=== PATIENT | female | born 1965 | race Caucasian/White ===

== ENCOUNTER → 2020-10-03 13:49 | Outpatient (BNVA) | payer OTHER, SELFPAY | PROVIDERS: PCP Internal Medicine; Visit Provider Nurse Practitioner | DX: Z76.89 Persons encountering health services in other specified circumstances (principal) ==

== ENCOUNTER → 2020-10-19 08:41 | Outpatient (BNVA) | payer OTHER, SELFPAY | PROVIDERS: PCP Internal Medicine; Visit Provider Nurse Practitioner | DX: Z76.89 Persons encountering health services in other specified circumstances (principal) ==

== ENCOUNTER → 2020-11-14 13:11 | Outpatient (BNVA) | payer OTHER, SELFPAY | PROVIDERS: PCP Internal Medicine; Visit Provider Nurse Practitioner ==

== ENCOUNTER 2020-11-16 07:49 | Day surgery (SDC) | payer OTHER, SELFPAY ==
--- NOTE | 2020-11-15 10:10 | P.CONAN_ITS ---
Documented by User: Jeanne Galicia 11/15/20 10:14 HPI - Anesthesia Eval Consult details Narrative: 55yo F for Upper Endoscopy PMFSH Past Medical History Medical History Anxiety and depression COPD (chronic obstructive pulmonary disease) Gout Hypertriglyceridemia Hypothyroid Medullary thyroid carcinoma Multiple endocrine neoplasia type 2A (MEN2A) Pheochromocytoma of left adrenal gland Pulmonary nodule Tobacco abuse Family History Family History Father Heart attack Mother Brain cancer Lung cancer Family/Other Diabetes Surgical History Surgical History H/O total adrenalectomy History of fusion of lumbar spine History of parathyroidectomy History of thyroidectomy History of tonsillectomy Hx of bilateral breast reduction surgery Hx of colonoscopy Status post RAMIREZ-BSO Social History Social History Household Members: Spouse and Children Alcohol intake: current Alcohol intake frequency: does not drink Smoking Status: Current every day smoker Tobacco Type: Cigarette Packs Per Day: 0.5 Cigarettes Per Day: 6 Substance Use Type: Marijuana Substance Use Frequency: Monthly Advance Directives: No Advance Directives Information Provided: Yes Current occupational status: disabled Meds Allergies Allergy/AdvReac Type Severity Reaction Status Date / Time codeine [Codeine] Allergy Mild N/V, Verified 11/14/20 11:44 HEADACHE, vomiting morphine [MORPHINE] Allergy Unknown VOMITING, Verified 11/14/20 11:44 HEADACHE, migraine, vomiting ethyl chloride Allergy Unknown Unknown Uncoded 11/14/20 11:44 lidocaine Allergy Unknown blood Uncoded 11/14/20 11:44 pressure drops Home Medications Medication Instructions Recorded Confirmed Type omeprazole 20 mg capsule,delayed 20 mg PO DAILY 09/04/20 11/14/20 History release albuterol sulfate 90 mcg/actuation 1 inh INHALATION QID 11/07/20 11/14/20 History aerosol inhaler amitriptyline 25 mg tablet 25 mg PO DAILY 11/07/20 11/14/20 History levothyroxine 125 mcg tablet 125 mcg PO DAILY 11/07/20 11/14/20 History bisacodyl 5 mg tablet,delayed 10 mg PO BEDTIME 11/14/20 11/14/20 History release Exam Exam Date and Time: November 15, 2020 1011 Pertinent Lab Results Pertinent Lab Results: Laboratory Tests 07/24/20 07/24/20 13:45 13:45 WBC 8.6 Hgb 14.9 Hct 47.0 Plt Count 284 Sodium 138 Potassium 4.7 Chloride 102 BUN 8 L Creatinine 0.79 Calcium 9.3 Narrative Narrative: ECHO 2019: Trivial pericard effusion, otherwise normal study Assessment and Plan Assessment Anesthesia Assessment: Chart Reviewed Documented by User: Ashish Mart 11/16/20 08:32 [facility] Past Medical History Medical History Anxiety and depression COPD (chronic obstructive pulmonary disease) Gout Hypertriglyceridemia Hypothyroid Medullary thyroid carcinoma Multiple endocrine neoplasia type 2A (MEN2A) Pheochromocytoma of left adrenal gland Pulmonary nodule Tobacco abuse Family History Family History Father Heart attack Mother Brain cancer Lung cancer Family/Other Diabetes Surgical History Surgical History H/O total adrenalectomy History of fusion of lumbar spine History of parathyroidectomy History of thyroidectomy History of tonsillectomy Hx of bilateral breast reduction surgery Hx of colonoscopy Status post RAMIREZ-BSO Social History Social History Household Members: Spouse and Children Alcohol intake: current Alcohol intake frequency: does not drink Smoking Status: Current every day smoker Tobacco Type: Cigarette Packs Per Day: 0.5 Cigarettes Per Day: 6 Substance Use Type: Marijuana Substance Use Frequency: Monthly Advance Directives: No Advance Directives Information Provided: Yes Current occupational status: disabled Meds Allergies Allergy/AdvReac Type Severity Reaction Status Date / Time codeine [Codeine] Allergy Mild N/V, Verified 11/14/20 11:44 HEADACHE, vomiting morphine [MORPHINE] Allergy Unknown VOMITING, Verified 11/14/20 11:44 HEADACHE, migraine, vomiting ethyl chloride Allergy Unknown Unknown Uncoded 11/14/20 11:44 lidocaine Allergy Unknown blood Uncoded 11/14/20 11:44 pressure drops Home Medications Medication Instructions Recorded Confirmed Type omeprazole 20 mg capsule,delayed 20 mg PO DAILY 09/04/20 11/14/20 History release albuterol sulfate 90 mcg/actuation 1 inh INHALATION QID 11/07/20 11/14/20 History aerosol inhaler amitriptyline 25 mg tablet 25 mg PO DAILY 11/07/20 11/14/20 History levothyroxine 125 mcg tablet 125 mcg PO DAILY 11/07/20 11/14/20 History bisacodyl 5 mg tablet,delayed 10 mg PO BEDTIME 11/14/20 11/14/20 History release Exam Airway Mallampati Class: II TM Dist: >3cm Neck ROM: Full Denture: Upper and Lower Loose/Missing/Broken Teeth: No Heart: [id number] Lungs: cta b/l Assessment and Plan Assessment Anesthesia Assessment: Anesthesia Plan Discussed, PAT Visit and Chart Reviewed Final Anesthetic Review NPO: Yes ASA Class: III Final Preanesthetic Review: No Changes in Pt Med Stat, Meds/Allgs Chart Reviewed, Consent Obtained/Reviewed and Anes Risks/Benef Reviewed Patient Risk: Low Procedure Risk: Low Assessment/Block/Sedation in SS: Assess/Block/Sedation-SS Anesthetic Plan Anesthetic Plan: MAC: and Agree w/ Assess. and Plan Disposition: Standard PACU
[2020-11-16 07:58] VITALS: BMI 27.4
[2020-11-16 08:02] VITALS: BP 138/75; PULSE 78; RESP 16; TEMP 36.2; O2SAT 97
[2020-11-16] MEDS: Lactated Ringers 1,000 ML 50 ML IVCONT (08:15)
--- NOTE | 2020-11-16 08:21 | MHC.SHP ---
Pre-Procedural Eval Section B Chief Complaint: reflux disease Allergies: Allergies Allergy/AdvReac Type Severity Reaction Status Date / Time codeine [Codeine] Allergy Mild N/V, Verified 11/14/20 11:44 HEADACHE, vomiting morphine [MORPHINE] Allergy Unknown VOMITING, Verified 11/14/20 11:44 HEADACHE, migraine, vomiting ethyl chloride Allergy Unknown Unknown Uncoded 11/14/20 11:44 lidocaine Allergy Unknown blood Uncoded 11/14/20 11:44 pressure drops Plan Diagnosis/Plan: Unchanged I have reviewed the history and physical and performed a pertinent physical examination on my patient. No changes have occurred unless specified.yes Patient also has a hx of Metastatic medullary thyroid cancer. Surgery right side of neck about 1 year ago. Episodic trouble swallowing points to area posterior pharynx--Cricopharyngeal area.
[2020-11-16 08:51] VITALS: BP 170/86; PULSE 77; RESP 16; TEMP 36.5; O2SAT 100
[2020-11-16 09:06] VITALS: BP 125/72; PULSE 77; RESP 17; TEMP 36.5; O2SAT 96
--- NOTE | 2020-11-16 09:06 | PM.PROC ---
Brief Operative Note Date of procedure: 11/16/20 Pre-op diagnosis: Odynophagia, GERD Post-op diagnosis: other (Hiatal hernia, soft changes ? GERD) Procedure: EGD with bx Anesthesia: MAC (Tam Saab CRNA) Surgeon: Stephanie Masterson Estimated blood loss (mL): 5 Pathology: other (random gastric, esophageal) Condition: stable Disposition: PACU
--- NOTE | 2020-11-16 09:24 | HO.POSTANES ---
Post Anesthesia Evaluation Post Anesthesia Evaluation Vital Signs: Vital Signs Temp Pulse Resp BP Pulse Ox 11/16/20 09:06 97.7 F 77 17 125/72 96 11/16/20 08:51 97.7 F 77 16 170/86 H 100 11/16/20 08:02 97.1 F 78 16 138/75 97 Anesthesia: Monitored Mental Status: Awake Pain Control: Satisfactory Nausea/Vomiting: None Hydration: Adequate Anesthesia-Related Issues: No Anes. Related Issues
--- NOTE | 2020-11-16 09:39 | OP_ITS ---
SURGEON: Stephanie Masterson MD PREOPERATIVE DIAGNOSIS: History of medullary thyroid cancer recurrent metastatic, odynophagia, history of gastroesophageal reflux disease, trouble swallowing. POSTOPERATIVE DIAGNOSIS: Hiatal hernia, history of gastroesophageal reflux disease, question of esophagitis. PROCEDURE PERFORMED: EGD with biopsy. ESTIMATED BLOOD LOSS: Less than 5 mL. COMPLICATIONS: No complications. ANESTHESIA: Type of anesthesia, monitored. ANESTHESIOLOGIST: Tam Saab CRNA ASSISTANTS: No bindery library technical assistant. SPECIMENS: Specimens removed; random gastric distal esophageal. APPLICATION SUPPORT INTERN: Dr. Masterson. CONDITION: Stable. FINDINGS: Video endoscope was introduced without difficulty. It was navigated into the posterior pharynx. There was moderate amount of soft tissue present. The arytenoid cartilage view showed mucosa to be puffy. There was loss of sharpness of the cartilages with edema of the surrounding mucosa and mild erythema. No yeast plaquing was noted. Vocal cords appeared clear. On entering into the esophagus, there was mild hyperemia in the distal region immediately distal to that there was 1 to 2 cm hiatal hernia. On entering the stomach, there appeared to be normal gastric mucosa. Duodenal bulb had slight edema and friability. Normal villi in the second duodenum. PLAN: This patient could have just a combination of esophageal spasm associated with undertreated GERD. There is a possibility always of the eosinophilic esophagitis in some of these patients. She denies any use of steroid inhalers at this point. She does have the underlying history of chronic medullary thyroid cancer which could carry with it a degree of immunosuppression. The patient will be re-seen in our office in an appropriate interval. GRAFT OR IMPLANTS: No grafts or implants. Stephanie Masterson MD MEN/MODL / [id number]
== END 2020-11-16 09:22 | disposition home or self-care (01) ==
PROVIDERS: PCP Internal Medicine; Visit Provider Internal Medicine Gastroenterology
PROC: 0DJ08ZZ Inspection of Upper Intestinal Tract, Via Natural or Artificial Opening Endoscopic (ICD-10-PCS; CPT 43235; principal; 2020-11-16 08:30)
DX: K21.9 Gastro-esophageal reflux disease without esophagitis (principal); R13.10 Dysphagia, unspecified; K44.9 Diaphragmatic hernia without obstruction or gangrene; J44.9 Chronic obstructive pulmonary disease, unspecified; F17.210 Nicotine dependence, cigarettes, uncomplicated; Z85.850 Personal history of malignant neoplasm of thyroid; Z79.899 Other long term (current) drug therapy; Z88.8 Allergy status to other drugs, medicaments and biological substances
CPT/HCPCS: 43239; 88305; 88342

== ENCOUNTER 2020-11-20 16:10 | Outpatient (REF) | payer OTHER, SELFPAY ==
--- NOTE | 2020-11-20 16:14 | US_ITS ---
EXAMINATION: US EXTREMITY NON-VASCULAR CLINICAL INFORMATION: Mass left upper limb. COMPARISON: Ultrasound left axilla 09/08/2017. TECHNIQUE: Limited imaging of left axilla is performed. FINDINGS: There is a hypoechoic focal area in the left axilla measuring 0.7 x 0.6 x 0.6 cm, avascular, most likely a small lipoma. Previously it measured 0.7 x 0.6 x 0.5 cm. US/US extremity nonvascular IMPRESSION: Hyperechoic lesion left axilla measuring 7 mm. It is unchanged compared to previous study 09/09/2017.
== END 2020-11-20 16:11 | disposition home or self-care (01) ==
LOC: HO.US 16:10
PROVIDERS: PCP Internal Medicine; Visit Provider Internal Medicine
DX: R22.32 Localized swelling, mass and lump, left upper limb (principal)
CPT/HCPCS: 76882

== ENCOUNTER → 2020-11-30 08:39 | Outpatient (BNVA) | payer OTHER, SELFPAY | PROVIDERS: PCP Internal Medicine; Visit Provider Nurse Practitioner ==

== ENCOUNTER → 2021-01-11 08:59 | Outpatient (BNVA) | payer OTHER, SELFPAY | PROVIDERS: PCP Internal Medicine; Visit Provider Nurse Practitioner | DX: R13.10 Dysphagia, unspecified (principal); R14.0 Abdominal distension (gaseous); B37.81 Candidal esophagitis; B37.0 Candidal stomatitis; K58.1 Irritable bowel syndrome with constipation; K21.9 Gastro-esophageal reflux disease without esophagitis; K59.04 Chronic idiopathic constipation; Z79.899 Other long term (current) drug therapy | CPT/HCPCS: 99212 ==

== ENCOUNTER → 2021-02-08 08:48 | Outpatient (BNVA) | payer OTHER, SELFPAY | PROVIDERS: PCP Internal Medicine; Visit Provider Nurse Practitioner ==

== ENCOUNTER → 2021-02-20 14:03 | Outpatient (BNVA) | payer OTHER, SELFPAY | PROVIDERS: PCP Internal Medicine; Visit Provider Orthopaedic Surgery | DX: M79.89 Other specified soft tissue disorders (principal) | CPT/HCPCS: 99202 ==

== ENCOUNTER 2021-03-08 13:42 | Day surgery (SDC) | payer OTHER, SELFPAY ==
--- NOTE | 2021-03-08 14:54 | MHC.SHP ---
Pre-Procedural Eval Section B Chief Complaint: soft tissue disorder Allergies: Allergies Allergy/AdvReac Type Severity Reaction Status Date / Time codeine [Codeine] Allergy Mild N/V, Verified 02/20/21 14:13 HEADACHE, vomiting morphine [MORPHINE] Allergy Unknown VOMITING, Verified 02/20/21 14:13 HEADACHE, migraine, vomiting ethyl chloride Allergy Unknown Unknown Uncoded 11/14/20 11:44 lidocaine Allergy Unknown blood Uncoded 11/14/20 11:44 pressure drops Plan I have reviewed the history and physical and performed a pertinent physical examination on my patient. No changes have occurred unless specified.
--- NOTE | 2021-03-08 14:54 | W.PM.OPN ---
Operative Note Operative Note Date of Service: 03/08/21 Narrative: Preop diagnosis: 1. Left palmar hand mass Postop diagnosis: same Procedure: 1. Left palmar hand mass excisional biopsy Surgeon: Zoila Hernandez MD Anesthesia: local block using 1% lidocaine with epinephrine Findings: There was an approximately 1 cm diameter meyers and spherical mass attached to the A1 dontae area of the left middle finger flexor tendon sheath. No evidence of similar material within the tendon sheath. The flexor tendons appear to be in good condition. EBL: Less than 5 mL Specimens: Left palmar hand mass for histopathology Complications: None Disposition: Brought to recovery room in stable condition Plan: Follow-up for 7-10 days for wound check and suture removal, check pathology Indications: The patient is 55 years old, with a left palmar hand mass. The risks and benefits of operative treatment including but not limited to risk of damage to blood vessels, nerves, tendons, infection, persistent pain, persistent symptoms, or possible need for additional surgery were discussed with the patient and the patient wishes to proceed with surgery. Procedure: Once consent was obtained a local block was performed using a combination of 1% lidocaine with epinephrine. The patient was then brought back to the operating suite and placed on the operative table in supine position. A tourniquet was applied to the proximal aspect of the left upper extremity and the limb was prepped and draped in a standard surgical fashion. Once assured that we had a good block, a 1.5 cm longitudinal incision was made centered over the left palmar hand mass. The incision was made through the skin to the subcutaneous tissues using a #15 blade. Dissection was made down to the level of the mass using tenotomy scissors with care being taken to protect the surrounding neurovascular structures. There was an approximately 1 cm diameter solid hand soft tissue mass attached to the A1 dontae aspect of the left middle finger flexor tendon sheath. The mass was dissected free from the flexor tendon sheath and the surrounding subcutaneous fat and was removed and placed on the back table to be sent for histopathology. It had the appearance of a possible giant cell tumor. The A1 dontae was also released by making a longitudinal incision in the A1 dontae to further evaluate the flexor tendons. None of this meyers material was found within the flexor tendon sheath. The flexor tendons themselves appeared to be in good condition. Once satisfied with our hand mass excisional biopsy the wound was copiously irrigated with normal saline and hemostasis was obtained with a brief period of local pressure. The skin edges were reapproximated with some 5.0 nylon suture material and a sterile dressing was applied. The patient appears to have tolerated the procedure well and with no complications. All digits were well vascularized at the conclusion of the case.
[2021-03-08 15:05] VITALS: BP 121/74; PULSE 79; RESP 16; TEMP 36.3; O2SAT 96
[2021-03-08 15:06] VITALS: BMI 28.2
[2021-03-08 17:08] VITALS: BP 115/66; PULSE 67; RESP 16; TEMP 36.3; O2SAT 96
== END 2021-03-08 17:25 | disposition home or self-care (01) ==
PROVIDERS: PCP Internal Medicine; Visit Provider Orthopaedic Surgery
PROC: (CPT 26115; principal; 2021-03-08 14:40)
DX: M79.89 Other specified soft tissue disorders (principal); J44.9 Chronic obstructive pulmonary disease, unspecified; Z79.899 Other long term (current) drug therapy; Z85.850 Personal history of malignant neoplasm of thyroid; F17.210 Nicotine dependence, cigarettes, uncomplicated; F12.90 Cannabis use, unspecified, uncomplicated; Z88.8 Allergy status to other drugs, medicaments and biological substances
CPT/HCPCS: 26115; 88307

== ENCOUNTER → 2021-03-20 12:39 | Outpatient (BNVA) | payer OTHER, SELFPAY | PROVIDERS: PCP Internal Medicine; Visit Provider Orthopaedic Surgery | DX: D48.1 Neoplasm of uncertain behavior of connective and other soft tissue (principal); M79.89 Other specified soft tissue disorders | CPT/HCPCS: 99212 ==

== ENCOUNTER → 2021-05-30 11:25 | Outpatient (BNVA) | payer OTHER, SELFPAY | PROVIDERS: PCP Internal Medicine; Visit Provider Orthopaedic Surgery ==

== ENCOUNTER → 2021-06-11 08:48 | Outpatient (BNVA) | payer OTHER, SELFPAY | PROVIDERS: PCP Internal Medicine; Visit Provider Nurse Practitioner ==

== ENCOUNTER 2021-10-05 13:53 | Outpatient (REF) | payer OTHER, SELFPAY ==
--- NOTE | ~2021-10-05 | MM_ITS ---
EXAMINATION: BONE DENSITOMETRY CLINICAL INDICATION: Multiple endocrine neoplasia. COMPARISON: This is the patient's baseline examination. TECHNIQUE: Using a [employer] DXA System (software version: 13.1) manufactured by [employer], dual-energy x-ray absorptiometry was performed of the left hip and left forearm radius 33%. The images are of good technical quality. Summary results are attached. FINDINGS: LEFT FEMUR, NECK: BMD 0.816 g/cm2, Z-score -0.8, T-score -1.6, osteopenia. LEFT FEMUR, TOTAL: BMD 0.784 g/cm2, Z-score -1.4, T-score -1.8, osteopenia. LEFT FOREARM RADIUS 33%: BMD 0.762 g/cm2, Z-score -0.8, T-score -1.3, osteopenia. IDENTIFIED RISK FACTORS: Hyperparathyroidism, tobacco use (current smoker), menopause, hysterectomy, bilateral oophorectomy. HISTORY OF FRACTURE: None listed. MEDICATIONS: None listed. MM/XR DEXA axial skeleton IMPRESSION: 1. DIAGNOSIS: Osteopenia based on the lowest T-score value of -1.8 in the total femur applying World Health Organization criteria. 2. 10-YEAR FRACTURE RISK PREDICTION, FRAX: Major osteoporotic fracture (clinical spine, forearm, hip or shoulder) 7.0%. Hip fracture 1.0%. 3. Treatment Recommendations: NOF guidelines recommend consideration for treatment in postmenopausal women and men age 50 and older presenting with the following: -A hip or vertebral (clinical or morphometric) fracture. -T-score less than or equal to -2.5 at the femoral neck or spine after appropriate evaluation to exclude secondary causes. -Low bone mass at the hip or spine and a 10-year fracture probability by FRAX of greater than or equal to 3% for hip fracture or greater than or equal to 20% for major osteoporotic fracture based on the [place] adapted WHO algorithm. 4. Other Recommendations: All treatment decisions require clinical judgment and consideration of individual patient factors, including patient preferences, comorbidities, previous drug use, risk factors not captured in the FRAX model (e.g. frailty, falls, vitamin D deficiency, increased bone turnover, interval significant decline in bone density) and possible under or overestimation of fracture risk by FRAX. Additional medical evaluation for secondary cause of low bone mineral density may be appropriate. FUTURE SCAN RECOMMENDATION: People with diagnosed cases of osteoporosis or at high risk for fracture should have regular bone mineral density tests. For patients eligible for Medicare, routine testing is allowed once every 2 years. The testing frequency can be increased to one year for patients who have rapidly progressing disease, those who are receiving or discontinuing medical therapy to restore bone mass, or have additional risk factors.
== END 2021-10-05 13:54 | disposition home or self-care (01) ==
LOC: HO.MAMMO 13:53
PROVIDERS: PCP Internal Medicine; Visit Provider Internal Medicine
DX: Z13.820 Encounter for screening for osteoporosis (principal); E31.22 Multiple endocrine neoplasia [MEN] type IIA; F17.200 Nicotine dependence, unspecified, uncomplicated; Z78.0 Asymptomatic menopausal state; Z90.710 Acquired absence of both cervix and uterus; Z90.722 Acquired absence of ovaries, bilateral
CPT/HCPCS: 77080

== ENCOUNTER 2021-12-03 13:16 | Outpatient (REF) | payer OTHER, SELFPAY ==
[2021-12-03 16:23] LABS: MANUAL DIFF FLAG NO
[2021-12-03 16:36] LABS: Basophils Percent Auto 0.6 % (0-2); Eosinophils Absolute Auto 0.1 X10*3/uL (0.0-0.4); Hematocrit 42.1 % (37.0-47.0); Hemoglobin 13.5 g/dl (12.0-16.0); Imm Gran Abs Auto 0.03 X10*3/uL (0.00-0.03); Imm Gran Pct Auto 0.5 % (0.0-0.4); Lymphocytes Percent Auto 31.6 % (20-40); Mean Corpuscular HGB Conc 32.1 g/dl (31.0-35.0); Mean Corpuscular Hemoglobin 28.1 pg (27.0-33.0); Mean Corpuscular Volume 87.5 fL (80.0-98.0); Mean Platelet Volume 12.3 fL (9.4-12.3); Monocytes Absolute Auto 0.6 X10*3/uL (0.1-1.2); Monocytes Percent Auto 8.8 % (2-11); Neutrophils Absolute Auto 3.6 x10*3/uL (2.0-8.3); Neutrophils Percent Auto 57.5 % (45-73); Platelet Count 240 X10*3/uL (160-400); Red Blood Count 4.81 X10*6/uL (4.20-5.50); Red Cell Distribution Width 14.6 % (11.0-16.0); White Blood Count 6.2 X10*3/uL (4.8-10.8)
[2021-12-03 17:08] LABS: Free T4 (Free Thyroxine) 1.14 ng/dL (0.71-1.85); Thyroid Stimulating Hormone 0.07 uIU/mL (0.32-4.0); Vitamin D 25-OH Total 20.9 ng/mL (>30)
[2021-12-03 18:51] LABS: Alanine Aminotransferase 10 U/L (0-31); Albumin Level 4.1 g/dL (3.5-5.0); Alkaline Phosphatase 93 U/L (39-117); Anion Gap 11 (12-20); Aspartate Amino Transferase 14 U/L (5-31); Bilirubin Total 0.4 mg/dL (0.0-1.0); Blood Urea Nitrogen 7 mg/dL (9-16); Calcium 9.2 mg/dL (8.4-10.2); Carbon Dioxide 28 mmol/L (22-29); Chloride 106 mmol/L (96-108); Cholesterol 180 mg/dL; Estimated Glomerular Filt Rate > 60; Glucose Random 59 mg/dL (60-115); HDL Cholesterol 35 mg/dL; LDL Cholesterol Calculated 113 mg/dl; Potassium 4.2 mmol/L (3.3-5.1); Sodium 141 mmol/L (135-145); Total Protein 6.8 g/dL (6.5-8.0); Triglycerides 161 mg/dL
[2021-12-05 19:41] LABS: Folate 6.8 ng/mL (> or = 4.0); Vitamin B12 463 pg/mL (200-900)
== END 2021-12-03 13:17 | disposition home or self-care (01) ==
LOC: HO.HMGCLDS 13:16
PROVIDERS: Visit Provider Internal Medicine
DX: K21.9 Gastro-esophageal reflux disease without esophagitis (principal); E89.0 Postprocedural hypothyroidism; E78.00 Pure hypercholesterolemia, unspecified
CPT/HCPCS: 36415; 80053; 80061; 82306; 82607; 82746; 84439; 84443; 85025

== ENCOUNTER → 2021-12-10 14:27 | Outpatient (BNVA) | payer OTHER, SELFPAY | PROVIDERS: PCP Internal Medicine; Referring Provider Internal Medicine; Visit Provider Nurse Practitioner | DX: K58.1 Irritable bowel syndrome with constipation (principal); K59.04 Chronic idiopathic constipation; K21.9 Gastro-esophageal reflux disease without esophagitis | CPT/HCPCS: 99212 ==

== ENCOUNTER 2021-12-26 08:54 | Outpatient (REF) | payer OTHER, SELFPAY ==
--- NOTE | ~2021-12-26 | US_ITS ---
EXAMINATION: ULTRASOUND EXTREMITY NONVASCULAR CLINICAL INFORMATION: Mass left axilla. History of thyroid cancer. COMPARISON: Ultrasound soft tissue 11/20/2020 TECHNIQUE: Limited imaging to the left axilla was performed. FINDINGS: There is a hyperechoic area seen in the left axilla measuring 0.71 x 0.45 x 0.57 cm and central vascularity most likely small lipoma, less likely lymph node. Previously it measured 0.70 x 0.60 x 0.60 cm. US/US extremity nonvascular IMPRESSION: Hyperechoic lesion corresponds to the left axillary lump felt by the patient. The ultrasound findings are lipoma or a small lymph node. It is unchanged. Recommend long-term follow-up or fine needle biopsy if pt is in pain. .
--- NOTE | ~2021-12-26 | XR_ITS ---
EXAMINATION: XR CERVICAL SPINE CLINICAL INFORMATION: M65.30 - Trigger finger, unspecified finger COMPARISON: None TECHNIQUE: 3 views of the cervical spine were obtained. FINDINGS: There is straightening cervical lordosis with borderline levocurvature mid to lower cervical spine. The vertebral bodies are normal in height. There is no vertebral compression, spondylolisthesis, destructive process, or prevertebral soft tissue swelling. The odontoid appears intact. There is borderline disc narrowing C3-C4 and C6-C7. Mild anterior vertebral spurring is present at several levels. No cervical rib. XR/XR cervical spine 2V IMPRESSION: Borderline disc narrowing C3 and C4 and C6-C7.
--- NOTE | ~2021-12-26 | XR_ITS ---
EXAMINATION: XR THORACIC SPINE XR LUMBAR SPINE CLINICAL INFORMATION: L81.4 - Other melanin hyperpigmentation COMPARISON: Cervical radiographs 12/26/2021, CT chest 11/08/2016, CT abdomen 03/04/2016, radiographs lumbar spine 05/06/2016. TECHNIQUE: Thoracic spine is imaged in 3 views. Lumbar spine is imaged in 3 views. There are total of 6 views. FINDINGS: There are postsurgical changes with bilateral pedicle screws and rodding from T12 through S1 and laminectomy L5. The right emeli is fractured just above the right L3 screw, similar to prior radiographs 2016. Hardware is unchanged from prior studies. Thoracic spine shows normal kyphosis. There is no thoracic vertebral compression, destructive process, or spondylolisthesis. There are mild multilevel degenerative changes disc. No erosive change. No paraspinal soft tissue swelling. Lumbar spine shows no interval vertebral compression, destructive process, or osteolysis. Again, there are degenerative changes involving the L1-L2 disc with disc narrowing and mild vertebral spurring. Mild degenerative disc changes also at lumbosacral junction. The SI joints and visualized sacrum are unremarkable. XR/XR lumbar spine 2-3V IMPRESSION: 1. Postsurgical changes with bilateral pedicle screws and rodding T12-S1 and laminectomy L5. Old fracture right lumbar emeli just superior to right L3 screw similar to radiographs 2016. 2. Mild multilevel degenerative disc changes thoracic spine. Degenerative disc changes L1-L2 and L5-S1. 3. No vertebral compression, spondylolisthesis, or destructive process.
--- NOTE | ~2021-12-26 | XR_ITS ---
EXAMINATION: XR THORACIC SPINE XR LUMBAR SPINE CLINICAL INFORMATION: L81.4 - Other melanin hyperpigmentation COMPARISON: Cervical radiographs 12/26/2021, CT chest 11/08/2016, CT abdomen 03/04/2016, radiographs lumbar spine 05/06/2016. TECHNIQUE: Thoracic spine is imaged in 3 views. Lumbar spine is imaged in 3 views. There are total of 6 views. FINDINGS: There are postsurgical changes with bilateral pedicle screws and rodding from T12 through S1 and laminectomy L5. The right emeli is fractured just above the right L3 screw, similar to prior radiographs 2016. Hardware is unchanged from prior studies. Thoracic spine shows normal kyphosis. There is no thoracic vertebral compression, destructive process, or spondylolisthesis. There are mild multilevel degenerative changes disc. No erosive change. No paraspinal soft tissue swelling. Lumbar spine shows no interval vertebral compression, destructive process, or osteolysis. Again, there are degenerative changes involving the L1-L2 disc with disc narrowing and mild vertebral spurring. Mild degenerative disc changes also at lumbosacral junction. The SI joints and visualized sacrum are unremarkable. XR/XR thoracic spine 2V IMPRESSION: 1. Postsurgical changes with bilateral pedicle screws and rodding T12-S1 and laminectomy L5. Old fracture right lumbar emeli just superior to right L3 screw similar to radiographs 2016. 2. Mild multilevel degenerative disc changes thoracic spine. Degenerative disc changes L1-L2 and L5-S1. 3. No vertebral compression, spondylolisthesis, or destructive process.
== END 2021-12-26 08:55 | disposition home or self-care (01) ==
LOC: HO.HMGCX 08:54
PROVIDERS: PCP Internal Medicine; Visit Provider Internal Medicine
DX: M65.30 Trigger finger, unspecified finger (principal); L81.4 Other melanin hyperpigmentation; R22.32 Localized swelling, mass and lump, left upper limb; Z85.850 Personal history of malignant neoplasm of thyroid
CPT/HCPCS: 72040; 72070; 72100; 76882

== ENCOUNTER → 2022-01-14 13:14 | Outpatient (BNVA) | payer OTHER, SELFPAY | PROVIDERS: PCP Internal Medicine; Referring Provider Internal Medicine; Visit Provider Nurse Practitioner | DX: K21.9 Gastro-esophageal reflux disease without esophagitis (principal); K59.04 Chronic idiopathic constipation; K58.1 Irritable bowel syndrome with constipation; R11.0 Nausea; Z72.0 Tobacco use; Z88.6 Allergy status to analgesic agent; Z88.4 Allergy status to anesthetic agent; Z88.8 Allergy status to other drugs, medicaments and biological substances | CPT/HCPCS: 99212 ==

== ENCOUNTER 2022-02-04 13:01 | Outpatient (REF) | payer OTHER, SELFPAY | END 2022-02-04 13:02 | disposition home or self-care (01) | LOC: HO.LAB 13:01 | PROVIDERS: PCP Internal Medicine; Referring Provider Internal Medicine; Visit Provider Surgery | DX: R22.32 Localized swelling, mass and lump, left upper limb (principal); F17.210 Nicotine dependence, cigarettes, uncomplicated; Z79.899 Other long term (current) drug therapy | CPT/HCPCS: 10021; 88173; 99212 ==

== ENCOUNTER → 2022-02-05 15:39 | Outpatient (BNVA) | payer OTHER, SELFPAY | PROVIDERS: PCP Internal Medicine; Referring Provider Internal Medicine; Visit Provider Nurse Practitioner | DX: K59.04 Chronic idiopathic constipation (principal); K21.9 Gastro-esophageal reflux disease without esophagitis | CPT/HCPCS: 99212 ==

== ENCOUNTER 2022-02-26 13:08 | Outpatient (REF) | payer OTHER, SELFPAY ==
--- NOTE | ~2022-02-26 | MM_ITS ---
EXAMINATION: MM SCREENING DIGITAL BREAST TOMOSYNTHESIS, BILATERAL CLINICAL INFORMATION: Screening. Asymptomatic. Status post reduction mammoplasty in September,. The lifetime risk of breast cancer based on the Tyrer-Cuzick Model is 11%. COMPARISON: Mammography: 11/11/2018, 03/14/2017, 02/21/2016 TECHNIQUE: Digital breast tomosynthesis is performed in both the craniocaudal and mediolateral oblique views along with computer-aided detection (CAD). Synthesized 2D images are generated from the tomosynthesis. Additional right MLO view is provided. FINDINGS: There are scattered areas of fibroglandular density (ACR BI-RADS breast composition Category b). The breasts are symmetrically decreased and there is minor scarring consistent with the reduction mammoplasty when compared with prior exam 2019. There is no significant mass or architectural abnormality or abnormal calcifications. Benign grouped oil cyst are present anterior 1:00 left breast. There are some scattered benign coarse calcifications. There are grouped calcifications peripherally arranged around a small oval oil cyst anterior 7:00 left breast. There are chronic coarse calcifications right axillary node similar to prior exams dating back to 2016 consistent with old granulomatous changes. The skin contours are smooth. MM/MM tomosynthesis screening BI IMPRESSION: -No mammographic evidence of malignancy. -Postsurgical changes consistent with the history reduction mammoplasty since prior imaging 2018. ASSESSMENT: BI-RADS 2: Benign RECOMMENDATION: Routine annual mammography screening. This patient's information was entered into a reminder system with a target due date for their next mammogram.
== END 2022-02-26 13:09 | disposition home or self-care (01) ==
LOC: HO.MAMMO 13:08
PROVIDERS: PCP Internal Medicine; Visit Provider Internal Medicine
DX: Z12.31 Encounter for screening mammogram for malignant neoplasm of breast (principal)
CPT/HCPCS: 77063; 77067

== ENCOUNTER → 2022-02-28 14:46 | Outpatient (BNVA) | payer OTHER, SELFPAY | PROVIDERS: PCP Internal Medicine; Referring Provider Internal Medicine; Visit Provider Surgery | DX: R22.32 Localized swelling, mass and lump, left upper limb (principal) | CPT/HCPCS: 99212 ==

== ENCOUNTER → 2022-03-19 12:46 | Outpatient (BNVA) | payer OTHER, SELFPAY | PROVIDERS: PCP Internal Medicine; Referring Provider Internal Medicine; Visit Provider Nurse Practitioner | DX: K58.1 Irritable bowel syndrome with constipation (principal); K21.9 Gastro-esophageal reflux disease without esophagitis; R14.0 Abdominal distension (gaseous); Z79.899 Other long term (current) drug therapy | CPT/HCPCS: 99212 ==

== ENCOUNTER 2022-04-18 12:36 | Outpatient (REF) | payer OTHER, SELFPAY ==
--- NOTE | ~2022-04-18 | XR_ITS ---
EXAMINATION: XR BILATERAL HAND CLINICAL INFORMATION: Pain. COMPARISON: None TECHNIQUE: 3 views each hand. FINDINGS: RIGHT HAND: There is loss of PIP and DIP joint space. The MCP joint space is maintained normal. No visible acute fracture, dislocation or lytic process seen. There is no bony erosive changes. The soft tissues are normal. LEFT HAND: There is mild bony erosive changes DIP joint 3rd digit. Mild periapical spurring PIP joint 2nd digit. Mild soft tissue swelling PIP joints 2nd through 4th digits are noted. Mild loss of PIP and DIP joint spaces all digits. The MCP joint space intercarpal and radioulnar carpal joint spaces are maintained normal. No visible acute fracture, dislocation or subluxation seen. XR/XR hand LT min 3V IMPRESSION: 1. Mild degenerative changes seen throughout the PIP and DIP joints both hands with mild erosive changes DIP joint 3rd digit left hand and periapical spurring PIP joint 2nd digit. 2. No acute fracture or dislocation seen. There is mild soft tissue swelling PIP joint 2nd through 4th digits.
--- NOTE | ~2022-04-18 | XR_ITS ---
EXAMINATION: XR BILATERAL HAND CLINICAL INFORMATION: Pain. COMPARISON: None TECHNIQUE: 3 views each hand. FINDINGS: RIGHT HAND: There is loss of PIP and DIP joint space. The MCP joint space is maintained normal. No visible acute fracture, dislocation or lytic process seen. There is no bony erosive changes. The soft tissues are normal. LEFT HAND: There is mild bony erosive changes DIP joint 3rd digit. Mild periapical spurring PIP joint 2nd digit. Mild soft tissue swelling PIP joints 2nd through 4th digits are noted. Mild loss of PIP and DIP joint spaces all digits. The MCP joint space intercarpal and radioulnar carpal joint spaces are maintained normal. No visible acute fracture, dislocation or subluxation seen. XR/XR hand RT min 3V IMPRESSION: 1. Mild degenerative changes seen throughout the PIP and DIP joints both hands with mild erosive changes DIP joint 3rd digit left hand and periapical spurring PIP joint 2nd digit. 2. No acute fracture or dislocation seen. There is mild soft tissue swelling PIP joint 2nd through 4th digits.
== END 2022-04-18 12:37 | disposition home or self-care (01) ==
LOC: HO.HMGCX 12:36
PROVIDERS: PCP Internal Medicine; Visit Provider Internal Medicine
DX: M79.642 Pain in left hand (principal); M79.641 Pain in right hand
CPT/HCPCS: 73130

== ENCOUNTER 2022-05-11 09:37 | Outpatient (REF) | payer OTHER, SELFPAY ==
--- NOTE | ~2022-05-11 | XR_ITS ---
EXAMINATION: XR FOOT, BILATERAL CLINICAL INFORMATION: Rash COMPARISON: Left foot 08/10/2019 TECHNIQUE: 3 views of each foot FINDINGS: Left foot: Moderate osteoarthritis of the 1st MTP joint with dorsal osteophyte, similar to previous. There is a prominent heel spur. No acute fracture. No periarticular osteopenia or erosions. Right foot: Moderate osteoarthritis of the 1st MTP joint with dorsal osteophyte. Small heel spur. No fracture. No periarticular osteopenia or erosions. XR/XR foot RT 2V IMPRESSION: Moderate bilateral 1st MTP joint osteoarthritis with hallux rigidus. Left greater than right heel spurs.
--- NOTE | ~2022-05-11 | XR_ITS ---
EXAMINATION: XR FOOT, BILATERAL CLINICAL INFORMATION: Rash COMPARISON: Left foot 08/10/2019 TECHNIQUE: 3 views of each foot FINDINGS: Left foot: Moderate osteoarthritis of the 1st MTP joint with dorsal osteophyte, similar to previous. There is a prominent heel spur. No acute fracture. No periarticular osteopenia or erosions. Right foot: Moderate osteoarthritis of the 1st MTP joint with dorsal osteophyte. Small heel spur. No fracture. No periarticular osteopenia or erosions. XR/XR foot LT 2V IMPRESSION: Moderate bilateral 1st MTP joint osteoarthritis with hallux rigidus. Left greater than right heel spurs.
== END 2022-05-11 09:38 | disposition home or self-care (01) ==
LOC: HO.HMGCX 09:37
PROVIDERS: Visit Provider Internal Medicine
DX: R21 Rash and other nonspecific skin eruption (principal)
CPT/HCPCS: 73620

== ENCOUNTER → 2022-06-05 08:41 | Outpatient (BNVA) | payer OTHER, SELFPAY | PROVIDERS: PCP Internal Medicine; Visit Provider Nurse Practitioner | DX: K30 Functional dyspepsia (principal); K59.04 Chronic idiopathic constipation; K21.9 Gastro-esophageal reflux disease without esophagitis | CPT/HCPCS: 99212 ==

== ENCOUNTER → 2022-06-28 09:42 | Outpatient (BNVA) | payer OTHER, SELFPAY | PROVIDERS: PCP Internal Medicine; Visit Provider Nurse Practitioner | DX: K30 Functional dyspepsia (principal); K59.04 Chronic idiopathic constipation; K21.9 Gastro-esophageal reflux disease without esophagitis; R14.0 Abdominal distension (gaseous); R68.81 Early satiety | CPT/HCPCS: 99212 ==

== ENCOUNTER 2022-07-08 14:23 | Outpatient (REF) | payer OTHER, SELFPAY ==
--- NOTE | ~2022-07-08 | XR_ITS ---
EXAMINATION: XR abdomen min 2V CLINICAL INDICATION: Reason for Exam K30 - Functional dyspepsia COMPARISON: KUB 06/15/2019 TECHNIQUE: AP view of the abdomen. XR/XR abdomen min 2V FINDINGS/IMPRESSION: * Nonobstructive bowel gas pattern, with moderate stool burden in the right hemicolon. * No abnormal calcifications. * Moderate degenerative changes of the right greater than left sacroiliac joints with loss of joint space. * Thoracolumbar and lumbosacral spinal fusion hardware extending from T12 through S1, which could be better characterized with lumbar spine radiographs if warranted.
== END 2022-07-08 14:24 | disposition home or self-care (01) ==
LOC: HO.HMGCX 14:23
PROVIDERS: PCP Internal Medicine; Visit Provider Nurse Practitioner
DX: K30 Functional dyspepsia (principal)
CPT/HCPCS: 74019

== ENCOUNTER → 2022-07-23 08:45 | Outpatient (BNVA) | payer OTHER, SELFPAY | PROVIDERS: PCP Internal Medicine; Referring Provider Internal Medicine; Visit Provider Nurse Practitioner | DX: K59.04 Chronic idiopathic constipation (principal); K30 Functional dyspepsia; K21.9 Gastro-esophageal reflux disease without esophagitis; R14.0 Abdominal distension (gaseous); Z79.899 Other long term (current) drug therapy | CPT/HCPCS: 99212 ==

== ENCOUNTER 2022-08-21 16:10 | Outpatient (REF) | payer OTHER, SELFPAY ==
--- NOTE | ~2022-08-21 | MR_ITS ---
EXAMINATION: MR CERVICAL SPINE WITHOUT CONTRAST CLINICAL INFORMATION: Neck pain. COMPARISON: X-ray dated 12/26/2021. TECHNIQUE: Multiplanar, multisequential imaging of the cervical spine was performed without contrast. FINDINGS: VERTEBRAL BODIES AND PARASPINAL SOFT TISSUES: There is a mild rightward curvature of the cervical spine. Probable intraosseous hemangioma with T1/T2 hyperintensity noted in the T2 vertebral body. There are very mild edematous endplate changes posteriorly at multiple levels with [id number] disc space narrowing and reduced intradiscal signal from degeneration. No compression fractures or subluxations are seen. The paraspinal soft tissues appear normal. The vertebral artery flow-voids are maintained. The imaged lung apices are grossly clear. CERVICOMEDULLARY JUNCTION AND VISUALIZED POSTERIOR FOSSA: The craniovertebral junction and imaged portions of the brain parenchyma appear normal. No cord signal abnormality or syrinx is seen. SPINAL LEVELS: C2-C3: Very small central disc protrusion. No central canal stenosis or foraminal narrowing. C3-C4: Mild loss of disc height and shallow central disc protrusion superimposed upon a disc-osteophyte complex. Mild central canal stenosis and moderate left foraminal narrowing. Milder right foraminal encroachment. C4-C5: Mild endplate spurring and minimal disc bulge with mild central canal stenosis and moderate left foraminal narrowing. C5-C6: Shallow central disc protrusion distorts the ventral cord without central canal stenosis. Very mild left foraminal narrowing. C6-C7: Right paracentral disc protrusion distorts the ventral cord with mild central canal stenosis. Shallow underlying disc-osteophyte complex with mild left foraminal narrowing. C7-T1: Small central disc protrusion. No central canal stenosis or foraminal narrowing. MR/MR cervical spine wo con IMPRESSION: [id number] multilevel cervical spondylosis with mild central canal stenosis at the C3-C4, C4-C5, and C6-C7 levels. Moderate left foraminal narrowing at the C3-C4 and C4-C5 levels. Small disc protrusions at the C2-C3, C5-C6, C6-C7, and C7-T1 levels.
== END 2022-08-21 16:11 | disposition home or self-care (01) ==
LOC: HO.MRI 16:10
PROVIDERS: Visit Provider Internal Medicine
DX: M54.2 Cervicalgia (principal)
CPT/HCPCS: 72141

== ENCOUNTER → 2022-09-24 10:52 | Outpatient (BNVA) | payer OTHER, SELFPAY | PROVIDERS: PCP Internal Medicine; Visit Provider Nurse Practitioner | DX: K59.04 Chronic idiopathic constipation (principal); K30 Functional dyspepsia; K21.9 Gastro-esophageal reflux disease without esophagitis | CPT/HCPCS: 99212 ==

== ENCOUNTER → 2022-10-09 14:32 | Outpatient (BNVA) | payer OTHER, SELFPAY | PROVIDERS: PCP Internal Medicine; Visit Provider Internal Medicine Endocrinology, Diabetes & Metabolism | DX: E31.22 Multiple endocrine neoplasia [MEN] type IIA (principal) | CPT/HCPCS: 99212 ==

== ENCOUNTER 2022-11-11 06:49 | Emergency (ER) | payer OTHER, SELFPAY ==
--- NOTE | ~2022-11-11 | US_ITS ---
EXAMINATION: US ABDOMEN LIMITED CLINICAL INFORMATION: Right upper quadrant pain. COMPARISON: CT scan abdomen pelvis earlier today TECHNIQUE: Real-time imaging of the gallbladder. FINDINGS: Gallstones are present the largest measuring 7 mm at the neck of the gallbladder. This stone did not move in the decubitus position. No pericholecystic fluid is seen but Chahal's sign is mildly positive. The gallbladder wall is not significantly thickened. The common bile duct measures 0.3 cm. US/US abdomen limited IMPRESSION: Cholelithiasis with mild positive Chahal's sign. The stone at the gallbladder neck does not move with decubitus positioning. Correlate with clinical evidence of cholelithiasis and possible HIDA scan
--- NOTE | ~2022-11-11 | CT_ITS ---
EXAMINATION: CT ABDOMEN AND PELVIS WITH CONTRAST CLINICAL INFORMATION: Right-sided abdominal pain COMPARISON: None TECHNIQUE: Multidetector volumetric images were obtained from the superior aspect of the liver through the pubic symphysis following administration 85 mL of Omnipaque 350 intravenous contrast. Sagittal and coronal reformatted images were obtained on the technologist's workstation. Oral contrast: No This CT examination was performed using dose optimization techniques as appropriate, variously including the following: *Automated exposure control *Adjustment of mA and/or kV according to patient size (this includes techniques or standardized protocols for targeted exams where dose is matched to indication/reason for exam; i.e. extremities or head) *Use of iterative reconstruction technique DLP: 579 mGy-cm FINDINGS: LUNG BASES: Bibasilar atelectasis. No pneumothorax. No pleural effusion. LIVER, GALLBLADDER, AND BILIARY TREE: The liver is normal in size, shape, and attenuation. No focal hepatic lesion or biliary ductal dilatation is present. The gallbladder is unremarkable with no evidence of radiopaque gallstones, gallbladder wall thickening, or obvious pericholecystic inflammatory changes. PANCREAS: Unremarkable. SPLEEN: Unremarkable. ADRENAL GLANDS: Unremarkable. KIDNEYS AND URETERS: Subcentimeter hypodense focus in the right renal lower pole too small to characterize though statistically representing a cyst. Subcentimeter cystic focus in the medial aspect of the left renal interpolar region. The kidneys are normal in size, shape, and attenuation. No hydronephrosis, hydroureter, or calculi seen. No perinephric stranding. BLADDER: Unremarkable. GASTROINTESTINAL TRACT: The small and large bowel are unremarkable. The appendix is unremarkable. ABDOMINAL WALL: No significant hernia is appreciated. LYMPH NODES: No enlarged lymph nodes per size criteria. VASCULAR: Unremarkable aorta is nonaneurysmal. Circumaortic left renal vein. PELVIC VISCERA: Uterus is atrophy versus surgically absent. OSSEOUS STRUCTURES: Status post posterior spinal fusion of T12-S1. Disconnect of the right pedicle spinal emeli at the level of L2-3. Stable. No large lytic or blastic lesions are noted. CT/CT abdomen pelvis w IV con IMPRESSION: 1. No acute process of the abdomen or pelvis identified. 2. Subcentimeter hypodense focus in the right renal lower pole too small to characterize though statistically representing a cyst. Subcentimeter cystic focus in the medial aspect of the left renal interpolar region. 3. Status post posterior spinal fusion of T12-S1.
[2022-11-11 07:31] VITALS: BP 123/68; PULSE 75; RESP 18; TEMP 36.6; O2SAT 96; BMI 19.6
[2022-11-11 08:04] LABS: MANUAL DIFF FLAG NO
[2022-11-11 08:06] LABS: Basophils Percent Auto 0.4 % (0-2); Eosinophils Absolute Auto 0.1 X10*3/uL (0.0-0.4); Eosinophils Percent Auto 1.1 % (0-4); Hematocrit 39.6 % (37.0-47.0); Hemoglobin 12.8 g/dl (12.0-16.0); Imm Gran Abs Auto 0.03 X10*3/uL (0.00-0.03); Imm Gran Pct Auto 0.3 % (0.0-0.4); Lymphocytes Absolute Auto 1.8 X10*3/uL (1.2-4.9); Lymphocytes Percent Auto 19.6 % (20-40); Mean Corpuscular HGB Conc 32.3 g/dl (31.0-35.0); Mean Corpuscular Hemoglobin 27.8 pg (27.0-33.0); Mean Corpuscular Volume 86.1 fL (80.0-98.0); Mean Platelet Volume 11.5 fL (9.4-12.3); Monocytes Absolute Auto 0.5 X10*3/uL (0.1-1.2); Monocytes Percent Auto 4.9 % (2-11); Neutrophils Absolute Auto 6.7 x10*3/uL (2.0-8.3); Neutrophils Percent Auto 73.7 % (45-73); Platelet Count 254 X10*3/uL (160-400); Red Cell Distribution Width 14.9 % (11.0-16.0); White Blood Count 9.1 X10*3/uL (4.8-10.8)
[2022-11-11 08:24] LABS: Alanine Aminotransferase 7 U/L (0-31); Albumin Level 4.1 g/dL (3.5-5.0); Alkaline Phosphatase 98 U/L (39-117); Anion Gap 14 (12-20); Aspartate Amino Transferase 13 U/L (5-31); Bilirubin Total 0.2 mg/dL (0.0-1.0); Blood Urea Nitrogen 10 mg/dL (9-16); Calcium 9.3 mg/dL (8.4-10.2); Carbon Dioxide 24 mmol/L (22-29); Chloride 105 mmol/L (96-108); Creatinine Clr Calc Pharmacy 95.5; Estimated Glomerular Filt Rate > 60; Glucose Random 105 mg/dL (60-115); Potassium 4.4 mmol/L (3.3-5.1); Sodium 139 mmol/L (135-145); Total Protein 6.9 g/dL (6.5-8.0)
--- NOTE | 2022-11-11 09:04 | ED_ITS ---
HPI - Abdominal Pain General Chief Complaint: Abdominal Pain Stated Complaint: abd pain Time Seen by Provider: 11/11/22 08:36 Source: patient Mode of arrival: ambulatory Limitations: no limitations History of Present Illness HPI narrative: 57-year-old female with history of COPD, GERD, medullary thyroid carcinoma, IBS- C here with complaints of abdominal pain since 22:00 after eating a golumpkis. Patient reports nausea but no vomiting. No diarrhea, constipation, urinary symptoms, fevers, chills. Last BM was yesterday and normal. Related Data Home Medications Medication Instructions Recorded Confirmed cholecalciferol (vitamin D3) 50 50 mcg PO DAILY 03/19/22 08/09/22 mcg (2,000 unit) tablet levothyroxine 112 mcg tablet 112 mcg PO DAILY 03/19/22 08/09/22 (Synthroid) Previous Rx's Medication Instructions Recorded bisacodyl 5 mg tablet,delayed 10 mg PO BEDTIME 30 days #60 tabs 12/10/21 release (Dulcolax (bisacodyl)) amitriptyline 75 mg tablet 75 mg PO BEDTIME 90 days #90 tabs 02/26/22 omeprazole 20 mg capsule,delayed 20 mg PO DAILY 90 days #90 caps 02/26/22 release sennosides 8.6 mg capsule (senna) 17.2 mg PO BEDTIME constipation 30 03/19/22 days #60 caps triamcinolone acetonide 0.5 % 1 appl topical BID #45 grams 05/10/22 topical cream metoclopramide HCl 10 mg tablet 10 mg PO .tidachs #90 tabs 06/28/22 (Reglan) prucalopride 2 mg tablet 2 mg PO DAILY #30 tabs 07/23/22 (Motegrity) levalbuterol tartrate 45 2 puff inhalation Q4-6H PRN 08/18/22 mcg/actuation aerosol inhaler shortness of breath 90 days #15 (Xopenex HFA) grams sertraline 100 mg tablet 100 mg PO DAILY 90 days #90 tabs 08/19/22 famotidine 40 mg tablet 40 mg PO BEDTIME #90 tabs 08/23/22 lubiprostone 8 mcg capsule 16 mcg PO BID #60 caps 09/24/22 (Amitiza) lidocaine 5 % topical patch 1 patch topical DAILY #1 box 09/27/22 Allergies Allergy/AdvReac Type Severity Reaction Status Date / Time codeine [Codeine] Allergy Mild N/V, Verified 10/09/22 14:42 HEADACHE, vomiting morphine [MORPHINE] Allergy Unknown VOMITING, Verified 10/09/22 14:42 HEADACHE, migraine, vomiting ethyl chloride Allergy Unknown Unknown Uncoded 10/09/22 14:42 lidocaine Allergy Unknown blood Uncoded 10/09/22 14:42 pressure drops Review of Systems Review of Systems Yes all other systems are reviewed and are negative Constitutional: Reports no additional constitutional complaints, Denies body ache(s), Denies chills, Denies fever(s), Denies headache(s) and Denies weakness Eyes: Reports no additional eye complaints and Denies change in vision Reports system reviewed and no additional complaints, except as documented, Denies dizziness, Denies headache(s), Denies nasal congestion, Denies nasal discharge and Denies neck pain Cardiovascular: Reports no additional cardiovascular complaints, Denies chest pain, Denies leg edema and Denies dyspnea Respiratory: Reports no additional respiratory complaints, Denies cough and Denies dyspnea Gastrointestinal: Reports no additional gastrointestinal complaints, Reports abdominal pain, Denies diarrhea, Reports nausea and Denies vomiting Genitourinary: Reports no additional female genitourinary complaints and Denies urinary incontinence Musculoskeletal: Reports no additional musculoskeletal complaints, Denies back pain, Denies arthralgias, Denies joint swelling, Denies neck pain, Denies numbness and Denies tingling Skin/Breast: Reports system reviewed and no additional complaints, except as docu and Denies rash Reports system reviewed and no additional complaints, except as documented, Denies dizziness, Denies headache(s), Denies numbness, Denies tingling and Denies weakness [facility] Past Medical History Attestation statement: The following information was validated with the patient. Source: old records reviewed and nursing notes reviewed Medical History Breast cancer screening by mammogram Candidiasis of mouth and esophagus COPD (chronic obstructive pulmonary disease) Gout Hypertriglyceridemia Hypothyroid Irritable bowel syndrome with constipation Medullary thyroid carcinoma Multiple endocrine neoplasia type 2A (MEN2A) Pheochromocytoma of left adrenal gland Pulmonary nodule Tobacco abuse Surgical History H/O total adrenalectomy History of esophagogastroduodenoscopy (EGD) History of fusion of lumbar spine History of parathyroidectomy History of thyroidectomy History of tonsillectomy Hx of bilateral breast reduction surgery Hx of colonoscopy Status post RAMIREZ-BSO Family History Family History Father Heart attack Mother Brain cancer Lung cancer Cervical cancer Family/Other Diabetes Sister Cervical cancer Social History Social History Household Members: Spouse and Children Housing: Other Housing Other:: Trailer Alcohol intake: never Patient Tobacco Use Status: Current everyday Tobacco user Tobacco use type: Cigarette Cigarette Packs Per Day: 0.5 Cigarettes Per Day: 15 Smoked in Last 30 Days: No e-Cigarette/Vaping Use: Never Used Second Hand Smoke Exposure: Yes Use of substances other than those prescribed or required for medical reasons: No Substance Use Type: Marijuana Advance Directives: No Advance Directives Information Provided: Yes service: No Current occupational status: disabled Current occupation: left handed Cognitive needs: No Hearing needs: No Vision needs: Yes Physical Exam ED Vital Signs: Vital Signs - 24 hr 11/11/22 07:31 11/11/22 10:26 Temperature 97.9 F 98.1 F Pulse Rate 75 68 Respiratory Rate 18 Blood Pressure 123/68 121/65 Pulse Oximetry 96 93 Oxygen Delivery Method Room Air Room Air BMI result Body Mass Index 19.6 Const General: cooperative, healthy appearing and comfortable Orientation/consciousness: patient oriented x3 Limitations: no limitations HENMT Head: Yes normal to inspection Ears: hearing grossly normal bilaterally Eyes General: appearance normal, both eyes and all related structures Neck Neck: Yes normal visual inspection Chest Chest palpation & inspection: normal inspection of the chest Resp Effort & Inspection: normal respiratory effort Auscultation: clear to auscultation bilaterally Cardio Rate: regular rate Rhythm: regular rhythm Peripheral pulses: Peripheral pulses 2+ throughout GI Inspection: Yes normal to inspection Palpation (GI): Soft to palpation and Tenderness to palpation present (GI) (RUQ/epigastric TTP) Auscultation: normal bowel sounds General: Yes no CVA tenderness Back/Spine/Pelvis Back: no CVA tenderness Thoracic/Lumbar Spine: thoracic and lumbar spine normal to inspection Skin General skin exam: no rashes or lesions noted Neuro General: patient oriented x3 and moves all extremities Cognition (Neuro): normal cognition Gait exam (Neuro): Normal gait present Extrem General: Yes normal to inspection, Yes no pedal edema and Yes no calf tenderness Course Course Course Narrative: Labs unremarkable. UA negative. CT shows no acute finding. I re-examined the patient. She is still quite tender in the right upper quadrant epigastric with guarding. Will obtain ultrasound of the gallbladder to eval further. Patient given GI cocktail. Did offer narcotics to the patient but she does not want any narcotic pain medication. She did already receive Toradol IV. Reevaluation(s) Reevaluation #1: 1300-Abdominal US shows multiple gallstones with no thickening or pericholecystic fluid. Pain well controlled. Patient not vomiting. Labs normal. She will go home and follow-up with surgery outpatient. We reviewed diet. Reviewed worrisome signs/symptoms with patient and when to seek additional care. Comfortable with plan for discharge home. Medical Decision Making Medical Decision Making [facility] Narrative: 57-year-old female here with right-sided upper abdominal pain since last night after eating golumpkis with nausea. Tenderness in the right upper quadrant epigastric palpation on exam. Will obtain labs, UA, CT, provide analgesia Differential Diagnosis Differential Diagnoses: The differential diagnosis associated with the presentation includes Cholecystitis, cholelithiasis, GERD Lab Data [facility] Lab Attestation statement: I reviewed the patient's lab results. 11/11/22 07:53 11/11/22 07:53 Labs: Lab Results 11/11/22 11/11/22 11/11/22 Range/Units 07:53 07:53 10:26 WBC 9.1 (4.8-10.8) X10*3/uL RBC 4.60 (4.20-5.50) X10*6/uL Hgb 12.8 (12.0-16.0) g/dl Hct 39.6 (37.0-47.0) % MCV 86.1 (80.0-98.0) fL MCH 27.8 (27.0-33.0) pg MCHC 32.3 (31.0-35.0) g/dl RDW 14.9 (11.0-16.0) % Plt Count 254 (160-400) X10*3/uL MPV 11.5 (9.4-12.3) fL Immature Gran % (Auto) 0.3 (0.0-0.4) % Neut % (Auto) 73.7 H (45-73) % Lymph % (Auto) 19.6 L (20-40) % [place] % (Auto) 4.9 (2-11) % Eos % (Auto) 1.1 (0-4) % Baso % (Auto) 0.4 (0-2) % Lymph # (Auto) 1.8 (1.2-4.9) X10*3/uL [place] # (Auto) 0.5 (0.1-1.2) X10*3/uL Eos # (Auto) 0.1 (0.0-0.4) X10*3/uL Baso # (Auto) 0.0 (0.0-0.2) X10*3/uL Abs Immat Gran (auto) 0.03 (0.00-0.03) X10*3/uL Absolute Neuts (auto) 6.7 (2.0-8.3) x10*3/uL Absolute Nucleated RBC 0.000 (0.0-0.012) X10*3/uL Nucleated RBC % (auto) 0.0 (0.0-0.2) /100WBC Sodium 139 (135-145) mmol/L Potassium 4.4 (3.3-5.1) mmol/L Chloride 105 (96-108) mmol/L Carbon Dioxide 24 (22-29) mmol/L Anion Gap 14 (12-20) BUN 10 (9-16) mg/dL Creatinine 0.80 (0.5-1.4) mg/dL Estim Creat Clear Calc 95.5 Estimated GFR > 60 Random Glucose 105 (60-115) mg/dL Calcium 9.3 (8.4-10.2) mg/dL Total Bilirubin 0.2 (0.0-1.0) mg/dL AST 13 (5-31) U/L ALT 7 (0-31) U/L Alkaline Phosphatase 98 (39-117) U/L Total Protein 6.9 (6.5-8.0) g/dL Albumin 4.1 (3.5-5.0) g/dL Lipase 22 (8-78) U/L Urine Color Yellow Urine Appearance Turbid Urine pH 8.5 (5.0-9.0) Ur Specific [place] >= 1.030 H (1.005-1.025) Urine Protein Negative (Neg-Trace) mg/dL Urine Glucose (UA) Negative (Negative) mg/dL Urine Ketones Negative (Negative) mg/dL Urine Blood Negative (Negative) Urine Nitrite Negative (Negative) Ur Leukocyte Esterase Negative (Negative) Independent Interpretation I performed an independent interpretation of an: Ultrasound (I indepdentely reviewed US which shows multiple gallstones) and CT Scan (Independently reviewed the CT scan which shows no acute finding) Radiology Impression Discussion of test interpretation with radiology: I have reviewed the radiologist's reading. Radiologist Impression: FINDINGS: LUNG BASES: Bibasilar atelectasis. No pneumothorax. No pleural effusion.? LIVER, GALLBLADDER, AND BILIARY TREE: The liver is normal in size, shape, and attenuation. No focal hepatic lesion or biliary ductal dilatation is present. The gallbladder is unremarkable with no evidence of radiopaque gallstones, gallbladder wall thickening, or obvious pericholecystic inflammatory changes.? PANCREAS: Unremarkable.? SPLEEN: Unremarkable.? ADRENAL GLANDS: Unremarkable.? KIDNEYS AND URETERS: Subcentimeter hypodense focus in the right renal lower pole too small to characterize though statistically representing a cyst. Subcentimeter cystic focus in the medial aspect of the left renal interpolar region. The kidneys are normal in size, shape, and attenuation. No hydronephrosis, hydroureter, or calculi seen. No perinephric stranding. ? BLADDER: Unremarkable.? GASTROINTESTINAL TRACT: The small and large bowel are unremarkable. The appendix is unremarkable.? ABDOMINAL WALL: No significant hernia is appreciated.? LYMPH NODES: No enlarged lymph nodes per size criteria. VASCULAR: Unremarkable aorta is nonaneurysmal. Circumaortic left renal vein. PELVIC VISCERA: Uterus is atrophy versus surgically absent.? OSSEOUS STRUCTURES: Status post posterior spinal fusion of T12-S1. Disconnect of the right pedicle spinal emeli at the level of L2-3. Stable. No large lytic or blastic lesions are noted. CT/CT abdomen pelvis w IV con IMPRESSION: 1.? No acute process of the abdomen or pelvis identified. 2.? Subcentimeter hypodense focus in the right renal lower pole too small to characterize though statistically representing a cyst. Subcentimeter cystic focus in the medial aspect of the left renal interpolar region. 3.? Status post posterior spinal fusion of T12-S1. [address] [address] Ultrasound Report Signed Patient: Stephanie Rapp MR#: [id number] : 1965 Acct:[id number] Age/Sex: 57 / F ADM Date: 11/11/22 Loc: HO.ED Attending Dr: Ordering Physician: Maribeth Ho NP Date of Service: 11/11/22 Procedure(s): US abdomen limited Accession Number(s): [id number] cc: Maribeth Ho NP~ EXAMINATION: US ABDOMEN LIMITED CLINICAL INFORMATION: Right upper quadrant pain. COMPARISON: CT scan abdomen pelvis earlier today TECHNIQUE: Real-time imaging of the gallbladder. FINDINGS: Gallstones are present the largest measuring 7 mm at the neck of the gallbladder. This stone did not move in the decubitus position. No pericholecystic fluid is seen but Chahal's sign is mildly positive. The gallbladder wall is not significantly thickened. The common bile duct measures 0.3 cm. US/US abdomen limited IMPRESSION: Cholelithiasis with mild positive Chahal's sign. The stone at the gallbladder neck does not move with decubitus positioning. Correlate with clinical evidence of cholelithiasis and possible HIDA scan Medications Administered Discontinued Medications Generic Name Dose Route Start Last Admin Trade Name Freq PRN Reason Stop Dose Admin Al Hydroxide/Mg Hydroxide 30 ml 11/11/22 11:03 11/11/22 11:16 Magnesium Hydrox/Alum Hydrox 30 Ml Oral.Susp PO 11/11/22 11:04 30 ml ONCE ONE Administration Iohexol 85 ml 11/11/22 09:29 11/11/22 09:30 Iohexol 350 Mg/Ml 100 Ml Infus..Btl IV 11/11/22 09:30 85 ml ONCE ONE Administration Ketorolac Tromethamine 30 mg 11/11/22 09:02 11/11/22 09:18 Ketorolac Tromethamine 30 Mg/Ml Vial IVPUSH 11/11/22 09:03 30 mg ONCE ONE Administration Lidocaine HCl 15 ml 11/11/22 11:05 11/11/22 11:16 Lidocaine Hcl Viscous 2 % 15 Ml Solution MUCOUS MEM 11/11/22 11:06 15 ml ONCE ONE Administration Ondansetron HCl 4 mg 11/11/22 09:02 11/11/22 09:18 Ondansetron Hcl 4 Mg/2 Ml Vial IVPUSH 11/11/22 09:03 4 mg ONCE ONE Administration Discharge Plan Discharge Clinical Impression: Multiple gallstones Patient Disposition: Home, Self-Care Instructions: Gallstones (ED) Additional Instructions: Follow a very low fat/NO grease diet Return for worsening pain, vomiting, fever, yellow skin Prescriptions: No Action omeprazole 20 mg capsule,delayed release(DR/EC) 20 mg PO DAILY 90 Days Qty: 90 2RF amitriptyline 75 mg tablet 75 mg PO BEDTIME 90 Days Qty: 90 3RF levalbuterol tartrate [Xopenex HFA] 45 mcg/actuation HFA aerosol inhaler 2 puff inhalation Q4-6H PRN (Reason: shortness of breath) 90 Days Qty: 15 0RF sertraline 100 mg tablet 100 mg PO DAILY 90 Days Qty: 90 1RF famotidine 40 mg tablet 40 mg PO BEDTIME Qty: 90 2RF lidocaine 5 % adhesive patch,medicated 1 patch topical DAILY Qty: 1 0RF Rx Instructions: leave on most painful area for up to 12 hrs triamcinolone acetonide 0.5 % cream 1 appl topical BID Qty: 45 0RF bisacodyl [Dulcolax (bisacodyl)] 5 mg tablet,delayed release (DR/EC) 10 mg PO BEDTIME 30 Days Qty: 60 6RF Hold Instructions: Doctor's Order lubiprostone [Amitiza] 8 mcg capsule 16 mcg PO BID Qty: 60 6RF cholecalciferol (vitamin D3) 50 mcg (2,000 unit) tablet 50 mcg PO DAILY levothyroxine [Synthroid] 112 mcg tablet 112 mcg PO DAILY senna 8.6 mg capsule 17.2 mg PO BEDTIME 30 Days Qty: 60 6RF metoclopramide HCl [Reglan] 10 mg tablet 10 mg PO .tidachs Qty: 90 3RF Motegrity 2 mg tablet 2 mg PO DAILY Qty: 30 3RF Referrals: Damon Burton MD [Physician] - 1 week
[2022-11-11] MEDS: ondansetron HCL 4 MG/2 ML VIAL IVPUSH (09:18)
[2022-11-11] MEDS: Ketorolac Tromethamine 30 MG/ML VIAL IVPUSH (09:18)
[2022-11-11 09:20] LABS: Lipase 22 U/L (8-78)
[2022-11-11] MEDS: iohexoL 350 MG/ML 100 ML INFUS..BTL 85 ML IV (09:30)
[2022-11-11 10:26] VITALS: BP 121/65; PULSE 68; TEMP 36.7; O2SAT 93
[2022-11-11 10:39] LABS: Appearance Urine Turbid; Color Urine Yellow; Glucose Urine UA Negative (Negative); Leukocyte Esterase Urine Negative (Negative); Nitrite Urine Negative (Negative); PH 8.5 (5.0-9.0); Specific Gravity - Urine >= 1.030 (1.005-1.025); Urine Blood Negative (Negative); Urine Ketones Negative (Negative); Urine Protein Negative (Neg-Trace)
[2022-11-11] MEDS: Magnesium Hydrox/Alum Hydrox 30 ML ORAL.SUSP PO (11:16)
[2022-11-11] MEDS: Lidocaine HCl Viscous 2 % 15 ML SOLUTION MUCOUS MEM (11:16)
[2022-11-11 13:09] VITALS: BP 120/67; PULSE 66; TEMP 36.7; O2SAT 99
== END 2022-11-11 13:16 | disposition home or self-care (01) ==
PROVIDERS: Nurse Practitioner Family; Emergency Provider Emergency Medicine; PCP Internal Medicine
DX: K80.20 Calculus of gallbladder without cholecystitis without obstruction (principal); R10.11 Right upper quadrant pain; F17.210 Nicotine dependence, cigarettes, uncomplicated
CPT/HCPCS: 36415; 74177; 76705; 80053; 81003; 83690; 85025; 96374; 96375; 99284; J1885; J2405; Q9967

== ENCOUNTER → 2022-11-18 13:13 | Outpatient (BNVA) | payer OTHER, SELFPAY | PROVIDERS: PCP Internal Medicine; Visit Provider Surgery | DX: K80.50 Calculus of bile duct without cholangitis or cholecystitis without obstruction (principal); K59.04 Chronic idiopathic constipation; K21.9 Gastro-esophageal reflux disease without esophagitis; M54.2 Cervicalgia; J43.9 Emphysema, unspecified; E89.0 Postprocedural hypothyroidism; E31.22 Multiple endocrine neoplasia [MEN] type IIA; F17.210 Nicotine dependence, cigarettes, uncomplicated | CPT/HCPCS: 99202 ==

== ENCOUNTER → 2022-11-19 13:29 | Outpatient (BNVA) | payer OTHER, SELFPAY | PROVIDERS: PCP Internal Medicine; Referring Provider Internal Medicine; Visit Provider Nurse Practitioner | DX: K80.20 Calculus of gallbladder without cholecystitis without obstruction (principal); K80.50 Calculus of bile duct without cholangitis or cholecystitis without obstruction; K59.04 Chronic idiopathic constipation; K21.9 Gastro-esophageal reflux disease without esophagitis; R14.0 Abdominal distension (gaseous) | CPT/HCPCS: 99212 ==

== ENCOUNTER 2022-11-26 12:21 | Outpatient (REF) | payer OTHER, SELFPAY ==
[2022-11-26 13:56] LABS: MANUAL DIFF FLAG NO
[2022-11-26 14:06] LABS: Basophils Absolute Auto 0.1 X10*3/uL (0.0-0.2); Basophils Percent Auto 0.8 % (0-2); Eosinophils Absolute Auto 0.1 X10*3/uL (0.0-0.4); Eosinophils Percent Auto 1.3 % (0-4); Hematocrit 40.5 % (37.0-47.0); Hemoglobin 13.1 g/dl (12.0-16.0); Imm Gran Abs Auto 0.03 X10*3/uL (0.00-0.03); Imm Gran Pct Auto 0.4 % (0.0-0.4); Lymphocytes Absolute Auto 2.2 X10*3/uL (1.2-4.9); Lymphocytes Percent Auto 31.2 % (20-40); Mean Corpuscular HGB Conc 32.3 g/dl (31.0-35.0); Mean Corpuscular Hemoglobin 27.8 pg (27.0-33.0); Mean Platelet Volume 12.1 fL (9.4-12.3); Monocytes Absolute Auto 0.5 X10*3/uL (0.1-1.2); Monocytes Percent Auto 6.5 % (2-11); Neutrophils Absolute Auto 4.3 x10*3/uL (2.0-8.3); Neutrophils Percent Auto 59.8 % (45-73); Platelet Count 264 X10*3/uL (160-400); Red Blood Count 4.71 X10*6/uL (4.20-5.50); White Blood Count 7.2 X10*3/uL (4.8-10.8)
[2022-11-26 14:46] LABS: Thyroid Stimulating Hormone 1.04 uIU/mL (0.32-4.0)
[2022-11-26 16:20] LABS: Alanine Aminotransferase 10 U/L (0-31); Albumin Level 4.1 g/dL (3.5-5.0); Alkaline Phosphatase 96 U/L (39-117); Anion Gap 11 (12-20); Aspartate Amino Transferase 12 U/L (5-31); Bilirubin Total 0.4 mg/dL (0.0-1.0); Blood Urea Nitrogen 7 mg/dL (9-16); Calcium 9.2 mg/dL (8.4-10.2); Carbon Dioxide 27 mmol/L (22-29); Chloride 106 mmol/L (96-108); Cholesterol 228 mg/dL; Estimated Glomerular Filt Rate > 60; Glucose Random 82 mg/dL (60-115); HDL Cholesterol 36 mg/dL; LDL Cholesterol Calculated 150 mg/dl; Magnesium 2.2 mg/dL (1.6-2.6); Potassium 4.2 mmol/L (3.3-5.1); Sodium 140 mmol/L (135-145); Total Protein 6.7 g/dL (6.5-8.0); Triglycerides 210 mg/dL
[2022-11-26 16:50] LABS: Folate 4.9 ng/mL (> or = 4.0); Free T4 (Free Thyroxine) 1.01 ng/dL (0.71-1.85); Thyroid Stimulating Hormone 1.06 uIU/mL (0.32-4.0); Vitamin B12 516 pg/mL (200-900)
[2022-11-27 17:44] LABS: Calcium (PTHI) 9.2 mg/dL (8.6-10.4); PTHI 28 pg/mL (16-77)
== END 2022-11-26 12:22 | disposition home or self-care (01) ==
LOC: HO.HMGCLDS 12:21
PROVIDERS: Internal Medicine Endocrinology, Diabetes & Metabolism; PCP Internal Medicine; Visit Provider Internal Medicine
DX: E31.22 Multiple endocrine neoplasia [MEN] type IIA (principal); E78.00 Pure hypercholesterolemia, unspecified
CPT/HCPCS: 36415; 80053; 80061; 82306; 82378; 82607; 82746; 83735; 83970; 84439; 84443; 85025

== ENCOUNTER 2022-11-28 10:34 | Day surgery (SDC) | payer OTHER, SELFPAY ==
[2022-11-28] VITALS (12 sets, daily range): BP systolic 114–140; BP diastolic 40–72; PULSE 64–86; RESP 16–21; TEMP 36.1–36.6; O2SAT 92–97; BMI 27.7
[2022-11-28] MEDS: Lactated Ringers 1,000 ML 50 ML IVCONT (10:53)
--- NOTE | 2022-11-28 11:34 | HO.ANESPROP2 ---
HPI - Anesthesia Eval Consult details Narrative: For lap. 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) Mass of soft tissue of left upper extremity (Acute) Puncture wound (Acute) Cellulitis (Acute) Neck pain (Acute) Trigger finger (Acute) Odynophagia (Acute) Mass of left axilla (Acute) COPD (chronic obstructive pulmonary disease) (Acute) Abdominal bloating (Acute) GERD (gastroesophageal reflux disease) (Acute) Chronic idiopathic constipation (Acute) Hypothyroid (Acute) Multiple endocrine neoplasia type 2A (MEN2A) (Acute) Past Medical History Medical History Breast cancer screening by mammogram Candidiasis of mouth and esophagus COPD (chronic obstructive pulmonary disease) Gout Hypertriglyceridemia Hypothyroid Irritable bowel syndrome with constipation Medullary thyroid carcinoma Multiple endocrine neoplasia type 2A (MEN2A) Pheochromocytoma of left adrenal gland Pulmonary nodule Tobacco abuse Narrative: NOTE: The patient tells me that she is NOT allergic to lidocaine. She doesn't know how that got into her chart. She got local anesth for a minor procedure and had a vaso vagal response, from which she came right back. I d/w her that I would use IV lidoc and would let her know if any problems. She agreed. Family History Family History Father Heart attack Mother Brain cancer Lung cancer Cervical cancer Family/Other Diabetes Sister Cervical cancer Family history of problems with anesthesia: No Surgical History Surgical History H/O total adrenalectomy History of esophagogastroduodenoscopy (EGD) History of fusion of lumbar spine History of parathyroidectomy History of thyroidectomy History of tonsillectomy Hx of bilateral breast reduction surgery Hx of colonoscopy Status post [id number]-BSO History of Problems with Anesthesia: No Social History Social History Household Members: Spouse and Children Housing: Other Housing Other:: Trailer Alcohol intake: never Patient Tobacco Use Status: Current everyday Tobacco user Tobacco use type: Cigarette Cigarette Packs Per Day: 0.5 Cigarettes Per Day: 15 e-Cigarette/Vaping Use: Never Used Second Hand Smoke Exposure: Yes Substance Use Type: Marijuana Substance Use Frequency: Occasionally Are you DNR?: No Advance Directives: No Advance Directives Information Provided: Yes Nutrition Risks: No Nutritional Risk service: No Current occupational status: disabled Current occupation: left handed Cognitive needs: No Hearing needs: No Vision needs: Yes Meds Allergies Allergy/AdvReac Type Severity Reaction Status Date / Time codeine [Codeine] Allergy Mild N/V, Verified 11/19/22 14:01 HEADACHE, vomiting morphine [MORPHINE] Allergy Unknown VOMITING, Verified 11/19/22 14:01 HEADACHE, migraine, vomiting ethyl chloride Allergy Unknown Unknown Uncoded 11/18/22 13:45 lidocaine AdvReac Unknown blood Uncoded 11/28/22 13:32 pressure drops Active Medications: Current Medications Lactated Ringer's (Lr) 1,000 mls @ 50 mls/hr IVCONT .Q20H [facility] Last Admin: 11/28/22 10:53 Dose: 50 mls/hr Lactated Ringer's (Lr) 1,000 mls @ 100 mls/hr IVCONT .Q10H [facility] Home Medications Medication Instructions Recorded Confirmed Last Taken Type cholecalciferol (vitamin D3) 50 50 mcg PO DAILY 03/19/22 11/28/22 Unknown History mcg (2,000 unit) tablet levothyroxine 112 mcg tablet 112 mcg PO DAILY 03/19/22 11/28/22 Unknown History (Synthroid) Exam Exam Date and Time: November 28, 2022 1134 Height,Weight and Vital Signs: Height 5 ft 6 in Weight 78.018 kg Last Vital Signs Temp 97.9 F 11/28/22 11:14 Pulse 77 11/28/22 11:14 Resp 18 11/28/22 11:14 BP 140/64 H 11/28/22 11:14 Pulse Ox 96 11/28/22 11:14 O2 Del Method 11/28/22 11:14 Airway Mallampati Class: I TM Dist: >3cm Neck ROM: Full Denture: Upper and Lower Heart: ok Lungs: ok Assessment and Plan Final Anesthetic Review Family History of Problems with Anesthesia: No History of Problems with Anesthesia: No ASA Class: III Final Preanesthetic Review: No Changes in Pt Med Stat, Meds/Allgs Chart Reviewed, Consent Obtained/Reviewed and Anes Risks/Benef Reviewed Patient Risk: Intermediate Procedure Risk: Intermediate Anesthetic Plan Anesthetic Plan: GA and Agree w/ Assess. and Plan Disposition: Standard PACU
--- NOTE | 2022-11-28 13:14 | MHC.SHP ---
Pre-Procedural Eval Section A Date of Service: 11/28/22 The patient is an INPATIENT: No The History & Physical has been completed within 30 days and I have reviewed it.: Yes Section B Chief Complaint: Calculus of bile duct without cholangitis or diamond Allergies: Allergies Allergy/AdvReac Type Severity Reaction Status Date / Time codeine [Codeine] Allergy Mild N/V, Verified 11/19/22 14:01 HEADACHE, vomiting morphine [MORPHINE] Allergy Unknown VOMITING, Verified 11/19/22 14:01 HEADACHE, migraine, vomiting ethyl chloride Allergy Unknown Unknown Uncoded 11/18/22 13:45 lidocaine Allergy Unknown blood Uncoded 11/18/22 13:45 pressure drops Plan I have reviewed the history and physical and performed a pertinent physical examination on my patient. No changes have occurred unless specified. Time Spent With Patient Time: Total time managing care of this patient today ____ minutes.
--- NOTE | 2022-11-28 13:15 | P.OP_ITS ---
Operative Note Operative Note Date of Service: 11/28/22 Narrative: Preop diagnosis: [Biliary colic] Postop diagnosis: [Same] Procedure: [Laparoscopic cholecystectomy] Surgeon: Moi Steward MD Assist: [] Anesthesia: [GET, local: Marcaine, 0.5% with epi] Estimated blood loss: [3cc] Specimen: [Gallbladder with content] Intraoperative findings: [Critical view of safety demonstrated: 4-5 mm cystic duct and 2 separate 2 mm cystic artery were noted. All structures were double clipped proximally, once distally before sharply dividing] Indications: [The patient is a 57-year-old woman who presented with biliary colic. Her past surgical history includes laparoscopic left adrenalectomy. I explained the symptoms of biliary colic and recommended laparoscopic cholecystectomy. I reviewed the option of continued observation and 2nd opinion which was declined. I also reviewed the inherent risks to surgery which include, but are not limited to: Bleeding that could require another operation or blood transfusion, the need for open surgery, the unlikely but possible issue of bile leak that could require an ERCP, the risk of retained common duct stones that could require an ERCP, the risk of common bile duct injury which would require transfer to a larger institution for another operation. Patient seemed to understand her options, declined a medical translator or 2nd opinion and wants to proceed.] Procedure: [The patient was identified by myself in preoperative holding and aga in an operating room 3. The patient was identified in preoperative holding and again in the operating room and placed supine on the table. The patient voided bladder patient relations specialist, sequential compression stockings were in place, subcu heparin had been administered and antibiotics per protocol were given. The patient was induced in general endotracheal anesthesia administered with excellent effect. An appropriate time-out was performed. A footboard was utilized. The patient's abdomen was widely prepped and draped in the usual manner for surgery using chlorhexidine. Preemptive local was used at all trocar insertion sites. Again at the supraumbilical location and after infiltrating local, made a stab incision and placed a Veress needle without difficulty. An appropriate drop test was perfo rmed and a pneumoperitoneum of 15 mmHg was obtained using carbon dioxide. opening pressure was 5 mmHg. Next, the needle was withdrawn and a 5 mm/0 degree laparoscoped over Optiview trocar was used to access the abdomen without incident. Upon examining the abdomen, there was no evidence of injury from the Veress needle or trocar. Next, 5 mm trocars were placed in the epigastric, subcostal and right anterior axillary line just above the line of the umbilicus. Under direct laparoscopic vision, the 5 mm umbilical port was upsized to a 12 mm. The patient was then positioned in reverse Trendelenburg position and banked left. The operation was then completed with a 10mm 30 degree laparoscoped. The gallbladder was clearly identified and grasped by its fundus. Adhesions from the omentum and duodenum were present and carefully taken down using sparing electrocautery and blunt dissection. The duodenum was carefully preserved and not injured in the dissection. Next, the gallbladder was retracted cranially and anteriorly and dissection began in the cystic triangle. The cystic duct was identified at its junction on the gallbladder and dissection began laterally, then circumferentially dissected using the [place] dissector and hook. The cystic artery was then carefully identified and circumferentially dissected. Once dissection of both structures was complete and the critical view of safety demonstrated, the duct and artery were double clipped proximally and once distally and sharply divided. Electrocautery was used to remove the gallbladder from its fossa on the liver. Liver bed was inspected for hemostasis and the clips were noted to be on the respective structures. The gallbladder was placed in an Endo-Catch bag and delivered through the umbilicus under direct laparoscopic vision. The abdomen was again inspected with the laparoscoped and a abdomen deflated to assess for hemostasis. The patient was returned to neutral position, the abdomen deflated and the fascia of the supraumbilical incision closed with interrupted Vicryl sutures. Skin was closed with 4-0 Monocryl subcuticular sutures. Mastisol and Steri-Strips were applied followed by Band-Aids. The patient tolerated the procedure well and was extubated recovered in stable condition. All sponge instrument counts were correct. At the patient's request I called her Shiv at [phone] and apprised him of the operation and post-op plan & restrictions. His questions seemed to be satisfactorily answered.]
--- NOTE | 2022-11-28 17:17 | P.PNGS_ITS ---
Subjective Subjective Date of Service: 11/28/22 Patient reports: feels better Interval history: Patient is seen in PACU after nurse contacted me concerned about possible hematemesis. The patient has been seen by anesthesia and evaluated. There is some dark sputum that had some blood tinging but this is resolved. Patient's vitals and oxygen saturations have been stable Physical Exam Vital Signs: Vital Signs: Last Vital Signs Temp 97 F 11/28/22 15:01 Pulse 65 11/28/22 16:31 Resp 18 11/28/22 16:31 BP 133/69 11/28/22 16:31 Pulse Ox 95 11/28/22 16:31 O2 Del Method 11/28/22 16:31 O2 Flow Rate 2 11/28/22 16:31 BMI result Body Mass Index 27.7 The patient appears comfortable She is in no respiratory distress Oropharynx is pink and clear with no evidence of active blood Objective Data Active Medications Acetaminophen (Acetaminophen 325 Mg Tablet) 650 mg PO ONCE PRN PRN Reason: Pain, Mild (Pain Scale 1-3) Fentanyl (Fentanyl Citrate/Pf 100 Mcg/2 Ml Vial) 50 mcg IVPUSH Q5M PRN; Protocol PRN Reason: Pain, Severe (Pain Scale 7-10) Lactated Ringer's (Lr) 1,000 mls @ 50 mls/hr IVCONT .Q20H [facility] Last Admin: 11/28/22 10:53 Dose: 50 mls/hr Documented By: URI Lactated Ringer's (Lr) 1,000 mls @ 100 mls/hr IVCONT .Q10H [facility] Oxycodone HCl (Oxycodone Hcl Immed Release 5 Mg Tablet) 5 mg PO ONCE PRN PRN Reason: Pain, Severe (Pain Scale 7-10) Procedures Date of Service Date of Service: 11/28/22 Progress Note: A&P Assessment and plan (1) Cigarette smoker: Status: Acute (2) COPD (chronic obstructive pulmonary disease): Status: Acute (3) Multiple endocrine neoplasia type 2A (MEN2A): Status: Acute (4) Biliary colic: Status: Acute Plan Status post lap choly There does not appear to be any active hematemesis, respiratory distress or abnormal vital signs. Anesthesia has cleared the patient for discharge and I co ncur. Time Spent With Patient Time: Total time managing care of this patient today ____ minutes. Quality Stroke Does the patient have a stroke diagnosis?: No VTE Prior VTE?: No VTE Risk Level:: Surgical - moderate VTE Device Contraindication: N/A - Device Ordered VTE Drug Contraindication: Treatment Not Indicated
== END 2022-11-28 17:41 | disposition home or self-care (01) ==
LOC: HO.SSS 10:35
PROVIDERS: PCP Internal Medicine; Visit Provider Surgery
PROC: 0FT44ZZ Resection of Gallbladder, Percutaneous Endoscopic Approach (ICD-10-PCS; CPT 47562; principal; 2022-11-28 11:50)
DX: K80.50 Calculus of bile duct without cholangitis or cholecystitis without obstruction (principal)
CPT/HCPCS: 47562; 88304; J0690; J1885; J2250; J2405; J2550; J3010

== ENCOUNTER → 2022-12-06 11:23 | Outpatient (BNVA) | payer OTHER, SELFPAY | PROVIDERS: PCP Internal Medicine; Visit Provider Surgery | DX: Z13.89 Encounter for screening for other disorder (principal) ==

== ENCOUNTER 2023-02-26 14:00 | Outpatient (RCR) | payer OTHER, SELFPAY ==
--- NOTE | 2023-02-21 15:03 | MHC.PT.EP ---
[facility] [place] Office [place] Office [place] Office [address] Rickey Bernard [address] [phone] F: [phone] F: [phone] F: [phone] F: [phone] Physical Therapy Plan of Care Date of Evaluation: Date of Surgery: Diagnosis: pain in R shoulder Assessment: 57 y/o LHD female referred to PT with R shoulder pain. 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 Manual therapy to restore motion and function. Therapeutic exercise to improve strength and flexibility. Neuromuscular re-education for posture and balance. Therapeutic activities to return to functional activities of daily living. Electronically signed by: Lacy Cortez PT Please sign and return to therapist. Thank you for your referral.
--- NOTE | 2023-03-21 07:09 | MHC.PT.DC ---
[facility] [place] Office [place] Office [place] Office [address] Rickey Bernard [address] [phone] F: [phone] F: [phone] F: [phone] F: [phone] Physical Therapy Discharge Report Diagnosis: pain in R shoulder Date of Surgery: Date of Evaluation: 02/21/23 Date of Discharge: 03/21/23 Treatments to Date: 2 Cancellations to Date: 3 No Shows to Date: 2 Discharge Status: Visit Non-compliance Discharge Summary: D/c chart secondary to noncompliance with attendance policy. Electronically signed by: Lacy Cortez PT Please sign and return to therapist. Thank you for your referral.
== END 2023-03-21 07:09 | disposition home or self-care (01) ==
LOC: HO.PTCHIC 14:00
PROVIDERS: PCP Internal Medicine; Visit Provider Internal Medicine
DX: M25.511 Pain in right shoulder (principal)
CPT/HCPCS: 97110; 97140; 97162

== ENCOUNTER 2023-02-27 14:30 | Outpatient (REF) | payer OTHER, SELFPAY ==
--- NOTE | ~2023-02-27 | MM_ITS ---
EXAMINATION: MM SCREENING DIGITAL BREAST TOMOSYNTHESIS, BILATERAL CLINICAL INFORMATION: Screening. Asymptomatic. Prior reduction mammoplasty, September 2020. The lifetime risk of breast cancer based on the Tyrer-Cuzick Model is 14%. COMPARISON: Mammography: 02/26/2022, 11/11/2018, 03/14/2017, 02/21/2016 TECHNIQUE: Digital breast tomosynthesis is performed in both the craniocaudal and mediolateral oblique views along with computer-aided detection (CAD). Synthesized 2D images are generated from the tomosynthesis. FINDINGS: There are scattered areas of fibroglandular density (ACR BI-RADS breast composition Category b). There are minor post surgical changes similar to prior exam. Oil cyst again seen anterior 1:00 left breast with associated benign peripheral calcifications. There are other benign coarse calcifications in each breast and chronic granulomatous calcifications right axilla. There are no significant masses, abnormal calcifications, or other abnormalities. No significant changes. MM/MM tomosynthesis screening BI IMPRESSION: No mammographic evidence of malignancy. ASSESSMENT: BI-RADS 2: Benign RECOMMENDATION: Routine annual mammography screening. This patient's information was entered into a reminder system with a target due date for their next mammogram.
== END 2023-02-27 14:31 | disposition home or self-care (01) ==
LOC: HO.MAMMO 14:30
PROVIDERS: PCP Internal Medicine; Visit Provider Internal Medicine
DX: Z12.31 Encounter for screening mammogram for malignant neoplasm of breast (principal)
CPT/HCPCS: 77063; 77067

== ENCOUNTER 2023-04-09 10:30 | Outpatient (REF) | payer OTHER, SELFPAY ==
--- NOTE | ~2023-04-09 | XR_ITS ---
EXAMINATION: Bilateral shoulder x-ray CLINICAL INFORMATION: Pain COMPARISON: None. TECHNIQUE: 4 views of each shoulder FINDINGS: Left: Bone alignment is normal. No fracture or dislocation. Normal glenohumeral joint. Arthritis at the acromioclavicular joint. Normal soft tissues. Right: Bone alignment is normal. No fracture or dislocation. Normal glenohumeral joint. Arthritis at the acromioclavicular joint. Normal soft tissues. XR/XR shoulder RT min 2V IMPRESSION: Arthritis at the bilateral acromioclavicular joints.
--- NOTE | ~2023-04-09 | XR_ITS ---
EXAMINATION: Bilateral shoulder x-ray CLINICAL INFORMATION: Pain COMPARISON: None. TECHNIQUE: 4 views of each shoulder FINDINGS: Left: Bone alignment is normal. No fracture or dislocation. Normal glenohumeral joint. Arthritis at the acromioclavicular joint. Normal soft tissues. Right: Bone alignment is normal. No fracture or dislocation. Normal glenohumeral joint. Arthritis at the acromioclavicular joint. Normal soft tissues. XR/XR shoulder LT min 2V IMPRESSION: Arthritis at the bilateral acromioclavicular joints.
--- NOTE | ~2023-04-09 | XR_ITS ---
EXAMINATION: XR CHEST CLINICAL INFORMATION: Chest pain COMPARISON: Previous chest CT from 2017 and chest x-ray 2016 TECHNIQUE: 2 views of the chest were obtained. FINDINGS: The cardiac and mediastinal contours are stable. There is biapical pleural thickening. The lungs are otherwise clear. The lungs are well inflated. No pleural effusion or pneumothorax. Postsurgical changes to the thoracolumbar spine. XR/XR chest 2V IMPRESSION: Well-inflated lungs. No evidence for acute disease in the chest.
[2023-04-09 11:22] LABS: MANUAL DIFF FLAG NO
[2023-04-09 11:40] LABS: Basophils Percent Auto 0.5 % (0-2); Eosinophils Absolute Auto 0.1 X10*3/uL (0.0-0.4); Eosinophils Percent Auto 1.6 % (0-4); Hematocrit 40.7 % (37.0-47.0); Hemoglobin 12.7 g/dl (12.0-16.0); Imm Gran Abs Auto 0.03 X10*3/uL (0.00-0.03); Imm Gran Pct Auto 0.4 % (0.0-0.4); Lymphocytes Absolute Auto 2.3 X10*3/uL (1.2-4.9); Lymphocytes Percent Auto 31.2 % (20-40); Mean Corpuscular HGB Conc 31.2 g/dl (31.0-35.0); Mean Corpuscular Volume 86.6 fL (80.0-98.0); Mean Platelet Volume 12.7 fL (9.4-12.3); Monocytes Absolute Auto 0.4 X10*3/uL (0.1-1.2); Monocytes Percent Auto 5.7 % (2-11); Neutrophils Absolute Auto 4.4 x10*3/uL (2.0-8.3); Neutrophils Percent Auto 60.6 % (45-73); Platelet Count 257 X10*3/uL (160-400); Red Cell Distribution Width 15.8 % (11.0-16.0); White Blood Count 7.3 X10*3/uL (4.8-10.8)
[2023-04-09 12:18] LABS: Alanine Aminotransferase 12 U/L (0-31); Alkaline Phosphatase 89 U/L (39-117); Anion Gap 11 (12-20); Aspartate Amino Transferase 12 U/L (5-31); Bilirubin Total 0.2 mg/dL (0.0-1.0); Blood Urea Nitrogen 9 mg/dL (9-16); Calcium 9.2 mg/dL (8.4-10.2); Carbon Dioxide 26 mmol/L (22-29); Chloride 108 mmol/L (96-108); Cholesterol 171 mg/dL; Estimated Glomerular Filt Rate > 60; Glucose Random 95 mg/dL (60-115); HDL Cholesterol 43 mg/dL; LDL Cholesterol Calculated 103 mg/dl; Potassium 3.7 mmol/L (3.3-5.1); Sodium 141 mmol/L (135-145); Total Protein 7.1 g/dL (6.5-8.0); Triglycerides 125 mg/dL
[2023-04-09 12:29] LABS: Thyroid Stimulating Hormone 0.99 uIU/mL (0.32-4.0); Vitamin D 25-OH Total 52.6 ng/mL (>30)
[2023-04-09 12:39] LABS: Folate 5.9 ng/mL (> or = 4.0); Vitamin B12 484 pg/mL (200-900)
== END 2023-04-09 10:31 | disposition home or self-care (01) ==
LOC: HO.HMGCX 10:30
PROVIDERS: PCP Internal Medicine; Visit Provider Internal Medicine
DX: R07.9 Chest pain, unspecified (principal); E89.0 Postprocedural hypothyroidism; E78.00 Pure hypercholesterolemia, unspecified; M25.511 Pain in right shoulder; M25.512 Pain in left shoulder
CPT/HCPCS: 36415; 71046; 73030; 80053; 80061; 82306; 82607; 82746; 84439; 84443; 85025

== ENCOUNTER → 2023-04-25 09:51 | Outpatient (BNVA) | payer OTHER, SELFPAY | PROVIDERS: PCP Internal Medicine; Visit Provider Orthopaedic Surgery | DX: M75.51 Bursitis of right shoulder (principal) | CPT/HCPCS: 20610; J1100 ==

== ENCOUNTER 2023-06-05 09:34 | Outpatient (AMB) | payer OTHER, SELFPAY ==
[2023-06-05 09:54] VITALS: BP 130/80; PULSE 78; O2SAT 97; BMI 26.7
--- NOTE | 2023-06-05 09:54 | A.OFFPC_ITS ---
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: No Accompanied by: Self / Same As Patient Allergies codeine [Codeine] Allergy (Mild, Verified 06/05/23 09:54) N/V, HEADACHE, vomiting morphine [MORPHINE] Allergy (Unknown, Verified 06/05/23 09:54) VOMITING, HEADACHE, migraine, vomiting ethyl chloride Allergy (Unknown, Uncoded 04/25/23 10:14) Unknown Medication List - Last Reconciled 06/05/23 by Jayshree Daniel Po, amitriptyline 75 mg PO BEDTIME 90 days bisacodyl (Gentle Laxative (bisacodyl)) 10 mg (2 x 5 mg) PO BEDTIME 90 days cholecalciferol (vitamin D3) 50 mcg PO DAILY levalbuterol tartrate 45 mcg/actuation (Xopenex HFA) 2 puffs inhalation Q4-6H PRN 90 days levothyroxine (Synthroid) 112 mcg PO DAILY omeprazole 20 mg PO DAILY 90 days ondansetron HCl 4 mg PO Q8H PRN 5 days prucalopride (Motegrity) 2 mg PO DAILY ropinirole 0.25 mg PO BEDTIME sertraline 100 mg PO DAILY 90 days Tobacco use date assessed: 06/05/23 Dental Screening Dental Screen Date: 06/05/23 Did you have a dental visit in the last 12 months?: Yes Did you have a dental problem in the last 6 months where you did not have access to dental care?: No Was dental information given to patient?: Patient has dentist HPI Pain in legs HPI Details 57-year-old female smoker with multiple endocrine neoplasia COPD hypothyroid Claudia anxiety disorder GERD hypercholesterolemia last seen in March 2023 x-ray of the chest and shoulder requested and the Orthopedics referral done patient is here for follow-up. Seen orthopedics for the shoulder pain diagnosis of bursitis and had injection done. still smoking- 1/2 pack a day. still constipated- seeing GI- taking dulcolax . for the anxeity wants to hold referral- going to [place]. bedtime pain on the legs achy, . deny fall or trauma. [facility] Medical History Abdominal bloating Back pain Bilateral hand pain Biliary colic Breast cancer screening by mammogram Candidiasis of mouth and esophagus Cellulitis Cervicalgia Cholelithiasis Cigarette smoker COPD (chronic obstructive pulmonary disease) Elbow pain, right Erosive (osteo)arthritis Giant cell tumor of tendon sheath Gout Hypertriglyceridemia Hypothyroid Irritable bowel syndrome with constipation Mass of left axilla Mass of soft tissue of left upper extremity Medullary thyroid carcinoma Multiple endocrine neoplasia type 2A (MEN2A) Neck pain Neuritis of right ulnar nerve Nevoid hyperpigmentation Odynophagia Pain in both feet Pheochromocytoma of left adrenal gland PONV (postoperative nausea and vomiting) Pulmonary nodule Puncture wound Rash of neck Tobacco abuse Trigger finger Surgical History H/O total adrenalectomy History of esophagogastroduodenoscopy (EGD) History of fusion of lumbar spine History of parathyroidectomy History of thyroidectomy History of tonsillectomy Hx laparoscopic cholecystectomy Hx of bilateral breast reduction surgery Hx of colonoscopy Status post RAMIREZ-BSO Family History Father Heart attack Mother Brain cancer Lung cancer Cervical cancer Family/Other Diabetes Sister Cervical cancer Daughter Breast cancer Social History Household Members: Spouse and Children Housing: Other Housing Other:: Trailer Alcohol intake: never Patient Tobacco Use Status: Current everyday Tobacco user Tobacco use type: Cigarette Cigarette Packs Per Day: 0.5 Cigarettes Per Day: 15 Years Smoked: 1/2 pack a day Packs Per Year: 0 Packs per year/per ci.00 e-Cigarette/Vaping Use: Never Used Second Hand Smoke Exposure: Yes Substance Use Type: Marijuana service: No Current occupational status: disabled Current occupation: left handed Cognitive needs: No Hearing needs: No Vision needs: Yes Questionnaire PHQ-9 Over the last 2 weeks, how often have you been bothered by any of the following problems? 1. Little interest or pleasure in doing things: several days 2. Feeling down, depressed, or hopeless: several days 3. Trouble falling or staying asleep, or sleeping too much: several days 4. Feeling tired or having little energy: several days 5. Poor appetite or overeating: not at all 6. Feeling bad about yourself - or that you are a failure or have let yourself or your family down: not at all 7. Trouble concentrating on things, such as reading the newspaper or watching television: several days 8. Moving or speaking so slowly that other people could have noticed. Or the opposite - being so fidgety or restless that you have been moving around a lot more than usual: not at all 9. Thoughts that you would be better off or of hurting yourself in some way: not at all Total score: 5 Depression Screening Interpretation: Positive Source: Developed by Drs. Moose Wright, Ira Membreno, Davy Trevino and colleagues, with an educational cheryl from [employer] [place] - 2. Thrive Questionnaire Date Thrive assessed: 06/05/23 I am a: Patient What is your living situation today?: I have a steady place to live Within the past 12 months, did the food you bought not last and you didn't have the money to get more?: Never true Within the past 12 months, did you worry whether your food would run out before you got money to buy more?: Never true Do you have trouble paying for medicines?: No Do you have trouble getting transportation to medical appointments?: No Do you have trouble paying your heating and electricity bill?: No Do you have trouble taking care of your child, family member or friend?: No Do you have trouble with day-to-day activities such as bathing, preparing meals, shopping, managing finances, etc.?: No Are you currently unemployed and looking for a job?: No Are you interested in more education?: No Please select the resources that you would like help with: None Currently or been in a relationship where the following occur: no concerns reported AUDIT C Alcohol Use Questionnaire (AUDIT-C) 1. How often do you have a drink containing alcohol?: Never 2. How many drinks containing alcohol do you have on a typical day when you are drinking?: 1 or 2 3. How often do you have six or more drinks on one occasion?: Never Total Score: 0 JYOTHI-7 AMB Questionnaire JYOTHI-7 Date JYOTHI - 7 assessed: 06/05/23 Feeling nervous, anxious, or on edge: 1 = Several days Not being able to stop or control worryin = Several days Worrying too much about different things: 1 = Several days Trouble relaxin = Several days Being so restless that it is hard to sit still: 1 = Several days Becoming easily annoyed or irritable: 1 = Several days Feeling afraid as if something awful might happen: 1 = Several days Total JYOTHI-7 score (0-4 normal; 5-9 mild; 10-14 moderate; 15-21 severe): 7 Source: Developed by Drs. Moose Wright, Ira Membreno, Davy Trevino and colleagues, with an educational cheryl from [employer] [place] - 2. Physical exam (Primary Care) Vital Signs: Last Vital Signs Pulse 78 06/05/23 09:54 BP 130/80 06/05/23 09:54 Pulse Ox 97 06/05/23 09:54 Oxygen Delivery Method Room Air 06/05/23 09:54 BMI result Body Mass Index 26.7 Tobacco/Smoking Status: Tobacco use Status Tobacco use date assessed 06/05/23 06/05/23 09:58 Patient Tobacco Use Status Current everyday Tobacco 06/05/23 09:58 Tobacco use type Cigarette 06/05/23 09:58 e-Cigarette/Vaping Use Never Used 06/05/23 09:58 PHQ-9: PHQ-9 Score PHQ-9: Total score 5 06/05/23 09:58 Depression Screening Interpretation: Positive Thrive Assessment: Date of Thrive Assessment Date Thrive assessed 06/05/23 06/05/23 09:58 Currently or been in a relationship where the following occur: no concerns reported Const General: alert; No acute distress Eyes Conjunctivae: conjunctivae normal Resp Auscultation: clear to auscultation bilaterally Cardio Rate: regular rate Rhythm: regular rhythm GI Inspection: Yes normal to inspection Extrem General: Yes normal to inspection and No edema Assessment and Plan Assessment & Plan (1) Shoulder pain, bilateral: Code(s): M25.511 - Pain in right shoulder; M25.512 - Pain in left shoulder Plan: Patient has seen orthopedics and had injections bilaterally patient states still painful but discussed with the patient x-ray did show arthritis (2) Hypercholesterolemia: Code(s): E78.00 - Pure hypercholesterolemia, unspecified Plan: Avoid fried foods, chicken skin, eggs, butter margarine, pastries and meat. Be it pork or beef they have a lot of cholesterol LDL goal of less than 130 and triglyceride of less than 150. Repeat blood work is better (3) GERD (gastroesophageal reflux disease): Code(s): K21.9 - Gastro-esophageal reflux disease without esophagitis Qualifiers: Esophagitis presence: without esophagitis Qualified Code(s): K21.9 - Gastro-esophageal reflux disease without esophagitis Plan: Avoid the foods that causes that usually spicy foods, tomato products, juices, coffee, soda and foods that your sensitive to. After eating do not lie down, allow 3-4 hours before in lie down. And keep the head of bed above 30 degrees to avoid the acid from going up. (4) Generalized anxiety disorder: Comment: [facility] Q friday. lhas once a month prescriber Code(s): F41.1 - Generalized anxiety disorder Plan: Discussed with the patient on the need for follow-up therapy for her. Medication to continue (5) COPD (chronic obstructive pulmonary disease): Comment: Emphysema PFT January 2014, asthma Code(s): J44.9 - Chronic obstructive pulmonary disease, unspecified Qualifiers: COPD type: emphysema Emphysema type: unspecified Qualified Code(s): J43.9 - Emphysema, unspecified Plan: Continue with inhaler and stop smoking! (6) Multiple endocrine neoplasia type 2A (MEN2A): Comment: Metastatic medullary thyroid cancer Dr. Cook surgery Dr. THEE LORENZANA Geo 2010 are ET protocol oncology in 620 units in dex case that has post thyroidectomy with central and left lateral neck dissection LV invasion November 2018 lymph node positive Code(s): E31.22 - Multiple endocrine neoplasia [MEN] type IIA Plan: Continue follow-up with Endocrine (7) Tobacco abuse: Code(s): Z72.0 - Tobacco use Plan: Stop smoking! (8) Restless leg syndrome: Code(s): G25.81 - Restless legs syndrome Plan: Medication started. Discussed about hydration, electrolytes all within normal limits in March 2023 blood work Medications: New ropinirole administer 1-3 hours before bedtime 0.25 mg PO BEDTIME 30 tabs 0RF G25.81 - Restless legs syndrome Coding Level of Care Code Est Pt Level 4 (23423) Diagnoses Shoulder pain, bilateral M25.511; M25.512 Hypercholesterolemia E78.00 GERD (gastroesophageal reflux disease) K21.9 Esophagitis presence: without esophagitis Generalized anxiety disorder F41.1 COPD (chronic obstructive pulmonary disease) J43.9 COPD type: emphysema Emphysema type: unspecified Multiple endocrine neoplasia type 2A (MEN2A) E31.22 Tobacco abuse Z72.0 Restless leg syndrome G25.81
== END 2023-06-05 10:48 | disposition home or self-care (01) ==
PROVIDERS: PCP Internal Medicine; Visit Provider Internal Medicine
DX: K21.9 Gastro-esophageal reflux disease without esophagitis (principal); J43.9 Emphysema, unspecified; E31.22 Multiple endocrine neoplasia [MEN] type IIA; M25.511 Pain in right shoulder; M25.512 Pain in left shoulder; E78.00 Pure hypercholesterolemia, unspecified; F41.1 Generalized anxiety disorder; Z72.0 Tobacco use; G25.81 Restless legs syndrome
CPT/HCPCS: 99214

== ENCOUNTER 2023-06-19 11:22 | Outpatient (AMB) | payer OTHER, SELFPAY ==
[2023-06-19 11:31] VITALS: BP 120/73; PULSE 80; BMI 26.6
--- NOTE | 2023-06-19 11:31 | MHC.OFFVIS ---
Intake Vital Signs 06/19/23 11:31 Height 5 ft 6 in Weight 164 lb 14.492 oz BMI 26.6 BP 120/73 Blood Pressure Location Rt brachial Position Sitting Pulse 80 Intake Visit Reasons: 3 month fu Intake Note: Patient returns to in office 6 weeks follow up of CIC and GERD. CC: Patient reports she continues to have constipation, bloating, acid reflux, and feeling nauseous every time I eat per PT. Denies other GI symptoms. 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 Steward October 2022 ?Code(s): K80.20 - Calculus of gallbladder without cholecystitis without obstruction ?Plan: She will be having her GB out next , so her bowel needs may change. She is moving her bowels well, but is taking both motegrity and amitiza and has bisacodyl for back up. I instruct her that the insurance may not cover both, and we may need to rely on bisacodyl more....but then again the GB out may change this. She continues on the omeprazole with good control, has no needed famotidine so will stop. She is not taking the reglan at all. She continues on her fiber.? Return office visit in 3 months or longer if she needs to recover from her cholecystectomy.? (2) Biliary colic: ?Code(s): K80.50 - Calculus of bile duct without cholangitis or cholecystitis without obstruction (3) Abdominal bloating: ?Code(s): R14.0 - Abdominal distension (gaseous) (4) Chronic idiopathic constipation: ?Code(s): K59.04 - Chronic idiopathic constipation (5) GERD (gastroesophageal reflux disease): ?Code(s): K21.9 - Gastro-esophageal reflux disease without esophagitis ?Qualifiers: ?Esophagitis presence:?without esophagitis? Qualified Code(s):?K21.9 - Gastro-esophageal reflux disease without esophagitis ? ? ? Medications: Refilled prucalopride (Mote grity) 2 mg PO DAILY 30 t abs 6RF K59.04 - Chronic i diopathic constipa tion ? lubiprostone (Vinay harleen) 16 mcg (2 x 8 mcg) PO BID 60 caps 6R F K59.04 - Chronic i diopathic constipa tion ? omeprazole 20 mg PO DAILY 90 caps 2RF 90 days K21.9 - Gastro-eso phageal reflux dis ease without esoph agitis ? Discontinued metoclopramide HCl ?? Discontinued R ruth:? Doctor's O rder 10 mg? PO .tidachs 90 tabs 3RF K30 - Functional d yspepsia ? famotidine ?? Disc ontinued Reason:? Doctor's Order 40 mg? PO BEDTIME 90 tabs 2RF K21.9 - Gastro-eso phageal reflux dis ease without esoph agitis ? sennosides ?? Disc ontinued Reason:? Doctor's Order 17.2 mg (2 x 8.6 m g) PO BEDTIME 30 d ays 60 caps 6RF co nstipation ? ? Resumed bisacodyl (Dulcola x (bisacodyl)) 10 mg (2 x 5 mg) P O BEDTIME 30 days 60 tabs 6RF K59.04 - Chronic i diopathic constipa tion TODAY'S VISIT She had her GB out in Nov, but she is still suffering CIC it hasn't changed it at all! She still has severe CIC, not moving bowels for 4 days, taking motegrity and 1 bisacodyl...BUT if she takes 2 bisacodyl she will have watery diarrhea. She has early satiety and nausea with eating and upper abd bloating that is persistent despite how well she has moved her bowels or had diarrhea. (her insurance does not pay for Amitiza along with Motegrity) May be small bowel motility disorder, will re try reglan 5mg qidachs. She continues on omeprazole once a day with good control of her GERD. May consider small bowel follow through study. ROV 4 weeks. [facility] Medical History Abdominal bloating Back pain Bilateral hand pain Biliary colic Breast cancer screening by mammogram Candidiasis of mouth and esophagus Cellulitis Cervicalgia Cholelithiasis Cigarette smoker COPD (chronic obstructive pulmonary disease) Elbow pain, right Erosive (osteo)arthritis Giant cell tumor of tendon sheath Gout Hypertriglyceridemia Hypothyroid Irritable bowel syndrome with constipation Mass of left axilla Mass of soft tissue of left upper extremity Medullary thyroid carcinoma Multiple endocrine neoplasia type 2A (MEN2A) Neck pain Neuritis of right ulnar nerve Nevoid hyperpigmentation Odynophagia Pain in both feet Pheochromocytoma of left adrenal gland PONV (postoperative nausea and vomiting) Pulmonary nodule Puncture wound Rash of neck Tobacco abuse Trigger finger Surgical History H/O total adrenalectomy History of esophagogastroduodenoscopy (EGD) History of fusion of lumbar spine History of parathyroidectomy History of thyroidectomy History of tonsillectomy Hx laparoscopic cholecystectomy Hx of bilateral breast reduction surgery Hx of colonoscopy Status post RAMIREZ-BSO Family History Father Heart attack Mother Brain cancer Lung cancer Cervical cancer Family/Other Diabetes Sister Cervical cancer Daughter Breast cancer Social History Household Members: Spouse and Children Housing: Other Housing Other:: Trailer Alcohol intake: never Patient Tobacco Use Status: Current everyday Tobacco user Tobacco use type: Cigarette Cigarette Packs Per Day: 0.5 Cigarettes Per Day: 15 Years Smoked: 1/2 pack a day e-Cigarette/Vaping Use: Never Used Second Hand Smoke Exposure: Yes Substance Use Type: Marijuana service: No Current occupational status: disabled Current occupation: left handed Cognitive needs: No Hearing needs: No Vision needs: Yes Review of Systems Const Denies fatigue, Denies fever(s), Denies night sweats, Denies poor appetite and Denies weight loss Eyes Details: glasses Reports requires corrective lenses ENT Reports Normal hearing present, Denies dental pain, Denies dysphagia, Denies hearing loss, Denies mouth pain, Denies odynophagia, Denies throat swelling, Denies tongue swelling and Reports other (Dentition adequate) Card Reports no additional complaints Resp Reports no additional complaints GI Denies abdominal pain, Denies melena, Reports bloating, Denies hematochezia, Reports constipation, Denies GI cramping, Denies dysphagia, Denies excessive flatus, Reports early satiety, Reports heartburn, Denies diarrhea, Denies nausea, Denies odynophagia, Denies vomiting and Denies hematemesis Skin/Breast Denies pruritus, Denies lesions, Denies rash and Denies jaundice Neuro Reports Normal hearing present and Denies Abnormal speech present Endo Denies fatigue Aller/Immun Denies throat swelling and Denies tongue swelling Physical Exam Vital Signs: Last Vital Signs Pulse 80 06/19/23 11:31 BP 120/73 06/19/23 11:31 BMI result Body Mass Index 26.6 Const General: cooperative, no acute distress, well developed and well groomed Nutritional Appearance: well nourished Orientation/consciousness: oriented to person, oriented to place and oriented to time Limitations: No language barrier HEENT Head: Yes normocephalic and Yes atraumatic Eyes General: appearance normal, both eyes and all related structures Pupils: Equal, round and reactive pupils present Neck Neck: Yes normal visual inspection and Yes no lymphadenopathy Thyroid: Thyroid normal Resp Effort & Inspection: normal respiratory effort and able to speak in complete sentences Auscultation: clear to auscultation bilaterally Cardio Rate: regular rate Rhythm: regular rhythm Heart sounds: Normal, physiologic split S2 sound present Peripheral pulses: radial pulses present and posterior tibial pulses present GI Inspection: No distended and No Abdominal panniculus present Palpation (GI): Soft to palpation, nontender, no guarding, not rigid and No hepatosplenomegaly present Percussion: Yes normal to percussion Auscultation: normal bowel sounds Rectal Exam - Female: deferred Skin General skin exam: no rashes or lesions noted, turgor normal, skin not dry, no jaundice, No spider nevi and no striae Rashes: no rashes Nails: normal Neuro General: oriented to person, oriented to place and oriented to time Cranial nerves: Yes Equal, round and reactive pupils present and Yes Normal hearing present Speech: No Abnormal speech present Extrem General: Yes normal to inspection, No clubbing, No cyanosis and No edema Psych Appearance: grossly normal and well kempt Mental Status: mental status grossly normal Speech and movement: Normal speech and movement present Affect: normal affect Attitude: cooperative Thought process: Normal thought process present and not confabulating Thought content: Normal thought content present Insight: Fair insight present (Psych) Judgement: Fair judgement present (Psych) Assessment & Plan Assessment & Plan (1) Chronic idiopathic constipation: Code(s): K59.04 - Chronic idiopathic constipation Plan: She had her GB out in Nov, but she is still suffering CIC it hasn't changed it at all! She still has severe CIC, not moving bowels for 4 days, taking motegrity and 1 bisacodyl...BUT if she takes 2 bisacodyl she will have watery diarrhea. She has early satiety and nausea with eating and upper abd bloating that is persistent despite how well she has moved her bowels or had diarrhea. (her insurance does not pay for Amitiza along with Motegrity) May be small bowel motility disorder, will re try reglan 5mg qidachs. She continues on omeprazole once a day with good control of her GERD. May consider small bowel follow through study. ROV 4 weeks. (2) GERD (gastroesophageal reflux disease): Code(s): K21.9 - Gastro-esophageal reflux disease without esophagitis Qualifiers: Esophagitis presence: without esophagitis Qualified Code(s): K21.9 - Gastro-esophageal reflux disease without esophagitis Medications: New metoclopramide HCl (Reglan) provider is aware of potential interactions and is monitoring 5 mg PO QIDACHS 120 tabs 3RF K21.9 - Gastro-esophageal reflux disease without esophagitis, K59.04 - Chronic idiopathic constipation Refilled prucalopride (Motegrity) 2 mg PO DAILY 30 tabs 6RF K59.04 - Chronic idiopathic constipation omeprazole 20 mg PO DAILY 90 days 90 caps 2RF K21.9 - Gastro-esophageal reflux disease without esophagitis bisacodyl (Gentle Laxative (bisacodyl)) 10 mg (2 x 5 mg) PO BEDTIME 90 days 180 tabs 1RF K59.04 - Chronic idiopathic constipation Coding Level of Care Code Est Pt Level 3 (57325) Diagnoses Chronic idiopathic constipation K59.04 GERD (gastroesophageal reflux disease) K21.9 Esophagitis presence: without esophagitis
== END 2023-06-19 13:02 | disposition home or self-care (01) ==
PROVIDERS: PCP Internal Medicine; Visit Provider Nurse Practitioner
DX: K59.04 Chronic idiopathic constipation (principal); K21.9 Gastro-esophageal reflux disease without esophagitis
CPT/HCPCS: 99213

== ENCOUNTER → 2023-06-19 11:22 | Outpatient (BNVA) | payer OTHER, SELFPAY | PROVIDERS: PCP Internal Medicine; Visit Provider Nurse Practitioner | DX: K59.04 Chronic idiopathic constipation (principal); K21.9 Gastro-esophageal reflux disease without esophagitis | CPT/HCPCS: 99212 ==

== ENCOUNTER 2023-06-27 09:19 | Outpatient (AMB) | payer OTHER, SELFPAY ==
--- NOTE | 2023-06-27 09:24 | MHC.OFFVIS ---
Intake Vital Signs 06/27/23 09:25 Height 5 ft 6 in Weight 164 lb BMI 26.5 Intake Visit Reasons: ov- Bursitis of right shoulder Intake Note: Stephanie is a 57 year old left hand dominant female who presents today for a follow up of her right shoulder bursitis. Last Injection was donr 04/25/23 which was not helpful. Allergies codeine [Codeine] Allergy (Mild, Verified 06/19/23 11:35) N/V, HEADACHE, vomiting morphine [MORPHINE] Allergy (Unknown, Verified 06/19/23 11:35) VOMITING, HEADACHE, migraine, vomiting ethyl chloride Allergy (Unknown, Uncoded 04/25/23 10:14) Unknown HPI ov- Bursitis of right shoulder HPI Details Stephanie is a 57 year old woman returning to discuss her right shoulder bursitis. She was last seen, and injected, on 04/25/23, with only a day of relief. She continues to have pain in her shoulder with daily activity, worse with overhead activity and at night. She says reaching up to do her hair has become more painful and difficult. She has found no relief from PT, injections or home exercises. FORMERLY [facility] Medical History (Updated 07/01/23 @ 07:52 by Alber Epps MD) Abdominal bloating Back pain Bilateral hand pain Biliary colic Breast cancer screening by mammogram Candidiasis of mouth and esophagus Cellulitis Cervicalgia Cholelithiasis Cigarette smoker COPD (chronic obstructive pulmonary disease) Elbow pain, right Erosive (osteo)arthritis Giant cell tumor of tendon sheath Gout Hypertriglyceridemia Hypothyroid Internal derangement of right shoulder Irritable bowel syndrome with constipation Mass of left axilla Mass of soft tissue of left upper extremity Medullary thyroid carcinoma Multiple endocrine neoplasia type 2A (MEN2A) Neck pain Neuritis of right ulnar nerve Nevoid hyperpigmentation Odynophagia Pain in both feet Pheochromocytoma of left adrenal gland PONV (postoperative nausea and vomiting) Pulmonary nodule Puncture wound Rash of neck Tobacco abuse Trigger finger Surgical History H/O total adrenalectomy History of esophagogastroduodenoscopy (EGD) History of fusion of lumbar spine History of parathyroidectomy History of thyroidectomy History of tonsillectomy Hx laparoscopic cholecystectomy Hx of bilateral breast reduction surgery Hx of colonoscopy Status post RAMIREZ-BSO Family History Father Heart attack Mother Brain cancer Lung cancer Cervical cancer Family/Other Diabetes Sister Cervical cancer Daughter Breast cancer Social History Household Members: Spouse and Children Housing: Other Housing Other:: Trailer Alcohol intake: never Patient Tobacco Use Status: Current everyday Tobacco user Tobacco use type: Cigarette Cigarette Packs Per Day: 0.5 Cigarettes Per Day: 15 Years Smoked: 1/2 pack a day e-Cigarette/Vaping Use: Never Used Second Hand Smoke Exposure: Yes Substance Use Type: Marijuana service: No Current occupational status: disabled Current occupation: left handed Cognitive needs: No Hearing needs: No Vision needs: Yes Review of Systems Const All systems reviewed & are unremarkable except as noted in HPI and below Physical Exam Vital Signs: BMI result Body Mass Index 26.5 Const General: no acute distress, alert and awake Orientation/consciousness: patient oriented x3 HEENT Head: Yes normocephalic and Yes atraumatic Eyes EOM: EOMs intact bilaterally Resp Effort & Inspection: normal respiratory effort and able to speak in complete sentences Cardio Jugular venous distension: no JVD Skin General skin exam: turgor normal Rashes: no rashes Neuro General: patient oriented x3 Extrem Other: Right Shoulder: + H&N Painful empty can ER 45 degrees Psych Appearance: grossly normal Affect: normal affect Attitude: cooperative Results Reviewed Results Reviewed: I personally reviewed relevant radiographs. Arthritis at the bilateral acromioclavicular joints. Otherwise unremarkable radiographs Assessment & Plan Assessment & Plan (1) Bursitis of right shoulder: Code(s): M75.51 - Bursitis of right shoulder Plan: This is a 57 year old woman with right shoulder bursitis. She has pain with daily activity, worse with overhead activities. She found no relief from conservative treatment options, including a previous steroid injection on 04/25/23. I ordered an MRI of her right shoulder, and recommend NSAIDs. She will follow up when completed for review. Plan Scribed for Alber Epps MD by Richi Rider, medical massage therapist, on 06/27/23 at 9:35 AM, EST. Orders: Orders MR shoulder RT wo con Today M24.811 - Other specific joint derangements of right shoulder, not elsewhere classified Coding Level of Care Code Est Pt Level 4 (74920) Diagnoses Bursitis of right shoulder M75.51
[2023-06-27 09:25] VITALS: BMI 26.5
== END 2023-06-27 09:37 | disposition home or self-care (01) ==
PROVIDERS: PCP Internal Medicine; Visit Provider Orthopaedic Surgery
DX: M75.51 Bursitis of right shoulder (principal)
CPT/HCPCS: 99214

== ENCOUNTER → 2023-06-27 09:19 | Outpatient (BNVA) | payer OTHER, SELFPAY | PROVIDERS: PCP Internal Medicine; Visit Provider Orthopaedic Surgery | DX: M75.51 Bursitis of right shoulder (principal) | CPT/HCPCS: 99212 ==

== ENCOUNTER 2023-07-17 10:48 | Outpatient (AMB) | payer OTHER, SELFPAY ==
--- NOTE | 2023-07-17 10:54 | MHC.OFFVIS ---
Intake Vital Signs 07/17/23 11:09 Height 5 ft 6 in Weight 165 lb BMI 26.6 BP 135/75 Blood Pressure Location Lt brachial Position Sitting Pulse 71 Intake Visit Reasons: 4 week follow up Intake Note: Stephanie presents in the office as a 4 week follow up. CC: She states that she is not having any concerns at this time. Allergies codeine [Codeine] Allergy (Mild, Verified 08/11/23 15:09) N/V, HEADACHE, vomiting morphine [MORPHINE] Allergy (Unknown, Verified 08/11/23 15:09) VOMITING, HEADACHE, migraine, vomiting ethyl chloride Allergy (Unknown, Uncoded 08/11/23 15:09) Unknown HPI 4 week follow up HPI Details Assessment & Plan (1) Chronic idiopathic constipation: Code(s): K59.04 - Chronic idiopathic constipation Plan: She had her GB out in Nov, but she is still suffering CIC it hasn't changed it at all! She still has severe CIC, not moving bowels for 4 days, taking motegrity and 1 bisacodyl...BUT if she takes 2 bisacodyl she will have watery diarrhea. She has early satiety and nausea with eating and upper abd bloating that is persistent despite how well she has moved her bowels or had diarrhea. (her insurance does not pay for Amitiza along with Motegrity) May be small bowel motility disorder, will re try reglan 5mg qidachs. She continues on omeprazole once a day with good control of her GERD. May consider small bowel follow through study. ROV 4 weeks. (2) GERD (gastroesophageal reflux disease): Code(s): K21.9 - Gastro-esophageal reflux disease without esophagitis Qualifiers: Esophagitis presence: without esophagitis Qualified Code(s): K21.9 - Gastro-esophageal reflux disease without esophagitis Medications: New metoclopramide HCl (Reglan) provider is aware of potential interactions and is monitoring 5 mg PO QIDACHS 120 tabs 3RF K21.9 - Gastro-esophageal reflux disease without esophagitis, K59.04 - Chronic idiopathic constipation Refilled prucalopride (Motegrity) 2 mg PO DAILY 30 tabs 6RF K59.04 - Chronic idiopathic constipation omeprazole 20 mg PO DAILY 90 days 90 caps 2RF K21.9 - Gastro-esophageal reflux disease without esophagitis bisacodyl (Gentle Laxative (bisacodyl)) 10 mg (2 x 5 mg) PO BEDTIME 90 days 180 tabs 1RF K59.04 - Chronic idiopathic constipation TODAY'S VISIT She received the Reglan 5 mg but was not taking it 4 times a day because she thought she had to eat. I let her know that she does not she can take it 4 times scheduled this is only 1 we treat gastroparesis the eating is important. She can even taken on empty stomach. She continues on her Motegrity and she was so constipated she actually took 3 bisacodyl at once and although it caused her severe cramping she did move her bowels without having diarrhea. I am surprised that she did not have diarrhea and this makes me question whether not we should actually stop the bisacodyl. It may be that once we move the stool burden we can greatly decreased the dose. I am also uncertain how the Reglan plays into this. I consider going to [place] but at this point will keep the bisacodyl and increase the dose of the Reglan since she has had no adverse effects from it. I consider small-bowel study but I think I will hold off on that for now since we would have to stop these medicines to get the study and I am not sure it would prove anything if we can find something that actually works. We can always go back and reconsider this going forward. Return office visit in 3 weeks [facility] Medical History (Updated 08/11/23 @ 15:20 by Richi Rider) Internal derangement of right shoulder PONV (postoperative nausea and vomiting) Cigarette smoker Biliary colic Cholelithiasis Cervicalgia Pain in both feet Rash of neck Erosive (osteo)arthritis Bilateral hand pain Mass of left axilla Back pain Nevoid hyperpigmentation Neuritis of right ulnar nerve Elbow pain, right Breast cancer screening by mammogram Giant cell tumor of tendon sheath Mass of soft tissue of left upper extremity Puncture wound Cellulitis Neck pain Trigger finger Odynophagia Candidiasis of mouth and esophagus Hypertriglyceridemia Tobacco abuse Gout Pulmonary nodule COPD (chronic obstructive pulmonary disease) Abdominal bloating Irritable bowel syndrome with constipation Hypothyroid Pheochromocytoma of left adrenal gland Medullary thyroid carcinoma Multiple endocrine neoplasia type 2A (MEN2A) Surgical History Hx laparoscopic cholecystectomy History of esophagogastroduodenoscopy (EGD) History of tonsillectomy Hx of colonoscopy History of parathyroidectomy Hx of bilateral breast reduction surgery Status post RAMIREZ-BSO History of fusion of lumbar spine History of thyroidectomy H/O total adrenalectomy Family History Father Heart attack Mother Brain cancer Lung cancer Cervical cancer Family/Other Diabetes Sister Cervical cancer Daughter Breast cancer Social History Household Members: Spouse and Children Housing: Other Housing Other:: Trailer Alcohol intake: never Patient Tobacco Use Status: Current everyday Tobacco user Tobacco use type: Cigarette Cigarette Packs Per Day: 0.5 Cigarettes Per Day: 15 Years Smoked: 1/2 pack a day e-Cigarette/Vaping Use: Never Used Second Hand Smoke Exposure: Yes Substance Use Type: Marijuana service: No Current occupational status: disabled Current occupation: left handed Cognitive needs: No Hearing needs: No Vision needs: Yes Review of Systems Const Denies fatigue, Denies fever(s), Denies night sweats, Denies poor appetite and Denies weight loss Eyes Details: glasses Reports requires corrective lenses ENT Reports Normal hearing present, Denies dental pain, Denies dysphagia, Denies hearing loss, Denies mouth pain, Denies odynophagia, Denies throat swelling, Denies tongue swelling and Reports other (Dentition adequate) Card Reports no additional complaints Resp Reports no additional complaints GI Denies abdominal pain, Denies melena, Reports bloating, Denies hematochezia, Reports constipation, Reports GI cramping, Denies dysphagia, Denies excessive flatus, Denies early satiety, Denies heartburn, Denies diarrhea, Denies nausea, Denies odynophagia, Denies vomiting and Denies hematemesis Skin/Breast Denies pruritus, Denies lesions, Denies rash and Denies jaundice Neuro Reports Normal hearing present and Denies Abnormal speech present Endo Denies fatigue Aller/Immun Denies throat swelling and Denies tongue swelling Physical Exam Vital Signs: Last Vital Signs Pulse 71 07/17/23 11:09 BP 135/75 07/17/23 11:09 BMI result Body Mass Index 26.6 Const General: cooperative, no acute distress, well developed and well groomed Nutritional Appearance: average body habitus and well nourished Orientation/consciousness: oriented to person, oriented to place and oriented to time Limitations: No language barrier HEENT Head: Yes normocephalic and Yes atraumatic Eyes General: appearance normal, both eyes and all related structures Pupils: Equal, round and reactive pupils present Neck Neck: Yes normal visual inspection and Yes no lymphadenopathy Thyroid: Thyroid normal Resp Effort & Inspection: normal respiratory effort and able to speak in complete sentences Auscultation: clear to auscultation bilaterally Cardio Rate: regular rate Rhythm: regular rhythm Heart sounds: Normal, physiologic split S2 sound present Peripheral pulses: radial pulses present and posterior tibial pulses present GI Inspection: No distended and No Abdominal panniculus present Palpation (GI): Soft to palpation, nontender, no guarding, not rigid and No hepatosplenomegaly present Percussion: Yes normal to percussion Auscultation: normal bowel sounds Rectal Exam - Female: deferred Skin General skin exam: no rashes or lesions noted, turgor normal, skin not dry, no jaundice, No spider nevi and no striae Rashes: no rashes Nails: normal Neuro General: oriented to person, oriented to place and oriented to time Cranial nerves: Yes Equal, round and reactive pupils present and Yes Normal hearing present Speech: No Abnormal speech present Extrem General: Yes normal to inspection, No clubbing, No cyanosis and No edema Psych Appearance: grossly normal and well kempt Mental Status: mental status grossly normal Speech and movement: Normal speech and movement present Affect: normal affect Attitude: cooperative Thought process: Normal thought process present and not confabulating Thought content: Normal thought content present Insight: Fair insight present (Psych) Judgement: Fair judgement present (Psych) Assessment & Plan Assessment & Plan (1) Small bowel motility disorder: Code(s): K59.9 - Functional intestinal disorder, unspecified Plan: She received the Reglan 5 mg but was not taking it 4 times a day because she thought she had to eat. I let her know that she does not she can take it 4 times scheduled this is only 1 we treat gastroparesis the eating is important. She can even taken on empty stomach. She continues on her Motegrity and she was so constipated she actually took 3 bisacodyl at once and although it caused her severe cramping she did move her bowels without having diarrhea. I am surprised that she did not have diarrhea and this makes me question whether not we should actually stop the bisacodyl. It may be that once we move the stool burden we can greatly decreased the dose. I am also uncertain how the Reglan plays into this. I consider going to [place] but at this point will keep the bisacodyl and increase the dose of the Reglan since she has had no adverse effects from it. I consider small-bowel study but I think I will hold off on that for now since we would have to stop these medicines to get the study and I am not sure it would prove anything if we can find something that actually works. We can always go back and reconsider this going forward. Return office visit in 3 weeks (2) Chronic idiopathic constipation: Code(s): K59.04 - Chronic idiopathic constipation Medications: New metoclopramide HCl (Reglan) 10 mg PO QID 120 tabs 6RF K59.9 - Functional intestinal disorder, unspecified, K59.04 - Chronic idiopathic constipation Changed From bisacodyl 10 mg (2 x 5 mg) PO BEDTIME 90 days 180 tabs 1RF K59.04 - Chronic idiopathic constipation To bisacodyl (Gentle Laxative (bisacodyl)) 15 mg (3 x 5 mg) PO BEDTIME 270 tabs 1RF 90 days K59.04 - Chronic idiopathic constipation On Hold metoclopramide HCl (Reglan) Hold Comment: Doctor's Order 5 mg PO QIDACHS 120 tabs 3RF K21.9 - Gastro-esophageal reflux disease without esophagitis, K59.04 - Chronic idiopathic constipation Coding Level of Care Code Est Pt Level 3 (92988) Diagnoses Small bowel motility disorder K59.9 Chronic idiopathic constipation K59.04
[2023-07-17 11:09] VITALS: BP 135/75; PULSE 71; BMI 26.6
== END 2023-07-17 11:35 | disposition home or self-care (01) ==
PROVIDERS: PCP Internal Medicine; Visit Provider Nurse Practitioner
DX: K59.9 Functional intestinal disorder, unspecified (principal); K59.04 Chronic idiopathic constipation
CPT/HCPCS: 99213

== ENCOUNTER → 2023-07-17 10:48 | Outpatient (BNVA) | payer OTHER, SELFPAY | PROVIDERS: PCP Internal Medicine; Visit Provider Nurse Practitioner | DX: K59.04 Chronic idiopathic constipation (principal); K59.9 Functional intestinal disorder, unspecified | CPT/HCPCS: 99212 ==

== ENCOUNTER 2023-07-23 19:00 | Outpatient (REF) | payer OTHER, SELFPAY ==
--- NOTE | ~2023-07-23 | MR_ITS ---
EXAMINATION: MR SHOULDER WITHOUT CONTRAST, RIGHT CLINICAL INFORMATION: Joint derangement right shoulder. Patient reports pain. Patient reports no prior right shoulder surgery. COMPARISON: X-ray 04/09/2023. MRI 08/13/2011 TECHNIQUE: MRI of the shoulder without contrast was performed on a high-field scanner. FINDINGS: ROTATOR CUFF: Heterogeneous T2 signal in the supraspinatus and infraspinatus tendon suggesting mild tendinosis. No focal tear. Teres minor is intact. Mild-moderate subscapularis tendinosis, mild articular surface fraying. No muscle atrophy or fatty infiltration. BICEPS: Intact. Question mild tendinosis of the proximal intra-articular tendon. CORACOACROMIAL ARCH: The undersurface of the acromion is curved with no subacromial spur. Moderate acromioclavicular arthritis, with bony hypertrophy/spurring, marrow edema. Trace edema/ fluid in the subacromial subdeltoid space. LABRUM/CAPSULE: Superior labral degeneration with free edge fraying/tear. T2 signal in the anteroinferior labrum, suggesting degeneration. No displaced labral tear is otherwise seen. GLENOHUMERAL JOINT/MARROW: No fracture. No suspicious marrow signal changes. Small-moderate joint effusion. Scattered intermediate signal changes within the joint, could reflect synovitis or debris. MR/MR shoulder RT wo con IMPRESSION: 1. Mild supraspinatus and infraspinatus tendinosis. No focal tear. 2. Mild-moderate subscapularis tendinosis, mild articular surface fraying. 3. Question mild proximal biceps tendinosis. 4. Superior labral degeneration with free edge fraying/tear. 5. Moderate acromioclavicular arthritis. 6. Small glenohumeral joint effusion, with possible synovitis or debris.
== END 2023-07-23 19:01 | disposition home or self-care (01) ==
LOC: HO.MRI 19:00
PROVIDERS: PCP Internal Medicine; Visit Provider Orthopaedic Surgery
DX: M24.811 Other specific joint derangements of right shoulder, not elsewhere classified (principal)
CPT/HCPCS: 73221

== ENCOUNTER 2023-08-07 11:32 | Outpatient (AMB) | payer OTHER, SELFPAY ==
--- NOTE | 2023-08-07 11:35 | A.OFFVIS_ITS ---
Intake Vital Signs 08/07/23 11:36 Height 5 ft 6 in Weight 168 lb 6.931 oz BMI 27.2 BP 135/76 Blood Pressure Location Rt brachial Position Sitting Pulse 77 Intake Visit Reasons: 3 week follow up Intake Note: Stephanie presents in the office as a 3 week follow up of CIC. CC: She states she tried the metoclopramide but it did not help with symptoms. She continues to have abdominal pain and constipation. Denies other GI concerns today. Allergies codeine [Codeine] Allergy (Mild, Verified 08/07/23 11:38) N/V, HEADACHE, vomiting morphine [MORPHINE] Allergy (Unknown, Verified 08/07/23 11:38) VOMITING, HEADACHE, migraine, vomiting ethyl chloride Allergy (Unknown, Uncoded 07/17/23 11:09) Unknown Medication List - Last Reconciled 08/07/23 by JYOTI Grant amitriptyline 75 mg PO BEDTIME 90 days bisacodyl (Gentle Laxative (bisacodyl)) 15 mg (3 x 5 mg) PO BEDTIME 90 days cholecalciferol (vitamin D3) 50 mcg PO DAILY levalbuterol tartrate 45 mcg/actuation (Xopenex HFA) 2 puffs inhalation Q4-6H PRN 90 days levothyroxine (Synthroid) 112 mcg PO DAILY lubiprostone (Amitiza) 24 mcg PO BID metoclopramide HCl (Reglan) 5 mg PO QIDACHS metoclopramide HCl (Reglan) 10 mg PO QID omeprazole 20 mg PO DAILY 90 days ondansetron HCl 4 mg PO Q8H PRN 5 days prucalopride (Motegrity) 2 mg PO DAILY ropinirole 0.5 mg (2 x 0.25 mg) PO BEDTIME 30 days sertraline 100 mg PO DAILY 90 days HPI 3 week follow up HPI Details Assessment & Plan (1) Chronic idiopathic constipation: Code(s): K59.04 - Chronic idiopathic constipation Plan: She had her GB out in Nov, but she is still suffering CIC it hasn't changed it at all! She still has severe CIC, not moving bowels for 4 days, taking motegrit y and 1 bisacodyl...BUT if she takes 2 bisacodyl she will have watery diarrhea. She has early satiety and nausea with eating and upper abd bloating that is persistent despite how well she has moved her bowels or had diarrhea. (her insurance does not pay for Amitiza along with Motegrity) May be small bowel motility disorder, will re try reglan 5mg qidachs. She continues on omeprazole once a day with good control of her GERD. May consider small bowel follow through study. ROV 4 weeks. (2) GERD (gastroesophageal reflux diseas e): Code(s): K21.9 - Gastro-esophageal reflux disease without esophagitis Qualifiers: Esophagitis presence: without esophagitis Qualified Code(s): K21.9 - Gastro-esophageal reflux disease without esophagitis Medications: New metoclopramide HCl (Reglan) provider is aware of potential interactions and is monitoring 5 mg PO QIDACHS 120 tabs 3RF K21.9 - Gastro-esophageal reflux disease without esophagitis, K59.04 - Chronic idiopathic constipation Refilled prucalopride (Motegrity) 2 mg PO DAILY 30 tabs 6RF K59.04 - Chronic idiopathic constipation omeprazole 20 mg PO DAILY 90 days 90 caps 2RF K21.9 - Gastro-esophageal reflux disease without esophagitis bisacodyl (Gentle Laxative (bisacodyl)) 10 mg (2 x 5 mg) PO BEDTIME 90 days 180 tabs 1RF K59.04 - Chronic idiopathic constipation TODAY'S VISIT She did not tolerate the reglan when we increased the dose to 10mg she had joint aches and malaise that resolved with stopping. Also, it did not help the stooling. She is using motegrity, but it cost $202 at [employer]....she did not try GoodRx at [employer] [facility] [employer]..printed her savings and will try this. I gave her a written rx. Her constipation has been extremely difficult to control and it seems clear that she has both motility and osmotic problems contributing to this. This is why I believe she needs to different agents. Will have to try harder to control it from the colon and since she could not tolerate the Reglan. She continues on omeprazole once a day with good control of her GERD. I am sure this could be even better with better bowel motility. At this point I do not think this small bowel motility study will give us any new information and even if it did we would be able to act on it given her intolerance to the Reglan so we will skip this idea. ROV 4 weeks. [facility] Medical History (Updated 08/07/23 @ 16:26 by JYOTI Grant) Internal derangement of right shoulder PONV (postoperative nausea and vomiting) Cigarette smoker Biliary colic Cholelithiasis Cervicalgia Pain in both feet Rash of neck Erosive (osteo)arthritis Bilateral hand pain Mass of left axilla Back pain Nevoid hyperpigmentation Neuritis of right ulnar nerve Elbow pain, right Breast cancer screening by mammogram Giant cell tumor of tendon sheath Mass of soft tissue of left upper extremity Puncture wound Cellulitis Neck pain Trigger finger Odynophagia Candidiasis of mouth and esophagus Hypertriglyceridemia Tobacco abuse Gout Pulmonary nodule COPD (chronic obstructive pulmonary disease) Abdominal bloating Irritable bowel syndrome with constipation Hypothyroid Pheochromocytoma of left adrenal gland Medullary thyroid carcinoma Multiple endocrine neoplasia type 2A (MEN2A) Surgical History Hx laparoscopic cholecystectomy History of esophagogastroduodenoscopy (EGD) History of tonsillectomy Hx of colonoscopy History of parathyroidectomy Hx of bilateral breast reduction surgery Status post RAMIREZ-BSO History of fusion of lumbar spine History of thyroidectomy H/O total adrenalectomy Family History Father Heart attack Mother Brain cancer Lung cancer Cervical cancer Family/Other Diabetes Sister Cervical cancer Daughter Breast cancer Social History Household Members: Spouse and Children Housing: Other Housing Other:: Trailer Alcohol intake: never Patient Tobacco Use Status: Current everyday Tobacco user Tobacco use type: Cigarette Cigarette Packs Per Day: 0.5 Cigarettes Per Day: 15 Years Smoked: 1/2 pack a day e-Cigarette/Vaping Use: Never Used Second Hand Smoke Exposure: Yes Substance Use Type: Marijuana service: No Current occupational status: disabled Current occupation: left handed Cognitive needs: No Hearing needs: No Vision needs: Yes Review of Systems Const Denies fatigue, Denies fever(s), Denies night sweats, Denies poor appetite and Denies weight loss Eyes Details: glasses Reports requires corrective lenses ENT Reports Normal hearing present, Denies dental pain, Denies dysphagia, Denies hearing loss, Denies mouth pain, Denies odynophagia, Denies throat swelling, Denies tongue swelling and Reports other (Dentition adequate) Card Reports no additional complaints Resp Reports no additional complaints GI Denies abdominal pain, Denies melena, Reports bloating, Denies hematochezia, Reports constipation, Reports GI cramping, Denies dysphagia, Denies excessive flatus, Denies early satiety, Reports heartburn, Denies diarrhea, Reports nausea, Denies odynophagia, Denies vomiting and Denies hematemesis Skin/Breast Denies pruritus, Denies lesions, Denies rash and Denies jaundice Neuro Reports Normal hearing present and Denies Abnormal speech present Endo Denies fatigue Aller/Immun Denies throat swelling and Denies tongue swelling Physical Exam Vital Signs: Last Vital Signs Pulse 77 08/07/23 11:36 BP 135/76 08/07/23 11:36 BMI result Body Mass Index 27.2 Const General: cooperative, no acute distress, well developed and well groomed Nutritional Appearance: average body habitus and well nourished Orientation/consciousness: oriented to person, oriented to place and oriented to time Limitations: No language barrier HEENT Head: Yes normocephalic and Yes atraumatic Eyes General: appearance normal, both eyes and all related structures Pupils: Equal, round and reactive pupils present Neck Neck: Yes normal visual inspection and Yes no lymphadenopathy Thyroid: Thyroid normal Resp Effort & Inspection: normal respiratory effort and able to speak in complete sentences Auscultation: clear to auscultation bilaterally Cardio Rate: regular rate Rhythm: regular rhythm Heart sounds: Normal, physiologic split S2 sound present Peripheral pulses: radial pulses present and posterior tibial pulses present GI Inspection: No distended and No Abdominal panniculus present Palpation (GI): Soft to palpation, nontender, no guarding, not rigid and No hepatosplenomegaly present Percussion: Yes normal to percussion Auscultation: normal bowel sounds Rectal Exam - Female: deferred Skin General skin exam: no rashes or lesions noted, turgor normal, skin not dry, no jaundice, No spider nevi and no striae Rashes: no rashes Nails: normal Neuro General: oriented to person, oriented to place and oriented to time Cranial nerves: Yes Equal, round and reactive pupils present and Yes Normal hearing present Speech: No Abnormal speech present Extrem General: Yes normal to inspection, No clubbing, No cyanosis and No edema Psych Appearance: grossly normal and well kempt Mental Status: mental status grossly normal Speech and movement: Normal speech and movement present Affect: normal affect Attitude: cooperative Thought process: Normal thought process present and not confabulating Thought content: Normal thought content present Insight: Fair insight present (Psych) Judgement: Fair judgement present (Psych) Assessment & Plan Assessment & Plan (1) Chronic idiopathic constipation: Code(s): K59.04 - Chronic idiopathic constipation Plan: She did not tolerate the reglan when we increased the dose to 10mg she had joint aches and malaise that resolved with stopping. Also, it did not help the stooling. She is using motegrity, but it cost $202 at [employer]....she did not try GoodRx at [employer] [facility] [employer]..printed her savings and will try this. I gave her a written rx. Her constipation has been extremely difficult to control and it seems clear that she has both motility and osmotic problems contributing to this. This is why I believe she needs to different agents. Will have to try harder to control it from the colon and since she could not tolerate the Reglan. She continues on omeprazole once a day with good control of her GERD. I am sure this could be even better with better bowel motility. At this point I do not think this small bowel motility study will give us any new information and even if it did we would be able to act on it given her intolerance to the Reglan so we will skip this idea. ROV 4 weeks. (2) GERD (gastroesophageal reflux disease): Code(s): K21.9 - Gastro-esophageal reflux disease without esophagitis Qualifiers: Esophagitis presence: without esophagitis Qualified Code(s): K21.9 - Gastro-esophageal reflux disease without esophagitis Medications: Discontinued metoclopramide HCl (Reglan) provider is aware of potential interactions and is monitoring Discontinued Reason: Patient no longer taking 5 mg PO QIDACHS 120 tabs 3RF K21.9 - Gastro-esophageal reflux disease without esophagitis, K59.04 - Chronic idiopathic constipation metoclopramide HCl (Reglan) Discontinued Reason: Patient no longer taking 10 mg PO QID 120 tabs 6RF K59.04 - Chronic idiopathic constipation, K59.9 - Functional intestinal disorder, unspecified Coding Level of Care Code Est Pt Level 3 (14030) Diagnoses Chronic idiopathic constipation K59.04 Gastroesophageal reflux disease without esophagitis K21.9 Esophagitis presence: without esophagitis
[2023-08-07 11:36] VITALS: BP 135/76; PULSE 77; BMI 27.2
== END 2023-08-07 12:04 | disposition home or self-care (01) ==
PROVIDERS: PCP Internal Medicine; Visit Provider Nurse Practitioner
DX: K59.04 Chronic idiopathic constipation (principal); K21.9 Gastro-esophageal reflux disease without esophagitis
CPT/HCPCS: 99213

== ENCOUNTER → 2023-08-07 11:32 | Outpatient (BNVA) | payer OTHER, SELFPAY | PROVIDERS: PCP Internal Medicine; Visit Provider Nurse Practitioner | DX: K59.04 Chronic idiopathic constipation (principal); K21.9 Gastro-esophageal reflux disease without esophagitis; Z79.899 Other long term (current) drug therapy | CPT/HCPCS: 99212 ==

== ENCOUNTER 2023-08-11 15:04 | Outpatient (AMB) | payer OTHER, SELFPAY ==
--- NOTE | 2023-08-11 15:07 | MHC.OFFVIS ---
Intake Intake Visit Reasons: ov- MRI Shoulder RT Review Intake Note: This is a 58 year old female who presents for an MRI review of the right shoulder. Allergies codeine [Codeine] Allergy (Mild, Verified 08/11/23 15:09) N/V, HEADACHE, vomiting morphine [MORPHINE] Allergy (Unknown, Verified 08/11/23 15:09) VOMITING, HEADACHE, migraine, vomiting ethyl chloride Allergy (Unknown, Uncoded 08/11/23 15:09) Unknown Medication List - Last Reconciled 08/11/23 by Alia Villafana RN amitriptyline 75 mg PO BEDTIME 90 days bisacodyl (Gentle Laxative (bisacodyl)) 15 mg (3 x 5 mg) PO BEDTIME 90 days cholecalciferol (vitamin D3) 50 mcg PO DAILY levalbuterol tartrate 45 mcg/actuation (Xopenex HFA) 2 puffs inhalation Q4-6H PRN 90 days levothyroxine (Synthroid) 112 mcg PO DAILY lubiprostone (Amitiza) 24 mcg PO BID omeprazole 20 mg PO DAILY 90 days ondansetron HCl 4 mg PO Q8H PRN 5 days prucalopride (Motegrity) 2 mg PO DAILY ropinirole 0.5 mg (2 x 0.25 mg) PO BEDTIME 30 days sertraline 100 mg PO DAILY 90 days HPI ov- MRI Shoulder RT Review HPI Details Stephanie is a 58 year old woman returning for an MRI review of her right shoulder. She was last injected on 04/25/23, with only a day of relief, and has been taking NSAIDs. She is left hand dominant, but says she uses her right hand primarily throughout the day. She continues to have pain in her shoulder with daily activity, worse with overhead activity and at night. She says reaching up to do her hair has become more painful and difficult. She has found no relief from PT, injections or home exercises. She says PT made her pain worse and she stopped before fully completing her course. She is not working at this time. She has been seen by Pain Management for cervicalgia in the past, and has some pain that radiates into her shoulders from her neck. She denies any numbness or tingling. [facility] Medical History (Updated 08/11/23 @ 15:20 by Richi Rider) Internal derangement of right shoulder PONV (postoperative nausea and vomiting) Cigarette smoker Biliary colic Cholelithiasis Cervicalgia Pain in both feet Rash of neck Erosive (osteo)arthritis Bilateral hand pain Mass of left axilla Back pain Nevoid hyperpigmentation Neuritis of right ulnar nerve Elbow pain, right Breast cancer screening by mammogram Giant cell tumor of tendon sheath Mass of soft tissue of left upper extremity Puncture wound Cellulitis Neck pain Trigger finger Odynophagia Candidiasis of mouth and esophagus Hypertriglyceridemia Tobacco abuse Gout Pulmonary nodule COPD (chronic obstructive pulmonary disease) Abdominal bloating Irritable bowel syndrome with constipation Hypothyroid Pheochromocytoma of left adrenal gland Medullary thyroid carcinoma Multiple endocrine neoplasia type 2A (MEN2A) Surgical History Hx laparoscopic cholecystectomy History of esophagogastroduodenoscopy (EGD) History of tonsillectomy Hx of colonoscopy History of parathyroidectomy Hx of bilateral breast reduction surgery Status post RAMIREZ-BSO History of fusion of lumbar spine History of thyroidectomy H/O total adrenalectomy Family History Father Heart attack Mother Brain cancer Lung cancer Cervical cancer Family/Other Diabetes Sister Cervical cancer Daughter Breast cancer Social History Household Members: Spouse and Children Housing: Other Housing Other:: Trailer Alcohol intake: never Patient Tobacco Use Status: Current everyday Tobacco user Tobacco use type: Cigarette Cigarette Packs Per Day: 0.5 Cigarettes Per Day: 15 Years Smoked: 1/2 pack a day e-Cigarette/Vaping Use: Never Used Second Hand Smoke Exposure: Yes Substance Use Type: Marijuana service: No Current occupational status: disabled Current occupation: left handed Cognitive needs: No Hearing needs: No Vision needs: Yes Review of Systems Const All systems reviewed & are unremarkable except as noted in HPI and below Physical Exam Const General: no acute distress, alert and awake Orientation/consciousness: patient oriented x3 HEENT Head: Yes normocephalic and Yes atraumatic Eyes EOM: EOMs intact bilaterally Resp Effort & Inspection: normal respiratory effort and able to speak in complete sentences Cardio Jugular venous distension: no JVD Skin General skin exam: turgor normal Rashes: no rashes Neuro General: patient oriented x3 Extrem Other: Right Shoulder: + H&N Painful empty can ER 45 degrees Psych Appearance: grossly normal Affect: normal affect Attitude: cooperative Results Reviewed Results Reviewed: I personally reviewed relevant MR images 1. Mild supraspinatus and infraspinatus tendinosis. No focal tear. 2. Mild-moderate subscapularis tendinosis, mild articular surface fraying. 3. Question mild proximal biceps tendinosis. 4. Superior labral degeneration with free edge fraying/tear. 5. Moderate acromioclavicular arthritis. 6. Small glenohumeral joint effusion, with possible synovitis or debris. Assessment & Plan Assessment & Plan (1) Rotator cuff arthropathy of right shoulder: Code(s): M12.811 - Other specific arthropathies, not elsewhere classified, right shoulder Plan: This is a 58 year old woman with right shoulder degenerative tearing of the labrum and rtc, in a setting of AC joint OA. She has pain with daily activity, worse with overhead activities, and is limited in her ADLs. She found no relief from a prior steroid injection, PT, or NSAIDs. Her pain has been ongoing for greater than 6 months. I discussed her diagnosis and treatment options. I recommend a right shoulder with possible RTC repair & biceps tenotomy. I discussed the risks, benefits, and alternatives including, but not limited to, the risk of pain, infection, stiffness, need for further surgery as well as potential medical complications such as blood clots, pulmonary embolism and cardiac complications. I discussed the recovery timeline and process as well as the importance of PT. Stephanie is a good candidate for this surgery, and she wishes to proceed with this decision. She will speak with our SS to schedule this procedure. (2) Osteoarthritis of right shoulder: Code(s): M19.011 - Primary osteoarthritis, right shoulder Plan Scribed for Alber Epps MD by Richi Rider, medical assistant secretary, on 08/11/23 at 3:20 PM, EST. Coding Level of Care Code Est Pt Level 4 (87589) Diagnoses Rotator cuff arthropathy of right shoulder M12.811 Osteoarthritis of right shoulder M19.011
== END 2023-08-11 15:34 | disposition home or self-care (01) ==
PROVIDERS: PCP Internal Medicine; Visit Provider Orthopaedic Surgery
DX: M19.011 Primary osteoarthritis, right shoulder (principal)
CPT/HCPCS: 99214

== ENCOUNTER → 2023-08-11 15:04 | Outpatient (BNVA) | payer OTHER, SELFPAY | PROVIDERS: PCP Internal Medicine; Visit Provider Orthopaedic Surgery | DX: M12.811 Other specific arthropathies, not elsewhere classified, right shoulder (principal); M19.011 Primary osteoarthritis, right shoulder | CPT/HCPCS: 99212 ==

== ENCOUNTER 2024-04-02 10:37 | Outpatient (AMB) | payer OTHER, SELFPAY ==
--- NOTE | 2024-04-02 11:19 | A.OFFVIS_ITS ---
Intake Visit Reasons: OV-Right shoulder follow up discuss surgery Intake Note: Stephanie is a 58 year old female who presents today for her right shoulder to discuss possible surgery. right shoulder with possible RTC repair & biceps tenotomy. Allergies codeine [Codeine] Allergy (Mild, Verified 08/11/23 15:09) N/V, HEADACHE, vomiting morphine [MORPHINE] Allergy (Unknown, Verified 08/11/23 15:09) VOMITING, HEADACHE, migraine, vomiting ethyl chloride Allergy (Unknown, Uncoded 08/11/23 15:09) Unknown HPI HPI OV-Right shoulder follow up discuss surgery: Details: Stephanie is a 58 year old female who presents today for her right shoulder to discuss possible surgery. right shoulder with possible RTC repair & biceps tenotomy. She was scheduled for this surgery ~ 6 months ago but had to cancel due to a family emergency. She has, unfortunately, continued to have pain in her right shoulder. She describes an inability to engage in overhead activity and she has pain at night. [facility] Medical History (Updated 08/11/23 @ 15:20 by Richi Rider) Internal derangement of right shoulder PONV (postoperative nausea and vomiting) Cigarette smoker Biliary colic Cholelithiasis Cervicalgia Pain in both feet Rash of neck Erosive (osteo)arthritis Bilateral hand pain Mass of left axilla Back pain Nevoid hyperpigmentation Neuritis of right ulnar nerve Elbow pain, right Breast cancer screening by mammogram Giant cell tumor of tendon sheath Mass of soft tissue of left upper extremity Puncture wound Cellulitis Neck pain Trigger finger Odynophagia Candidiasis of mouth and esophagus Hypertriglyceridemia Tobacco abuse Gout Pulmonary nodule COPD (chronic obstructive pulmonary disease) Abdominal bloating Irritable bowel syndrome with constipation Hypothyroid Pheochromocytoma of left adrenal gland Medullary thyroid carcinoma Multiple endocrine neoplasia type 2A (MEN2A) Surgical History Hx laparoscopic cholecystectomy History of esophagogastroduodenoscopy (EGD) History of tonsillectomy Hx of colonoscopy History of parathyroidectomy Hx of bilateral breast reduction surgery Status post RAMIREZ-BSO History of fusion of lumbar spine History of thyroidectomy H/O total adrenalectomy Family History Father Heart attack Mother Brain cancer Lung cancer Cervical cancer Family/Other Diabetes Sister Cervical cancer Daughter Breast cancer Social History Household Members: Spouse and Children Housing: Other Housing Other:: Trailer Alcohol intake: never Patient Tobacco Use Status: Current everyday Tobacco user Tobacco use type: Cigarette Cigarette Packs Per Day: 0.5 Cigarettes Per Day: 15 Years Smoked: 1/2 pack a day e-Cigarette/Vaping Use: Never Used Second Hand Smoke Exposure: Yes Substance Use Type: Marijuana service: No Current occupational status: disabled Current occupation: left handed Cognitive needs: No Hearing needs: No Vision needs: Yes Physical Exam Const General: no acute distress, alert and awake Orientation/consciousness: patient oriented x3 HEENT Head: Yes normocephalic and Yes atraumatic Eyes EOM: EOMs intact bilaterally Resp Effort & Inspection: normal respiratory effort and able to speak in complete sentences Cardio Jugular venous distension: no JVD Skin General skin exam: turgor normal Rashes: no rashes Neuro General: patient oriented x3 Extrem Other: Right Shoulder: + H&N Painful empty can ER 45 degrees Psych Appearance: grossly normal Affect: normal affect Attitude: cooperative Results Reviewed Results Reviewed: I personally reviewed relevant MR images 1. Mild supraspinatus and infraspinatus tendinosis. No focal tear. 2. Mild-moderate subscapularis tendinosis, mild articular surface fraying. 3. Question mild proximal biceps tendinosis. 4. Superior labral degeneration with free edge fraying/tear. 5. Moderate acromioclavicular arthritis. 6. Small glenohumeral joint effusion, with possible synovitis or debris. Assessment & Plan Assessment & Plan (1) Rotator cuff arthropathy of right shoulder: Code(s): M12.811 - Other specific arthropathies, not elsewhere classified, right shoulder Category: Medical Plan: This is a 58 year old woman with right shoulder degenerative tearing of the labrum and rtc, in a setting of AC joint OA. She has pain with daily activity, worse with overhead activities, and is limited in her ADLs. She found no relief from a prior steroid injection, PT, or NSAIDs. Her pain has been ongoing for over one year. I discussed her diagnosis and treatment options. I recommend a right shoulder with possible RTC repair & biceps tenotomy. I discussed the risks, benefits, and alternatives including, but not limited to, the risk of pain, infection, stiffness, need for further surgery as well as potential medical complications such as blood clots, pulmonary embolism and cardiac compl ications. I discussed the recovery timeline and process as well as the importance of PT. Stephanie is a good candidate for this surgery, and she wishes to proceed with this decision. She will speak with our SS to schedule this procedure. (2) Osteoarthritis of right shoulder: Code(s): M19.011 - Primary osteoarthritis, right shoulder Category: Medical Plan Scribed for Alber Epps MD by Richi Rider, nuclear medicine medical director, on 08/11/23 at 3:20 PM, EST. Coding Level of Care Code Est Pt Level 4 (91804) Diagnoses Rotator cuff arthropathy of right shoulder M12.811 Osteoarthritis of right shoulder M19.011
== END 2024-04-02 11:49 | disposition home or self-care (01) ==
PROVIDERS: PCP Internal Medicine; Visit Provider Orthopaedic Surgery
DX: M19.011 Primary osteoarthritis, right shoulder (principal)
CPT/HCPCS: 99214

== ENCOUNTER → 2024-04-02 10:37 | Outpatient (BNVA) | payer OTHER, SELFPAY | PROVIDERS: PCP Internal Medicine; Visit Provider Orthopaedic Surgery | DX: M12.811 Other specific arthropathies, not elsewhere classified, right shoulder (principal); M19.011 Primary osteoarthritis, right shoulder | CPT/HCPCS: 99212 ==

== ENCOUNTER 2024-04-28 06:08 | Day surgery (SDC) | payer OTHER, SELFPAY ==
[2024-04-28] VITALS (11 sets, daily range): BP systolic 128–173; BP diastolic 39–90; PULSE 70–100; RESP 12–16; TEMP 36.1–36.8; O2SAT 93–97; BMI 25.5
[2024-04-28] MEDS: Lactated Ringers 1,000 ML 50 ML IVCONT (06:58)
--- NOTE | 2024-04-28 07:05 | P.CONAN_ITS ---
HPI - Anesthesia Eval Consult details Narrative: 58 yo F presenting for shoulder arthroscopy with RCR. Hx of PONV. PMFSH Active Problems Active Problems: All Active Problems Rotator cuff arthropathy of right shoulder (Acute) Osteoarthritis of right shoulder (Acute) Right rotator cuff tendinitis (Acute) Restless leg syndrome (Acute) Bursitis of right shoulder (Acute) Chest pain (Acute) Hypercholesterolemia (Acute) Shoulder pain, bilateral (Acute) COVID-19 virus infection (Acute) Annual physical exam (Acute) Osteopenia (Acute) Generalized anxiety disorder (Acute) Mass of left axilla (Acute) GERD (gastroesophageal reflux disease) (Acute) Chronic idiopathic constipation (Acute) Internal derangement of right shoulder (Acute) Tobacco abuse (Acute) COPD (chronic obstructive pulmonary disease) (Acute) Hypothyroid (Acute) Multiple endocrine neoplasia type 2A (MEN2A) (Acute) Past Medical History Medical History (Updated 04/28/24 @ 06:30 by Alia Caldwell, RN) Restless leg syndrome Anxiety Depression Internal derangement of right shoulder PONV (postoperative nausea and vomiting) Cigarette smoker Biliary colic Cholelithiasis Cervicalgia Pain in both feet Rash of neck Erosive (osteo)arthritis Bilateral hand pain Mass of left axilla Back pain Nevoid hyperpigmentation Neuritis of right ulnar nerve Elbow pain, right Breast cancer screening by mammogram Giant cell tumor of tendon sheath Mass of soft tissue of left upper extremity Puncture wound Cellulitis Neck pain Trigger finger Odynophagia Candidiasis of mouth and esophagus Hypertriglyceridemia Tobacco abuse Gout Pulmonary nodule COPD (chronic obstructive pulmonary disease) Abdominal bloating Irritable bowel syndrome with constipation Hypothyroid Pheochromocytoma of left adrenal gland Medullary thyroid carcinoma Multiple endocrine neoplasia type 2A (MEN2A) Family History Family History Father Heart attack Mother Brain cancer Lung cancer Cervical cancer Family/Other Diabetes Sister Cervical cancer Daughter Breast cancer Family history of problems with anesthesia: No Surgical History Surgical History Hx laparoscopic cholecystectomy History of esophagogastroduodenoscopy (EGD) History of tonsillectomy Hx of colonoscopy History of parathyroidectomy Hx of bilateral breast reduction surgery Status post RAMIREZ-BSO History of fusion of lumbar spine History of thyroidectomy H/O total adrenalectomy History of Problems with Anesthesia: No Social History Social History Household Members: Spouse and Children Housing: Other Housing Other:: Trailer Alcohol intake: never Patient Tobacco Use Status: Current everyday Tobacco user Tobacco use type: Cigarette Cigarette Packs Per Day: 0.5 Cigarettes Per Day: 15 Years Smoked: 1/2 pack a day e-Cigarette/Vaping Use: Never Used Second Hand Smoke Exposure: Yes Use of substances other than those prescribed or required for medical reasons: Yes Substance Use Type: Marijuana Substance Use Type Other:: edibles Substance Use Frequency: Occasionally Are you DNR?: No Advance Directives: No Advance Directives Information Provided: Yes service: No Current occupational status: disabled Current occupation: left handed Cognitive needs: No Hearing needs: No Vision needs: Yes Meds Allergies Allergy/AdvReac Type Severity Reaction Status Date / Time codeine [Codeine] Allergy Mild N/V, Verified 08/11/23 15:09 HEADACHE, vomiting morphine [MORPHINE] Allergy Unknown VOMITING, Verified 08/11/23 15:09 HEADACHE, migraine, vomiting ethyl chloride Allergy Unknown Unknown Uncoded 08/11/23 15:09 Active Medications: Current Medications Cefazolin Sodium/Dextrose (Ancef) 2 gm in 50 mls @ 100 mls/hr IV PREOP ONE Stop: 04/28/24 07:21 Lactated Ringer's (Lr) 1,000 mls @ 50 mls/hr IVCONT .Q20H ALEX Last Admin: 04/28/24 06:58 Dose: 50 mls/hr Home Medications ?Medication ?Instructions ?Recorded ?Confirmed ?Last Taken ?Type levothyroxine 112 mcg tablet 112 mcg PO DAILY 03/19/22 04/28/24 Unknown History (Synthroid) Exam Exam Date and Time: April 28, 2024 0705 Height,Weight and Vital Signs: Height 5 ft 6 in Weight 71.668 kg Last Vital Signs Temp 98.2 F 04/28/24 06:30 Pulse 71 04/28/24 06:30 Resp 16 04/28/24 06:30 BP 130/71 04/28/24 06:30 Pulse Ox 93 04/28/24 06:30 O2 Del Method Room Air 04/28/24 06:30 Airway Mallampati Class: I TM Dist: >3cm Neck ROM: Full Denture: Upper Heart: S1S2 Lungs: CTAB Assessment and Plan Assessment Anesthesia Assessment: Anesthesia Plan Discussed and Chart Reviewed Final Anesthetic Review Family History of Problems with Anesthesia: No History of Problems with Anesthesia: No NPO: Yes ASA Class: III Final Preanesthetic Review: No Changes in Pt Med Stat, Meds/Allgs Chart Reviewed, Consent Obtained/Reviewed and Anes Risks/Benef Reviewed Patient Risk: Intermediate Procedure Risk: Intermediate Anesthetic Plan Anesthetic Plan: GA and Regional Block (right brachial plexus block) Disposition: Standard PACU
--- NOTE | 2024-04-28 07:25 | MHC.SHP ---
Pre-Procedural Eval Section A - 24 Hr Update-Section A only Date of Service: 04/28/24 The patient is an INPATIENT: No Changes since office visit: No Cold of Flu in the past 2 weeks, No New Medical Problems, No Changes in Medication and No Patient answered all questions The patient has been examined within 24 hours of the surgical procedure. The History & Physical has been completed within 30 days and I have reviewed it.: Yes Section B - Complete if H&P > 30 days Chief Complaint: Unspecified rotator cuff tear or rupture of right Allergies: Allergies Allergy/AdvReac Type Severity Reaction Status Date / Time codeine [Codeine] Allergy Mild N/V, Verified 08/11/23 15:09 HEADACHE, vomiting morphine [MORPHINE] Allergy Unknown VOMITING, Verified 08/11/23 15:09 HEADACHE, migraine, vomiting ethyl chloride Allergy Unknown Unknown Uncoded 08/11/23 15:09 Plan I have reviewed the history and physical and performed a pertinent physical examination on my patient. No changes have occurred unless specified. Time Spent With Patient Time: Total time managing care of this patient today ____ minutes.
[2024-04-28] MEDS: Scopolamine 1.5 MG PATCH.TD.3 EAR-BEHIND (07:27)
--- NOTE | 2024-04-28 09:12 | P.BOP_ITS ---
Brief Operative Note Date of Service: 04/28/24 Pre-op diagnosis: Right shoulder rtc tear, ACJ OA, BILLY Post-op diagnosis: same Procedure: Right RTC repair, biceps tenotomy, DCE and SAD Implants: [place] and Nepher 5.0 knotless Helacoil suture anchor x 1 Surgeon: Alber Epps MD Anesthesia: GETA and regional Was an Mds Manager used for this Procedure?: No Estimated blood loss (mL): 25 IV fluids (mL): 1,000 Pathology: none sent Condition: stable Disposition: PACU
--- NOTE | 2024-05-18 12:20 | P.OP_ITS ---
Operative Note Operative Note Date of Service: 04/28/24 Narrative: Date of Service: 04/28/24 Pre-op diagnosis: Right shoulder rtc tear, ACJ OA, BILLY Post-op diagnosis: same Procedure: Right RTC repair, biceps tenotomy, DCE and SAD Implants: [place] [employer]hew 5.0 knotless Helacoil suture anchor x 1 Surgeon: Alber Epps MD Anesthesia: GETA and regional Was an Edge Grinder Machine used for this Procedure?: No Estimated blood loss (mL): 25 IV fluids (mL): 1,000 Pathology: none sent Condition: stable Disposition: PACU Procedure in detail: Patient was brought to the operating room and placed the the beach chair position. All bony prominences were well padded and the limb was prepped and dr aped in standard sterile fashion. A time out was called to identify proper site, proper procedure and proper surgeon. IV antibiotics per weight were administered. I began by making a posterolateral stab incision with a 15 blade. A blunt trochar was placed into the glenohumeral joint and I insufflated the joint with saline and a 30 degree arthroscope was placed. I established an outside- in anterior portal just distal to the biceps tendon. I then began my inspection of the glenohumeral joint. There was a large degenerative SLAP tear at the biceps anchor ( Type 2). There were minimal cartilage changes at the inferior glenoid without humeral head changes. There was a full thickness undersurface RTC tear. The subcapularis was intact. I debrided the loose cartilage of the glenoid and the degenerative labral tearing and performed a biceps tenotomy. I then removed the trochar and entered the subacromial space. A direct lateral portal was then established and I performed a bursectomy. The cuff was then examined. There was a full thickness tear of the supra and infraspinatus without retraction. The tear was mobile. I placed two medial row double loaded anchors after using a tap just adjacent to the articular cartilage and then brought the suture limbs ( 8) through the medial cuff. I then debrided the bare area down to bleeding bone and, using a cross bridge configuration, brought 4 limbs to each of two lateral 5.0 anchors. This re-approximated the cuff anatomy anatomically. I then perfromed a anterior 5mm subacromial decompression with an oval jin. I then examined the ACJ which was arthritic and the, through the anterior portal with an oval jin I performed a 5-6 mm distal clavicle excison. Once I was satisfied with the repair final images were captured and I removed all instrumentation. Portals were closed with nylon. Patient was placed in an abduction sling, extubated and brought to the recovery room in stable condition. There were no known complications.
== END 2024-04-28 12:25 | disposition home or self-care (01) ==
PROVIDERS: PCP Internal Medicine; Visit Provider Orthopaedic Surgery
PROC: (CPT 29805; principal; 2024-04-28 07:30)
DX: M75.101 Unspecified rotator cuff tear or rupture of right shoulder, not specified as traumatic (principal); M25.511 Pain in right shoulder; M19.011 Primary osteoarthritis, right shoulder; M54.2 Cervicalgia; M10.9 Gout, unspecified; Z98.1 Arthrodesis status; J44.9 Chronic obstructive pulmonary disease, unspecified; R91.1 Solitary pulmonary nodule; Z88.5 Allergy status to narcotic agent; F17.210 Nicotine dependence, cigarettes, uncomplicated; Z98.890 Other specified postprocedural states
CPT/HCPCS: 29827; 29824; 29826; C1713; J0131; J0171; J0690; J1100; J2250; J2405; J2704; J2795; J3010

== ENCOUNTER → 2024-04-28 06:08 | Outpatient (BNV) | payer OTHER, SELFPAY | PROVIDERS: PCP Internal Medicine; Visit Provider Orthopaedic Surgery | DX: M75.121 Complete rotator cuff tear or rupture of right shoulder, not specified as traumatic (principal); M19.011 Primary osteoarthritis, right shoulder; S43.431A Superior glenoid labrum lesion of right shoulder, initial encounter | CPT/HCPCS: 29824; 29827 ==

== ENCOUNTER 2024-05-03 12:52 | Outpatient (AMB) | payer OTHER, SELFPAY ==
[2024-05-03 12:54] VITALS: BP 140/78; PULSE 93; BMI 26.4
--- NOTE | 2024-05-03 12:54 | MHC.OFFVIS ---
Vital Signs 05/03/24 12:54 Height 5 ft 6 in Weight 163 lb 9.328 oz BMI 26.4 BP 140/78 H Blood Pressure Location Lt brachial Position Sitting Pulse 93 Pulse Source Pulse Oximeter Intake Visit Reasons: MEN 2-confirmed Intake Note: Patient present today for MEN follow up visit. Specialty Trimmer Required: No Accompanied by: Self / Same As Patient Allergies codeine [Codeine] Allergy (Mild, Verified 05/03/24 13:00) N/V, HEADACHE, vomiting morphine [MORPHINE] Allergy (Unknown, Verified 05/03/24 13:00) VOMITING, HEADACHE, migraine, vomiting ethyl chloride Allergy (Unknown, Uncoded 05/03/24 13:00) Unknown Medication List - Last Reconciled 05/03/24 by Moose Cook MD amitriptyline 75 mg PO BEDTIME 90 days bisacodyl (Gentle Laxative (bisacodyl)) 15 mg (3 x 5 mg) PO BEDTIME 90 days cholecalciferol (vitamin D3) 50 mcg PO DAILY levalbuterol tartrate 45 mcg/actuation (Xopenex HFA) 2 puffs inhalation Q4-6H PRN 90 days levothyroxine (Synthroid) 112 mcg PO DAILY omeprazole 20 mg PO DAILY 90 days ondansetron HCl 4 mg PO Q8H PRN 5 days oxycodone 5 mg PO Q4-6H 7 days prucalopride (Motegrity) 2 mg PO DAILY ropinirole 1 mg PO BEDTIME 30 days sertraline 100 mg PO DAILY 90 days HPI Comments Details: 58-year-old white female previously seen by myself and then followed by [facility] for MEN 2 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 Yu Ortega . She also had a left pheochromocytoma underwent laparoscopic resection at [facility] in [address] Ortega. Her records are scanned in the system and can be found in detail. she is currently on levothyroxine 112 mcg. No sx of pheo . No change in bowel movement s. Some headache [facility] Medical History (Updated 04/28/24 @ 06:30 by Alia Caldwell RN) Restless leg syndrome Anxiety Depression Internal derangement of right shoulder PONV (postoperative nausea and vomiting) Cigarette smoker Biliary colic Cholelithiasis Cervicalgia Pain in both feet Rash of neck Erosive (osteo)arthritis Bilateral hand pain Mass of left axilla Back pain Nevoid hyperpigmentation Neuritis of right ulnar nerve Elbow pain, right Breast cancer screening by mammogram Giant cell tumor of tendon sheath Mass of soft tissue of left upper extremity Puncture wound Cellulitis Neck pain Trigger finger Odynophagia Candidiasis of mouth and esophagus Hypertriglyceridemia Tobacco abuse Gout Pulmonary nodule COPD (chronic obstructive pulmonary disease) Abdominal bloating Irritable bowel syndrome with constipation Hypothyroid Pheochromocytoma of left adrenal gland Medullary thyroid carcinoma Multiple endocrine neoplasia type 2A (MEN2A) Surgical History Hx laparoscopic cholecystectomy History of esophagogastroduodenoscopy (EGD) History of tonsillectomy Hx of colonoscopy History of parathyroidectomy Hx of bilateral breast reduction surgery Status post RAMIREZ-BSO History of fusion of lumbar spine History of thyroidectomy H/O total adrenalectomy Family History Father Heart attack Mother Brain cancer Lung cancer Cervical cancer Family/Other Diabetes Sister Cervical cancer Daughter Breast cancer Social History Household Members: Spouse and Children Housing: Other Housing Other:: Trailer Alcohol intake: never Patient Tobacco Use Status: Current everyday Tobacco user Tobacco use type: Cigarette Cigarette Packs Per Day: 0.5 Cigarettes Per Day: 15 Years Smoked: 1/2 pack a day e-Cigarette/Vaping Use: Never Used Second Hand Smoke Exposure: Yes Substance Use Type: Marijuana service: No Current occupational status: disabled Current occupation: left handed Cognitive needs: No Hearing needs: No Vision needs: Yes Physical Exam Const Other: healed scar status post thyroidectomy . Reflexes 2+ DTR Assessment & Plan Assessment & Plan (1) Multiple endocrine neoplasia type 2A (MEN2A): Comment: Metastatic medullary thyroid cancer Dr. Cook surgery Dr. THEE Guardado 2010 are ET protocol oncology in 620 units in dex case that has post thyroidectomy with central and left lateral neck dissection LV invasion November 2018 lymph node positive Code(s): E31.22 - Multiple endocrine neoplasia [MEN] type IIA Category: Medical Plan: This is a 58-year-old white female known to have MEN 2 with manifestations of medullary cancer with thyroid and pheochromocytoma status post thyroidectomy with 2 neck dissections and laparoscopic adrenalectomy. The plan is to recheck TSH, free T4, calcitonin and CEA. I will also check calcium and PTH. I will also check fractionated plasma metanephrines I will have these labs perform the [facility] reference labs to be consistent. I suggested [facility] be followed on a tertiary care level. Will have her follow-up with Dr. Silver here will start in May 2024 his expert thyroid ultrasound for follow-up neck ultrasound pending above results Coding Level of Care Code Est Pt Level 3 (59764) Complex EM visit Add On G2211 Diagnoses Multiple endocrine neoplasia type 2A (MEN2A) E31.22
== END 2024-05-03 13:47 | disposition home or self-care (01) ==
PROVIDERS: PCP Internal Medicine; Visit Provider Internal Medicine Endocrinology, Diabetes & Metabolism
DX: E31.22 Multiple endocrine neoplasia [MEN] type IIA (principal)
CPT/HCPCS: 99213; G2211

== ENCOUNTER → 2024-05-03 12:52 | Outpatient (BNVA) | payer OTHER, SELFPAY | PROVIDERS: PCP Internal Medicine; Visit Provider Internal Medicine Endocrinology, Diabetes & Metabolism | DX: E31.22 Multiple endocrine neoplasia [MEN] type IIA (principal); C73 Malignant neoplasm of thyroid gland | CPT/HCPCS: 99212 ==

== ENCOUNTER 2024-05-06 14:44 | Outpatient (AMB) | payer OTHER, SELFPAY ==
--- NOTE | 2024-05-06 15:00 | MHC.OFFVIS ---
Vital Signs 05/06/24 15:03 Height 5 ft 6 in Weight 173 lb BMI 27.9 Handedness Left Intake Visit Reasons: PO RT shoulder poss RTC/bicep 04/28/24 NE Intake Note: Stephanie is a 58 year left hand dominant female who presents today for a pos op appointment s/p Right RTC repair, biceps tenotomy 04/28/24. Patient reports still having ongoing pain in her right shoulder. Allergies codeine [Codeine] Allergy (Mild, Verified 05/03/24 13:00) N/V, HEADACHE, vomiting morphine [MORPHINE] Allergy (Unknown, Verified 05/03/24 13:00) VOMITING, HEADACHE, migraine, vomiting ethyl chloride Allergy (Unknown, Uncoded 05/03/24 13:00) Unknown HPI HPI PO RT shoulder poss RTC/bicep 04/28/24 NE: Details: 58-year-old left hand dominant female who presents in the office today, in the sling, 8 days status post right rotator cuff repair, bicep tenotomy, DCE, and SAD, which was performed on 04/28/[address] Epps.? ? While in the office today, the patient reports having ongoing pain and soreness in the right shoulder. The patient confirms taking two oxycodone daily. ? ? The patient reports she has not started physical therapy at this time.? [facility] Medical History (Updated 05/06/24 @ 16:22 by Fidelina Stahl) Restless leg syndrome Anxiety Depression Internal derangement of right shoulder PONV (postoperative nausea and vomiting) Cigarette smoker Biliary colic Cholelithiasis Cervicalgia Pain in both feet Rash of neck Erosive (osteo)arthritis Bilateral hand pain Mass of left axilla Back pain Nevoid hyperpigmentation Neuritis of right ulnar nerve Elbow pain, right Breast cancer screening by mammogram Giant cell tumor of tendon sheath Mass of soft tissue of left upper extremity Puncture wound Cellulitis Neck pain Trigger finger Odynophagia Candidiasis of mouth and esophagus Hypertriglyceridemia Tobacco abuse Gout Pulmonary nodule COPD (chronic obstructive pulmonary disease) Abdominal bloating Irritable bowel syndrome with constipation Hypothyroid Pheochromocytoma of left adrenal gland Medullary thyroid carcinoma Multiple endocrine neoplasia type 2A (MEN2A) Surgical History Hx laparoscopic cholecystectomy History of esophagogastroduodenoscopy (EGD) History of tonsillectomy Hx of colonoscopy History of parathyroidectomy Hx of bilateral breast reduction surgery Status post RAMIREZ-BSO History of fusion of lumbar spine History of thyroidectomy H/O total adrenalectomy Family History Father Heart attack Mother Brain cancer Lung cancer Cervical cancer Family/Other Diabetes Sister Cervical cancer Daughter Breast cancer Social History Household Members: Spouse and Children Housing: Other Housing Other:: Trailer Alcohol intake: never Patient Tobacco Use Status: Current everyday Tobacco user Tobacco use type: Cigarette Cigarette Packs Per Day: 0.5 Cigarettes Per Day: 15 Years Smoked: 1/2 pack a day e-Cigarette/Vaping Use: Never Used Second Hand Smoke Exposure: Yes Substance Use Type: Marijuana service: No Current occupational status: disabled Current occupation: left handed Cognitive needs: No Hearing needs: No Vision needs: Yes Review of Systems Const All systems reviewed & are unremarkable except as noted in HPI and below Physical Exam Vital Signs: BMI result Body Mass Index 27.9 Const General: cooperative, healthy appearing and no acute distress Resp Effort & Inspection: normal respiratory effort and able to speak in complete sentences Cardio Rate: regular rate Peripheral pulses: Peripheral pulses 2+ throughout GI Palpation (GI): Soft to palpation Skin Lesions: no lesions Rashes: no rashes Extrem Other: Right shoulder: Incision site is clean, dry, and intact. Sutures are intact. No surrounding erythema or drainage. No signs of infection. Forward flexion and abduction to 45 degrees. External rotation to neutral. NVI.? Assessment & Plan Assessment & Plan (1) S/P right rotator cuff repair: Code(s): Z98.890 - Other specified postprocedural states Category: Medical Plan Ms. Rapp is a 58-year-old left hand dominant female who presents in the office today, in the sling, 8 days status post right rotator cuff repair, bicep tenotomy, DCE, and SAD, which was performed on 04/28/[address] Epps.? ? While in the office today, the patient reports having ongoing pain and soreness in the right shoulder. The patient confirms taking two oxycodone daily. ? The patient reports she has not started physical therapy at this time.? ? Sutures were removed and steri-stripes were applied. The patient will remain in the sling for 6 weeks post-op. She has not started to work with physical therapy at this time. Our office with reach out to the PT office to help get the patient an appointment as soon as possible and begin to work on gentle ROM. She was encouraged to continue to work on pendulum exercise at home, which she has been doing. She was instructed to call the office if she had not heard from PT in a few days. A refill for oxycodone 5 mg PO Q4-6 PRN for pain was sent to the pharmacy today. I have recommended for the patient to attempt to sleep in a recliner to help with her sleep. Follow-up will be in [address] Epps, or sooner if needed. ? Orders: Orders PT Evaluation and Treatment 05/06/24 Z98.890 - Other specified postprocedural states Medications: Refilled oxycodone Partial Fill upon patient request. 5 mg PO Q4-6H 42 tabs 0RF pain 7 days Patient Instructions: Scribed by Fidelina Stahl medical receptionist biller, for Vanessa Banegas PA-C on 05/06/2024 at 4:22 pm, EST.? Coding Level of Care Code Global (06789) Diagnoses S/P right rotator cuff repair Z98.890
[2024-05-06 15:03] VITALS: BMI 27.9
== END 2024-05-06 15:33 | disposition home or self-care (01) ==
PROVIDERS: PCP Internal Medicine; Visit Provider Physician Assistant
DX: Z98.890 Other specified postprocedural states (principal)
CPT/HCPCS: 99024

== ENCOUNTER → 2024-05-06 14:44 | Outpatient (BNVA) | payer OTHER, SELFPAY | PROVIDERS: PCP Internal Medicine; Visit Provider Physician Assistant | DX: Z98.890 Other specified postprocedural states (principal) | CPT/HCPCS: 99212 ==

== ENCOUNTER 2024-05-10 12:41 | Outpatient (AMB) | payer OTHER, SELFPAY ==
[2024-05-10 12:52] VITALS: BP 138/78; PULSE 83; O2SAT 98; BMI 26.1
--- NOTE | 2024-05-10 12:52 | MHC.PC.OV ---
Vital Signs 05/10/24 12:52 Height 5 ft 6 in Weight 162 lb BMI 26.1 BP 138/78 Blood Pressure Location Lt brachial Position Sitting Pulse 83 Pulse Source Pulse Oximeter Pulse Oximetry (%) 98 Oxygen Delivery Method Room Air Intake Visit Reasons: S/P Right Rotator Cuff sx Allergies codeine [Codeine] Allergy (Mild, Verified 05/10/24 12:53) N/V, HEADACHE, vomiting morphine [MORPHINE] Allergy (Unknown, Verified 05/10/24 12:53) VOMITING, HEADACHE, migraine, vomiting ethyl chloride Allergy (Unknown, Uncoded 05/10/24 12:53) Unknown Medication List - Last Reconciled 05/10/24 by Jana Bruce PA-C amitriptyline 75 mg PO BEDTIME 90 days bisacodyl (Gentle Laxative (bisacodyl)) 15 mg (3 x 5 mg) PO BEDTIME 90 days cholecalciferol (vitamin D3) 50 mcg PO DAILY levalbuterol tartrate 45 mcg/actuation (Xopenex HFA) 2 puffs inhalation Q4-6H PRN 90 days levothyroxine (Synthroid) 112 mcg PO DAILY omeprazole 20 mg PO DAILY 90 days ondansetron HCl 4 mg PO Q8H PRN 5 days oxycodone 5 mg PO Q4-6H 7 days prucalopride (Motegrity) 2 mg PO DAILY ropinirole 1 mg PO BEDTIME 30 days sertraline 100 mg PO DAILY 90 days Tobacco use date assessed: 05/10/24 Dental Screening Dental Screen Date: 05/10/24 Did you have a dental visit in the last 12 months?: Yes Did you have a dental problem in the last 6 months where you did not have access to dental care?: No Was dental information given to patient?: Patient has dentist HPI S/P Right Rotator Cuff sx HPI Details 58-year-old female with past medical history of multiple endocrine neoplasia, COPD, GERD, generalized anxiety disorder, hypercholesterolemia, and hypothyroid last seen by Dr. White 06/05/2023 coming in today for? postop shoulder surgery. And review of the notes patient had rotator cuff repair for osteoarthritis of right shoulder and rotator cuff arthropathy 04/28/[address] Epps. Patient was seen by Orthopedics 05/07/2024. Sutures removed and Steri-Strips were applied and was placed in a sling for 6 weeks. Encouraged patient to begin physical therapy and oxycodone refilled for pain. Will follow up in 4 weeks.?Last mammogram 02/27/2023 and is due. Last colonoscopy 11/15/2018 with hyperplastic polyps follow-up 10 years. Today she tells us the pain has been more manageable but she finds the most pain when she wakes up in the morning. Orthopedics recommended sleeping in a recliner to see if this improves the pain patient has yet to try this. She states she is starting PT . She also complains of upper right back pain and left calf cramping for the last 3 months. The calf pain is unchanged and intermittent and nothing makes it better or worse including activity and rest. [facility] Medical History Restless leg syndrome Anxiety Depression Internal derangement of right shoulder PONV (postoperative nausea and vomiting) Cigarette smoker Biliary colic Cholelithiasis Cervicalgia Pain in both feet Rash of neck Erosive (osteo)arthritis Bilateral hand pain Mass of left axilla Back pain Nevoid hyperpigmentation Neuritis of right ulnar nerve Elbow pain, right Breast cancer screening by mammogram Giant cell tumor of tendon sheath Mass of soft tissue of left upper extremity Puncture wound Cellulitis Neck pain Trigger finger Odynophagia Candidiasis of mouth and esophagus Hypertriglyceridemia Tobacco abuse Gout Pulmonary nodule COPD (chronic obstructive pulmonary disease) Abdominal bloating Irritable bowel syndrome with constipation Hypothyroid Pheochromocytoma of left adrenal gland Medullary thyroid carcinoma Multiple endocrine neoplasia type 2A (MEN2A) Surgical History Hx laparoscopic cholecystectomy History of esophagogastroduodenoscopy (EGD) History of tonsillectomy Hx of colonoscopy History of parathyroidectomy Hx of bilateral breast reduction surgery Status post RAMIREZ-BSO History of fusion of lumbar spine History of thyroidectomy H/O total adrenalectomy Family History Father Heart attack Mother Brain cancer Lung cancer Cervical cancer Family/Other Diabetes Sister Cervical cancer Daughter Breast cancer Social History Household Members: Spouse and Children Housing: Other Housing Other:: Trailer Alcohol intake: never Patient Tobacco Use Status: Current everyday Tobacco user Tobacco use type: Cigarette Cigarette Packs Per Day: 0.5 Cigarettes Per Day: 15 Years Smoked: 1/2 pack a day e-Cigarette/Vaping Use: Never Used Second Hand Smoke Exposure: Yes Substance Use Type: Marijuana service: No Current occupational status: disabled Current occupation: left handed Cognitive needs: No Hearing needs: No Vision needs: Yes Questionnaire PHQ-9 Over the last 2 weeks, how often have you been bothered by any of the following problems? 1. Little interest or pleasure in doing things: several days 2. Feeling down, depressed, or hopeless: several days 3. Trouble falling or staying asleep, or sleeping too much: several days 4. Feeling tired or having little energy: several days 5. Poor appetite or overeating: not at all 6. Feeling bad about yourself - or that you are a failure or have let yourself or your family down: not at all 7. Trouble concentrating on things, such as reading the newspaper or watching television: several days 8. Moving or speaking so slowly that other people could have noticed. Or the opposite - being so fidgety or restless that you have been moving around a lot more than usual: not at all 9. Thoughts that you would be better off or of hurting yourself in some way: not at all Total score: 5 Depression Screening Interpretation: Positive Depression Screening Done: Yes Source: Developed by Drs. Moose Wright, Ira Membreno, Davy Trevino and colleagues, with an educational cheryl from [employer]. Thrive Questionnaire Date Thrive assessed: 05/10/24 I am a: Patient What is your living situation today?: I have a steady place to live Within the past 12 months, did the food you bought not last and you didn't have the money to get more?: Never true Within the past 12 months, did you worry whether your food would run out before you got money to buy more?: Never true Do you have trouble paying for medicines?: No Do you have trouble getting transportation to medical appointments?: No Do you have trouble paying your heating and electricity bill?: No Do you have trouble taking care of your child, family member or friend?: No Do you have trouble with day-to-day activities such as bathing, preparing meals, shopping, managing finances, etc.?: No Are you currently unemployed and looking for a job?: No Are you interested in more education?: No Please select the resources that you would like help with: None Currently or been in a relationship where the following occur: No concerns reported THRIVE Score: 0 AUDIT C Alcohol Use Questionnaire (AUDIT-C) 1. How often do you have a drink containing alcohol?: Never 2. How many drinks containing alcohol do you have on a typical day when you are drinking?: 1 or 2 3. How often do you have six or more drinks on one occasion?: Never Total Score: 0 JYOTHI-7 AMB Questionnaire JYOTHI-7 Date JYOTHI - 7 assessed: 05/10/24 Feeling nervous, anxious, or on edge: 1 = Several days Not being able to stop or control worryin = Several days Worrying too much about different things: 1 = Several days Trouble relaxin = Several days Being so restless that it is hard to sit still: 1 = Several days Becoming easily annoyed or irritable: 1 = Several days Feeling afraid as if something awful might happen: 1 = Several days Total JYOTHI-7 score (0-4 normal; 5-9 mild; 10-14 moderate; 15-21 severe): 7 Source: Developed by Drs. Moose Wright, Ira Membreno, Davy Trevino and colleagues, with an educational cheryl from [employer]. Review of Systems Const Denies body aches, Denies chills, Denies fever(s), Denies headache(s) and Denies poor appetite Eyes Reports no additional complaints ENT Denies dysphagia, Denies dizziness, Denies headache(s) and Denies odynophagia Card Denies chest pain, Denies syncope, Denies edema, Denies irregular heart rhythm, Denies lightheadedness and Denies dyspnea Resp Denies cough and Denies dyspnea GI Denies abdominal pain, Denies constipation, Denies dysphagia, Denies diarrhea, Denies nausea, Denies odynophagia and Denies vomiting Reports no additional complaints Musc Details: Mild intermittent shoulder pain. Upper right-sided back pain. Left calf pain. Reports no additional complaints and Denies abnormal gait Skin/Breast Reports system reviewed and no additional complaints, except as documented Neuro Denies abnormal gait, Denies dizziness, Denies syncope and Denies headache(s) Psych Reports no additional complaints Physical exam (Primary Care) Vital Signs: Oxygen Delivery Method Room Air 05/10/24 12:52 Tobacco/Smoking Status: Tobacco use Status Tobacco use date assessed 06/05/23 06/05/23 09:58 Patient Tobacco Use Status Current everyday Tobacco 04/28/24 12:06 Tobacco use type Cigarette 04/28/24 06:22 e-Cigarette/Vaping Use Never Used 06/05/23 09:58 Depression Screening Interpretation: Positive Thrive Assessment: Date of Thrive Assessment Date Thrive assessed 06/05/23 06/05/23 09:58 Currently or been in a relationship where the following occur: No concerns reported Const General: cooperative, healthy appearing, comfortable and no acute distress Orientation/consciousness: patient oriented x3 HENMT Head: Yes normocephalic Ears: hearing grossly normal bilaterally General nose exam: Normal external nose present Eyes General: appearance normal, both eyes and all related structures Conjunctivae: conjunctivae normal Neck Neck: Yes full ROM and Yes no lymphadenopathy Resp Effort & Inspection: normal respiratory effort Auscultation: clear to auscultation bilaterally, no crackles, no rales, no rhonchi and no wheezes Cardio Rate: regular rate Rhythm: regular rhythm Back/Spine/Pelvis Other: tenderness to palpation over right inferior aspect of the trapezius. Skin General skin exam: no rashes or lesions noted Neuro Other: Patient is able to move right hand without issue with strength and sensation intact. General: patient oriented x3 Gait exam (Neuro): Normal gait present Extrem Other: Surgical incisions are clean dry and intact with overlying Steri-Strips. No erythema, swelling, warmth to left calf with mild tenderness to palpation. General: Yes normal to inspection, Yes full ROM and No edema Psych Affect: normal affect Attitude: cooperative Insight: Good insight present (Psych) Judgement: Good judgement present (Psych) Assessment and Plan Assessment & Plan (1) S/P right rotator cuff repair: Code(s): Z98.890 - Other specified postprocedural states Plan: Patient had rotator cuff repair for osteoarthritis of right shoulder and rotator cuff arthropathy 04/28/[address] Epps. She has been doing well postoperatively and is in her sling which she says she wears faithfully and denies any heavy lifting. She states she is following all her postop recommendations and is following up with physical therapy on . She has been managing her pain well with oxycodone. her incisions today are clean dry and intact with overlying Steri-Strips. (2) Restless leg syndrome: Code(s): G25.81 - Restless legs syndrome Plan: Patient states her restless leg syndrome has been worsening and she is having increased symptoms prior to bedtime as well as in bed. She is also complaining of intermittent left calf cramping which has been ongoing for the last 3 months. The calf is not swollen, red, warm to the touch but is tender to palpation. Advised patient to increase water intake, ordered electrolyte labs, and will increase dose of ropinirole. Plan Thank you for allowing me to participate in the care of this patient. I personally spent 30 minutes reviewing, examining and charting on this patient. Orders: Orders Complete Blood Count Auto Diff Today Z00.00 - Encounter for general adult medical examination without abnormal findings MM tomosynthesis screening BI Today Z12.31 - Encounter for screening mammogram for malignant neoplasm of breast Comprehensive Met. Panel Today Z00.00 - Encounter for general adult medical examination without abnormal findings Lipid Panel Today Z00.00 - Encounter for general adult medical examination without abnormal findings Free T4 (Free Thyroxine) Today Z00.00 - Encounter for general adult medical examination without abnormal findings TSH reflex Free T4 Today Z00.00 - Encounter for general adult medical examination without abnormal findings Referrals Lung Cancer Screening Referral Z87.891 - Personal history of nicotine dependence Medications: New ropinirole administer 1-3 hours before bedtime. Take along with 1 mg tablet for total dose of 1.5 mg. 0.5 mg PO BEDTIME 90 tabs 1RF Coding Level of Care Code Est Pt Level 4 (70390) Diagnoses S/P right rotator cuff repair Z98.890 Restless leg syndrome G25.81
== END 2024-05-10 13:32 | disposition home or self-care (01) ==
PROVIDERS: PCP Internal Medicine
DX: G25.81 Restless legs syndrome (principal); Z98.890 Other specified postprocedural states
CPT/HCPCS: 99214

== ENCOUNTER 2024-05-24 11:41 | Outpatient (REF) | payer OTHER, SELFPAY ==
[2024-05-24 13:25] LABS: MANUAL DIFF FLAG NO
[2024-05-24 13:52] LABS: Basophils Absolute Auto 0.1 X10*3/uL (0.0-0.2); Basophils Percent Auto 0.7 % (0-2); Eosinophils Absolute Auto 0.1 X10*3/uL (0.0-0.4); Eosinophils Percent Auto 1.5 % (0-4); Hematocrit 38.7 % (37.0-47.0); Hemoglobin 12.4 g/dl (12.0-16.0); Imm Gran Abs Auto 0.05 X10*3/uL (0.00-0.03); Imm Gran Pct Auto 0.6 % (0.0-0.4); Lymphocytes Absolute Auto 2.5 X10*3/uL (1.2-4.9); Lymphocytes Percent Auto 28.5 % (20-40); Mean Corpuscular Volume 84.1 fL (80.0-98.0); Monocytes Absolute Auto 0.5 X10*3/uL (0.1-1.2); Monocytes Percent Auto 5.3 % (2-11); Neutrophils Absolute Auto 5.7 x10*3/uL (2.0-8.3); Neutrophils Percent Auto 63.4 % (45-73); Platelet Count 319 X10*3/uL (160-400); Red Cell Distribution Width 16.5 % (11.0-16.0); White Blood Count 8.9 X10*3/uL (4.8-10.8)
[2024-05-24 14:25] LABS: Alanine Aminotransferase 9 U/L (0-31); Albumin Level 3.9 g/dL (3.5-5.0); Alkaline Phosphatase 90 U/L (39-117); Anion Gap 10 (12-20); Aspartate Amino Transferase 12 U/L (5-31); Bilirubin Total 0.2 mg/dL (0.0-1.0); Blood Urea Nitrogen 10 mg/dL (9-16); Calcium 9.2 mg/dL (8.4-10.2); Carbon Dioxide 27 mmol/L (22-29); Chloride 108 mmol/L (96-108); Cholesterol 178 mg/dL (<200); Estimated Glomerular Filt Rate > 60; Free T4 (Free Thyroxine) 0.98 ng/dL (0.71-1.85); Glucose Random 72 mg/dL (60-115); HDL Cholesterol 37 mg/dL (>40); LDL Cholesterol Calculated 104 mg/dL (<100); Sodium 141 mmol/L (135-145); TSH reflex Free T4 1.21 uIU/mL (0.32-4.0); Total Protein 6.8 g/dL (6.5-8.0); Triglycerides 187 mg/dL (<150)
== END 2024-05-24 11:42 | disposition home or self-care (01) ==
LOC: HO.HMGCLDS 11:41
PROVIDERS: PCP Internal Medicine; Referring Provider Internal Medicine Endocrinology, Diabetes & Metabolism
DX: Z00.00 Encounter for general adult medical examination without abnormal findings (principal)
CPT/HCPCS: 36415; 80053; 80061; 84439; 84443; 85025

== ENCOUNTER 2024-06-04 10:34 | Outpatient (AMB) | payer OTHER, SELFPAY ==
[2024-06-04 10:43] VITALS: BMI 26.1
--- NOTE | 2024-06-04 10:43 | A.OFFVIS_ITS ---
Vital Signs 06/04/24 10:43 Height 5 ft 6 in Weight 162 lb BMI 26.1 Intake Visit Reasons: PO RT shoulder poss RTC/bicep 04/28/24 NE Intake Note: Stephanie is a 58 year left hand dominant female who presents today for a pos op appointment s/p Right RTC repair, biceps tenotomy 04/28/24. Patient reports she has been going to PT which she finds helpful. Patient states she has been experiencing burning and pain at the base of the right shoulder for the past week. She does not want to use the Oxycodone, instead she has been taking Ibuprofen 400 mg BID. Allergies codeine [Codeine] Allergy (Mild, Verified 06/04/24 10:44) N/V, HEADACHE, vomiting morphine [MORPHINE] Allergy (Unknown, Verified 06/04/24 10:44) VOMITING, HEADACHE, migraine, vomiting ethyl chloride Allergy (Unknown, Uncoded 06/04/24 10:44) Unknown HPI HPI PO RT shoulder poss RTC/bicep 04/28/24 NE: Details: Stephanie is a 58 year left hand dominant female who presents today for a pos op appointment s/p Right RTC repair, biceps tenotomy 04/28/24. Patient reports she has been going to PT which she finds helpful. Patient states she has been experiencing burning and pain at the base of the right shoulder for the past week. She does not want to use the Oxycodone, instead she has been taking Ibuprofen 400 mg BID. COUNT INCLUDES THE [facility] Medical History (Updated 06/01/24 @ 12:12 by Jesica Erickson PA-C) Multiple endocrine neoplasia type 2A (MEN2A) Medullary thyroid carcinoma Hypothyroid Pheochromocytoma of left adrenal gland Hypercholesterolemia COPD (chronic obstructive pulmonary disease) Pulmonary nodule Nicotine dependence, cigarettes, uncomplicated Osteopenia Irritable bowel syndrome with constipation Restless leg syndrome Anxiety Depression PONV (postoperative nausea and vomiting) Cervicalgia Pain in both feet Erosive (osteo)arthritis Bilateral hand pain Mass of left axilla Back pain Nevoid hyperpigmentation Neuritis of right ulnar nerve Neck pain Odynophagia Gout Surgical History (Updated 06/04/24 @ 10:51 by Alber Epps MD) History of radical neck dissection (~01/2019) History of thyroidectomy (~03/2011) History of total adrenalectomy (~06/2018) History of laparoscopic cholecystectomy (~11/2022) History of total abdominal hysterectomy and bilateral salpingo-oophorectomy (~11/2013) History of tubal ligation (~10/2000) History of bilateral breast reduction surgery (~09/2019) History of repair of right rotator cuff (~04/2024) History of hand surgery (~02/2021) History of surgery on left wrist (~04/2010) History of fusion of lumbar spine (~08/1993) History of tonsillectomy History of colonoscopy History of esophagogastroduodenoscopy (EGD) Family History Father Heart attack Mother Brain cancer Lung cancer Cervical cancer Family/Other Diabetes Sister Cervical cancer Daughter Breast cancer Social History Household Members: Spouse and Children Housing: Other Housing Other:: Trailer Alcohol intake: never Patient Tobacco Use Status: Current everyday Tobacco user Tobacco use type: Cigarette Cigarette Packs Per Day: 0.5 Cigarettes Per Day: 15 Years Smoked: 1/2 pack a day e-Cigarette/Vaping Use: Never Used Second Hand Smoke Exposure: Yes Substance Use Type: Marijuana service: No Current occupational status: disabled Current occupation: left handed Cognitive needs: No Hearing needs: No Vision needs: Yes Physical Exam Vital Signs: BMI result Body Mass Index 26.1 Extrem Other: inc c/d/i Assessment & Plan Assessment & Plan (1) S/P rotator cuff repair: Code(s): Z98.890 - Other specified postprocedural states Category: Surgical Plan: February d/c sling. Continue PT. Large repair protocol Coding Level of Care Code Global (96019) Diagnoses S/P rotator cuff repair Z98.890
== END 2024-06-04 10:59 | disposition home or self-care (01) ==
PROVIDERS: PCP Internal Medicine; Visit Provider Orthopaedic Surgery
DX: Z98.890 Other specified postprocedural states (principal)
CPT/HCPCS: 99024

== ENCOUNTER → 2024-06-04 10:34 | Outpatient (BNVA) | payer OTHER, SELFPAY | PROVIDERS: PCP Internal Medicine; Visit Provider Orthopaedic Surgery | DX: Z47.89 Encounter for other orthopedic aftercare (principal); Z87.39 Personal history of other diseases of the musculoskeletal system and connective tissue; Z98.890 Other specified postprocedural states | CPT/HCPCS: 99212 ==

== ENCOUNTER 2024-06-25 10:40 | Outpatient (AMB) | payer OTHER, SELFPAY ==
--- NOTE | 2024-06-25 07:59 | MHC.OFFVIS ---
Intake Visit Reasons: Current Smoker Allergies codeine [Codeine] Allergy (Mild, Verified 06/04/24 10:44) N/V, HEADACHE, vomiting morphine [MORPHINE] Allergy (Unknown, Verified 06/04/24 10:44) VOMITING, HEADACHE, migraine, vomiting ethyl chloride Allergy (Unknown, Uncoded 06/04/24 10:44) Unknown HPI HPI Current Smoker: Details: Initial visit for this 58yo smoker with a 35PYH. Patient has been smoking since age 14 for 44 years at 3/4-1ppd. . Denies marijuana use. Denies second hand smoke exposure. Denies exposure to chemicals or substances like asbestos. . Reports family history of lung cancer. Mom age 75 Reports personal history of cancers - multiple endocrine neoplasia type 2a, metastatic medullary thyroid cancer s/p neck dissection lymph node February 2019. Adrenalectomy for pheochromocytoma 2017. Denies chest CT in last year. There is question if prior scans showed mets from thyroid to lung. . Denies recent travel outside the [place]. Denies recent respiratory illness or recent hospitalization for respiratory issues. Reports testing positive for COVID. Denies receiving COVID Vaccine. . Denies fever, chills, new/worsening cough, hemoptysis, hoarseness or dysphagia. Denies significant chest pain, significant dyspnea or unintentional weight loss. Patient Lung Cancer Screening Questionnaire reviewed with patient by provider. . Shared Decision Making Completed. Patient meets criteria. Discussed in detail with patient, the risk vs benefit of LDCT screening. Patient consents to proceed with scan. Discussed smoking cessation. [facility] Medical History (Updated 06/25/24 @ 10:51 by Jesica Erickson PA-C) Multiple endocrine neoplasia type 2A (MEN2A) Medullary thyroid carcinoma Hypothyroid Pheochromocytoma of left adrenal gland Hypercholesterolemia COPD (chronic obstructive pulmonary disease) Pulmonary nodule Nicotine dependence, cigarettes, uncomplicated Osteopenia Irritable bowel syndrome with constipation Restless leg syndrome Anxiety Depression PONV (postoperative nausea and vomiting) Cervicalgia Pain in both feet Erosive (osteo)arthritis Bilateral hand pain Mass of left axilla Back pain Nevoid hyperpigmentation Neuritis of right ulnar nerve Neck pain Odynophagia Gout Surgical History (Updated 06/25/24 @ 11:01 by Jesica Erickson PA-C) History of radical neck dissection (~01/2019) History of thyroidectomy (~03/2011) History of total adrenalectomy (~06/2018) History of laparoscopic cholecystectomy (~11/2022) History of total abdominal hysterectomy and bilateral salpingo-oophorectomy (~11/2013) History of tubal ligation (~10/2000) History of bilateral breast reduction surgery (~09/2019) History of repair of right rotator cuff (~04/2024) History of hand surgery (~02/2021) History of surgery on left wrist (~04/2010) History of fusion of lumbar spine History of tonsillectomy History of colonoscopy History of esophagogastroduodenoscopy (EGD) Family History Father Heart attack Mother Brain cancer Lung cancer Cervical cancer Family/Other Diabetes Sister Cervical cancer Daughter Breast cancer Social History (Updated 06/25/24 @ 10:52 by Jesica Erickson PA-C) Household Members: Spouse and Children Housing: Other Housing Other:: Trailer Alcohol intake: never Patient Tobacco Use Status: Current everyday Tobacco user Tobacco use type: Cigarette Cigarettes Per Day: 15 Years Smoked: (onset 14yo, 3/4-1ppd x 44yrs - 35pyh) e-Cigarette/Vaping Use: Never Used Second Hand Smoke Exposure: Yes Substance Use Type: Marijuana service: No Current occupational status: disabled Current occupation: left handed Cognitive needs: No Hearing needs: No Vision needs: Yes Assessment & Plan Assessment & Plan (1) Nicotine dependence, cigarettes, uncomplicated: Comment: (onset 14yo, 3/4-1ppd x 44yrs 35pyh) Code(s): F17.210 - Nicotine dependence, cigarettes, uncomplicated Category: Medical Plan: - SDM visit completed today in office. - Patient meets criteria for LDCT for lung cancer screening purposes and is asymptomatic. - Smoking cessation counseling offered. Patients can always call [phone]. - Will arrange for a LDCT scan of the chest for screening purposes at [facility]. - Risks, benefits, and alternatives were discussed in detail and the patient agrees to proceed. - Risks discussed include but are not limited to: radiation exposure, anxiety during testing and while awaiting results, false negatives, false positives and possibility of additional intervention such as further imaging or surgical procedures for benign disease. - Benefits are obviously detection of lung cancer at an early stage which can lead to improved outcomes. - Discussed the importance of screening program compliance with adherence to yearly LDCT scan as scheduled - or sooner interval scans for personalized screening regimen. - Discussed follow up plan. Our office will send a letter discussing results and if needed set up phone call and office visit based on CT findings. - Patient educated on results categorization and the management decisions for suspicious findings potentially found on the screening LDCT scan. Any patient with a Lung RADS score of 3 or 4 will be reviewed by a multidisciplinary team at [facility] to form a plan of action in regards to scan findings. - If further work up is warranted for a suspicious lung finding this will be followed by the Lung Cancer Screening program in conjunction with the Thoracic Surgery Department at [facility]. - A copy of the office note and LDCT will be sent to the patient's PCP - as well as documentation on any associated further plans of care. - Incidental findings on LDCT are the PCP's responsibility. These findings are indicated with an S finding on the LDCT Assessment. A note discussing the findings will be sent to the PCP who is then responsible for further management. - All questions answered.? Coding Level of Care Code Lung Cancer Screening [id number] Diagnoses Nicotine dependence, cigarettes, uncomplicated F17.210
== END 2024-06-25 11:09 | disposition home or self-care (01) ==
PROVIDERS: PCP Internal Medicine; Referring Provider Internal Medicine; Visit Provider Physician Assistant Medical
DX: F17.210 Nicotine dependence, cigarettes, uncomplicated (principal)
CPT/HCPCS: G0296

== ENCOUNTER 2024-06-25 11:04 | Outpatient (REF) | payer OTHER, SELFPAY ==
--- NOTE | ~2024-06-25 | CT_ITS ---
EXAMINATION: CT LOW-DOSE SCREENING CHEST WITHOUT CONTRAST CLINICAL INFORMATION: Nicotine dependence, cigarettes, uncomplicated. The patient is a current smoker with a 44 pack-year history of smoking. COMPARISON: Contrast-enhanced CT scan of the chest 11/08/2016. TECHNIQUE: Multidetector volumetric CT imaging of the chest is performed on a Siemens SOMATOM Definition scanner without contrast using low dose technique. Additional 2D coronal and sagittal reformatted images and axial 3D maximum intensity projection (MIP) images are generated on the CT workstation. This CT examination was performed using dose optimization techniques as appropriate, variously including the following: *Automated exposure control *Adjustment of mA and/or kV according to patient size (this includes techniques or standardized protocols for targeted exams where dose is matched to indication/reason for exam; i.e. extremities or head) *Use of iterative reconstruction technique TOTAL EXAM DLP: 59 mGy-cm. CTDIvol: 1.72 mGy. FINDINGS: PULMONARY NODULES: Some previously seen micronodules are not well appreciated on the current study. There is a 2 mm subpleural nodule in the left lower lobe which previously measured 3 mm (5:240 compare prior 4:284). There is a new 5 mm left apical nodule (5:65). No other new concerning lung nodules are seen. LUNGS: Lungs bilaterally symmetrically expanded. Moderate bilateral apical pleuroparenchymal scarring. No effusion or pneumothorax. Central airways patent. MEDIASTINUM: No mediastinal, hilar or axillary adenopathy or free fluid collection. CORONARY ARTERY CALCIFICATION: None visualized on this study. THYROID GLAND: Unremarkable to the extent seen. CARDIOVASCULAR STRUCTURES: Aortic and heart size normal. No pericardial effusion. CHEST WALL/AXILLA: Unremarkable. UPPER ABDOMEN: Included portions of the solid organs in the upper abdomen unremarkable on noncontrast imaging. Status post cholecystectomy. OSSEOUS STRUCTURES: Posterior lumbar spinal fusion hardware is seen extending from T12 downwards. A suture anchor is present in the left humerus. CT/CT lung screening IMPRESSION: 1. There is a new 5 mm left apical lung nodule. 2. Some previously seen micronodules are not well appreciated on the current study. ASSESSMENT: 1. Lung-RADS Category 3: Probably benign findings. N/A 2. Lung-RADS Category S: Negative. There are no clinically significant or potentially clinically significant findings not related to the lungs requiring urgent additional evaluation. RECOMMENDATION: A 6-month follow up low-dose lung CT scan is recommended. An order for CT LUNG CANCER SCREENING SHORT INTERVAL FOLLOWUP ([id number]) can be placed. Electronically signed by: Seth Jay MD 06/28/2024 09:55 PM EDT
== END 2024-06-25 11:05 | disposition home or self-care (01) ==
LOC: HO.CT 11:04
PROVIDERS: PCP Internal Medicine; Visit Provider Physician Assistant Medical
DX: Z12.2 Encounter for screening for malignant neoplasm of respiratory organs (principal); F17.210 Nicotine dependence, cigarettes, uncomplicated
CPT/HCPCS: 71271; G0296

== ENCOUNTER 2024-07-14 13:00 | Outpatient (RCR) | payer OTHER, SELFPAY ==
--- NOTE | 2024-05-19 12:01 | MHC.PT.EP ---
[facility] [place] Office [place] Office [place] Office [address] [phone] F: [phone] F: [phone] F: [phone] F: [phone] Physical Therapy Plan of Care Date of Evaluation: 05/19/24 Date of Surgery: 04/28/2024 Diagnosis: R RC repair Assessment: Patient is a 58 year old female presenting to PT s/p R RC repair 04/28/2024. She presents today with impairments in pain, ROM, strength, posture, protocol limitations. Pt's current occupation is none, with baseline physical activities including reaching, lifting, ADLs. 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 Clinical presentation today is most consistent with signs and sx associated with R RC repair and pt will benefit from skilled PT 2 week x 20 weeks to address the following problems and impairments noted upon evaluation: pain, ROM, strength, posture, protocol limitations. These problems limit the patient with the following functional activities: reaching, lifting, ADLs. The prescribed treatment plan of care is medically necessary. Co-morbidities of COPD were identified and taken into considerations of plan of care. Pt was educated on HEP, role of PT, prognosis, POC. Frequency and Duration: The patient will be seen 2 x week x 20 weeks Short Term Goals: Pt will demonstrate increased R shoulder ER to 45 deg at 45 deg abd in 4 weeks. Pt will demonstrate full PROM in 6 weeks. Retirement Goals: Pt will demonstrate full AROM by 12 weeks for improved ability to reach. Pt will demonstrate at least 4-/5 strength in 16 weeks for improved ability to complete ADLs. Pt will demonstrate at least 4/5 strength in 20 weeks for prepare to return to PLOF. Treatment Plan: Modalities to reduce pain, spasms and effusion. Manual therapy to restore motion and function. Therapeutic exercise to improve strength and flexibility. Neuromuscular re-education for posture and balance. Therapeutic activities to return to functional activities of daily living. Electronically signed by: Isabel Coreas, PT, DPT, ATC Please sign and return to therapist. Thank you for your referral.
--- NOTE | 2024-08-16 10:50 | MHC.PT.DC ---
[facility] [place] Office [place] Office [place] Office [address] [phone] F: [phone] F: [phone] F: [phone] F: [phone] Physical Therapy Discharge Report Diagnosis: R RC repair Date of Surgery: 04/28/2024 Date of Evaluation: 05/19/24 Date of Discharge: 08/16/24 Treatments to Date: 12 Cancellations to Date: 9 No Shows to Date: 0 Discharge Status: Discharge Summary: Pt has not attended skilled PT in >30 days and therefore to be d/c. Electronically signed by: Isabel Coreas, PT, DPT, ATC Please sign and return to therapist. Thank you for your referral.
== END 2024-08-16 10:50 | disposition home or self-care (01) ==
LOC: HO.PTCHIC 13:00
PROVIDERS: PCP Internal Medicine; Visit Provider Physician Assistant
DX: Z98.890 Other specified postprocedural states (principal)
CPT/HCPCS: 97110; 97140; 97161

== ENCOUNTER 2024-07-16 10:54 | Outpatient (AMB) | payer OTHER, SELFPAY ==
--- NOTE | 2024-07-16 11:25 | MHC.OFFVIS ---
Vital Signs 07/16/24 11:26 Height 5 ft 6 in Weight 162 lb BMI 26.1 Intake Visit Reasons: PO RT shoulder poss RTC/bicep 04/28/24 NE Intake Note: Stephanie is a 59 year old female who presents today for a post operative visit s/p Right shoulder with possible RTC & Bicep repair 04/28/24. Patient reports that she is having a lot of clicking and limited ROM above the head and behind the back. She is using ice application which feels good while she is doing it but pain returns very shortly after removing ice. Allergies codeine [Codeine] Allergy (Mild, Verified 07/19/24 11:09) N/V, HEADACHE, vomiting morphine [MORPHINE] Allergy (Unknown, Verified 07/19/24 11:09) VOMITING, HEADACHE, migraine, vomiting ethyl chloride Allergy (Unknown, Uncoded 07/19/24 11:09) Unknown HPI HPI PO RT shoulder poss RTC/bicep 04/28/24 NE: Details: Stephanie is a 59 year old female who presents today for a post operative visit s/p Right shoulder with possible RTC & Bicep repair 04/28/24. Patient reports that she is having a lot of clicking and limited ROM above the head and behind the back. She is using ice application which feels good while she is doing it but pain returns very shortly after removing ice. [facility] Medical History (Updated 07/20/24 @ 15:44 by Jayshree White MD) History of pheochromocytoma History of medullary carcinoma of thyroid Left flank pain Multiple endocrine neoplasia type 2A (MEN2A) Medullary thyroid carcinoma Hypothyroid Pheochromocytoma of left adrenal gland Hypercholesterolemia COPD (chronic obstructive pulmonary disease) Pulmonary nodule Nicotine dependence, cigarettes, uncomplicated Osteopenia Irritable bowel syndrome with constipation Restless leg syndrome Anxiety Depression PONV (postoperative nausea and vomiting) Cervicalgia Pain in both feet Erosive (osteo)arthritis Bilateral hand pain Mass of left axilla Back pain Nevoid hyperpigmentation Neuritis of right ulnar nerve Neck pain Odynophagia Gout Surgical History History of radical neck dissection (~01/2019) History of thyroidectomy (~03/2011) History of total adrenalectomy (~06/2018) History of laparoscopic cholecystectomy (~11/2022) History of total abdominal hysterectomy and bilateral salpingo-oophorectomy (~11/2013) History of tubal ligation (~10/2000) History of bilateral breast reduction surgery (~09/2019) History of repair of right rotator cuff (~04/2024) History of hand surgery (~02/2021) History of surgery on left wrist (~04/2010) History of fusion of lumbar spine History of tonsillectomy History of colonoscopy History of esophagogastroduodenoscopy (EGD) Family History Father Heart attack Mother Brain cancer Lung cancer Cervical cancer Family/Other Diabetes Sister Cervical cancer Daughter Breast cancer Social History Household Members: Spouse and Children Housing: Other Housing Other:: Trailer Alcohol intake: never Patient Tobacco Use Status: Current everyday Tobacco user Tobacco use type: Cigarette Cigarettes Per Day: 15 Years Smoked: (onset 14yo, 3/4-1ppd x 44yrs - 35pyh) e-Cigarette/Vaping Use: Never Used Second Hand Smoke Exposure: Yes Substance Use Type: Marijuana service: No Current occupational status: disabled Current occupation: left handed Cognitive needs: No Hearing needs: No Vision needs: Yes Physical Exam Vital Signs: BMI result Body Mass Index 26.1 Extrem Other: Portals clean dry and intact Active abduction to 90 degrees with pain External rotation to 15 degrees with pain Assessment & Plan Assessment & Plan (1) S/P rotator cuff repair: Code(s): Z98.890 - Other specified postprocedural states Category: Surgical Plan: Status post rotator cuff repair with biceps tenotomy, SCD and DCE. She is progressing slowly. I encouraged her to work on gentle range of motion. She may discontinue the sling. She should focus on periscapular strengthening. Follow up 6 weeks. Coding Level of Care Code Global (98813) Diagnoses S/P rotator cuff repair Z98.890
[2024-07-16 11:26] VITALS: BMI 26.1
== END 2024-07-16 11:50 | disposition home or self-care (01) ==
PROVIDERS: PCP Internal Medicine; Visit Provider Orthopaedic Surgery
DX: Z98.890 Other specified postprocedural states (principal)
CPT/HCPCS: 99024

== ENCOUNTER → 2024-07-16 10:54 | Outpatient (BNVA) | payer OTHER, SELFPAY | PROVIDERS: PCP Internal Medicine; Visit Provider Orthopaedic Surgery | DX: Z47.89 Encounter for other orthopedic aftercare (principal); Z98.890 Other specified postprocedural states | CPT/HCPCS: 99212 ==

== ENCOUNTER 2024-07-19 10:49 | Outpatient (AMB) | payer OTHER, SELFPAY ==
[2024-07-19 11:04] VITALS: BP 138/68; PULSE 80; BMI 26.7
--- NOTE | 2024-07-19 11:04 | A.OFFVIS_ITS ---
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: No Accompanied by: Self / Same As Patient Allergies codeine [Codeine] Allergy (Mild, Verified 07/19/24 11:09) N/V, HEADACHE, vomiting morphine [MORPHINE] Allergy (Unknown, Verified 07/19/24 11:09) VOMITING, HEADACHE, migraine, vomiting ethyl chloride Allergy (Unknown, Uncoded 07/19/24 11:09) Unknown Medication List - Last Reconciled 07/19/24 by Lore Silver MD amitriptyline 75 mg PO BEDTIME 90 days bisacodyl (Gentle Laxative (bisacodyl)) 15 mg (3 x 5 mg) PO BEDTIME 90 days cholecalciferol (vitamin D3) 50 mcg PO DAILY levalbuterol tartrate 45 mcg/actuation (Xopenex HFA) 2 puffs inhalation Q4-6H PRN 90 days levothyroxine (Synthroid) 112 mcg PO DAILY nirmatrelvir-ritonavir 300 mg (150 mg x 2)-100 mg take TWO 150 mg tablets of bonnie matrelvir with ONE 100 mg tablet of ritonavir twice daily for 5 days PO omeprazole 20 mg PO DAILY 90 days prucalopride (Motegrity) 2 mg PO DAILY ropinirole 0.5 mg PO BEDTIME ropinirole 1 mg PO BEDTIME 30 days sertraline 100 mg PO DAILY 90 days HPI Comments Details: 59-year-old female coming in today for follow up of MEN2 A 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 Ordonez, status post right modified radical neck dissection with Dr. Yu Ortega at [facility] in January 2019, history of pheochromocytoma status post left laparoscopic adrenalectomy with Dr. Yu Ortega, 07/01/2018. No history of parathyroid issues. She was previously following at [facility] with Dr. Cook, and then saw Dr. Hadley, at [facility] in 2021. She was most recently being followed by Dr. Cook. Most recently seen April 2024. Medullary thyroid cancer 03/28/2011: status post total thyroidectomy and paratracheal neck dissection mediastinum neck dissection and subtotal thymectomy as well as left lateral levels 2A, 3 and 4 dissection at [facility] [place] [address] Ordonez. This showed medullary thyroid carcinoma bilaterally, nurse tumor 3 cm in the left lobe of the thyroid with c-cell hyperplasia and extrathyroidal extension into the soft tissue and lymphovascular invasion with negative surgical margins. Two out of the 19 lymph nodes were involved with a medullary thyroid cancer. Preoperatively calcitonin level was 1546 and CEA level was 174.9. Postoperatively she had positive calcitonin and CEA levels. 2010: Biopsy at [facility] of 1 of the left neck lymph nodes positive for MTC. At that time given low burden of disease she chose conservative management with watchful observation. 04/23/2018: Ultrasound of the neck multiple bilateral lymph nodes with the right level 2/3 lymph node measuring 0.6 cm with robust fatty hilum. Right level 2: Well-defined lymph node measuring 0.9 cm with robust fatty hilum. Right level 4 subcentimeter benign-appearing lymph node. Right level 3 close to the carotid slightly abnormal appearing lymph node measuring 0.7 cm with some cystic degeneration. Left level 2 hypoechoic well-defined lymph node measuring 0.92 cm with a robust fatty hilum. 2019 Calcitonin: 107 02/17/2019: Status post right modified radical neck dissection. At [facility] with Dr. Yu Ortega. Pathology revealed metastatic medullary thyroid carcinoma for [address] evaluated. The largest metastatic deposit measured 1 cm in showed extra capsular invasion. 04/2020 CEA: 9.4 Calcitonin: 85.4 2019: Ultrasound neck in 2019 at office in [facility] showed right level 3 round done level lymph node measuring 0.6 0.64 cm with no fatty hilum. Left level 4, 0.70 X 0.53 lymph node without any distinct fatty and LM. 12/03/2021: CEA: 9.2 11/22/2022 CEA 11.8 ng/mL (0-3.8) Calcitonin 160 pg per pg/mL (0-5) Laboratory Tests 11/26/22 05/24/24 12:33 11:44 Carcinoembryonic Ag 13.20 TSH 1.21 Denies intermittent dyphagia for the last couple of months, no trouble breathing, no chnages in voice. Weight stable. Takes Synthroid 112 mcg daily at night, 5-6 hrs after dinner, and then goes to bed. Good adherence. Last TSH May 19 1.21 normal Pheochromocytoma 07/01/2018 Status post left laparoscopic adrenalectomy for 2.[address] Yu Ortega with intraoperative findings showing well-contained encapsulated mass without signs of local invasion or distant metastasis. PASS score 5. Postoperatively in September 2018 plasma metanephrine and normetanephrine levels were normal. 12/03/2021: Plasma metanephrine: 22.3 Plasma normetanephrine 78.5 2022 Plasma metanephrines 20.6 Plasma normetanephrines 150.2 No diarrhea. Usually constipated. No tremors. No palpitations. Persistent hot flashes. Headaches chronic, sometimes gets flushing for the last few months. She has no known history of parathyroid issues, calcium has remained within normal limits. Denies kidney stones, constipation, abdominal pain. No fractures. Takes vitamin D 2000 units daily No calcium supplements Left flank pain since yesterday No fractures Family line: Son :tested positive for same RET 620 mutation, follows at [facility], MTC s/p thyroidecomy, no pheo Daughter: Same tested positive for RET 620 mutation, lives in [place], MTC s/p thyroidectomy, no pheo No grandchildren Her 5 siblings were tested and negative Father passed at 48 with CA Mother : at 75 from lung cancer smokes Sister's daughtersearly deaths: one aneurysm, one lung cancer She is active smoker , half a pack a day Review of systems Constitutional: no fevers, chills or weight loss HEENT: no changes in vision Cardiac: No chest pain, discomfort or palpitations. Pulmonary: No SOB GI:reports left flank pain Physical exam General: sitting comfortably in no acute distress HEENT: normocephalic/atraumatic, moist oral mucosa Neck: supple, symmetrical, well healed surgicak scars noted , no dorsocervical or supraclavicular fat pads Cardiac: normal heart sounds Pulm: normal breath sounds B/L, no added breath sounds Abd: not distended, no tenderness Extremities: no edema, no signs of myxedema Neuro: AAO x3, Speech: normal, no facial droop, moving all 4 extremities [facility] Medical History (Updated 07/19/24 @ 12:22 by Lore Silver MD) History of pheochromocytoma History of medullary carcinoma of thyroid Left flank pain Multiple endocrine neoplasia type 2A (MEN2A) Medullary thyroid carcinoma Hypothyroid Pheochromocytoma of left adrenal gland Hypercholesterolemia COPD (chronic obstructive pulmonary disease) Pulmonary nodule Nicotine dependence, cigarettes, uncomplicated Osteopenia Irritable bowel syndrome with constipation Restless leg syndrome Anxiety Depression PONV (postoperative nausea and vomiting) Cervicalgia Pain in both feet Erosive (osteo)arthritis Bilateral hand pain Mass of left axilla Back pain Nevoid hyperpigmentation Neuritis of right ulnar nerve Neck pain Odynophagia Gout Surgical History History of radical neck dissection (~01/2019) History of thyroidectomy (~03/2011) History of total adrenalectomy (~06/2018) History of laparoscopic cholecystectomy (~11/2022) History of total abdominal hysterectomy and bilateral salpingo-oophorectomy (~11/2013) History of tubal ligation (~10/2000) History of bilateral breast reduction surgery (~09/2019) History of repair of right rotator cuff (~04/2024) History of hand surgery (~02/2021) History of surgery on left wrist (~04/2010) History of fusion of lumbar spine History of tonsillectomy History of colonoscopy History of esophagogastroduodenoscopy (EGD) Family History Father Heart attack Mother Brain cancer Lung cancer Cervical cancer Family/Other Diabetes Sister Cervical cancer Daughter Breast cancer Social History Household Members: Spouse and Children Housing: Other Housing Other:: Trailer Alcohol intake: never Patient Tobacco Use Status: Current everyday Tobacco user Tobacco use type: Cigarette Cigarettes Per Day: 15 Years Smoked: (onset 14yo, 3/4-1ppd x 44yrs - 35pyh) e-Cigarette/Vaping Use: Never Used Second Hand Smoke Exposure: Yes Substance Use Type: Marijuana service: No Current occupational status: disabled Current occupation: left handed Cognitive needs: No Hearing needs: No Vision needs: Yes Physical Exam Vital Signs: Last Vital Signs Pulse 80 07/19/24 11:04 BP 138/68 07/19/24 11:04 BMI result Body Mass Index 26.7 Results Reviewed Results Reviewed: Labs 2019 Calcitonin: 107 04/2020 CEA: 9.4 Calcitonin: 85.4 12/03/2021: CEA: 9.2 Plasma metanephrine: 22.3 Plasma normetanephrine 78.5 PTH: 37 Calcium 9.1 05/24/2024 Calcium 9.2 Albumin 3.9 11/22/2022 CEA 11.8 ng/mL (0-3.8) Calcitonin 160 pg per pg/mL (0-5) Free T4 1.19 (0.7-1.8) PTH 32 pg/mL TSH 1.71 Plasma metanephrines 20.6 Plasma normetanephrines 150.2 Laboratory Tests 12/03/21 11/26/22 11/26/22 13:32 12:33 12:33 Carcinoembryonic Ag 13.20 25-OH Vitamin D Total TSH 0.07 L 1.04 1.06 Free T4 1.14 1.01 PTH Intact 28 Calcium (PTH Intact) 9.2 04/09/23 05/24/24 10:35 11:44 Carcinoembryonic Ag 25-OH Vitamin D Total 52.6 TSH 0.99 1.21 Free T4 1.00 0.98 PTH Intact Calcium (PTH Intact) Assessment & Plan Assessment & Plan (1) Multiple endocrine neoplasia type 2A (MEN2A): Code(s): E31.22 - Multiple endocrine neoplasia [MEN] type IIA Category: Medical Plan: 59-year-old female coming in today for follow up of MEN2 A [id number] mutation with a history of medullary thyroid cancer status post neck dissection at [facility] [place] [address] Ordonez, status post right modified radical neck dissection with Dr. Yu Ortega at [facility] in January 2019, history of pheochromocytoma status post left laparoscopic adrenalectomy with Dr. Yu Ortega, 07/01/2018. No history of parathyroid issues. 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 who underwent total thyroidectomy and paratracheal neck dissection, mediastinum neck dissection and subtotal thymectomy and left lateral neck dissection in 2010 at [facility], with pathology showing bilateral medullary thyroid cancer, 3 cm focus in the left lobe of the thyroid with extrathyroidal extension and lymphovascular invasion, who had positive CEA and calcitonin levels postoperatively, with subsequent ultrasound of the neck showing suspicious lymph nodes in 2017, in the lymph nodes subsequently underwent right modified radical neck dissection in January 2019 with metastatic medullary thyroid carcinoma in the lymph nodes, largest deposit measuring 1 cm. Reportedly she had good response to surgery as her calcitonin carcinoembryonic antigen levels declined post surgery. Most recently her Ca levels have been stable around 11.8 to 13 from October 2022, calcitonin level trended up to 160 in 2022 from 85.4 back in 2019. She has not done her labs recently. I have reordered the CEA and calcitonin levels. We will also obtain ultrasound of her neck. Today on my exam I could not palpate any lymph nodes, no abnormal masses. She is maintained on Synthroid 112 mcg daily which she is taking appropriately. No symptoms of hypo or hyperthyroidism. That is TSH from April 2024 was within normal limits at 1.21. She is going to [place] to care for her sister, but she thinks she can be back in 3 months for her follow up appointment. Plan: -continue Synthroid 112 mcg daily -ordered CEA and calcitonin levels -ordered ultrasound of the neck -ordered TSH, free T4 -follow up in 3 months (3) History of pheochromocytoma: Code(s): Z86.018 - Personal history of other benign neoplasm Category: Medical Plan: History of pheochromocytoma Status post left laparoscopic adrenalectomy of 2.8 cm pheochromocytoma in June [address] Yu Ortega. PAS score was 5. Usually less than 4 score means less aggressive findings. Her plasma metanephrine normetanephrine levels postoperatively have remained negative, most recently normal from 2022. We will repeat at this time. She does complain of flushing that has developed over the last few months as well as chronic headaches. Plan: -ordered plasma metanephrine and normetanephrine levels (4) Left flank discomfort: Code(s): R10.9 - Unspecified abdominal pain Category: Medical Plan: So far she has not had any abnormalities in her parathyroid hormone levels. Calcium levels have remained normal. She is on vitamin-D 2000 units daily. We will check PTH, calcium levels. She is reporting left flank pains I will also order ultrasound of the kidneys to screen for kidney stones. Plan: -continue vitamin-D 2000 daily -Check calcium, PTH, albumin vitamin-D levels -ordered ultrasound of kidneys Plan I spent 45 minutes in reviewing the record, seeing the patient and documenting in the medical record. Orders: Orders Calcium Today E31.22 - Multiple endocrine neoplasia [MEN] type IIA, E89.0 - Postprocedural hypothyroidism Carcinoembryonic Antigen Today E31.22 - Multiple endocrine neoplasia [MEN] type IIA, E89.0 - Postprocedural hypothyroidism Albumin Level Today E31.22 - Multiple endocrine neoplasia [MEN] type IIA, E89.0 - Postprocedural hypothyroidism Parathyroid Hormone Intact Today E31.22 - Multiple endocrine neoplasia [MEN] type IIA, E89.0 - Postprocedural hypothyroidism US renal BI Today R10.9 - Unspecified abdominal pain US soft tiss head and/or neck Today E31.22 - Multiple endocrine neoplasia [MEN] type IIA Thyroid Stimulating Hormone Today E31.22 - Multiple endocrine neoplasia [MEN] type IIA, E89.0 - Postprocedural hypothyroidism Free T4 (Free Thyroxine) Today E31.22 - Multiple endocrine neoplasia [MEN] type IIA, E89.0 - Postprocedural hypothyroidism Calcitonin Today E31.22 - Multiple endocrine neoplasia [MEN] type IIA, E89.0 - Postprocedural hypothyroidism Phosphorus Today E31.22 - Multiple endocrine neoplasia [MEN] type IIA, E89.0 - Postprocedural hypothyroidism Vitamin D 25-OH Total Today E31.22 - Multiple endocrine neoplasia [MEN] type IIA, E89.0 - Postprocedural hypothyroidism Metanephrines, Plasma Today E31.22 - Multiple endocrine neoplasia [MEN] type IIA, E89.0 - Postprocedural hypothyroidism Medications: New Synthroid (levothyroxine) 112 mcg PO DAILY 90 tabs 3RF NS Patient Instructions: do blood work and ultrasound neck and kidneys Coding Level of Care Code Est Pt Level 5 (39811) Complex EM visit Add On G2211 Diagnoses Multiple endocrine neoplasia type 2A (MEN2A) E31.22 History of medullary carcinoma of thyroid Z85.850 History of pheochromocytoma Z86.018 Left flank discomfort R10.9 Time Spent (min) 45
== END 2024-07-19 11:51 | disposition home or self-care (01) ==
PROVIDERS: PCP Internal Medicine; Visit Provider Student in an Organized Health Care Education/Training Program
DX: E31.22 Multiple endocrine neoplasia [MEN] type IIA (principal); R10.9 Unspecified abdominal pain; Z85.850 Personal history of malignant neoplasm of thyroid; Z86.018 Personal history of other benign neoplasm
CPT/HCPCS: 99215; G2211

== ENCOUNTER → 2024-07-19 10:49 | Outpatient (BNVA) | payer OTHER, SELFPAY | PROVIDERS: PCP Internal Medicine; Visit Provider Student in an Organized Health Care Education/Training Program | DX: E31.22 Multiple endocrine neoplasia [MEN] type IIA (principal); R10.9 Unspecified abdominal pain; E89.0 Postprocedural hypothyroidism; Z86.018 Personal history of other benign neoplasm; Z85.850 Personal history of malignant neoplasm of thyroid | CPT/HCPCS: 99212 ==

== ENCOUNTER 2024-07-26 14:58 | Outpatient (REF) | payer OTHER, SELFPAY ==
--- NOTE | ~2024-07-26 | US_ITS ---
EXAMINATION: US SOFT TISSUE HEAD/NECK CLINICAL INFORMATION: Multiple endocrine neoplasia. History of medullary thyroid cancer with multiple neck dissections. Please evaluate all neck levels. COMPARISON: None available. TECHNIQUE: Linear transducer casarez-scale and color Doppler examination with attention to the region of the thyroid bed and surrounding tissues. FINDINGS: THYROIDECTOMY BED: No recurrent mass seen. NODES: Right: 0.9 x 0.4 x 0.5 cm level 5A, normal-appearing. 1.7 x 0.8 x 1.2 cm right level 5A, normal-appearing Left: 2.0 x 0.7 x 2.1 cm level 2, normal-appearing. 1.6 x 0.6 x 0.6 cm level 2 abnormal-appearing with calcification, peripheral color flow and a thickened cortex. US/US soft tiss head and/or neck IMPRESSION: Abnormal-appearing left level 2 lymph node on the left. This would be amenable to ultrasound-guided biopsy. All other lymph nodes appear normal. Electronically signed by: Seth Jay MD 08/25/2024 12:46 AM EDT
--- NOTE | ~2024-07-26 | US_ITS ---
EXAMINATION: US RETROPERITONEAL LIMITED (RENAL ONLY) CLINICAL INFORMATION: Unspecified abdominal pain. COMPARISON: Ultrasound abdomen limited 11/11/2022. Ultrasound abdomen complete 08/12/2018. Correlated to CT dated November 11, 2022. TECHNIQUE: Real-time imaging of the kidneys using grayscale and color Doppler technique. FINDINGS: Submitted for interpretation on September 09, 2024. RIGHT KIDNEY: 11 x 5 x 5 cm (SAG x AP x TRV). Normal echotexture. Normal renal cortical thickness. No solid or cystic lesion. No hydronephrosis. Normal flow on color Doppler interrogation of the renal hilum. LEFT KIDNEY: 11 x 4 x 5 cm (SAG x AP x TRV). Normal echotexture. Normal renal cortical thickness. 0.8 cm anechoic, no septated lesion at the corticomedullary junction upper pole. No hydronephrosis. No gross solid lesion. Normal flow on color Doppler interrogation of the renal hilum. US/US renal BI IMPRESSION: No hydronephrosis. 0.8 cm cystic lesion, left kidney . Electronically signed by: Derick Severino MD 09/09/2024 12:33 PM HEATHER
[2024-07-26 15:42] LABS: Parathyroid Hormone Intact 29.9 pg/mL (8.7-77.1)
[2024-07-26 15:44] LABS: Albumin Level 3.9 g/dL (3.5-5.0); Calcium 9.5 mg/dL (8.4-10.2)
[2024-07-26 15:58] LABS: Free T4 (Free Thyroxine) 0.88 ng/dL (0.71-1.85); Thyroid Stimulating Hormone 1.67 uIU/mL (0.32-4.0); Vitamin D 25-OH Total 47.8 ng/mL (>30)
[2024-07-29 22:43] LABS: Calcitonin 129 pg/mL (<=5)
[2024-07-30 07:29] LABS: Metanephrine, Free <25 pg/mL (<=57); Normetanephrines, Free 91 pg/mL (<=148); Total Metanephrine, Free 91 pg/mL (<=205)
== END 2024-07-26 14:59 | disposition home or self-care (01) ==
LOC: HO.US 14:58
PROVIDERS: PCP Internal Medicine; Visit Provider Student in an Organized Health Care Education/Training Program
DX: R10.9 Unspecified abdominal pain (principal); E89.0 Postprocedural hypothyroidism; E31.22 Multiple endocrine neoplasia [MEN] type IIA
CPT/HCPCS: 36415; 76536; 76775; 82040; 82306; 82308; 82310; 82378; 83835; 83970; 84100; 84439; 84443

== ENCOUNTER → 2024-07-26 15:20 | Outpatient (BNV) | payer OTHER, SELFPAY | PROVIDERS: PCP Internal Medicine; Visit Provider Radiology Diagnostic Radiology | DX: R10.9 Unspecified abdominal pain (principal) | CPT/HCPCS: 76775 ==

== ENCOUNTER 2024-08-03 13:26 | Outpatient (AMB) | payer OTHER, SELFPAY ==
--- NOTE | 2024-08-03 13:30 | A.OFFPC_ITS ---
Vital Signs 08/03/24 13:32 Height 5 ft 6 in Weight 163 lb 4 oz BMI 26.3 BP 120/66 Blood Pressure Location Lt brachial Position Sitting Pulse 81 Pulse Source Pulse Oximeter Pulse Oximetry (%) 97 Oxygen Delivery Method Room Air Intake Visit Reasons: Left side pain sick visit Intake Note: Patient is here to follow up on Left rib side pain. Pharmacy Student Required: No Information Assurance Analyst: Not Required per policy Accompanied by: Self / Same As Patient Allergies codeine [Codeine] Allergy (Mild, Verified 08/03/24 13:48) N/V, HEADACHE, vomiting morphine [MORPHINE] Allergy (Unknown, Verified 08/03/24 13:48) VOMITING, HEADACHE, migraine, vomiting ethyl chloride Allergy (Unknown, Uncoded 08/03/24 13:48) Unknown Medication List - Last Reconciled 08/03/24 by Hugo Guerrier MD amitriptyline 75 mg PO BEDTIME 90 days bisacodyl (Gentle Laxative (bisacodyl)) 15 mg (3 x 5 mg) PO BEDTIME 90 days cholecalciferol (vitamin D3) 50 mcg PO DAILY levalbuterol tartrate 45 mcg/actuation (Xopenex HFA) 2 puffs inhalation Q4-6H PRN 90 days levothyroxine (Synthroid) 112 mcg PO DAILY nirmatrelvir-ritonavir 300 mg (150 mg x 2)-100 mg take TWO 150 mg tablets of nirmatrelvir with ONE 100 mg tablet of ritonavir twice daily for 5 days PO omeprazole 20 mg PO DAILY 90 days prucalopride (Motegrity) 2 mg PO DAILY ropinirole 0.5 mg PO BEDTIME ropinirole 1 mg PO BEDTIME 30 days sertraline 100 mg PO DAILY 90 days Synthroid (levothyroxine) 112 mcg PO DAILY NS Tobacco use date assessed: 08/03/24 Dental Screening Dental Screen Date: 05/10/24 HPI Left side pain sick visit HPI Details 59-year-old female presents to the [facility] for a sick visit. I am covering for her regular provider. Patient is complaining of pain in the left lower back. Symptoms started 10 days ago. Slowly worsening in intensity. Worse on bending forward. Relieved with sitting down. Mild irritation when urinating. Patient had an ultrasound ordered by the PCP. It has not been read yet. [facility] Medical History (Updated 07/20/24 @ 15:44 by Jayshree White MD) History of pheochromocytoma History of medullary carcinoma of thyroid Left flank pain Multiple endocrine neoplasia type 2A (MEN2A) Medullary thyroid carcinoma Hypothyroid Pheochromocytoma of left adrenal gland Hypercholesterolemia COPD (chronic obstructive pulmonary disease) Pulmonary nodule Nicotine dependence, cigarettes, uncomplicated Osteopenia Irritable bowel syndrome with constipation Restless leg syndrome Anxiety Depression PONV (postoperative nausea and vomiting) Cervicalgia Pain in both feet Erosive (osteo)arthritis Bilateral hand pain Mass of left axilla Back pain Nevoid hyperpigmentation Neuritis of right ulnar nerve Neck pain Odynophagia Gout Surgical History History of radical neck dissection (~01/2019) History of thyroidectomy (~03/2011) History of total adrenalectomy (~06/2018) History of laparoscopic cholecystectomy (~11/2022) History of total abdominal hysterectomy and bilateral salpingo-oophorectomy (~11/2013) History of tubal ligation (~10/2000) History of bilateral breast reduction surgery (~09/2019) History of repair of right rotator cuff (~04/2024) History of hand surgery (~02/2021) History of surgery on left wrist (~04/2010) History of fusion of lumbar spine History of tonsillectomy History of colonoscopy History of esophagogastroduodenoscopy (EGD) Family History Father Heart attack Mother Brain cancer Lung cancer Cervical cancer Family/Other Diabetes Sister Cervical cancer Daughter Breast cancer Social History Household Members: Spouse and Children Housing: Other Housing Other:: Trailer Alcohol intake: never Patient Tobacco Use Status: Current everyday Tobacco user Tobacco use type: Cigarette Cigarette Packs Per Day: 1 Cigarettes Per Day: 15 Years Smoked: (onset 14yo, 3/4-1ppd x 45yrs - 35pyh) e-Cigarette/Vaping Use: Never Used Second Hand Smoke Exposure: Yes Substance Use Type: Marijuana service: No Current occupational status: disabled Current occupation: left handed Cognitive needs: No Hearing needs: No Vision needs: Yes Questionnaire Thrive Questionnaire Date Thrive assessed: 05/10/24 Are you currently unemployed and looking for a job?: No JYOTHI-7 AMB Questionnaire JYOTHI-7 Date JYOTHI - 7 assessed: 05/10/24 Source: Developed by Drs. Moose Wright, Ira Membreno, Davy Trevino and colleagues, with an educational cheryl from [employer]. Physical exam (Primary Care) Vital Signs: Last Vital Signs Pulse 81 08/03/24 13:32 BP 120/66 08/03/24 13:32 Pulse Ox 97 08/03/24 13:32 Oxygen Delivery Method Room Air 08/03/24 13:32 BMI result Body Mass Index 26.3 Tobacco/Smoking Status: Tobacco use Status Tobacco use date assessed 08/03/24 08/03/24 13:36 Patient Tobacco Use Status Current everyday Tobacco 08/03/24 13:36 Tobacco use type Cigarette 08/03/24 13:36 e-Cigarette/Vaping Use Never Used 08/03/24 13:36 Thrive Assessment: Date of Thrive Assessment Date Thrive assessed 05/10/24 08/03/24 13:36 Const General: cooperative and healthy appearing Nutritional Appearance: well nourished Orientation/consciousness: patient oriented x3 Limitations: no limitations HENMT Head: Yes normal to inspection Eyes General: appearance normal, both eyes and all related structures Neck Neck: Yes normal visual inspection Chest Chest palpation & inspection: normal palpation of entire chest wall Resp Effort & Inspection: normal respiratory effort Back/Spine/Pelvis Other: Back: Large surgical scar along the spine. Discomfort in the left lower lumbar area. Paraspinal spasm. Neuro General: patient oriented x3 Results AMB Urinalysis, Automated UA Leukoctes 2 Carmelita/uL Last Edit by ISSA Roque on 08/03/24 13:57 UA Nitrite Positive Last Edit by ISSA Roque on 08/03/24 13:57 UA Urobilinogen 2 mg/dL Last Edit by ISSA Roque on 08/03/24 13:57 UA Protein 0 mg/dL Last Edit by ISSA Roque on 08/03/24 13:57 UA pH 6.0 Last Edit by Hai Young Dangelo on 08/03/24 13:57 UA Blood 0 Carson/uL Last Edit by Rubinmateusz ReddyISSA mojica on 08/03/24 13:57 UA Specific Clyo 1.010 Last Edit by Hai YoungISSA on 08/03/24 13: 57 UA Ketone Positive Last Edit by Hai Young TANODangelo on 08/03/24 13:57 UA Bilirubin 0 mg/dL Last Edit by KeyISSA De La Torre on 08/03/24 13:57 UA Glucose 0 mg/dL Last Edit by Keysara Young Dangelo on 08/03/24 13:57 Coding Level of Care Code Est Pt Level 3 (27788) Complex EM visit Add On G2211 Diagnoses Left flank discomfort R10.9 Assessment & Plan Assessment & Plan (1) Left flank discomfort: Code(s): R10.9 - Unspecified abdominal pain Category: Medical Plan: Urinalysis positive for infection. Leuks are positive. Antibiotic, Pyridium and muscle relaxant called in. Instructions on how to take the medication given. If symptoms worsen should follow-up here. Ultrasound of the back recently done has not been read yet. When the results are available, patient will be notified. Orders: Orders AMB Urinalysis Automated Today R10.9 - Unspecified abdominal pain
[2024-08-03 13:32] VITALS: BP 120/66; PULSE 81; O2SAT 97; BMI 26.3
== END 2024-08-03 13:59 | disposition home or self-care (01) ==
PROVIDERS: PCP Internal Medicine; Visit Provider Internal Medicine
DX: R10.9 Unspecified abdominal pain (principal)

== ENCOUNTER → 2024-08-03 13:26 | Outpatient (BNVA) | payer OTHER, SELFPAY | PROVIDERS: PCP Internal Medicine; Visit Provider Internal Medicine | DX: R10.9 Unspecified abdominal pain (principal) | CPT/HCPCS: 81003; 99212 ==

== ENCOUNTER 2024-08-05 12:56 | Outpatient (AMB) | payer OTHER, SELFPAY ==
--- NOTE | 2024-08-05 12:59 | MHC.OFFVIS ---
Vital Signs 08/05/24 13:05 Height 5 ft 6 in Weight 165 lb 5.547 oz BMI 26.7 BP 144/81 H Blood Pressure Location Lt brachial Position Sitting Pulse 92 Intake Visit Reasons: Follow up medication Intake Note: Stephanie presents to in office follow up of constipation and abdominal pain. CC: Patient c/o constipation, abdominal pain, nausea, and getting full quickly after eating small portions. Grocery Stocker Required: No Accompanied by: Self / Same As Patient Allergies codeine [Codeine] Allergy (Mild, Verified 08/05/24 13:08) N/V, HEADACHE, vomiting morphine [MORPHINE] Allergy (Unknown, Verified 08/05/24 13:08) VOMITING, HEADACHE, migraine, vomiting ethyl chloride Allergy (Unknown, Uncoded 08/03/24 13:48) Unknown HPI HPI Follow up medication: Details: Assessment & Plan (1) Chronic idiopathic constipation: Code(s): K59.04 - Chronic idiopathic constipation Plan: She did not tolerate the reglan when we increased the dose to 10mg she had joint aches and malaise that resolved with stopping. Also, it did not help the stooling. She is using motegrity, but it cost $202 at [employer]....she did not try Good[facility] at [facility]..printed her savings and will try this. I gave her a written rx. Her constipation has been extremely difficult to control and it seems clear that she has both motility and osmotic problems contributing to this. This is why I believe she needs to different agents. Will have to try harder to control it from the colon and since she could not tolerate the Reglan. She continues on omeprazole once a day with good control of her GERD. I am sure this could be even better with better bowel motility. At this point I do not think this small bowel motility study will give us any new information and even if it did we would be able to act on it given her intolerance to the Reglan so we will skip this idea. ROV 4 weeks. (2) GERD (gastroesophageal reflux disease): Code(s): K21.9 - Gastro-esophageal reflux disease without esophagitis Qualifiers: Esophagitis presence: without esophagitis Qualified Code(s): K21.9 - Gastro-esophageal reflux disease without esophagitis Medications: Discontinued metoclopramide HCl (Reglan) provider is aware of potential interactions and is monitoring Discontinued Reason: Patient no longer taking 5 mg PO QIDACHS 120 tabs 3RF K21.9 - Gastro-esophageal reflux disease without esophagitis, K59.04 - Chronic idiopathic constipation metoclopramide HCl (Reglan) Discontinued Reason: Patient no longer taking 10 mg PO QID 120 tabs 6RF K59.04 - Chronic idiopathic constipation, K59.9 - Functional intestinal disorder, unspecified TODAY'S VISIT Patient has been lost to follow-up since 07/2023 She was in [place] for 6 mos to care for her dtr, then she had to go to [place] to care for her niece who . She will be going back down because her sister is, understandably, very upset. CIC continues to be difficult to bandage. She is using the Motegrity but if she uses 1 bisacodyl a day she will not move her bowels, if she uses too every day she will have diarrhea in usually she has to wait till she is very bloated and backed up to take 3 and then she will put all day. It has been very difficult to regulate her diarrhea. She has failed Amitiza, Linzess, Trulance, Reglan, bisacodyl, senna, lactulose, MiraLax, fiber and Colace therapy. At this point will try the newest med Ibsrela that is on the market. We will have to work quickly could she will be going back to the [place] soon. If this does not work we will go back to [facility] and consider layering and lactulose even though this has produce diarrhea in the past. She asks about the small-bowel follow-through study but I do not think this would be worth doing since we could not use metoclopramide and that is the only medicine that really impacts the function of the small-bowel to date. Return office visit in 2 weeks [facility] Medical History Left flank discomfort History of pheochromocytoma History of medullary carcinoma of thyroid Left flank pain Multiple endocrine neoplasia type 2A (MEN2A) Medullary thyroid carcinoma Hypothyroid Pheochromocytoma of left adrenal gland Hypercholesterolemia COPD (chronic obstructive pulmonary disease) Pulmonary nodule Nicotine dependence, cigarettes, uncomplicated Osteopenia Irritable bowel syndrome with constipation Restless leg syndrome Anxiety Depression PONV (postoperative nausea and vomiting) Cervicalgia Pain in both feet Erosive (osteo)arthritis Bilateral hand pain Mass of left axilla Back pain Nevoid hyperpigmentation Neuritis of right ulnar nerve Neck pain Odynophagia Gout Surgical History S/P rotator cuff repair History of radical neck dissection (~01/2019) History of thyroidectomy (~03/2011) History of total adrenalectomy (~06/2018) History of laparoscopic cholecystectomy (~11/2022) History of total abdominal hysterectomy and bilateral salpingo-oophorectomy (~11/2013) History of tubal ligation (~10/2000) History of bilateral breast reduction surgery (~09/2019) History of repair of right rotator cuff (~04/2024) History of hand surgery (~02/2021) History of surgery on left wrist (~04/2010) History of fusion of lumbar spine History of tonsillectomy History of colonoscopy History of esophagogastroduodenoscopy (EGD) Family History Father Heart attack Mother Brain cancer Lung cancer Cervical cancer Family/Other Diabetes Sister Cervical cancer Daughter Breast cancer Social History Household Members: Spouse and Children Housing: Other Housing Other:: Trailer Alcohol intake: never Patient Tobacco Use Status: Current everyday Tobacco user Tobacco use type: Cigarette Cigarette Packs Per Day: 1 Cigarettes Per Day: 15 Years Smoked: (onset 14yo, 3/4-1ppd x 44yrs - 35pyh) e-Cigarette/Vaping Use: Never Used Second Hand Smoke Exposure: Yes Substance Use Type: Marijuana service: No Current occupational status: disabled Current occupation: left handed Cognitive needs: No Hearing needs: No Vision needs: Yes Review of Systems Const Denies fatigue, Denies fever(s), Denies night sweats, Denies poor appetite and Denies weight loss ENT Reports Normal hearing present, Denies dental pain, Denies dysphagia, Denies hearing loss, Denies mouth pain, Denies odynophagia, Denies throat swelling, Denies tongue swelling and Reports other (Dentition adequate) Card Reports no additional complaints Resp Reports no additional complaints GI Details: Denies abdominal pain, Denies melena, Reports bloating, Denies hematochezia, Reports constipation, Denies GI cramping, Denies dysphagia, Denies excessive flatus, Denies early satiety, Reports heartburn, Denies diarrhea, Denies nausea, Denies odynophagia, Denies vomiting and Denies hematemesis Skin/Breast Denies pruritus, Denies lesions, Denies rash and Denies jaundice Neuro Reports Normal hearing present and Denies Abnormal speech present Endo Denies fatigue Aller/Immun Denies throat swelling and Denies tongue swelling Physical Exam Vital Signs: Last Vital Signs Pulse 92 08/05/24 13:05 BP 144/81 H 08/05/24 13:05 BMI result Body Mass Index 26.7 Const General: cooperative, no acute distress, well developed and well groomed Nutritional Appearance: average body habitus and well nourished Orientation/consciousness: oriented to person, oriented to place and oriented to time Limitations: No language barrier HEENT Head: Yes normocephalic and Yes atraumatic Eyes General: appearance normal, both eyes and all related structures Pupils: Equal, round and reactive pupils present Neck Neck: Yes normal visual inspection and Yes no lymphadenopathy Thyroid: Thyroid normal Resp Effort & Inspection: normal respiratory effort and able to speak in complete sentences Auscultation: clear to auscultation bilaterally Cardio Rate: regular rate Rhythm: regular rhythm Heart sounds: Normal, physiologic split S2 sound present Peripheral pulses: radial pulses present and posterior tibial pulses present GI Inspection: No distended and No Abdominal panniculus present Palpation (GI): Soft to palpation, nontender, no guarding, not rigid and No hepatosplenomegaly present Percussion: Yes normal to percussion Auscultation: normal bowel sounds Rectal Exam - Female: deferred Skin General skin exam: no rashes or lesions noted, turgor normal, skin not dry, no jaundice, No spider nevi and no striae Rashes: no rashes Nails: normal Neuro General: oriented to person, oriented to place and oriented to time Cranial nerves: Yes Equal, round and reactive pupils present and Yes Normal hearing present Speech: No Abnormal speech present Extrem General: Yes normal to inspection, No clubbing, No cyanosis and No edema Psych Appearance: grossly normal and well kempt Mental Status: mental status grossly normal Speech and movement: Normal speech and movement present Affect: normal affect Attitude: cooperative Thought process: Normal thought process present and not confabulating Thought content: Normal thought content present Insight: Fair insight present (Psych) Judgement: Fair judgement present (Psych) Assessment & Plan Assessment & Plan (1) Chronic idiopathic constipation: Code(s): K59.04 - Chronic idiopathic constipation Category: Medical (2) GERD (gastroesophageal reflux disease): Code(s): K21.9 - Gastro-esophageal reflux disease without esophagitis Category: Medical Qualifiers: Esophagitis presence: without esophagitis Qualified Code(s): K21.9 - Gastro-esophageal reflux disease without esophagitis Plan Patient has been lost to follow-up since 07/2023 She was in [place] for 6 mos to care for her dtr, then she had to go to [place] to care for her niece who . She will be going back down because her sister is, understandably, very upset. CIC continues to be difficult to bandage. She is using the Motegrity but if she uses 1 bisacodyl a day she will not move her bowels, if she uses too every day she will have diarrhea in usually she has to wait till she is very bloated and backed up to take 3 and then she will put all day. It has been very difficult to regulate her diarrhea. She has failed Amitiza, Linzess, Trulance, Reglan, bisacodyl, senna, lactulose, MiraLax, fiber and Colace therapy. At this point will try the newest med Ibsrela that is on the market. We will have to work quickly could she will be going back to the [place] soon. If this does not work we will go back to [facility] and consider layering and lactulose even though this has produce diarrhea in the past. She asks about the small-bowel follow-through study but I do not think this would be worth doing since we could not use metoclopramide and that is the only medicine that really impacts the function of the small-bowel to date. Return office visit in 2 weeks Medications: New tenapanor (Ibsrela) must administer immediately before first meal of day/breakfast and dinner 50 mg PO BID 60 tabs 6RF K59.04 - Chronic idiopathic constipation Changed From prucalopride (Motegrity) 2 mg PO DAILY 30 tabs 2RF K59.04 - Chronic idiopathic constipation To prucalopride (Motegrity) 2 mg PO DAILY 90 tabs 2RF 90 days K59.04 - Chronic idiopathic constipation Refilled omeprazole 20 mg PO DAILY 90 caps 2RF 90 days K21.9 - Gastro-esophageal reflux disease without esophagitis Coding Level of Care Code Est Pt Level 3 (68805) Diagnoses Chronic idiopathic constipation K59.04 Gastroesophageal reflux disease without esophagitis K21.9 Esophagitis presence: without esophagitis
[2024-08-05 13:05] VITALS: BP 144/81; PULSE 92; BMI 26.7
== END 2024-08-05 13:56 | disposition home or self-care (01) ==
PROVIDERS: PCP Internal Medicine; Visit Provider Nurse Practitioner
DX: K59.04 Chronic idiopathic constipation (principal); K21.9 Gastro-esophageal reflux disease without esophagitis
CPT/HCPCS: 99213

== ENCOUNTER → 2024-08-05 12:56 | Outpatient (BNVA) | payer OTHER, SELFPAY | PROVIDERS: PCP Internal Medicine; Visit Provider Nurse Practitioner | DX: K21.9 Gastro-esophageal reflux disease without esophagitis (principal); K59.04 Chronic idiopathic constipation | CPT/HCPCS: 99212 ==

== ENCOUNTER 2024-08-17 10:07 | Outpatient (REF) | payer OTHER, SELFPAY ==
[2024-08-18 10:43] LABS: Adenovirus PCR Not Detected (Not Detect.); Bordetella parapertussis PCR Not Detected (Not Detect.); Bordetella pertussis PCR Not Detected (Not Detect.); Chlamydia pneumoniae PCR Not Detected (Not Detect.); Coronavirus 229E PCR Not Detected (Not Detect.); Coronavirus HKU1 PCR Not Detected (Not Detect.); Coronavirus NL63 PCR Not Detected (Not Detect.); Coronavirus OC43 PCR Not Detected (Not Detect.); Human metapneumovirus PCR Not Detected (Not Detect.); Influenza A PCR Not Detected (Not Detect.); Influenza B PCR Not Detected (Not Detect.); Mycoplasma pneumoniae PCR Not Detected (Not Detect.); Parainfluenza 1 PCR Not Detected (Not Detect.); Parainfluenza 2 PCR Not Detected (Not Detect.); Parainfluenza 3 PCR Not Detected (Not Detect.); Parainfluenza 4 PCR Not Detected (Not Detect.); RSV PCR Not Detected (Not Detect.); Rhino/Enterovirus PCR Not Detected (Not Detect.)
[2024-08-18 10:48] LABS: SARS-CoV-2 PCR Not Detected (Not Detect.)
== END 2024-08-17 10:08 | disposition home or self-care (01) ==
LOC: HO.LAB 10:07
PROVIDERS: Physician Assistant; PCP Internal Medicine
DX: J44.9 Chronic obstructive pulmonary disease, unspecified (principal); J22 Unspecified acute lower respiratory infection; F17.210 Nicotine dependence, cigarettes, uncomplicated; R21 Rash and other nonspecific skin eruption
CPT/HCPCS: 87633; 99212

== ENCOUNTER 2024-08-17 10:07 | Outpatient (AMB) | payer OTHER, SELFPAY ==
--- NOTE | 2024-08-17 10:14 | AM.OFFWIN_ITS ---
Intake Vital Signs 08/17/24 10:19 Weight 166 lb BP 122/80 Blood Pressure Location Lt brachial Position Sitting Pulse 98 Pulse Source Pulse Oximeter Temp 98.7 F Temp Source Oral Pulse Oximetry (%) 96 Oxygen Delivery Method Room Air Intake Visit Reasons: EP-body rash Intake Note: Patient here for body rash that has been started Friday night. pt mentioned that she started a new med last friday. Headache and nausea as well. Patient Tobacco Use Status: Current everyday Tobacco user Allergies codeine [Codeine] Allergy (Mild, Verified 08/17/24 10:18) N/V, HEADACHE, vomiting morphine [MORPHINE] Allergy (Unknown, Verified 08/17/24 10:18) VOMITING, HEADACHE, migraine, vomiting sulfamethoxazole [From Bactrim] Adverse Reaction (Intermediate, Unverified 08/17/24 10:18) lip numbness trimethoprim [From Bactrim] Adverse Reaction (Intermediate, Unverified 08/17/24 10:18) lip numbness ethyl chloride Allergy (Unknown, Uncoded 08/17/24 10:18) Unknown Do you need a note to return to daycare/school/sports/work: No HPI HPI Comments History of Present Illness Details Patient is a 59-year-old female who is a current smoker with a past medical history of COPD complaining of 2 days of a headache, nausea, fever with a T-max of 101 degrees F, and a productive cough with yellow sputum. She denies shortness of breath, vomiting, wheezing, head congestion, sinus pain or ear pain. She states she does have an albuterol inhaler at home but she has not felt the need to use it. She tells me she did not test at home for COVID. She also notes that she started with a rash on her bilateral legs, this morning she noticed it a little bit on her arms. She tells me she did take a new medication for constipation last and Friday but she has not taken any of it since then, it is called tenapanor. She states the rash is not itchy or painful. [facility] Medical History Left flank discomfort History of pheochromocytoma History of medullary carcinoma of thyroid Left flank pain Multiple endocrine neoplasia type 2A (MEN2A) Medullary thyroid carcinoma Hypothyroid Pheochromocytoma of left adrenal gland Hypercholesterolemia COPD (chronic obstructive pulmonary disease) Pulmonary nodule Nicotine dependence, cigarettes, uncomplicated Osteopenia Irritable bowel syndrome with constipation Restless leg syndrome Anxiety Depression PONV (postoperative nausea and vomiting) Cervicalgia Pain in both feet Erosive (osteo)arthritis Bilateral hand pain Mass of left axilla Back pain Nevoid hyperpigmentation Neuritis of right ulnar nerve Neck pain Odynophagia Gout Surgical History S/P rotator cuff repair History of radical neck dissection (~01/2019) History of thyroidectomy (~03/2011) History of total adrenalectomy (~06/2018) History of laparoscopic cholecystectomy (~11/2022) History of total abdominal hysterectomy and bilateral salpingo-oophorectomy (~11/2013) History of tubal ligation (~10/2000) History of bilateral breast reduction surgery (~09/2019) History of repair of right rotator cuff (~04/2024) History of hand surgery (~02/2021) History of surgery on left wrist (~04/2010) History of fusion of lumbar spine History of tonsillectomy History of colonoscopy History of esophagogastroduodenoscopy (EGD) Family History Father Heart attack Mother Brain cancer Lung cancer Cervical cancer Family/Other Diabetes Sister Cervical cancer Daughter Breast cancer Social History Household Members: Spouse and Children Housing: Other Housing Other:: Trailer Alcohol intake: never Patient Tobacco Use Status: Current everyday Tobacco user Tobacco use type: Cigarette Cigarette Packs Per Day: 1 Cigarettes Per Day: 15 Years Smoked: (onset 14yo, 3/4-1ppd x 45yrs - 35pyh) e-Cigarette/Vaping Use: Never Used Second Hand Smoke Exposure: Yes Substance Use Type: Marijuana service: No Current occupational status: disabled Current occupation: left handed Cognitive needs: No Hearing needs: No Vision needs: Yes Review of Systems Const All systems reviewed & are unremarkable except as noted in HPI and below Physical Exam Vital Signs: Last Vital Signs Temp 98.7 F 08/17/24 10:19 Pulse 98 08/17/24 10:19 BP 122/80 08/17/24 10:19 Pulse Ox 96 08/17/24 10:19 Oxygen Delivery Method Room Air 08/17/24 10:19 Const General: cooperative, healthy appearing, comfortable and no acute distress Orientation/consciousness: patient oriented x3 Limitations: no limitations HEENT Head: Yes normal to inspection Ears: hearing grossly normal bilaterally, external ears normal and TM's normal bilaterally General nose exam: Normal external nose present, Normal nares present and No nasal discharge present Face and sinus: Yes normal facial exam and Yes sinuses nontender Mouth: Normal oral and palatal mucosa present and moist mucous membranes Throat: Yes tonsils normal, Yes uvula midline and Yes posterior oropharynx abnormal (Erythema) Eyes General: appearance normal, both eyes and all related structures Neck Neck: Yes normal visual inspection Resp Effort & Inspection: normal respiratory effort, able to speak in complete sentences, Actively coughing, no respiratory distress, not tachypneic, no tripod positioning and no use of accessory muscles Auscultation: clear to auscultation bilaterally Cardio Rate: regular rate Rhythm: regular rhythm Heart sounds: normal S1 and S2 Skin General skin exam: no rashes or lesions noted Neuro General: patient oriented x3 Extrem General: Yes normal to inspection and Yes no clubbing, cyanosis or edema Assessment & Plan Assessment & Plan (1) Lower respiratory infection (e.g., bronchitis, pneumonia, pneumonitis, pulmonitis): Code(s): J22 - Unspecified acute lower respiratory infection Plan: Vital signs are stable, patient well-appearing and lung sounds are clear but a little dim. With her age and history of COPD and being a current smoker, I will get a chest x-ray. Did send respiratory viral pathogen panel. Recommend patient use a decongestant and her albuterol inhaler, as needed. Plan see above Orders: Orders Resp Pathogen Panel - [facility] Today J06.9 - Acute upper respiratory infection, unspecified XR chest 2V Today R05.9 - Cough, unspecified Coding Level of Care Code Est Pt Level 4 (60825) Diagnoses Lower respiratory infection (e.g., bronchitis, pneumonia, pneumonitis, pulmonitis) J22
[2024-08-17 10:19] VITALS: BP 122/80; PULSE 98; TEMP 37.1; O2SAT 96
== END 2024-08-17 10:38 | disposition home or self-care (01) ==
PROVIDERS: PCP Internal Medicine; Visit Provider Physician Assistant
DX: J22 Unspecified acute lower respiratory infection (principal)

== ENCOUNTER 2024-08-17 10:33 | Outpatient (REF) | payer OTHER, SELFPAY ==
--- NOTE | ~2024-08-17 | XR_ITS ---
EXAMINATION: XR CHEST CLINICAL INFORMATION: Cough unspecified COMPARISON: None available. TECHNIQUE: 2 views of the chest were obtained. FINDINGS: Lungs grossly are clear. Heart and pulmonary vessels are normal. Postsurgical changes in the lower thoracic and upper lumbar spine are seen. Postsurgical change in the right shoulder joint. No destructive lesions. XR/XR chest 2V IMPRESSION: No active disease. Electronically signed by: Antony Liao MD 08/17/2024 12:13 PM EDT RP
== END 2024-08-17 10:34 | disposition home or self-care (01) ==
LOC: HO.HMGCX 10:33
PROVIDERS: PCP Internal Medicine; Visit Provider Physician Assistant
DX: R05.9 Cough, unspecified (principal)
CPT/HCPCS: 71046

== ENCOUNTER → 2024-08-19 14:55 | Outpatient (BNVA) | payer OTHER, SELFPAY | PROVIDERS: PCP Internal Medicine; Visit Provider Physician Assistant | DX: T78.40XA Allergy, unspecified, initial encounter (principal); R11.0 Nausea; J06.9 Acute upper respiratory infection, unspecified | CPT/HCPCS: 99212 ==

== ENCOUNTER → 2024-08-19 14:55 | Outpatient (AMB) | payer OTHER, SELFPAY ==
--- NOTE | 2024-08-19 15:38 | MHC.OFFWIV ---
Intake Vital Signs 08/19/24 15:41 Weight 165 lb BP 110/64 Blood Pressure Location Rt brachial Position Sitting Pulse 82 Pulse Source Pulse Oximeter Pulse Oximetry (%) 98 Oxygen Delivery Method Room Air Intake Visit Reasons: EP rash on both legs Patient Tobacco Use Status: Current everyday Tobacco user Allergies codeine [Codeine] Allergy (Mild, Verified 08/17/24 10:18) N/V, HEADACHE, vomiting morphine [MORPHINE] Allergy (Unknown, Verified 08/17/24 10:18) VOMITING, HEADACHE, migraine, vomiting sulfamethoxazole [From Bactrim] Adverse Reaction (Intermediate, Unverified 08/17/24 10:18) lip numbness trimethoprim [From Bactrim] Adverse Reaction (Intermediate, Unverified 08/17/24 10:18) lip numbness ethyl chloride Allergy (Unknown, Uncoded 08/17/24 10:18) Unknown HPI HPI Comments History of Present Illness Details Patient is a 59-year-old female complaining of a worsening rash on her bilateral lower extremities. She was seen in this clinic a few days ago a regarding the rash but she states it is his since become itchy and is extending further up her legs. She denies any new medications, foods, soaps, lotions, detergents, sheets or clothing. She tells me she did have a new medication that she tried last week but she stopped it 7 days ago. She denies any fevers. She did have a recent upper respiratory infection but feels like that is resolving without the antibiotics that I sent to the pharmacy for her 2 days ago she tells me she never ended up taking the antibiotics because she woke up the next day feeling better and she is not sure if she should take them. She just has a lingering cough. She also states she is having random episodes of nausea with no vomiting and is asking for some Zofran. [facility] Medical History Left flank discomfort History of pheochromocytoma History of medullary carcinoma of thyroid Left flank pain Multiple endocrine neoplasia type 2A (MEN2A) Medullary thyroid carcinoma Hypothyroid Pheochromocytoma of left adrenal gland Hypercholesterolemia COPD (chronic obstructive pulmonary disease) Pulmonary nodule Nicotine dependence, cigarettes, uncomplicated Osteopenia Irritable bowel syndrome with constipation Restless leg syndrome Anxiety Depression PONV (postoperative nausea and vomiting) Cervicalgia Pain in both feet Erosive (osteo)arthritis Bilateral hand pain Mass of left axilla Back pain Nevoid hyperpigmentation Neuritis of right ulnar nerve Neck pain Odynophagia Gout Surgical History S/P rotator cuff repair History of radical neck dissection (~01/2019) History of thyroidectomy (~03/2011) History of total adrenalectomy (~06/2018) History of laparoscopic cholecystectomy (~11/2022) History of total abdominal hysterectomy and bilateral salpingo-oophorectomy (~11/2013) History of tubal ligation (~10/2000) History of bilateral breast reduction surgery (~09/2019) History of repair of right rotator cuff (~04/2024) History of hand surgery (~02/2021) History of surgery on left wrist (~04/2010) History of fusion of lumbar spine History of tonsillectomy History of colonoscopy History of esophagogastroduodenoscopy (EGD) Family History Father Heart attack Mother Brain cancer Lung cancer Cervical cancer Family/Other Diabetes Sister Cervical cancer Daughter Breast cancer Social History Household Members: Spouse and Children Housing: Other Housing Other:: Trailer Alcohol intake: never Patient Tobacco Use Status: Current everyday Tobacco user Tobacco use type: Cigarette Cigarette Packs Per Day: 1 Cigarettes Per Day: 15 Years Smoked: (onset 14yo, 3/4-1ppd x 44yrs - 35pyh) e-Cigarette/Vaping Use: Never Used Second Hand Smoke Exposure: Yes Substance Use Type: Marijuana service: No Current occupational status: disabled Current occupation: left handed Cognitive needs: No Hearing needs: No Vision needs: Yes Review of Systems Const All systems reviewed & are unremarkable except as noted in HPI and below Physical Exam Vital Signs: Last Vital Signs Pulse 82 08/19/24 15:41 BP 110/64 08/19/24 15:41 Pulse Ox 98 08/19/24 15:41 Oxygen Delivery Method Room Air 08/19/24 15:41 Const General: cooperative, healthy appearing, comfortable and no acute distress Orientation/consciousness: patient oriented x3 Limitations: no limitations HEENT Head: Yes normal to inspection Eyes General: appearance normal, both eyes and all related structures Resp Effort & Inspection: normal respiratory effort and able to speak in complete sentences Skin Other: confluent maculopapular rash on bilateral lower extremities, no warmth, no vesicles, no ecchymosis Neuro General: patient oriented x3 Assessment & Plan Assessment & Plan (1) Allergic rash present on examination: Code(s): T78.40XA - Allergy, unspecified, initial encounter Plan: Initially, this rash seemed to be viral however now that it has become itchy, maybe it is not. Difficult to tell if this was from a medication she took or something she has been exposed to topically. We will treat with hydroxyzine and a prednisone burst. (2) Nausea: Code(s): R11.0 - Nausea Plan: Sent Zofran to patient's pharmacy for her episodic nausea, as requested. Did advise if her nausea continues, she should follow up with her PCP or return to the walk-in. (3) URI (upper respiratory infection): Code(s): J06.9 - Acute upper respiratory infection, unspecified Qualifiers: URI type: unspecified URI Qualified Code(s): J06.9 - Acute upper respiratory infection, unspecified Plan: Advised if she is feeling better without the antibiotics, then she should not take them. Plan See above Medications: New hydroxyzine HCl 25 mg PO BEDTIME PRN 14 tabs 0RF itching ondansetron 4 mg PO Q8H PRN 10 tabs 0RF nausea and vomiting prednisone 40 mg (2 x 20 mg) PO DAILY 10 tabs 0RF Discontinued amoxicillin-pot clavulanate 875-125 mg Discontinued Reason: Doctor's Order 1 tab PO Q12H 10 tabs 0RF azithromycin Discontinued Reason: Patient no longer taking For 250 mg dose pack: take 500 mg today (day 1), then 250 mg for 4 days (days 2-5) PO 6 tabs 0RF Coding Level of Care Code Est Pt Level 4 (86682) Diagnoses Allergic rash present on examination T78.40XA Nausea R11.0 Upper respiratory tract infection, unspecified type J06.9 URI type: unspecified URI
[2024-08-19 15:41] VITALS: BP 110/64; PULSE 82; O2SAT 98
== END ==
PROVIDERS: PCP Internal Medicine; Visit Provider Physician Assistant
DX: T78.40XA Allergy, unspecified, initial encounter (principal); R11.0 Nausea; J06.9 Acute upper respiratory infection, unspecified

== ENCOUNTER 2024-08-20 12:37 | Outpatient (AMB) | payer OTHER, SELFPAY ==
--- NOTE | 2024-08-20 12:39 | A.OFFVIS_ITS ---
Vital Signs 08/20/24 12:40 Height 5 ft 6 in Weight 165 lb 5.547 oz BMI 26.7 BP 118/58 L Blood Pressure Location Lt brachial Position Sitting Pulse 73 Intake Visit Reasons: 2 week follow up Intake Note: Stephanie presents in the office as a 2 week follow up. CC: She states that she is not having any concerns at this time. Clinical Unit Educator Required: No Allergies codeine [Codeine] Allergy (Mild, Verified 09/20/24 17:31) N/V, HEADACHE, vomiting morphine [MORPHINE] Allergy (Unknown, Verified 09/20/24 17:31) VOMITING, HEADACHE, migraine, vomiting sulfamethoxazole [From Bactrim] Adverse Reaction (Intermediate, Unverified 09/20/24 17:31) lip numbness trimethoprim [From Bactrim] Adverse Reaction (Intermediate, Unverified 09/20/24 17:31) lip numbness ethyl chloride Allergy (Unknown, Uncoded 09/20/24 17:31) Unknown HPI HPI 2 week follow up: Details: ssessment & Plan (1) Chronic idiopathic constipation: Code(s): K59.04 - Chronic idiopathic constipation Category: Medical (2) GERD (gastroesophageal reflux disease): Code(s): K21.9 - Gastro-esophageal reflux disease without esophagitis Category: Medical Qualifiers: Esophagitis presence: without esophagitis Qualified Code(s): K21.9 - Gastro-esophageal reflux disease without esophagitis Plan Patient has been lost to follow-up since 07/2023 She was in [place] for 6 mos to care for her dtr, then she had to go to [place] to care for her niece who . She will be going back down because her sister is, understandably, very upset. CIC continues to be difficult to bandage. She is using the Motegrity but if she uses 1 bisacodyl a day she will not move her bowels, if she uses too every day s he will have diarrhea in usually she has to wait till she is very bloated and backed up to take 3 and then she will put all day. It has been very difficult to regulate her diarrhea. She has failed Amitiza, Linzess, Trulance, Reglan, bisacodyl, senna, lactulose, MiraLax, fiber and Colace therapy. At this point will try the newest med Ibsrela that is on the market. We will have to work quickly could she will be going back to the [place] soon. If this does not work we will go back to Motegrity and consider layering and lactulose even though this has produce diarrhea in the past. She asks about the small-bowel follow-through study but I do not think this would be worth doing since we could not use metoclopramide and that is the only medicine that really impacts the function of the small-bowel to date. Return office visit in 2 weeks Medications: New tenapanor (Ibsrela) must administer immediately before first meal of day/breakfast and dinner 50 mg PO BID 60 tabs 6RF K59.04 - Chronic idiopathic constipation Changed From prucalopride (Motegrity) 2 mg PO DAILY 30 tabs 2RF K59.04 - Chronic idiopathic constipation To prucalopride (Motegrity) 2 mg PO DAILY 90 tabs 2RF 90 days K59.04 - Chronic idiopathic constipation Refilled omeprazole 20 mg PO DAILY 90 caps 2RF 90 days K21.9 - Gastro-esophageal reflux disease without esophagitis TODAY'S VISIT She started Ibsrela a week ago (there was a delay in [place]) and she has severe gas and fecal leakage. She also developed an itchy rash on her stomach that moved to her thighs and down her legs. She also had associated fevers/chills, nausea, YEH. Was seen at urgent care and a lot of test and prednisone. Since we have already gone through all the constipation therapies she will try to manage this herself naturally and should this time she opts to have her primary care provider provide her omeprazole. Return office visit mel [facility] Medical History Left flank discomfort History of pheochromocytoma History of medullary carcinoma of thyroid Left flank pain Multiple endocrine neoplasia type 2A (MEN2A) Medullary thyroid carcinoma Hypothyroid Pheochromocytoma of left adrenal gland Hypercholesterolemia COPD (chronic obstructive pulmonary disease) Pulmonary nodule Nicotine dependence, cigarettes, uncomplicated Osteopenia Irritable bowel syndrome with constipation Restless leg syndrome Anxiety Depression PONV (postoperative nausea and vomiting) Cervicalgia Pain in both feet Erosive (osteo)arthritis Bilateral hand pain Mass of left axilla Back pain Nevoid hyperpigmentation Neuritis of right ulnar nerve Neck pain Odynophagia Gout Surgical History S/P rotator cuff repair History of radical neck dissection (~01/2019) History of thyroidectomy (~03/2011) History of total adrenalectomy (~06/2018) History of laparoscopic cholecystectomy (~11/2022) History of total abdominal hysterectomy and bilateral salpingo-oophorectomy (~11/2013) History of tubal ligation (~10/2000) History of bilateral breast reduction surgery (~09/2019) History of repair of right rotator cuff (~04/2024) History of hand surgery (~02/2021) History of surgery on left wrist (~04/2010) History of fusion of lumbar spine History of tonsillectomy History of colonoscopy History of esophagogastroduodenoscopy (EGD) Family History (Updated 09/20/24 @ 18:02 by Jayshree White MD) Father Heart attack Mother Brain cancer Lung cancer Cervical cancer Family/Other Diabetes Sister Cervical cancer Lung cancer Daughter Breast cancer Social History Household Members: Spouse and Children Housing: Other Housing Other:: Trailer Alcohol intake: never Patient Tobacco Use Status: Current everyday Tobacco user Tobacco use type: Cigarette Cigarette Packs Per Day: 1 Cigarettes Per Day: 15 Years Smoked: (onset 14yo, 3/4-1ppd x 45yrs - 35pyh) e-Cigarette/Vaping Use: Never Used Second Hand Smoke Exposure: Yes Substance Use Type: Marijuana service: No Current occupational status: disabled Current occupation: left handed Cognitive needs: No Hearing needs: No Vision needs: Yes Review of Systems Const Denies fatigue, Denies fever(s), Denies night sweats, Denies poor appetite and Denies weight loss ENT Reports Normal hearing present, Denies dental pain, Denies dysphagia, Denies hearing loss, Denies mouth pain, Denies odynophagia, Denies throat swelling, Denies tongue swelling and Reports other (Dentition adequate) Card Reports no additional complaints Resp Reports no additional complaints GI Details: Denies abdominal pain, Denies melena, Denies bloating, Denies hematochezia, Reports constipation, Denies GI cramping, Denies dysphagia, Denies excessive flatus, Denies early satiety, Reports heartburn, Reports diarrhea, Denies nausea, Denies odynophagia, Denies vomiting and Denies hematemesis Skin/Breast Denies pruritus, Denies lesions, Denies rash and Denies jaundice Neuro Reports Normal hearing present and Denies Abnormal speech present Endo Denies fatigue Aller/Immun Denies throat swelling and Denies tongue swelling Physical Exam Vital Signs: Last Vital Signs Pulse 73 08/20/24 12:40 BP 118/58 L 08/20/24 12:40 BMI result Body Mass Index 26.7 Const General: cooperative, no acute distress, well developed and well groomed Nutritional Appearance: average body habitus and well nourished Orientation/consciousness: oriented to person, oriented to place and oriented to time Limitations: No language barrier HEENT Head: Yes normocephalic and Yes atraumatic Eyes General: appearance normal, both eyes and all related structures Pupils: Equal, round and reactive pupils present Neck Neck: Yes normal visual inspection and Yes no lymphadenopathy Thyroid: Thyroid normal Resp Effort & Inspection: normal respiratory effort and able to speak in complete sentences Auscultation: clear to auscultation bilaterally Cardio Rate: regular rate Rhythm: regular rhythm Heart sounds: Normal, physiologic split S2 sound present Peripheral pulses: radial pulses present and posterior tibial pulses present GI Inspection: No distended and No Abdominal panniculus present Palpation (GI): Soft to palpation, nontender, no guarding, not rigid and No hepatosplenomegaly present Percussion: Yes normal to percussion Auscultation: normal bowel sounds Rectal Exam - Female: deferred Skin General skin exam: no rashes or lesions noted, turgor normal, skin not dry, no jaundice, No spider nevi and no striae Rashes: no rashes Nails: normal Neuro General: oriented to person, oriented to place and oriented to time Cranial nerves: Yes Equal, round and reactive pupils present and Yes Normal hearing present Speech: No Abnormal speech present Extrem General: Yes normal to inspection, No clubbing, No cyanosis and No edema Psych Appearance: grossly normal and well kempt Mental Status: mental status grossly normal Speech and movement: Normal speech and movement present Affect: normal affect Attitude: cooperative Thought process: Normal thought process present and not confabulating Thought content: Normal thought content present Insight: Good insight present (Psych) Judgement: Good judgement present (Psych) Assessment & Plan Assessment & Plan (1) GERD (gastroesophageal reflux disease): Code(s): K21.9 - Gastro-esophageal reflux disease without esophagitis Category: Medical Qualifiers: Esophagitis presence: without esophagitis Qualified Code(s): K21.9 - Gastro-esophageal reflux disease without esophagitis (2) Chronic idiopathic constipation: Code(s): K59.04 - Chronic idiopathic constipation Category: Medical Plan She started Ibsrela a week ago (there was a delay in [place]) and she has severe gas and fecal leakage. She also developed an itchy rash on her stomach that moved to her thighs and down her legs. She also had associated fevers/chills, nausea, YEH. Was seen at urgent care and a lot of test and prednisone. Since we have already gone through all the constipation therapies she will try to manage this herself naturally and should this time she opts to have her primary care provider provide her omeprazole. Return office visit p.r.n. Medications: Discontinued tenapanor must administer immediately before first meal of day/breakfast and dinner Discontinued Reason: Doctor's Order 50 mg PO BID 60 tabs 6RF K59.04 - Chronic idiopathic constipation Coding Level of Care Code Est Pt Level 3 (10313) Diagnoses Gastroesophageal reflux disease without esophagitis K21.9 Esophagitis presence: without esophagitis Chronic idiopathic constipation K59.04
[2024-08-20 12:40] VITALS: BP 118/58; PULSE 73; BMI 26.7
== END 2024-08-20 13:16 | disposition home or self-care (01) ==
PROVIDERS: PCP Internal Medicine; Visit Provider Nurse Practitioner
DX: K21.9 Gastro-esophageal reflux disease without esophagitis (principal); K59.04 Chronic idiopathic constipation
CPT/HCPCS: 99213

== ENCOUNTER → 2024-08-20 12:37 | Outpatient (BNVA) | payer OTHER, SELFPAY | PROVIDERS: PCP Internal Medicine; Visit Provider Nurse Practitioner | DX: K59.04 Chronic idiopathic constipation (principal); K21.9 Gastro-esophageal reflux disease without esophagitis | CPT/HCPCS: 99212 ==

== ENCOUNTER 2024-08-27 10:39 | Outpatient (REF) | payer OTHER, SELFPAY ==
[2024-08-27 13:43] LABS: Appearance Urine Clear; Color Urine Yellow; Glucose Urine UA Negative (Negative); Leukocyte Esterase Urine Negative (Negative); Nitrite Urine Negative (Negative); PH 7.5 (5.0-9.0); Specific Gravity - Urine <= 1.005 (1.005-1.025); Urine Blood Negative (Negative); Urine Ketones Negative (Negative); Urine Protein Negative (Neg-Trace)
== END 2024-08-27 10:40 | disposition home or self-care (01) ==
LOC: HO.HMGCLDS 10:39
PROVIDERS: PCP Internal Medicine; Visit Provider Internal Medicine
DX: R30.0 Dysuria (principal)
CPT/HCPCS: 81003

== ENCOUNTER 2024-09-20 17:13 | Outpatient (AMB) | payer OTHER, SELFPAY ==
[2024-09-20 17:17] VITALS: BP 132/62; PULSE 98; O2SAT 80; BMI 27.4
--- NOTE | 2024-09-20 17:17 | MHC.PC.OV ---
Vital Signs 09/20/24 17:17 Height 5 ft 6 in Weight 169 lb 8 oz BMI 27.4 BP 132/62 Blood Pressure Location Lt brachial Position Sitting Pulse 98 Pulse Source Pulse Oximeter Pulse Oximetry (%) 80 L Oxygen Delivery Method Room Air Intake Visit Reasons: Annual Physical Intake Note: Patient is here today for a physical. 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 Accompanied by: Self / Same As Patient Allergies codeine [Codeine] Allergy (Mild, Verified 09/20/24 17:31) N/V, HEADACHE, vomiting morphine [MORPHINE] Allergy (Unknown, Verified 09/20/24 17:31) VOMITING, HEADACHE, migraine, vomiting sulfamethoxazole [From Bactrim] Adverse Reaction (Intermediate, Unverified 09/20/24 17:31) lip numbness trimethoprim [From Bactrim] Adverse Reaction (Intermediate, Unverified 09/20/24 17:31) lip numbness ethyl chloride Allergy (Unknown, Uncoded 09/20/24 17:31) Unknown Medication List - Last Reconciled 09/20/24 by Jayshree White MD amitriptyline 75 mg PO BEDTIME 90 days bisacodyl 15 mg (3 x 5 mg) PO BEDTIME cholecalciferol (vitamin D3) 50 mcg PO DAILY levalbuterol tartrate 45 mcg/actuation (Xopenex HFA) 2 puffs inhalation Q4-6H PRN 90 days omeprazole 20 mg PO DAILY 90 days ropinirole 1 mg PO BID sertraline 100 mg PO DAILY 90 days Synthroid (levothyroxine) 112 mcg PO DAILY NS Tobacco use date assessed: 08/03/24 Dental Screening Dental Screen Date: 05/10/24 HPI Annual Physical HPI Details 59-year-old overweight female smoker with a history of generalized anxiety disorder COPD GERD hypercholesterolemia hypothyroidism multiple endocrine neoplasia type 2A coming in for physical exam. Last seen in April having had rotator cuff repair. Patient's mammogram is due, colonoscopy 2018. Bone density 2020. Review of the notes has seen gastroenterology in 08/20/2024 on [facility] for constipation. Patient was in the Urgent Center in August 03 for left flank pain treated as an infection. Renal ultrasound done in June showing hydronephrosis noted left kidney cystic lesion 0.8 cm. Head and neck ultrasound showing abnormal appearing level 2 lymph node on the left this would be advised to get ultrasound guide biopsy. Patient does follow-up with endocrinology for the MEN(to a history of medullary thyroid cancer status post neck dissection 2010, status post right modified radical neck dissection 2018. History of pheochromocytoma status post left laparoscopic adrenalectomy 2017. Reordered CEA and calcitonin levels on Synthroid ordered plasma normetanephrine and normetanephrine levels PTH, calcium levels . With a history of smoking CT scan done in 06/28/2024 showing category 3 probably benign findings six-month follow-up CT scan. Patient follows up with Pulmonary June 25. declined rectal exam [facility] Medical History Left flank discomfort History of pheochromocytoma History of medullary carcinoma of thyroid Left flank pain Multiple endocrine neoplasia type 2A (MEN2A) Medullary thyroid carcinoma Hypothyroid Pheochromocytoma of left adrenal gland Hypercholesterolemia COPD (chronic obstructive pulmonary disease) Pulmonary nodule Nicotine dependence, cigarettes, uncomplicated Osteopenia Irritable bowel syndrome with constipation Restless leg syndrome Anxiety Depression PONV (postoperative nausea and vomiting) Cervicalgia Pain in both feet Erosive (osteo)arthritis Bilateral hand pain Mass of left axilla Back pain Nevoid hyperpigmentation Neuritis of right ulnar nerve Neck pain Odynophagia Gout Surgical History S/P rotator cuff repair History of radical neck dissection (~01/2019) History of thyroidectomy (~03/2011) History of total adrenalectomy (~06/2018) History of laparoscopic cholecystectomy (~11/2022) History of total abdominal hysterectomy and bilateral salpingo-oophorectomy (~11/2013) History of tubal ligation (~10/2000) History of bilateral breast reduction surgery (~09/2019) History of repair of right rotator cuff (~04/2024) History of hand surgery (~02/2021) History of surgery on left wrist (~04/2010) History of fusion of lumbar spine History of tonsillectomy History of colonoscopy History of esophagogastroduodenoscopy (EGD) Family History (Updated 09/20/24 @ 18:02 by Jayshree White MD) Father Heart attack Mother Brain cancer Lung cancer Cervical cancer Family/Other Diabetes Sister Cervical cancer Lung cancer Daughter Breast cancer Social History Household Members: Spouse and Children Housing: Other Housing Other:: Trailer Alcohol intake: never Patient Tobacco Use Status: Current everyday Tobacco user Tobacco use type: Cigarette Cigarette Packs Per Day: 1 Cigarettes Per Day: 15 Years Smoked: (onset 14yo, 3/4-1ppd x 44yrs - 35pyh) e-Cigarette/Vaping Use: Never Used Second Hand Smoke Exposure: Yes Substance Use Type: Marijuana service: No Current occupational status: disabled Current occupation: left handed Cognitive needs: No Hearing needs: No Vision needs: Yes Questionnaire Thrive Questionnaire Date Thrive assessed: 09/13/24 I am a: Patient What is your living situation today?: I have a steady place to live Within the past 12 months, did you worry whether your food would run out before you got money to buy more?: I choose not to answer this question Do you have trouble paying for medicines?: I choose not to answer this question Do you have trouble getting transportation to medical appointments?: No Do you have trouble paying your heating and electricity bill?: I choose not to answer this question Do you have trouble taking care of your child, family member or friend?: No Do you have trouble with day-to-day activities such as bathing, preparing meals, shopping, managing finances, etc.?: Yes Are you currently unemployed and looking for a job?: No Are you interested in more education?: No Please select the resources that you would like help with: None Currently or been in a relationship where the following occur: No concerns reported THRIVE Score: 0 AUDIT C Alcohol Use Questionnaire (AUDIT-C) 1. How often do you have a drink containing alcohol?: Never 3. How often do you have six or more drinks on one occasion?: Never Total Score: 0 JYOTHI-7 AMB Questionnaire JYOTHI-7 Date JYOTHI - 7 assessed: 05/10/24 Feeling nervous, anxious, or on edge: 1 = Several days Not being able to stop or control worryin = Several days Worrying too much about different things: 1 = Several days Trouble relaxin = Several days Becoming easily annoyed or irritable: 0 = Not at all Feeling afraid as if something awful might happen: 0 = Not at all Source: Developed by Drs. Moose Wright, Ira Membreno, Davy Trevino and colleagues, with an educational cheryl from [employer]. Review of Systems Const Denies poor appetite and Denies weakness Eyes Denies no additional complaints ENT Reports Normal hearing present, Denies dizziness, Denies nasal congestion, Denies tinnitus and Denies sore throat Card Denies chest pain, Denies syncope, Denies rapid heart rate and Denies dyspnea Resp Denies cough and Denies dyspnea GI Denies change in stool character, Reports constipation, Denies diarrhea, Denies nausea and Denies vomiting Denies urinary frequency, Denies difficulty voiding and Denies dysuria Neuro Reports Normal hearing present, Denies confusion, Denies dizziness, Denies syncope and Denies weakness Psych Denies confusion Physical exam (Primary Care) Vital Signs: Last Vital Signs Pulse 98 09/20/24 17:17 BP 132/62 09/20/24 17:17 Pulse Ox 80 L 09/20/24 17:17 Oxygen Delivery Method Room Air 09/20/24 17:17 BMI result Body Mass Index 27.4 Tobacco/Smoking Status: Tobacco use Status Tobacco use date assessed 08/03/24 09/20/24 17:19 Patient Tobacco Use Status Current everyday Tobacco 09/20/24 17:19 Tobacco use type Cigarette 09/20/24 17:19 e-Cigarette/Vaping Use Never Used 09/20/24 17:19 Thrive Assessment: Date of Thrive Assessment Date Thrive assessed 09/13/24 09/20/24 17:19 Currently or been in a relationship where the following occur: No concerns reported Const General: No confusion Orientation/consciousness: No confusion HENMT Head: Yes normocephalic Ears: external ears normal and TM's normal bilaterally Face and sinus: Yes normal facial exam Mouth: moist mucous membranes Throat: Yes tonsils normal Eyes Conjunctivae: conjunctivae normal Pupils: Equal, round and reactive pupils present and Pupil accommodation reflex normal Direct Ophthalmoscopy: normal light reflex Neck Neck: No lymphadenopathy Thyroid: Thyroid normal Chest Chest palpation & inspection: normal inspection of the chest Resp Effort & Inspection: normal respiratory effort and no audible wheezes Auscultation: clear to auscultation bilaterally, no crackles, no wheezes and lung sounds not diminished Cardio Rate: regular rate Rhythm: regular rhythm Peripheral pulses: radial pulses present and dorsalis pedis present GI Palpation (GI): no masses Auscultation: normal bowel sounds and normoactive bowel sounds Rectal Exam - Female: deferred Skin General skin exam: no rashes or lesions noted Rashes: no rashes Neuro General: No confusion Cranial nerves: Yes Equal, round and reactive pupils present and Yes Normal hearing present Cognition (Neuro): normal cognition Gait exam (Neuro): Normal gait present Motor exam (neuro): 5/5 motor strength present throughout Deep tendon reflexes (DTR's): Right brachioradialis reflex intensity grade: 2+, Left brachioradialis reflex intensity grade: 2+, Right patellar reflex intensity grade: 2+ and Left patellar reflex intensity grade: 2+ Extrem General: No edema Office Procedures Flu Questionnaire Does the patient have a severe egg allergy?: No Immunizations Fluarix Triv [id number] (PF) 45 mcg (15 mcg x 3)/0.5 mL IM syringe Performing Provider: Jayshree White MD [place] [facility] [place] [facility] Documented (not given) by: EMA Auguste on 09/20/24 17:35 Reason Not Given: Patient Refused Coding Level of Care Code Est Pt Prev Care 40-64y(27911) Diagnoses Annual physical exam Z00.00 Multiple endocrine neoplasia type 2A (MEN2A) E31.22 Pulmonary emphysema, unspecified emphysema type J43.9 COPD type: emphysema Emphysema type: unspecified Nicotine dependence, cigarettes, uncomplicated F17.210 Generalized anxiety disorder F41.1 Chronic idiopathic constipation K59.04 Gastroesophageal reflux disease without esophagitis K21.9 Esophagitis presence: without esophagitis Hypercholesterolemia E78.00 Postoperative hypothyroidism E89.0 Hypothyroidism type: postoperative Hypersomnia G47.10 Pain in both knees, unspecified chronicity M25.561; M25.562 Chronicity: unspecified Breast cancer screening by mammogram Z12.31 Assessment & Plan Assessment & Plan (1) Annual physical exam: Code(s): Z00.00 - Encounter for general adult medical examination without abnormal findings Category: Medical Plan: Patient is advised to eat healthy, keep well hydrated, keep active and have adequate sleep. (2) Multiple endocrine neoplasia type 2A (MEN2A): Code(s): E31.22 - Multiple endocrine neoplasia [MEN] type IIA Category: Medical Plan: Patient is presently followed up by Endocrinology and workup has been done. (3) COPD (chronic obstructive pulmonary disease): Comment: Emphysema PFT January 2014, asthma Code(s): J44.9 - Chronic obstructive pulmonary disease, unspecified Category: Medical Qualifiers: COPD type: emphysema Emphysema type: unspecified Qualified Code(s): J43.9 - Emphysema, unspecified Plan: Strongly advised patient to stop smoking! On Xopenex (4) Nicotine dependence, cigarettes, uncomplicated: Comment: (onset 14yo, 3/4-1ppd x 45yrs 35pyh) CT June 2024 Code(s): F17.210 - Nicotine dependence, cigarettes, uncomplicated Category: Medical Plan: Patient is strongly advised to stop smoking. Enrolled in lung cancer screening program June 2024 advised short-term follow-up 6 months (5) Generalized anxiety disorder: Comment: [facility] counselling Q friday. lhas once a month prescriber Code(s): F41.1 - Generalized anxiety disorder Category: Medical Plan: Continue with counseling and therapy (6) Chronic idiopathic constipation: Code(s): K59.04 - Chronic idiopathic constipation Category: Medical Plan: Follows up with Gastroenterology. Three rules for constipation 1. Diet need to have a high fiber diet less of meat 2. Increase oral fluids 3. Exercise placed on prucalopride (7) GERD (gastroesophageal reflux disease): Code(s): K21.9 - Gastro-esophageal reflux disease without esophagitis Category: Medical Qualifiers: Esophagitis presence: without esophagitis Qualified Code(s): K21.9 - Gastro-esophageal reflux disease without esophagitis Plan: Avoid the foods that causes that usually spicy foods, tomato products, juices, coffee, soda and foods that your sensitive to. After eating do not lie down, allow 3-4 hours before in lie down. And keep the head of bed above 30 degrees to avoid the acid from going up. (8) Hypercholesterolemia: Code(s): E78.00 - Pure hypercholesterolemia, unspecified Category: Medical Plan: Avoid fried foods, chicken skin, eggs, butter margarine, pastries and meat. Be it pork or beef they have a lot of cholesterol last blood work was in the normal range. (9) Hypothyroid: Comment: (aquired - s/p thyroidectomy for thyroid cancer 2010) Code(s): E03.9 - Hypothyroidism, unspecified Category: Medical Qualifiers: Hypothyroidism type: postoperative Qualified Code(s): E89.0 - Postprocedural hypothyroidism Plan: Continue with thyroid medication (10) Hypersomnia: Code(s): G47.10 - Hypersomnia, unspecified Category: Medical Plan: Sleep study requested as the patient has had witnessed apnea, tiredness and sleepiness in the afternoon as well as after meals, as a passenger does get sleepy. (11) Knee pain, bilateral: Code(s): M25.561 - Pain in right knee; M25.562 - Pain in left knee Category: Medical Qualifiers: Chronicity: unspecified Qualified Code(s): M25.561 - Pain in right knee; M25.562 - Pain in left knee Plan: xr requested for both knees. (12) Breast cancer screening by mammogram: Code(s): Z12.31 - Encounter for screening mammogram for malignant neoplasm of breast Category: Medical Plan: reminded about mammo Orders: Orders Influenza [id number] Immunization Today Z23 - Encounter for immunization RT home sleep study Today G47.10 - Hypersomnia, unspecified XR knee standing BI Today M25.561 - Pain in right knee, M25.562 - Pain in left knee MM tomosynthesis screening BI Today Z12.31 - Encounter for screening mammogram for malignant neoplasm of breast Medications: New ropinirole 1 mg PO BID 60 tabs 2RF G25.81 - Restless legs syndrome
== END 2024-09-20 18:20 | disposition home or self-care (01) ==
PROVIDERS: PCP Internal Medicine; Visit Provider Internal Medicine
DX: Z00.00 Encounter for general adult medical examination without abnormal findings (principal); E31.22 Multiple endocrine neoplasia [MEN] type IIA; J43.9 Emphysema, unspecified; F17.210 Nicotine dependence, cigarettes, uncomplicated; F41.1 Generalized anxiety disorder; K59.04 Chronic idiopathic constipation; K21.9 Gastro-esophageal reflux disease without esophagitis; E78.00 Pure hypercholesterolemia, unspecified; E89.0 Postprocedural hypothyroidism; G47.10 Hypersomnia, unspecified; M25.561 Pain in right knee; M25.562 Pain in left knee; Z12.31 Encounter for screening mammogram for malignant neoplasm of breast; Z23 Encounter for immunization

== ENCOUNTER → 2024-09-20 17:13 | Outpatient (BNVA) | payer OTHER, SELFPAY | PROVIDERS: PCP Internal Medicine; Visit Provider Internal Medicine | DX: Z00.00 Encounter for general adult medical examination without abnormal findings (principal); E31.22 Multiple endocrine neoplasia [MEN] type IIA; J43.9 Emphysema, unspecified; F41.1 Generalized anxiety disorder; K59.04 Chronic idiopathic constipation; K21.9 Gastro-esophageal reflux disease without esophagitis; E78.00 Pure hypercholesterolemia, unspecified; E89.0 Postprocedural hypothyroidism; G47.10 Hypersomnia, unspecified; M25.561 Pain in right knee; M25.562 Pain in left knee; F17.210 Nicotine dependence, cigarettes, uncomplicated; Z71.6 Tobacco abuse counseling | CPT/HCPCS: 90471; 99396 ==

== ENCOUNTER 2024-10-25 11:23 | Outpatient (REF) | payer OTHER, SELFPAY ==
--- NOTE | ~2024-10-25 | XR_ITS ---
EXAMINATION: XR KNEE AP STANDING CLINICAL INFORMATION: M25.561 - Pain in right knee COMPARISON: None available. TECHNIQUE: AP bilateral standing view of the knees was obtained. FINDINGS: There is mild reduction in medial and lateral compartment joint spaces both knees more so on the medial side. No bony erosive changes. No loose bodies. No soft tissue swelling. XR/XR knee standing BI IMPRESSION: Mild reduction in medial and lateral compartment joint space both kidneys more so along the medial compartment Electronically signed by: Adalberto Ghosh MD 11/02/2024 08:31 AM EST
[2024-10-25 13:59] LABS: Free T4 (Free Thyroxine) 0.95 ng/dL (0.71-1.85); Thyroid Stimulating Hormone 3.87 uIU/mL (0.32-4.0)
[2024-10-30 20:04] LABS: Calcitonin 87 pg/mL (<=5)
== END 2024-10-25 11:24 | disposition home or self-care (01) ==
LOC: HO.HMGCX 11:23
PROVIDERS: PCP Internal Medicine; Referring Provider Student in an Organized Health Care Education/Training Program; Visit Provider Internal Medicine
DX: M25.561 Pain in right knee (principal); M25.562 Pain in left knee; E31.22 Multiple endocrine neoplasia [MEN] type IIA; E89.0 Postprocedural hypothyroidism
CPT/HCPCS: 36415; 73565; 82308; 82378; 84439; 84443

== ENCOUNTER → 2024-10-25 11:27 | Outpatient (BNV) | payer OTHER, SELFPAY | PROVIDERS: PCP Internal Medicine; Referring Provider Student in an Organized Health Care Education/Training Program; Visit Provider Radiology Diagnostic Radiology | DX: M25.561 Pain in right knee (principal); M25.562 Pain in left knee | CPT/HCPCS: 73565 ==

== ENCOUNTER 2024-10-28 12:55 | Outpatient (AMB) | payer OTHER, SELFPAY ==
--- NOTE | 2024-10-28 13:01 | A.OFFVIS_ITS ---
Vital Signs 3 10/28/24 13:06 Height 5 ft 6 in Weight 174 lb 2.643 oz BMI 28.1 BP 116/64 Blood Pressure Location Lt brachial Position Sitting Pulse 73 Pulse Source Pulse Oximeter Intake Visit Reasons: Thyroid Cancer Intake Note: Patient present today for Thyroid Cancer office visit. 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 Accompanied by: Self / Same As Patient Allergies codeine [Codeine] Allergy (Mild, Verified 10/28/24 13:06) N/V, HEADACHE, vomiting morphine [MORPHINE] Allergy (Unknown, Verified 10/28/24 13:06) VOMITING, HEADACHE, migraine, vomiting sulfamethoxazole [From Bactrim] Adverse Reaction (Intermediate, Verified 10/28/24 13:06) lip numbness trimethoprim [From Bactrim] Adverse Reaction (Intermediate, Verified 10/28/24 13:06) lip numbness ethyl chloride Allergy (Unknown, Uncoded 10/28/24 13:06) Unknown Medication List - Last Reconciled 10/28/24 by Lore Silver MD amitriptyline 75 mg PO BEDTIME 90 days ascorbate calcium (vitamin C) 500 mg PO DAILY bisacodyl 15 mg (3 x 5 mg) PO BEDTIME cholecalciferol (vitamin D3) 50 mcg PO DAILY ferrous gluconate 236 mg PO DAILY levalbuterol tartrate 45 mcg/actuation (Xopenex HFA) 2 puffs inhalation Q4-6H PRN 90 days omeprazole 20 mg PO DAILY 90 days ropinirole 1 mg PO BID sertraline 100 mg PO DAILY 90 days Synthroid (levothyroxine) 112 mcg PO DAILY NS HPI Comments Details: 59-year-old female coming in today for follow up of 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 Ordonez, status post right modified radical neck dissection with Dr. Yu Ortega at [facility] in January 2019, history of pheochromocytoma status post left laparoscopic adrenalectomy with Dr. Yu Ortega, 07/01/2018. No history of parathyroid issues. Medullary thyroid cancer 03/28/2011: status post total thyroidectomy and paratracheal neck dissection mediastinum neck dissection and subtotal thymectomy as well as left lateral levels 2A, 3 and 4 dissection at [facility] [address] Ordonez. This showed medullary thyroid carcinoma bilaterally, tumor 3 cm in the left lobe of the thyroid with c-cell hyperplasia and extrathyroidal extension into the soft tissue and lymphovascular invasion with negative surgical margins. Two out of the 19 lymph nodes were involved with a medullary thyroid cancer. Preoperatively calcitonin level was 1546 and CEA level was 174.9. Postoperatively she had positive calcitonin and CEA levels. 2010: Biopsy at [facility] of 1 of the left neck lymph nodes positive for MTC. At that time given low burden of disease she chose conservative management with watchful observation. 04/23/2018: Ultrasound of the neck multiple bilateral lymph nodes with the right level 2/3 lymph node measuring 0.6 cm with robust fatty hilum. Right level 2: Well-defined lymph node measuring 0.9 cm with robust fatty hilum. Right level 4 subcentimeter benign-appearing lymph node. Right level 3 close to the carotid slightly abnormal appearing lymph node measuring 0.7 cm with some cystic degeneration. Left level 2 hypoechoic well-defined lymph node measuring 0.92 cm with a robust fatty hilum. 2019 Calcitonin: 107 02/17/2019: Status post right modified radical neck dissection. At [facility] with Dr. Yu Ortgea. Pathology revealed metastatic medullary thyroid carcinoma for [address] evaluated. The largest metastatic deposit measured 1 cm in showed extra capsular invasion. 04/2020 CEA: 9.4 Calcitonin: 85.4 2019: Ultrasound neck in 2019 at office in [facility] showed right level 3 round done level lymph node measuring 0.6 0.64 cm with no fatty hilum. Left level 4, 0.70 X 0.53 lymph node without any distinct fatty and LM. 12/03/2021: CEA: 9.2 11/22/2022 CEA 11.8 ng/mL (0-3.8) Calcitonin 160 pg per pg/mL (0-5) Laboratory Tests 11/26/22 05/24/24 12:33 11:44 Carcinoembryonic Ag 13.20 TSH 1.21 07/26/24: CEA 12.10 ng/mL Calcitonin 129 pg/mL 07/26/2024 ultrasound head and neck showed bilateral normal-appearing lymph nodes with the exception of a 1.6 X 0.6 X 0.6 cm level to have normal-appearing lymph node with calcification, peripheral blood flow and thickened cortex. 10/25/24 CEA 11.30 Calcitonin pending TSH 3.87 free T4 0.95 Denies intermittent dyphagia for the last couple of months, no trouble breathing, no chnages in voice. Weight stable. Takes Synthroid 112 mcg daily at night, 5-6 hrs after dinner, and then goes to bed. Good adherence. Last TSH 10/25/24 3.87 normal Reports extreme tiredness, hair loss but Hb Sep 2024 noted to be 10.9 and patient now on iron supplements Pheochromocytoma 07/01/2018 Status post left laparoscopic adrenalectomy for 2.[address] Yu Ortega with intraoperative findings showing well-contained encapsulated mass without signs of local invasion or distant metastasis. PASS score 5. Postoperatively in September 2018 plasma metanephrine and normetanephrine levels were normal. 12/03/2021: Plasma metanephrine: 22.3 Plasma normetanephrine 78.5 2022 Plasma metanephrines 20.6 Plasma normetanephrines 150.2 07/26/24 Plasma metanephrines <25 Plasma normetanephrines 91 No diarrhea. Usually constipated. No tremors. No palpitations. Persistent hot flashes. Headaches chronic, sometimes gets flushing for the last few months. She has no known history of parathyroid issues, calcium has remained within normal limits. Denies kidney stones, constipation, abdominal pain. No fractures. Takes vitamin D 2000 units daily No calcium supplements No fractures Family line: Son :tested positive for same RET 620 mutation, follows at [facility], MTC s/p thyroidecomy, no pheo Daughter: Same tested positive for RET 620 mutation, lives in [place], MTC s/p thyroidectomy, no pheo No grandchildren Her 5 siblings were tested and negative Father passed at 48 with GA Mother : at 75 from lung cancer smokes Sister's daughtersearly deaths: one aneurysm, one lung cancer She is active smoker , half a pack a day Review of systems Constitutional: no fevers, chills or weight loss HEENT: no changes in vision Cardiac: No chest pain, discomfort or palpitations. Pulmonary: No SOB GI:reports left flank pain Physical exam General: sitting comfortably in no acute distress HEENT: normocephalic/atraumatic, moist oral mucosa Neck: supple, symmetrical, well healed surgicak scars noted , no dorsocervical or supraclavicular fat pads Cardiac: normal heart sounds Pulm: normal breath sounds B/L, no added breath sounds Abd: not distended, no tenderness Extremities: no edema, no signs of myxedema Neuro: AAO x3, Speech: normal, no facial droop, moving all 4 extremities Laboratory Tests 12/03/21 11/26/22 11/26/22 13:32 12:33 12:33 Calcium Phosphorus Albumin Carcinoembryonic Ag 13.20 25-OH Vitamin D Total Calcitonin TSH 0.07 L 1.04 1.06 Free T4 1.14 1.01 PTH Intact 28 Calcium (PTH Intact) 9.2 Plasma Free Metaneph Plasma Free Normeta Plas Total Metaneph 04/09/23 05/24/24 07/26/24 10:35 11:44 15:17 Calcium 9.2 9.5 Phosphorus 5.0 H Albumin 3.9 Carcinoembryonic Ag 12.10 25-OH Vitamin D Total 52.6 47.8 Calcitonin 129 H TSH 0.99 1.21 1.67 Free T4 1.00 0.98 0.88 PTH Intact 29.9 Calcium (PTH Intact) Plasma Free Metaneph <25 Plasma Free Normeta 91 Plas Total Metaneph 91 10/25/24 11:28 Calcium Phosphorus Albumin Carcinoembryonic Ag 11.30 25-OH Vitamin D Total Calcitonin TSH 3.87 Free T4 0.95 PTH Intact Calcium (PTH Intact) Plasma Free Metaneph Plasma Free Normeta Plas Total Metaneph US SOFT TISSUE HEAD/NECK 07/26/24 CLINICAL INFORMATION: Multiple endocrine neoplasia. History of medullary thyroid cancer with multiple neck dissections. Please evaluate all neck levels. COMPARISON: None available. TECHNIQUE: Linear transducer casarez-scale and color Doppler examination with attention to the region of the thyroid bed and surrounding tissues. FINDINGS: THYROIDECTOMY BED: No recurrent mass seen. NODES: Right: 0.9 x 0.4 x 0.5 cm level 5A, normal-appearing. 1.7 x 0.8 x 1.2 cm right level 5A, normal-appearing Left: 2.0 x 0.7 x 2.1 cm level 2, normal-appearing. 1.6 x 0.6 x 0.6 cm level 2 abnormal-appearing with calcification, peripheral color flow and a thickened cortex. US/US soft tiss head and/or neck IMPRESSION: Abnormal-appearing left level 2 lymph node on the left. This would be amenable to ultrasound-guided biopsy. All other lymph nodes appear normal. Electronically signed by: Seth Jay MD 08/25/2024 12:46 AM EDT Dictated By: Seth Jay MD Signed By: <Electronically signed by Seth Jay MD in OV> [facility] Medical History Left flank discomfort History of pheochromocytoma History of medullary carcinoma of thyroid Left flank pain Multiple endocrine neoplasia type 2A (MEN2A) Medullary thyroid carcinoma Hypothyroid Pheochromocytoma of left adrenal gland Hypercholesterolemia COPD (chronic obstructive pulmonary disease) Pulmonary nodule Nicotine dependence, cigarettes, uncomplicated Osteopenia Irritable bowel syndrome with constipation Restless leg syndrome Anxiety Depression PONV (postoperative nausea and vomiting) Cervicalgia Pain in both feet Erosive (osteo)arthritis Bilateral hand pain Mass of left axilla Back pain Nevoid hyperpigmentation Neuritis of right ulnar nerve Neck pain Odynophagia Gout Surgical History S/P rotator cuff repair History of radical neck dissection (~01/2019) History of thyroidectomy (~03/2011) History of total adrenalectomy (~06/2018) History of laparoscopic cholecystectomy (~11/2022) History of total abdominal hysterectomy and bilateral salpingo-oophorectomy (~11/2013) History of tubal ligation (~10/2000) History of bilateral breast reduction surgery (~09/2019) History of repair of right rotator cuff (~04/2024) History of hand surgery (~02/2021) History of surgery on left wrist (~04/2010) History of fusion of lumbar spine History of tonsillectomy History of colonoscopy History of esophagogastroduodenoscopy (EGD) Family History (Updated 09/20/24 @ 18:02 by Jayshree White MD) Father Heart attack Mother Brain cancer Lung cancer Cervical cancer Family/Other Diabetes Sister Cervical cancer Lung cancer Daughter Breast cancer Social History Household Members: Spouse and Children Housing: Other Housing Other:: Trailer Alcohol intake: never Patient Tobacco Use Status: Current everyday Tobacco user Tobacco use type: Cigarette Cigarette Packs Per Day: 1 Cigarettes Per Day: 15 Years Smoked: (onset 14yo, 3/4-1ppd x 44yrs - 35pyh) e-Cigarette/Vaping Use: Never Used Second Hand Smoke Exposure: Yes Substance Use Type: Marijuana service: No Current occupational status: disabled Current occupation: left handed Cognitive needs: No Hearing needs: No Vision needs: Yes Assessment & Plan Assessment & Plan (1) Multiple endocrine neoplasia type 2A (MEN2A): Code(s): E31.22 - Multiple endocrine neoplasia [MEN] type IIA Category: Medical Plan: 59-year-old female coming in today for follow up of 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 Ordonez, status post right modified radical neck dissection with Dr. Yu Ortega at [facility] in January 2019, history of pheochromocytoma status post left laparoscopic adrenalectomy with Dr. Yu Ortega, 07/01/2018. No history of parathyroid issues. Calcium levels have remained normal. She is on vitamin- D 2000 units daily. normal renal US 2023. (2) Hypothyroid: Comment: (aquired - s/p thyroidectomy for thyroid cancer 2010) Code(s): E03.9 - Hypothyroidism, unspecified Category: Medical Qualifiers: Hypothyroidism type: postoperative Qualified Code(s): E89.0 - Postprocedural hypothyroidism Plan: Normal TSH of 3.87 from September 2024. Continue levothyroxine 112 mcg daily. 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 who underwent total thyroidectomy and paratracheal neck dissection, mediastinum neck dissection and subtotal thymectomy and left lateral neck dissection in 2010 at [facility], with pathology showing bilateral medullary thyroid cancer, 3 cm focus in the left lobe of the thyroid with extrathyroidal extension and lymphovascular invasion, who had positive CEA and calcitonin levels postoperatively, with subsequent ultrasound of the neck showing suspicious lymph nodes in 2017, in the lymph nodes subsequently underwent right modified radical neck dissection in January 2019 with metastatic medullary thyroid carcinoma in the lymph nodes, largest deposit measuring 1 cm. Reportedly she had good response to surgery as her calcitonin carcinoembryonic antigen levels declined post surgery. Most recently her Cea levels have been stable around 11.8 to 13 and most recently 11.3 from 10/25/24, calcitonin level trended up to 160 in 2022 from 85.4 back in 2019. Most recent level 10/25/24 pending today ultrasound neck 07/26/24 showed left level 2 lymph node measuring 1.6 cm which has cortical thickening, peripheral flow, concerning for possibly metastatic disease. We again discussed with her that knowing that her preoperative calcitonin level was 1546 back in 2010 prior to her 1st surgery, this always going to be disease in her neck and surgery is not done for the purpose of cure. Given her most recent calcitonin level was 129 in 2023, which is still not doubled from 85.4 back in 2020 after her 2nd surgery, this is reassuring that her calcitonin doubling time is greater than 24 months which carries a better prognosis. She is also making more calcitonin then CEA suggesting of differentiated disease. Her CEA levels remain stable. Back in 2019 was 9.4, most recently in 2023 it is stable in the 11.3 -12.1 range. It has also not doubled. She does not have any symptoms, any swallowing troubles, any difficulty breathing. Given that her calcitonin and CEA remained stable, and we already know she is always going to have disease her neck, it is recommended by the SAUL 2015 guidelines that is small asymptomatic disease can be monitored with surveillance. 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 I discussed with her that we could also consider sending her to Dr. Yu Ortega again for re-evaluation for surgery if we confirm this is metastatic disease, however she reiterated that she agrees that now given she is asymptomatic, her labs have been stable she would like to monitor while she knows the risk that this could spread and become more aggressive. Patient agrees with monitoring closely now. I will have her repeat calcitonin and CEA levels in January 2025 prior to her next appointment with me. We will plan to repeat an ultrasound of the neck in around 6 months from last one so sometime in January 2025 prior to her next 3 month follow up with me . Patient agrees with this plan, verbalized understanding Today on my exam I could not palpate any lymph nodes, no abnormal masses. She is maintained on Synthroid 112 mcg daily which she is taking appropriately. No symptoms of hypo or hyperthyroidism. TSH 3.87 from Sep 2024 Plan: -continue Synthroid 112 mcg daily -ordered CEA and calcitonin levels for January 2025 -ordered ultrasound of the neck for January 2025 -ordered TSH, free T4 for january 2025 -follow up in 3 months (4) History of pheochromocytoma: Code(s): Z86.018 - Personal history of other benign neoplasm Category: Medical Plan: History of pheochromocytoma Status post left laparoscopic adrenalectomy of 2.8 cm pheochromocytoma in June [address] Yu Ortega. PAS score was 5. Usually less than 4 score means less aggressive findings. Her plasma metanephrine normetanephrine levels postoperatively have remained negative, most recently normal from Sep 2024. Her last abdominal CT, I reviewed the images today showed normal right- sided adrenal gland. At this point no need to repeat imaging but we could consider repeating it the in the near future. Plan: -plan to repeat plasma metanephrine and normetanephrine levels as well as abdominal CT in late 2024 Plan I spent 30 minutes in reviewing the record, seeing the patient and documenting in the medical record. Orders: Orders 2 Thyroid Stimulating Hormone 01/03/25 E31.22 - Multiple endocrine neoplasia [MEN] type IIA, E89.0 - Postprocedural hypothyroidism Free T4 (Free Thyroxine) 01/03/25 E31.22 - Multiple endocrine neoplasia [MEN] type IIA, E89.0 - Postprocedural hypothyroidism Calcitonin 01/03/25 E31.22 - Multiple endocrine neoplasia [MEN] type IIA, E89.0 - Postprocedural hypothyroidism Carcinoembryonic Antigen 01/03/25 E31.22 - Multiple endocrine neoplasia [MEN] type IIA, E89.0 - Postprocedural hypothyroidism US soft tiss head and/or neck 01/31/25 E31.22 - Multiple endocrine neoplasia [MEN] type IIA, E89.0 - Postprocedural hypothyroidism Patient Instructions: Do blood work and ultrasound in beginning of January 2025 Follow up end January 2025 Continue synthroid 112 mcg daily Keep it at least 4 hours apart from your iron Coding Level of Care Code Est Pt Level 4 (23119) Complex EM visit Add On G2211 Diagnoses Multiple endocrine neoplasia type 2A (MEN2A) E31.22 Postoperative hypothyroidism E89.0 Hypothyroidism type: postoperative History of medullary carcinoma of thyroid Z85.850 History of pheochromocytoma Z86.018 Time Spent (min) 30
[2024-10-28 13:06] VITALS: BP 116/64; PULSE 73; BMI 28.1
== END 2024-10-28 13:34 | disposition home or self-care (01) ==
PROVIDERS: PCP Internal Medicine; Visit Provider Student in an Organized Health Care Education/Training Program
DX: E31.22 Multiple endocrine neoplasia [MEN] type IIA (principal); E89.0 Postprocedural hypothyroidism; Z85.850 Personal history of malignant neoplasm of thyroid; Z86.018 Personal history of other benign neoplasm
CPT/HCPCS: 99214; G2211

== ENCOUNTER → 2024-10-28 12:55 | Outpatient (BNVA) | payer OTHER, SELFPAY | PROVIDERS: PCP Internal Medicine; Visit Provider Student in an Organized Health Care Education/Training Program | DX: E31.22 Multiple endocrine neoplasia [MEN] type IIA (principal); E89.0 Postprocedural hypothyroidism; Z85.850 Personal history of malignant neoplasm of thyroid; Z86.018 Personal history of other benign neoplasm | CPT/HCPCS: 99212 ==

== ENCOUNTER → 2024-11-19 11:15 | Outpatient (BNVA) | payer OTHER, SELFPAY | PROVIDERS: PCP Internal Medicine; Visit Provider Nurse Practitioner Family | DX: M67.432 Ganglion, left wrist (principal) ==

== ENCOUNTER 2024-11-22 13:24 | Outpatient (AMB) | payer OTHER, SELFPAY ==
--- NOTE | 2024-11-22 13:34 | MHC.PC.OV ---
Vital Signs 11/22/24 13:35 Height 5 ft 6 in Weight 171 lb 2 oz BMI 27.6 BP 120/62 Blood Pressure Location Lt brachial Position Sitting Pulse 80 Pulse Source Pulse Oximeter Temp 97.1 F Temp Source Skin Pulse Oximetry (%) 96 Oxygen Delivery Method Room Air Intake Visit Reasons: f/u iron level Intake Note: Patient is here to follow up on iron level. Molded Goods Embossing Press Operator Required: No Hose Coupling Joiner: Not Required per policy Accompanied by: Self / Same As Patient Allergies codeine [Codeine] Allergy (Mild, Verified 11/22/24 13:35) N/V, HEADACHE, vomiting morphine [MORPHINE] Allergy (Unknown, Verified 11/22/24 13:35) VOMITING, HEADACHE, migraine, vomiting sulfamethoxazole [From Bactrim] Adverse Reaction (Intermediate, Verified 11/22/24 13:35) lip numbness trimethoprim [From Bactrim] Adverse Reaction (Intermediate, Verified 11/22/24 13:35) lip numbness ethyl chloride Allergy (Unknown, Uncoded 11/22/24 13:35) Unknown Medication List - Last Reconciled 11/22/24 by Jana Bruce PA-C amitriptyline 75 mg PO BEDTIME 90 days ascorbate calcium (vitamin C) 500 mg PO DAILY bisacodyl 15 mg (3 x 5 mg) PO BEDTIME cholecalciferol (vitamin D3) 50 mcg PO DAILY ferrous gluconate 236 mg PO DAILY levalbuterol tartrate 45 mcg/actuation (Xopenex HFA) 2 puffs inhalation Q4-6H PRN 90 days omeprazole 20 mg PO DAILY 90 days ropinirole 1 mg PO BID sertraline 100 mg PO DAILY 90 days Synthroid (levothyroxine) 112 mcg PO DAILY NS Tobacco use date assessed: 11/22/24 Dental Screening Dental Screen Date: 11/19/24 HPI f/u iron level HPI Details 59-year-old overweight female smoker with past medical history of generalized anxiety disorder, COPD, GERD, hypercholesterolemia, hypothyroidism, multiple endocrine neoplasia type 2A last seen by nurse practitioner 11/19/2024 coming in for follow up. In review of the notes, patient was seen by endocrinology 10/28/2024 advised to continue on Synthroid, ordered for CEA and calcitonin levels as well as ultrasound and follow up in 3 months. Patient tells us today she recently had blood work which showed: Ferritin: 7, iron: 28, hemoglobin: 11.2 She has been on high dose iron with vitamin-C for many months and has been responding. She feels very fatigued and believes it to be related to her anemia. She continues to smoke cigarettes and is not interested in quitting. [facility] Medical History Left flank discomfort History of pheochromocytoma History of medullary carcinoma of thyroid Left flank pain Multiple endocrine neoplasia type 2A (MEN2A) Medullary thyroid carcinoma Hypothyroid Pheochromocytoma of left adrenal gland Hypercholesterolemia COPD (chronic obstructive pulmonary disease) Pulmonary nodule Nicotine dependence, cigarettes, uncomplicated Osteopenia Irritable bowel syndrome with constipation Restless leg syndrome Anxiety Depression PONV (postoperative nausea and vomiting) Cervicalgia Pain in both feet Erosive (osteo)arthritis Bilateral hand pain Mass of left axilla Back pain Nevoid hyperpigmentation Neuritis of right ulnar nerve Neck pain Odynophagia Gout Surgical History S/P rotator cuff repair History of radical neck dissection (~01/2019) History of thyroidectomy (~03/2011) History of total adrenalectomy (~06/2018) History of laparoscopic cholecystectomy (~11/2022) History of total abdominal hysterectomy and bilateral salpingo-oophorectomy (~11/2013) History of tubal ligation (~10/2000) History of bilateral breast reduction surgery (~09/2019) History of repair of right rotator cuff (~04/2024) History of hand surgery (~02/2021) History of surgery on left wrist (~04/2010) History of fusion of lumbar spine History of tonsillectomy History of colonoscopy History of esophagogastroduodenoscopy (EGD) Family History Father Heart attack Mother Brain cancer Lung cancer Cervical cancer Family/Other Diabetes Sister Cervical cancer Lung cancer Daughter Breast cancer Social History Household Members: Spouse and Children Housing: Other Housing Other:: Trailer Alcohol intake: never Patient Tobacco Use Status: Current everyday Tobacco user Tobacco use type: Cigarette Cigarette Packs Per Day: 1 Cigarettes Per Day: 15 Years Smoked: (onset 14yo, 3/4-1ppd x 44yrs - 35pyh) e-Cigarette/Vaping Use: Never Used Second Hand Smoke Exposure: Yes Substance Use Type: Marijuana service: No Current occupational status: disabled Current occupation: left handed Cognitive needs: No Hearing needs: No Vision needs: Yes Questionnaire Thrive Questionnaire Date Thrive assessed: 11/19/24 JYOTHI-7 AMB Questionnaire JYOTHI-7 Date JYOTHI - 7 assessed: 11/19/24 Source: Developed by Drs. Moose Wright, Ira Membreno, Davy Trevino and colleagues, with an educational cheryl from [employer]. Review of Systems Const Denies body aches, Denies chills, Reports fatigue, Denies fever(s), Denies headache(s) and Denies poor appetite Eyes Reports no additional complaints ENT Denies dizziness and Denies headache(s) Card Denies chest pain, Denies syncope, Denies edema, Denies irregular heart rhythm, Denies lightheadedness and Denies dyspnea Resp Denies cough and Denies dyspnea GI Denies abdominal pain, Denies constipation, Denies diarrhea, Denies nausea and Denies vomiting Reports no additional complaints Musc Reports no additional complaints and Denies abnormal gait Skin/Breast Reports system reviewed and no additional complaints, except as documented Neuro Denies abnormal gait, Denies dizziness, Denies syncope and Denies headache(s) Psych Reports no additional complaints Endo Reports fatigue Physical exam (Primary Care) Tobacco/Smoking Status: Tobacco use Status Tobacco use date assessed 11/19/24 11/19/24 11:30 Patient Tobacco Use Status Current everyday Tobacco 11/19/24 11:27 Tobacco use type Cigarette 11/19/24 11:27 e-Cigarette/Vaping Use Never Used 11/19/24 11:27 Thrive Assessment: Date of Thrive Assessment Date Thrive assessed 11/19/24 11/19/24 11:27 Const General: cooperative, healthy appearing, comfortable and no acute distress Orientation/consciousness: patient oriented x3 HENMT Head: Yes normocephalic Ears: hearing grossly normal bilaterally General nose exam: Normal external nose present Eyes General: appearance normal, both eyes and all related structures Conjunctivae: conjunctivae normal Neck Neck: Yes full ROM and Yes no lymphadenopathy Resp Effort & Inspection: normal respiratory effort Auscultation: clear to auscultation bilaterally, no crackles, no rales, no rhonchi and no wheezes Cardio Rate: regular rate Rhythm: regular rhythm Skin General skin exam: no rashes or lesions noted Neuro General: patient oriented x3 Gait exam (Neuro): Normal gait present Extrem General: Yes normal to inspection, Yes full ROM and No edema Psych Affect: normal affect Attitude: cooperative Insight: Good insight present (Psych) Judgement: Good judgement present (Psych) Coding Level of Care Code Est Pt Level 3 (03183) Diagnoses Multiple endocrine neoplasia type 2A (MEN2A) E31.22 Postoperative hypothyroidism E89.0 Hypothyroidism type: postoperative Hypercholesterolemia E78.00 Gastroesophageal reflux disease without esophagitis K21.9 Esophagitis presence: without esophagitis Pulmonary emphysema, unspecified emphysema type J43.9 COPD type: emphysema Emphysema type: unspecified Nicotine dependence, cigarettes, uncomplicated F17.210 Iron deficiency anemia D50.9 Family history of breast cancer Z80.3 Assessment & Plan Assessment & Plan (1) Multiple endocrine neoplasia type 2A (MEN2A): Code(s): E31.22 - Multiple endocrine neoplasia [MEN] type IIA Category: Medical Plan: Currently following with endocrinology scheduled to have blood work and thyroid ultrasound and we will follow up in 3 months. (2) Hypothyroid: Comment: (aquired - s/p thyroidectomy for thyroid cancer 2010) Code(s): E03.9 - Hypothyroidism, unspecified Category: Medical Qualifiers: Hypothyroidism type: postoperative Qualified Code(s): E89.0 - Postprocedural hypothyroidism Plan: Due for thyroid testing and ultrasound and will follow up with endocrinology. Continue to follow up with endocrinology (3) Hypercholesterolemia: Code(s): E78.00 - Pure hypercholesterolemia, unspecified Category: Medical Plan: Avoid foods that are high in cholesterol such as red meat, fried foods, eggs and baked goods. Triglyceride goal of less than 150 and LDL goal of less than 100. Not currently on medical management (4) GERD (gastroesophageal reflux disease): Code(s): K21.9 - Gastro-esophageal reflux disease without esophagitis Category: Medical Qualifiers: Esophagitis presence: without esophagitis Qualified Code(s): K21.9 - Gastro-esophageal reflux disease without esophagitis Plan: Avoid trigger foods such as citrus, tomato products, soda, caffeine, spicy foods and other foods that may be irritating to your stomach. Avoid laying flat 3-4 hours after eating and elevate the head of the bed 30 degrees to prevent acid from moving into the esophagus. Continue on omeprazole 20 (5) COPD (chronic obstructive pulmonary disease): Comment: Emphysema PFT January 2014, asthma Code(s): J44.9 - Chronic obstructive pulmonary disease, unspecified Category: Medical Qualifiers: COPD type: emphysema Emphysema type: unspecified Qualified Code(s): J43.9 - Emphysema, unspecified Plan: Continue on inhalers. Feels her breathing is well managed at this time. (6) Nicotine dependence, cigarettes, uncomplicated: Comment: (onset 14yo, 3/4-1ppd x 44yrs 35pyh) CT June 2024 Code(s): F17.210 - Nicotine dependence, cigarettes, uncomplicated Category: Medical Plan: Smoking cigarettes and the use of tobacco can be harmful. We discussed the importance of stopping and options to aid in smoking cessation. She will have a CT scan every 6 months to follow nodules based on recommendation from radiology. (7) Iron deficiency anemia: Code(s): D50.9 - Iron deficiency anemia, unspecified Category: Medical Plan: Patient continues to have iron-deficiency anemia despite being on high-dose iron with vitamin-C. Referral placed to Hematology/Oncology for iron infusions and further management. (8) Family history of breast cancer: Comment: daughter Code(s): Z80.3 - Family history of malignant neoplasm of breast Category: Medical Plan: Patient's daughter was diagnosed with breast cancer she was advised to undergo genetic testing and has a appointment upcoming with General surgery with Dr. Shabazz. Patient require referral for insurance purposes referral was placed today Plan This note was constructed using voice recognition software. While every effort has been made to ensure accuracy and auto bumper straightener, still areas may have been included sometimes these areas may affect the content or meeting of the given symptoms. Total time spent caring for the patient today was 20 minutes. This includes time spent before the visit reviewing the chart, time spent during the visit, and time spent after the visit and documentation. Orders: Referrals Hematology & Oncology Referral D50.9 - Iron deficiency anemia, unspecified General Surgery Referral E31.22 - Multiple endocrine neoplasia [MEN] type IIA, Z80.3 - Family history of malignant neoplasm of breast Medications: Refilled ropinirole administer 1-3 hours before bedtime. Take along with 1 mg tablet for total dose of 1.5 mg. 0.5 mg PO BEDTIME 90 tabs 1RF
[2024-11-22 13:35] VITALS: BP 120/62; PULSE 80; TEMP 36.2; O2SAT 96; BMI 27.6
--- OUTSIDE RECORDS SUMMARY | 2024-11-22 18:06 | XMS_ITS | Patient Health Record ---
Author Organization [facility] Address [address] [place] [address] Care Team Providers Care Ophthalmology Technician Name Role Phone SHANTA JIMENEZ M.D. Primary Care Provider Felicia Lord Unavailable [phone] Allergies Allergen (clinical drug ingredient) Drug/Non Drug Allergy documented on EMR Reaction Allergy Type Onset Date Status codeine CODEINE MIGRAINES Drug Allergy Active EPINEPHRINE BP DECREASE Drug Allergy Act chevy lidocaine LIDOCAINE BP DECREASE Drug Allergy Activ e Reason For Referral No Information Medications Medication SIG (Take, Route, Fr equency, Duration) Notes Start Date End Date Status Omeprazole 20MG 1 ORAL daily for -3 Parveen-MJ 08/23/2013 Active Synthroid 125 MCG 1 tablet Orally Once a day Active PROzac 20 MG 1 capsule in the mor radha Orally Once a day Active Social History Tobacco Use: Social History Observation Description Date Details (start date - stop date) Current Smoker NA - NA Tobacco Use/Smoking Question Answer Notes Are you a current smoker How often do you smoke cigarettes? every day How many cigarettes a day do you smoke? 6-10 Problems Problem Type SNOMED Code ICD Code Onset Dates Problem Status W/U Status Risk Notes Problem History of malignant neoplasm of thyroid (784876958) Personal history of malignant neoplasm of thyroid (V10.87) Active confirmed Problem Postmenopausal atrophic vaginitis (63558949) Postmenopausal atrophic vaginitis (N95.2) Active confirmed Problem Anogenital warts (912735186) Anogenital (venereal) warts (A63.0) Active confirmed Problem Atrophy of vulva (358411001) Atrophy of vulva (N90.5) Active confirmed Problem Postcoital bleeding (37272924) Postcoital and contact bleeding (N93.0) Active confirmed Problem Hypothyroidism (28887569) Unspecified hypothyroidism (244.9) Active confirmed Major Plan Of Treatment Pending Test Test Name Order Date Mammogram 12/01/2014 MAMMOGRAM, SCREENING 12/01/2014 THIN PREP,HPV,JARETT IF HPV+ (>29YR)(DIAG) 01/24/2017 Medical (General) History Medical History History ICD Code Insomnia, Symptomatic menopausal or female climact kiran states Unspecified hypothyroidism Personal history of malignant neoplasm o f thyroid Atrophy of vulva N90.5 Postmenopausal atrophic vaginitis N95.2 Postcoital and contact bleeding N93.0 Anogenital (venereal) warts A63.0 Surgical History Surgery Date(Month/Year) section thyroidectomy 2010 TLH with BSO 2013 LUMBAR FUSION 2016 Hospitalization History Reason Date(Month/Year) CHILD SURGERY HX
== END 2024-11-22 14:13 | disposition home or self-care (01) ==
PROVIDERS: PCP Internal Medicine
DX: J43.9 Emphysema, unspecified (principal); E31.22 Multiple endocrine neoplasia [MEN] type IIA; E89.0 Postprocedural hypothyroidism; E78.00 Pure hypercholesterolemia, unspecified; K21.9 Gastro-esophageal reflux disease without esophagitis; F17.210 Nicotine dependence, cigarettes, uncomplicated; D50.9 Iron deficiency anemia, unspecified; Z80.3 Family history of malignant neoplasm of breast

== ENCOUNTER 2024-11-22 14:29 | Outpatient (REF) | payer OTHER, SELFPAY | END 2024-11-22 14:30 | disposition home or self-care (01) | LOC: HO.MAMMO 14:29 | PROVIDERS: PCP Internal Medicine; Visit Provider Internal Medicine | DX: Z12.31 Encounter for screening mammogram for malignant neoplasm of breast (principal) | CPT/HCPCS: 77063; 77067 ==

== ENCOUNTER → 2024-11-22 15:00 | Outpatient (BNV) | payer OTHER, SELFPAY | PROVIDERS: PCP Internal Medicine; Visit Provider Internal Medicine | DX: Z12.31 Encounter for screening mammogram for malignant neoplasm of breast (principal) | CPT/HCPCS: 77063; 77067 ==

== ENCOUNTER 2024-11-24 15:04 | Outpatient (AMB) | payer OTHER, SELFPAY ==
[2024-11-24 15:26] VITALS: BMI 27.6
--- NOTE | 2024-11-24 15:26 | A.OFFVIS_ITS ---
Vital Signs 11/24/24 15:26 Height 5 ft 6 in Weight 171 lb BMI 27.6 Intake Visit Reasons: New prob-Cyst on top left hand Intake Note: Stephanie is a 59 year old left hand dominant female who presents today for a new problem visit with complaints of a cyst on the dorsal aspect of the left hand. Patient reports that she has had this growth on the dorsal aspect of the wrist for about a year now. She reports that this was not painful but is has become painful over the last few months. Her pain is felt at the area of inflammation and increased with wrist and hand ROM and palpitation. She reports tingling with increased acitivty. Allergies codeine [Codeine] Allergy (Mild, Verified 11/22/24 13:35) N/V, HEADACHE, vomiting morphine [MORPHINE] Allergy (Unknown, Verified 11/22/24 13:35) VOMITING, HEADACHE, migraine, vomiting sulfamethoxazole [From Bactrim] Adverse Reaction (Intermediate, Verified 11/22/24 13:35) lip numbness trimethoprim [From Bactrim] Adverse Reaction (Intermediate, Verified 11/22/24 13:35) lip numbness ethyl chloride Allergy (Unknown, Uncoded 11/22/24 13:35) Unknown HPI HPI New prob-Cyst on top left hand: Details: Stephanie is a 59 year old left hand dominant woman who presents for a left hand mass. She is seen today with her partner She complains of a mass on the dorsal aspect of her left wrist. She says this has been present for ~1 year now, but this worsened and began causing her pain within the last 2 weeks. She says she also noticed it decreased in size about ~2 weeks ago, and now the mass has greatly decreased in size. [facility] Medical History Left flank discomfort History of pheochromocytoma History of medullary carcinoma of thyroid Left flank pain Multiple endocrine neoplasia type 2A (MEN2A) Medullary thyroid carcinoma Hypothyroid Pheochromocytoma of left adrenal gland Hypercholesterolemia COPD (chronic obstructive pulmonary disease) Pulmonary nodule Nicotine dependence, cigarettes, uncomplicated Osteopenia Irritable bowel syndrome with constipation Restless leg syndrome Anxiety Depression PONV (postoperative nausea and vomiting) Cervicalgia Pain in both feet Erosive (osteo)arthritis Bilateral hand pain Mass of left axilla Back pain Nevoid hyperpigmentation Neuritis of right ulnar nerve Neck pain Odynophagia Gout Surgical History S/P rotator cuff repair History of radical neck dissection (~01/2019) History of thyroidectomy (~03/2011) History of total adrenalectomy (~06/2018) History of laparoscopic cholecystectomy (~11/2022) History of total abdominal hysterectomy and bilateral salpingo-oophorectomy (~11/2013) History of tubal ligation (~10/2000) History of bilateral breast reduction surgery (~09/2019) History of repair of right rotator cuff (~04/2024) History of hand surgery (~02/2021) History of surgery on left wrist (~04/2010) History of fusion of lumbar spine History of tonsillectomy History of colonoscopy History of esophagogastroduodenoscopy (EGD) Family History Father Heart attack Mother Brain cancer Lung cancer Cervical cancer Family/Other Diabetes Sister Cervical cancer Lung cancer Daughter Breast cancer Social History Household Members: Spouse and Children Housing: Other Housing Other:: Trailer Alcohol intake: never Patient Tobacco Use Status: Current everyday Tobacco user Tobacco use type: Cigarette Cigarette Packs Per Day: 1 Cigarettes Per Day: 15 Years Smoked: (onset 14yo, 3/4-1ppd x 45yrs - 35pyh) e-Cigarette/Vaping Use: Never Used Second Hand Smoke Exposure: Yes Substance Use Type: Marijuana service: No Current occupational status: disabled Current occupation: left handed Cognitive needs: No Hearing needs: No Vision needs: Yes Review of Systems Const All systems reviewed & are unremarkable except as noted in HPI and below Physical Exam Vital Signs: BMI result Body Mass Index 27.6 Const General: cooperative, healthy appearing and no acute distress Orientation/consciousness: patient oriented x3 HEENT Head: Yes normocephalic and Yes atraumatic Eyes EOM: EOMs intact bilaterally Resp Effort & Inspection: normal respiratory effort and able to speak in complete sentences Cardio Jugular venous distension: no JVD Skin General skin exam: turgor normal Rashes: no rashes Neuro General: patient oriented x3 Extrem Other: Evaluation of Left Upper Extremity: The patient is alert, oriented, and in no acute distress Neuro: Median, Ulnar, Radial nerves motor and sensory intact and sensation is normal to the tips of all digits Vascular: Cap refill brisk ROM: She can make a fist and extend all her digits No locking or catching Skin: No lacerations or abrasions. General: No Ecchymosis. No Erythema or evidence of infection. There is a barely visible left dorsal wrist ganglion, barely visible with wrist and flexion Psych Appearance: grossly normal Affect: normal affect Attitude: cooperative Assessment & Plan Assessment & Plan (1) Ganglion cyst of dorsum of left wrist: Code(s): M67.432 - Ganglion, left wrist Category: Medical Plan Assessment & Plan: 1. Left dorsal wrist ganglion Barely visible today with wrist flexion I educated her and her partner about this condition I discussed operative and non-operative treatment options As this significantly decreased in size within the last 2 weeks, I am not recommending aspiration or surgery. She was placed in a pressure dressing which she can wear for the next few days. We also talked about activity modification for the next week or so. She can follow up to discuss treatment if her symptoms return or worsen Otherwise she can follow up prn Scribed for Zoila Hernandez MD by Richi Rider, senior medical director, on 11/24/24 at 3:30 PM, EST. Coding Level of Care Code New Pt Level 3 (88553) Diagnoses Ganglion cyst of dorsum of left wrist M67.432
--- OUTSIDE RECORDS SUMMARY | 2024-11-24 17:08 | XMS_ITS | Patient Health Record ---
Author Organization [facility] Address [address] [place] [address] Care Team Providers Care Rubber Cutting Machine Tender Name Role Phone SHANTA JIMENEZ M.D. Primary Care Provider Felicia Lord Unavailable [phone] Allergies Allergen (clinical drug ingredient) Drug/Non Drug [...] Problem History of malignant neoplasm of thyroid (162692678) Personal history of malignant neoplasm of thyroid (V10.87) Active confirmed Problem Postmenopausal atrophic vaginitis (44897383) Postmenopausal atrophic vaginitis (N95.2) Active confirmed Problem Anogenital warts (976417843) Anogenital (venereal) warts (A63.0) Active confirmed Problem Atrophy of vulva (209354631) Atrophy of vulva (N90.5) Active confirmed Problem Postcoital bleeding (24805628) Postcoital and contact bleeding (N93.0) Active confirmed Problem Hypothyroidism (13579670) Unspecified hypothyroidism (244.9) Active confirmed Major Plan [...]
== END 2024-11-24 15:41 | disposition home or self-care (01) ==
PROVIDERS: PCP Internal Medicine; Visit Provider Orthopaedic Surgery
DX: M67.432 Ganglion, left wrist (principal)
CPT/HCPCS: 99203

== ENCOUNTER → 2024-11-24 15:04 | Outpatient (BNVA) | payer OTHER, SELFPAY | PROVIDERS: PCP Internal Medicine; Visit Provider Orthopaedic Surgery | DX: M67.432 Ganglion, left wrist (principal) | CPT/HCPCS: 99202 ==

== ENCOUNTER 2025-01-03 12:00 | Outpatient (RCR) | payer OTHER, SELFPAY ==
[2024-12-06 09:50] VITALS: BP 122/67; PULSE 78; RESP 14; TEMP 36.6; O2SAT 97
[2024-12-06] MEDS: Iron Sucrose Complex 200 MG/10 ML VIAL IVPUSH (10:08)
[2024-12-06] MEDS: 0.9 % Sodium Chloride Flush 10 ML SYRINGE 5 ML IVFLUSH (10:19)
[2024-12-14 10:02] VITALS: BP 130/68; PULSE 79; RESP 16; TEMP 36.6; O2SAT 100
[2024-12-14] MEDS: Iron Sucrose Complex 200 MG/10 ML VIAL IVPUSH (10:09)
[2024-12-21 10:54] VITALS: BP 155/101; PULSE 97; RESP 16; TEMP 37.1; O2SAT 97
[2024-12-21] MEDS: Iron Sucrose Complex 200 MG/10 ML VIAL IVPUSH (11:01)
[2024-12-21 11:08] VITALS: BP 129/75; PULSE 82
[2025-01-03 12:14] VITALS: BP 137/73; PULSE 79; RESP 16; TEMP 37; O2SAT 98
[2025-01-03] MEDS: Iron Sucrose Complex 200 MG/10 ML VIAL IVPUSH (12:18)
== END 2025-01-03 14:11 | disposition home or self-care (01) ==
LOC: HO.INF 12:00
PROVIDERS: PCP Internal Medicine; Visit Provider Internal Medicine
DX: D64.9 Anemia, unspecified (principal)
CPT/HCPCS: 96374; J1756

== ENCOUNTER 2025-01-06 15:41 | Outpatient (REF) | payer OTHER, SELFPAY ==
--- NOTE | ~2025-01-06 | CT_ITS ---
CLINICAL HISTORY: R91.1 - Solitary pulmonary nodule CT lung cancer screening (LDCT) Comparison: CT/VT/SR - CT LUNG SCREENING - 06/25/24 11:12 EDT Technique: Axial CT images of the chest using low-dose technique. Referring provider counseled the patient on shared decision-making for LDCT screening. Additional counseling was provided on smoking cessation. Effective radiation dose total: DLP 43.5 mGycm, CTDIvol 1.2 mGy. Findings: Lung: Moderate emphysema. Stable multiple pulmonary nodules: 3.8 mm in the left upper lobe series 4, image 34; 4 mm in the left upper lobe image 20; 2.5 mm subpleural nodule of the right lower lobe image 73. Stable additional micro nodules. Coronary artery calcifications: None Limited upper abdomen: Unremarkable Other: None Impression: LungRADS 2 - Benign Appearance: Continue annual screening with low dose Chest CT in 12 months. ##L2# Category 1: Normal; continue annual screening Category 2: Benign appearance or behavior, continue annual screening Category 3: Probably benign, [address] recommended Category 4A: Suspicious, [address] recommended; may consider PET/CT Category 4B: Suspicious, Additional diagnostics and/or tissue sampling recommended Category 4X: Suspicious, Additional diagnostics and/or tissue sampling recommended Category 0: Recalls (incomplete screen due to Incomplete coverage, Noise, Respiratory motion, Expiration, Obscured by acute abnormality) This document has been electronically signed by: Gely Wiley MD on 01/07/2025 14:25:01
--- OUTSIDE RECORDS SUMMARY | 2025-01-06 19:10 | XMS_ITS | Patient Health Record ---
Author Organization [facility] Address [address] [place] [address] Care Team Providers Care Home Health Rn Name Role Phone SHANTA JIMENEZ M.D. Primary Care Provider Felicia Lord Unavailable [phone] Allergies Allergen (clinical drug ingredient) Drug/Non Drug [...] Problem History of malignant neoplasm of thyroid (051648190) Personal history of malignant neoplasm of thyroid (V10.87) Active confirmed Problem Postmenopausal atrophic vaginitis (04077093) Postmenopausal atrophic vaginitis (N95.2) Active confirmed Problem Anogenital warts (895177098) Anogenital (venereal) warts (A63.0) Active confirmed Problem Atrophy of vulva (666565905) Atrophy of vulva (N90.5) Active confirmed Problem Postcoital bleeding (76272425) Postcoital and contact bleeding (N93.0) Active confirmed Problem Hypothyroidism (84652759) Unspecified hypothyroidism (244.9) Active confirmed Major Plan [...]
== END 2025-01-06 15:42 | disposition home or self-care (01) ==
LOC: HO.CT 15:41
PROVIDERS: PCP Internal Medicine; Visit Provider Physician Assistant Medical
DX: R91.1 Solitary pulmonary nodule (principal); F17.210 Nicotine dependence, cigarettes, uncomplicated
CPT/HCPCS: 71250

== ENCOUNTER → 2025-01-06 15:43 | Outpatient (BNV) | payer OTHER, SELFPAY | PROVIDERS: PCP Internal Medicine; Visit Provider Nuclear Medicine | DX: R91.1 Solitary pulmonary nodule (principal) | CPT/HCPCS: 71250 ==

== ENCOUNTER 2025-01-28 09:45 | Outpatient (REF) | payer OTHER, SELFPAY ==
--- NOTE | ~2025-01-28 | US_ITS ---
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 Largest is 1.1 x 0.9 cm. Four left neck lymph nodes are measured. Largest is 1.9 x 0.8 cm. Nodes are unchanged to slightly smaller. Impression: Adenopathy essentially unchanged from prior study This document has been electronically signed by: Diallo Stewart MD on 01/28/2025 19:09:51
--- OUTSIDE RECORDS SUMMARY | 2025-01-28 10:51 | XMS_ITS | Patient Health Record ---
Author Organization [facility] Address [address] [place] [address] Care Team Providers Care Portfolio Mgr Name Role Phone SHANTA JIMENEZ M.D. Primary Care Provider Felicia Lord Unavailable [phone] Allergies Allergen (clinical drug ingredient) Drug/Non Drug [...] Problem History of malignant neoplasm of thyroid (213594408) Personal history of malignant neoplasm of thyroid (V10.87) Active confirmed Problem Postmenopausal atrophic vaginitis (46356057) Postmenopausal atrophic vaginitis (N95.2) Active confirmed Problem Anogenital warts (044882703) Anogenital (venereal) warts (A63.0) Active confirmed Problem Atrophy of vulva (217642860) Atrophy of vulva (N90.5) Active confirmed Problem Postcoital bleeding (00647557) Postcoital and contact bleeding (N93.0) Active confirmed Problem Hypothyroidism (34510772) Unspecified hypothyroidism (244.9) Active confirmed Major Plan [...]
== END 2025-01-28 09:46 | disposition home or self-care (01) ==
LOC: HO.HMGCX 09:45
PROVIDERS: PCP Internal Medicine; Visit Provider Student in an Organized Health Care Education/Training Program
DX: E31.22 Multiple endocrine neoplasia [MEN] type IIA (principal); E89.0 Postprocedural hypothyroidism
CPT/HCPCS: 76536

== ENCOUNTER → 2025-01-28 09:49 | Outpatient (BNV) | payer OTHER, SELFPAY | PROVIDERS: PCP Internal Medicine; Visit Provider Radiology Diagnostic Radiology | DX: R59.0 Localized enlarged lymph nodes (principal); E31.22 Multiple endocrine neoplasia [MEN] type IIA | CPT/HCPCS: 76536 ==

== ENCOUNTER 2025-02-21 13:41 | Outpatient (AMB) | payer OTHER, SELFPAY ==
--- NOTE | 2025-02-21 13:45 | MHC.PC.OV ---
Vital Signs 02/21/25 13:46 Height 5 ft 6 in Weight 169 lb 4 oz BMI 27.3 BP 110/58 L Blood Pressure Location Lt brachial Position Sitting Pulse 89 Pulse Source Pulse Oximeter Pulse Oximetry (%) 99 Oxygen Delivery Method Room Air Intake Visit Reasons: f/u anemia Product Finisher Required: No Accompanied by: Self / Same As Patient Allergies codeine [Codeine] Allergy (Mild, Verified 02/21/25 13:49) N/V, HEADACHE, vomiting morphine [MORPHINE] Allergy (Unknown, Verified 02/21/25 13:49) VOMITING, HEADACHE, migraine, vomiting sulfamethoxazole [From Bactrim] Adverse Reaction (Intermediate, Verified 02/21/25 13:49) lip numbness trimethoprim [From Bactrim] Adverse Reaction (Intermediate, Verified 02/21/25 13:49) lip numbness ethyl chloride Allergy (Unknown, Uncoded 02/21/25 13:49) Unknown Medication List - Last Reviewed 02/21/25 by ISSA Leung amitriptyline 75 mg PO BEDTIME 90 days ascorbate calcium (vitamin C) 500 mg PO DAILY bisacodyl 15 mg (3 x 5 mg) PO BEDTIME cholecalciferol (vitamin D3) 50 mcg PO DAILY levalbuterol tartrate 45 mcg/actuation (Xopenex HFA) 2 puffs inhalation Q4-6H PRN 90 days omeprazole 20 mg PO DAILY 90 days ropinirole 1 mg PO BID ropinirole 0.5 mg PO BEDTIME sertraline 100 mg PO DAILY 90 days Synthroid (levothyroxine) 112 mcg PO DAILY NS Tobacco use date assessed: 02/21/25 Dental Screening Dental Screen Date: 02/21/25 Did you have a dental visit in the last 12 months?: No Did you have a dental problem in the last 6 months where you did not have access to dental care?: No Was dental information given to patient?: No HPI f/u anemia HPI Details 59-year-old female with past medical history of generalized anxiety disorder, COPD, GERD, hypercholesterolemia, hypothyroidism, multiple endocrine neoplasia type 2A last seen 10/2024 coming in for follow up. In review of the notes, patient was seen by Hematology 11/29/2024 for iron-deficiency anemia started on Venofer 200 mg IV weekly for 3-4 infusions. She was also seen by Orthopedics 10/2024 for ganglion cyst advised to use a pressure dressing and follow up as needed. Patient tells us today she recently finished her iron infusions 01/03/2025. After the 3rd iron infusion she noticed she began having numbness of the tongue and decreased taste. The numbness has been getting worse over the last several weeks. At this time she can only feel pressure on the tongue but otherwise has numbness and tingling. She has been unable to taste the majority of foods. This has been ongoing since the end of November and has been progressively getting worse. She also continues to smoke cigarettes and noticed worsening depression over the last several months. [facility] Medical History (Updated 02/21/25 @ 14:30 by Jana Bruce PA-C) Left flank discomfort History of pheochromocytoma History of medullary carcinoma of thyroid Left flank pain Multiple endocrine neoplasia type 2A (MEN2A) Medullary thyroid carcinoma Hypothyroid Pheochromocytoma of left adrenal gland Hypercholesterolemia COPD (chronic obstructive pulmonary disease) Pulmonary nodule Nicotine dependence, cigarettes, uncomplicated Osteopenia Irritable bowel syndrome with constipation Restless leg syndrome Anxiety Depression PONV (postoperative nausea and vomiting) Cervicalgia Pain in both feet Erosive (osteo)arthritis Bilateral hand pain Mass of left axilla Back pain Nevoid hyperpigmentation Neuritis of right ulnar nerve Neck pain Odynophagia Gout Surgical History S/P rotator cuff repair History of radical neck dissection (~01/2019) History of thyroidectomy (~03/2011) History of total adrenalectomy (~06/2018) History of laparoscopic cholecystectomy (~11/2022) History of total abdominal hysterectomy and bilateral salpingo-oophorectomy (~11/2013) History of tubal ligation (~10/2000) History of bilateral breast reduction surgery (~09/2019) History of repair of right rotator cuff (~04/2024) History of hand surgery (~02/2021) History of surgery on left wrist (~04/2010) History of fusion of lumbar spine History of tonsillectomy History of colonoscopy History of esophagogastroduodenoscopy (EGD) Family History Father Heart attack Mother Brain cancer Lung cancer Cervical cancer Family/Other Diabetes Sister Cervical cancer Lung cancer Daughter Breast cancer Social History Household Members: Spouse and Children Housing: Other Housing Other:: Trailer Alcohol intake: never Patient Tobacco Use Status: Current everyday Tobacco user Tobacco use type: Cigarette Cigarette Packs Per Day: 1 Years Smoked: (onset 14yo, 3/4-1ppd x 44yrs - 35pyh) e-Cigarette/Vaping Use: Never Used Second Hand Smoke Exposure: Yes Substance Use Type: Marijuana Current occupational status: disabled Current occupation: left handed Gender identity: Female Cognitive needs: No Hearing needs: No Vision needs: Yes Questionnaire PHQ-9 Over the last 2 weeks, how often have you been bothered by any of the following problems? 1. Little interest or pleasure in doing things: nearly every day 2. Feeling down, depressed, or hopeless: nearly every day 3. Trouble falling or staying asleep, or sleeping too much: nearly every day 4. Feeling tired or having little energy: nearly every day 5. Poor appetite or overeating: more than half the days 6. Feeling bad about yourself - or that you are a failure or have let yourself or your family down: more than half the days 7. Trouble concentrating on things, such as reading the newspaper or watching television: more than half the days 8. Moving or speaking so slowly that other people could have noticed. Or the opposite - being so fidgety or restless that you have been moving around a lot more than usual: nearly every day 9. Thoughts that you would be better off or of hurting yourself in some way: more than half the days Total score: 23 45402 - PHQ-9 Billing: Yes Source: Developed by Drs. Moose Wright, Ira Membreno, Davy Trevino and colleagues, with an educational cheryl from [employer]. Thrive Questionnaire Date Thrive assessed: 02/21/25 I am a: Patient What is your living situation today?: I have a steady place to live Within the past 12 months, did the food you bought not last and you didn't have the money to get more?: Never true Within the past 12 months, did you worry whether your food would run out before you got money to buy more?: Never true Do you have trouble paying for medicines?: No Do you have trouble getting transportation to medical appointments?: No Do you have trouble paying your heating and electricity bill?: No Do you have trouble taking care of your child, family member or friend?: No Do you have trouble with day-to-day activities such as bathing, preparing meals, shopping, managing finances, etc.?: No Are you currently unemployed and looking for a job?: No Are you interested in more education?: No Please select the resources that you would like help with: None Currently or been in a relationship where the following occur: No concerns reported THRIVE Score: 0 AUDIT C Alcohol Use Questionnaire (AUDIT-C) 1. How often do you have a drink containing alcohol?: Never 3. How often do you have six or more drinks on one occasion?: Never Total Score: 0 JYOTHI-7 AMB Questionnaire JYOTHI-7 Date JYOTHI - 7 assessed: 02/21/25 Feeling nervous, anxious, or on edge: 0 = Not at all Not being able to stop or control worryin = Not at all Worrying too much about different things: 0 = Not at all Trouble relaxin = Not at all Being so restless that it is hard to sit still: 0 = Not at all Becoming easily annoyed or irritable: 0 = Not at all Feeling afraid as if something awful might happen: 0 = Not at all Total JYOTHI-7 score (0-4 normal; 5-9 mild; 10-14 moderate; 15-21 severe): 0 Source: Developed by Drs. Moose Wright, Ira Membreno, Davy Trevino and colleagues, with an educational cheryl from [employer]. Review of Systems Const Denies body aches, Denies chills, Denies fever(s), Denies headache(s) and Denies poor appetite Eyes Reports no additional complaints ENT Reports as per HPI, Reports Normal hearing present, Denies dysphagia, Denies dizziness, Denies headache(s) and Denies odynophagia Card Denies chest pain, Denies lightheadedness and Denies dyspnea Resp Denies dyspnea GI Denies dysphagia and Denies odynophagia Reports no additional complaints Musc Reports no additional complaints and Denies abnormal gait Skin/Breast Reports system reviewed and no additional complaints, except as documented Neuro Reports Normal hearing present, Denies abnormal gait, Denies dizziness and Denies headache(s) Psych Reports no additional complaints Physical exam (Primary Care) Vital Signs: Last Vital Signs Pulse 89 02/21/25 13:46 BP 110/58 L 02/21/25 13:46 Pulse Ox 99 02/21/25 13:46 Oxygen Delivery Method Room Air 02/21/25 13:46 BMI result Body Mass Index 27.3 Tobacco/Smoking Status: Tobacco use Status Tobacco use date assessed 02/21/25 02/21/25 13:49 Patient Tobacco Use Status Current everyday Tobacco 02/21/25 13:49 Tobacco use type Cigarette 02/21/25 13:49 e-Cigarette/Vaping Use Never Used 02/21/25 13:49 Are you ready to quit: No Tobacco cessation counseling provided: Yes Relapse Prevention: discussed the importance of a supportive environment and discussed dietary, exercise and/or lifestyle changes Number of minutes spent counselin CPT code: 15872 - 4-10 Minutes PHQ-9: PHQ-9 Score PHQ-9: Total score 23 02/21/25 14:03 Thrive Assessment: Date of Thrive Assessment Date Thrive assessed 02/21/25 02/21/25 13:49 Currently or been in a relationship where the following occur: No concerns reported Const General: cooperative, healthy appearing, comfortable and no acute distress Orientation/consciousness: patient oriented x3 HENMT Other: No oral lesions noted or discoloration. No tongue fasciculations. Tongue strength normal. Decreased sensation of the tongue but does have sensation of pressure. Head: Yes normocephalic Ears: hearing grossly normal bilaterally General nose exam: Normal external nose present Eyes General: appearance normal, both eyes and all related structures Conjunctivae: conjunctivae normal Pupils: Equal, round and reactive pupils present Neck Neck: Yes full ROM and Yes no lymphadenopathy Resp Effort & Inspection: normal respiratory effort Auscultation: clear to auscultation bilaterally, no crackles, no rales, no rhonchi and no wheezes Cardio Rate: regular rate Rhythm: regular rhythm Skin General skin exam: no rashes or lesions noted Neuro General: patient oriented x3 Cranial nerves: Yes Facial sensation intact/muscles of mastication intact, Yes Equal, round and reactive pupils present, Yes Normal accommodation reflex present, Yes Bilaterally intact EOM present, Yes Nystagmus not present, Yes Normal facial strength present, Yes Midline tongue present, Yes Normal hearing present, Yes Ability to bilaterally rotate head present and Yes Ability to bilaterally elevate shoulders present Gait exam (Neuro): Normal gait present Extrem General: Yes normal to inspection, Yes full ROM and No edema Psych Affect: normal affect Attitude: cooperative Insight: Good insight present (Psych) Judgement: Good judgement present (Psych) Coding Level of Care Code Est Pt Level 3 (89161) Diagnoses Iron deficiency anemia D50.9 Multiple endocrine neoplasia type 2A (MEN2A) E31.22 Numbness of tongue R20.0 Ageusia R43.2 Generalized anxiety disorder F41.1 Depression F32.A Additional Codes PHQ-9 - 89378 - PHQ-9 Billing: Yes ([id number]) Vital Signs *Quality* - CPT code: 04908 - 4-10 Minutes ([id number]) Assessment & Plan Assessment & Plan (1) Iron deficiency anemia: Code(s): D50.9 - Iron deficiency anemia, unspecified Category: Medical Plan: Patient recently finished IV iron infusions. Plan to follow up with Hematology in the next few weeks. 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 (3) Numbness of tongue: Code(s): R20.0 - Anesthesia of skin Category: Medical Plan: Exam is benign today patient has good mobility of the tongue no plaques or lesions noted on the tongue or mouth. She does have intact pressure sensation. Given patient's history of cancer concern for nerve involvement. Plan to obtain head CT for further evaluation. (4) Ageusia: Code(s): R43.2 - Parageusia Category: Medical Plan: Patient states since numbness of the tongue has been having decreased taste as well. Plan to obtain head CT for further evaluation. Also concern for possible allergies plan to start on Zyrtec and Astelin nasal spray. (5) Generalized anxiety disorder: Comment: [facility] counselling Q friday. lhas once a month prescriber Code(s): F41.1 - Generalized anxiety disorder Category: Medical Plan: Patient having worsening anxiety and depression plan to refer to therapy at this time. Plan to increase Sertraline to 150mg. (6) Depression: Code(s): F32.A - Depression, unspecified Category: Medical Plan: See above Plan This note was constructed using voice recognition software. While every effort has been made to ensure accuracy and superintendent gas distribution, still areas may have been included sometimes these areas may affect the content or meeting of the given symptoms. Total time spent caring for the patient today was 20 minutes. This includes time spent before the visit reviewing the chart, time spent during the visit, and time spent after the visit and documentation. Patient was informed and verbally consented to the use of an ambient scribe for clinic note documentation during this visit. Orders: Orders CT head/brain wo IV con Today R20.0 - Anesthesia of skin, R43.2 - Parageusia Referrals Counseling Referral F32.A - Depression, unspecified, F41.1 - Generalized anxiety disorder Medications: New sertraline 150 mg PO DAILY 30 caps 2RF cetirizine (Allergy Relief (cetirizine)) 10 mg PO DAILY 30 tabs 1RF azelastine administer into each nostril 1 spray intranasal BID 30 mL 0RF Refilled cholecalciferol (vitamin D3) 50 mcg PO DAILY 90 tabs 3RF Discontinued sertraline Discontinued Reason: Patient no longer taking 100 mg PO DAILY 90 days 90 tabs 1RF F41.1 - Generalized anxiety disorder
[2025-02-21 13:46] VITALS: BP 110/58; PULSE 89; O2SAT 99; BMI 27.3
--- OUTSIDE RECORDS SUMMARY | 2025-02-21 16:21 | XMS_ITS | Patient Health Record ---
Author Organization [facility] Address [address] [place] [address] Care Team Providers Care Shipper/Receiver Name Role Phone SHANTA JIMENEZ M.D. Primary Care Provider Felicia Lord Unavailable [phone] Allergies Allergen (clinical drug ingredient) Drug/Non Drug [...] Problem History of malignant neoplasm of thyroid (542663793) Personal history of malignant neoplasm of thyroid (V10.87) Active confirmed Problem Postmenopausal atrophic vaginitis (09066928) Postmenopausal atrophic vaginitis (N95.2) Active confirmed Problem Anogenital warts (302530532) Anogenital (venereal) warts (A63.0) Active confirmed Problem Atrophy of vulva (748962931) Atrophy of vulva (N90.5) Active confirmed Problem Postcoital bleeding (15452569) Postcoital and contact bleeding (N93.0) Active confirmed Problem Hypothyroidism (81042396) Unspecified hypothyroidism (244.9) Active confirmed Major Plan [...]
== END 2025-02-21 14:48 | disposition home or self-care (01) ==
LOC: HO.HMCH 13:41
PROVIDERS: PCP Internal Medicine
DX: D50.9 Iron deficiency anemia, unspecified (principal); E31.22 Multiple endocrine neoplasia [MEN] type IIA; R20.0 Anesthesia of skin; R43.2 Parageusia; F41.1 Generalized anxiety disorder; F32.A Depression, unspecified

== ENCOUNTER → 2025-02-21 13:41 | Outpatient (BNVA) | payer OTHER, SELFPAY | PROVIDERS: PCP Internal Medicine | DX: D50.9 Iron deficiency anemia, unspecified (principal); E31.22 Multiple endocrine neoplasia [MEN] type IIA; R20.0 Anesthesia of skin; R43.2 Parageusia; F41.1 Generalized anxiety disorder; F32.A Depression, unspecified | CPT/HCPCS: 96127; 99212 ==

== ENCOUNTER 2025-02-22 12:49 | Outpatient (REF) | payer OTHER, SELFPAY ==
[2025-02-22 16:18] LABS: Calcium 9.2 mg/dL (8.4-10.2); Estimated Glomerular Filt Rate > 60
[2025-02-22 16:24] LABS: Parathyroid Hormone Intact 49.2 pg/mL (8.7-77.1)
[2025-02-22 16:39] LABS: Thyroid Stimulating Hormone 1.45 uIU/mL (0.32-4.0)
[2025-02-26 15:08] LABS: Calcitonin 152 pg/mL (<=5)
[2025-02-27 06:14] LABS: Metanephrine, Free <25 pg/mL (<=57); Normetanephrines, Free 114 pg/mL (<=148); Total Metanephrine, Free 114 pg/mL (<=205)
== END 2025-02-22 12:50 | disposition home or self-care (01) ==
LOC: HO.LAB 12:49
PROVIDERS: PCP Internal Medicine; Visit Provider Student in an Organized Health Care Education/Training Program
DX: E31.22 Multiple endocrine neoplasia [MEN] type IIA (principal); E89.0 Postprocedural hypothyroidism; Z85.850 Personal history of malignant neoplasm of thyroid
CPT/HCPCS: 36415; 82040; 82308; 82310; 82378; 82565; 83835; 83970; 84439; 84443; 99212

== ENCOUNTER 2025-02-22 12:49 | Outpatient (AMB) | payer OTHER, SELFPAY ==
--- NOTE | 2025-02-22 12:51 | A.OFFVIS_ITS ---
Vital Signs 3 02/22/25 12:53 Height 5 ft 6 in Weight 171 lb 4.787 oz BMI 27.6 BP 126/76 Blood Pressure Location Rt brachial Position Sitting Pulse 72 Pulse Source Pulse Oximeter Pulse Oximetry (%) 98 Oxygen Delivery Method Room Air Intake Visit Reasons: Thyroid Cancer Intake Note: Patient present today for Thyroid Cancer office visit. 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: No Accompanied by: Self / Same As Patient Allergies codeine [Codeine] Allergy (Mild, Verified 02/22/25 12:54) N/V, HEADACHE, vomiting morphine [MORPHINE] Allergy (Unknown, Verified 02/22/25 12:54) VOMITING, HEADACHE, migraine, vomiting sulfamethoxazole [From Bactrim] Adverse Reaction (Intermediate, Verified 02/22/25 12:54) lip numbness trimethoprim [From Bactrim] Adverse Reaction (Intermediate, Verified 02/22/25 12:54) lip numbness ethyl chloride Allergy (Unknown, Uncoded 02/22/25 12:54) Unknown Medication List - Last Reconciled 02/22/25 by Lore Silver MD amitriptyline 75 mg PO BEDTIME 90 days ascorbate calcium (vitamin C) 500 mg PO DAILY azelastine 1 spray intranasal BID bisacodyl 15 mg (3 x 5 mg) PO BEDTIME cetirizine (Allergy Relief (cetirizine)) 10 mg PO DAILY cholecalciferol (vitamin D3) 50 mcg PO DAILY levalbuterol tartrate 45 mcg/actuation (Xopenex HFA) 2 puffs inhalation Q4-6H PRN 90 days omeprazole 20 mg PO DAILY 90 days ropinirole 1 mg PO BID ropinirole 0.5 mg PO BEDTIME sertraline 150 mg PO DAILY Synthroid (levothyroxine) 112 mcg PO DAILY NS HPI Comments Details: 59-year-old female coming in today for 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 Ordonez, status post right modified radical neck dissection with Dr. Yu Ortega at [facility] in January 2019, history of pheochromocytoma status post left laparoscopic adrenalectomy with Dr. Yu Ortega, 07/01/2018. No history of parathyroid issues. Medullary thyroid cancer 03/28/2011: status post total thyroidectomy and paratracheal neck dissection mediastinum neck dissection and subtotal thymectomy as well as left lateral levels 2A, 3 and 4 dissection at [facility] [place] [address] Ordonez. This showed medullary thyroid carcinoma bilaterally, tumor 3 cm in the left lobe of the thyroid with c-cell hyperplasia and extrathyroidal extension into the soft tissue and lymphovascular invasion with negative surgical margins. Two out of the 19 lymph nodes were involved with a medullary thyroid cancer. Preoperatively calcitonin level was 1546 and CEA level was 174.9. Postoperatively she had positive calcitonin and CEA levels. 2010: Biopsy at [facility] of 1 of the left neck lymph nodes positive for MTC. At that time given low burden of disease she chose conservative management with watchful observation. 04/23/2018: Ultrasound of the neck multiple bilateral lymph nodes with the right level 2/3 lymph node measuring 0.6 cm with robust fatty hilum. Right level 2: Well-defined lymph node measuring 0.9 cm with robust fatty hilum. Right level 4 subcentimeter benign-appearing lymph node. Right level 3 close to the carotid slightly abnormal appearing lymph node measuring 0.7 cm with some cystic degeneration. Left level 2 hypoechoic well-defined lymph node measuring 0.92 cm with a robust fatty hilum. 2019 Calcitonin: 107 02/17/2019: Status post right modified radical neck dissection. At [facility] with Dr. Yu Ortega. Pathology revealed metastatic medullary thyroid carcinoma for [address] evaluated. The largest metastatic deposit measured 1 cm in showed extra capsular invasion. 04/2020 CEA: 9.4 Calcitonin: 85.4 2020: Ultrasound neck in 2019 at office in [facility] showed right level 3 round done level lymph node measuring 0.6 0.64 cm with no fatty hilum. Left level 4, 0.70 X 0.53 lymph node without any distinct fatty and LM. 12/03/2021: CEA: 9.2 11/22/2022 CEA 11.8 ng/mL (0-3.8) Calcitonin 160 pg per pg/mL (0-5) Laboratory Tests 11/26/22 05/24/24 12:33 11:44 Carcinoembryonic Ag 13.20 TSH 1.21 07/26/24: CEA 12.10 ng/mL Calcitonin 129 pg/mL 07/26/2024 ultrasound head and neck showed bilateral normal-appearing lymph nodes with the exception of a 1.6 X 0.6 X 0.6 cm level to have normal-appearing lymph node with calcification, peripheral blood flow and thickened cortex. 10/25/24 CEA 11.30 Calcitonin pending TSH 3.87 free T4 0.95 Denies intermittent dyphagia for the last couple of months, no trouble breathing, no chnages in voice. Weight stable. Takes Synthroid 112 mcg daily at night, 5-6 hrs after dinner, and then goes to bed. Good adherence. Last TSH 10/25/24 3.87 normal Interval history Continues on Synthroid 112 mcg daily. 10/25/2024: Cea 11.3, Calcitonin: 87, TSH 3.87, free T4 0.95 01/28/2025: Ultrasound of the neck shows bilateral normal-appearing lymph nodes. Denies any changes in voice, trouble breathing, difficulty swallowing. Denies changes in bowel movements, major changes in weight. Pheochromocytoma 07/01/2018 Status post left laparoscopic adrenalectomy for 2.[address] Yu Ortega with intraoperative findings showing well-contained encapsulated mass without signs of local invasion or distant metastasis. PASS score 5. Postoperatively in September 2018 plasma metanephrine and normetanephrine levels were normal. 12/03/2021: Plasma metanephrine: 22.3 Plasma normetanephrine 78.5 2022 Plasma metanephrines 20.6 Plasma normetanephrines 150.2 07/26/24 Plasma metanephrines <25 Plasma normetanephrines 91 Interval history No diarrhea. Usually constipated. No tremors. Some intermittent palpitation. Denies any headache. She has no known history of parathyroid issues, calcium has remained within normal limits. Denies kidney stones, constipation, abdominal pain. No fractures. Takes vitamin D 2000 units daily No calcium supplements No fractures Family line: Son :tested positive for same RET 620 mutation, follows at [facility], MTC s/p thyroidecomy, no pheo Daughter: Same tested positive for RET 620 mutation, lives in [place], MTC s/p thyroidectomy, no pheo No grandchildren Her 5 siblings were tested and negative Father passed at 48 with [place] Mother : at 75 from lung cancer smokes Sister's daughtersearly deaths: one aneurysm, one lung cancer She is active smoker , half a pack a day Physical exam General: sitting comfortably in no acute distress HEENT: normocephalic/atraumatic, moist oral mucosa Neck: supple, symmetrical, well healed surgicak scars noted , no dorsocervical or supraclavicular fat pads Cardiac: normal heart sounds Pulm: normal breath sounds B/L, no added breath sounds Abd: not distended, no tenderness Extremities: no edema, no signs of myxedema Neuro: AAO x3, Speech: normal, no facial droop, moving all 4 extremities Laboratory Tests 12/03/21 11/26/22 11/26/22 13:32 12:33 12:33 Calcium Phosphorus Albumin Carcinoembryonic Ag 13.20 25-OH Vitamin D Total Calcitonin TSH 0.07 L 1.04 1.06 Free T4 1.14 1.01 PTH Intact 28 Calcium (PTH Intact) 9.2 Plasma Free Metaneph Plasma Free Normeta Plas Total Metaneph 04/09/23 05/24/24 07/26/24 10:35 11:44 15:17 Calcium 9.2 9.5 Phosphorus 5.0 H Albumin 3.9 Carcinoembryonic Ag 12.10 25-OH Vitamin D Total 52.6 47.8 Calcitonin 129 H TSH 0.99 1.21 1.67 Free T4 1.00 0.98 0.88 PTH Intact 29.9 Calcium (PTH Intact) Plasma Free Metaneph <25 Plasma Free Normeta 91 Plas Total Metaneph 91 10/25/24 11:28 Calcium Phosphorus Albumin Carcinoembryonic Ag 11.30 25-OH Vitamin D Total Calcitonin TSH 3.87 Free T4 0.95 PTH Intact Calcium (PTH Intact) Plasma Free Metaneph Plasma Free Normeta Plas Total Metaneph Laboratory Tests 12/03/21 11/26/22 11/26/22 13:32 12:33 12:33 Carcinoembryonic Ag 13.20 25-OH Vitamin D Total TSH 0.07 L 1.04 1.06 Free T4 1.14 1.01 Calcitonin PTH Intact 28 Calcium (PTH Intact) 9.2 04/09/23 05/24/24 10/25/24 10:35 11:44 11:28 Carcinoembryonic Ag 11.30 25-OH Vitamin D Total 52.6 TSH 0.99 1.21 3.87 Free T4 1.00 0.98 0.95 Calcitonin 87 H PTH Intact Calcium (PTH Intact) CLINICAL HISTORY: E31.22 - Multiple endocrine neoplasia [MEN] type IIA 01/28/25 Ultrasound soft tissue neck Comparison: 07/26/2024 Findings: 3 right neck lymph nodes measured. Largest is 1.1 x 0.9 cm. Four left neck lymph nodes are measured. Largest is 1.9 x 0.8 cm. Nodes are unchanged to slightly smaller. Impression: Adenopathy essentially unchanged from prior study This document has been electronically signed by: Diallo Stewart MD on 01/28/2025 19:09:51 US SOFT TISSUE HEAD/NECK 07/26/24 CLINICAL INFORMATION: Multiple endocrine neoplasia. History of medullary thyroid cancer with multiple neck dissections. Please evaluate all neck levels. COMPARISON: None available. TECHNIQUE: Linear transducer casarez-scale and color Doppler examination with attention to the region of the thyroid bed and surrounding tissues. FINDINGS: THYROIDECTOMY BED: No recurrent mass seen. NODES: Right: 0.9 x 0.4 x 0.5 cm level 5A, normal-appearing. 1.7 x 0.8 x 1.2 cm right level 5A, normal-appearing Left: 2.0 x 0.7 x 2.1 cm level 2, normal-appearing. 1.6 x 0.6 x 0.6 cm level 2 abnormal-appearing with calcification, peripheral color flow and a thickened cortex. US/US soft tiss head and/or neck IMPRESSION: Abnormal-appearing left level 2 lymph node on the left. This would be amenable to ultrasound-guided biopsy. All other lymph nodes appear normal. Electronically signed by: Seth Jay MD 08/25/2024 12:46 AM EDT Dictated By: Seth Jay MD Signed By: <Electronically signed by Seth Jay MD in OV> [facility] Medical History (Updated 02/21/25 @ 14:30 by Jana Bruce PA-C) Left flank discomfort History of pheochromocytoma History of medullary carcinoma of thyroid Left flank pain Multiple endocrine neoplasia type 2A (MEN2A) Medullary thyroid carcinoma Hypothyroid Pheochromocytoma of left adrenal gland Hypercholesterolemia COPD (chronic obstructive pulmonary disease) Pulmonary nodule Nicotine dependence, cigarettes, uncomplicated Osteopenia Irritable bowel syndrome with constipation Restless leg syndrome Anxiety Depression PONV (postoperative nausea and vomiting) Cervicalgia Pain in both feet Erosive (osteo)arthritis Bilateral hand pain Mass of left axilla Back pain Nevoid hyperpigmentation Neuritis of right ulnar nerve Neck pain Odynophagia Gout Surgical History S/P rotator cuff repair History of radical neck dissection (~01/2019) History of thyroidectomy (~03/2011) History of total adrenalectomy (~06/2018) History of laparoscopic cholecystectomy (~11/2022) History of total abdominal hysterectomy and bilateral salpingo-oophorectomy (~11/2013) History of tubal ligation (~10/2000) History of bilateral breast reduction surgery (~09/2019) History of repair of right rotator cuff (~04/2024) History of hand surgery (~02/2021) History of surgery on left wrist (~04/2010) History of fusion of lumbar spine History of tonsillectomy History of colonoscopy History of esophagogastroduodenoscopy (EGD) Family History Father Heart attack Mother Brain cancer Lung cancer Cervical cancer Family/Other Diabetes Sister Cervical cancer Lung cancer Daughter Breast cancer Social History Household Members: Spouse and Children Housing: Other Housing Other:: Trailer Alcohol intake: never Patient Tobacco Use Status: Current everyday Tobacco user Tobacco use type: Cigarette Cigarette Packs Per Day: 1 Years Smoked: (onset 14yo, 3/4-1ppd x 44yrs - 35pyh) e-Cigarette/Vaping Use: Never Used Second Hand Smoke Exposure: Yes Substance Use Type: Marijuana Current occupational status: disabled Current occupation: left handed Gender identity: Female Cognitive needs: No Hearing needs: No Vision needs: Yes Physical Exam Vital Signs: Last Vital Signs Pulse 72 02/22/25 12:53 BP 126/76 02/22/25 12:53 Pulse Ox 98 02/22/25 12:53 Oxygen Delivery Method Room Air 02/22/25 12:53 BMI result Body Mass Index 27.6 Assessment & Plan Assessment & Plan (1) Multiple endocrine neoplasia type 2A (MEN2A): Code(s): E31.22 - Multiple endocrine neoplasia [MEN] type IIA Category: Medical Plan: 59-year-old female coming in today for follow up of MEN2 A [id number] mutation with a history of medullary thyroid cancer status post neck dissection at [facility] [place] [address] Ordonez, status post right modified radical neck dissection with Dr. Yu Ortega at [facility] in January 2019, history of pheochromocytoma status post left laparoscopic adrenalectomy with Dr. Yu Ortega, 07/01/2018. No history of parathyroid issues. Calcium levels have remained normal. She is on vitamin- D 2000 units daily. normal renal US 2023. Plan: -check calcium, PTH, albumin levels today (2) Hypothyroid: Comment: (aquired - s/p thyroidectomy for thyroid cancer 2010) Code(s): E03.9 - Hypothyroidism, unspecified Category: Medical Qualifiers: Hypothyroidism type: postoperative Qualified Code(s): E89.0 - Postprocedural hypothyroidism Plan: Normal TSH of 3.87 from September 2024. Continue levothyroxine 112 mcg daily. 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 who underwent total thyroidectomy and paratracheal neck dissection, mediastinum neck dissection and subtotal thymectomy and left lateral neck dissection in 2010 at [facility], with pathology showing bilateral medullary thyroid cancer, 3 cm focus in the left lobe of the thyroid with extrathyroidal extension and lymphovascular invasion, who had positive CEA and calcitonin levels postoperatively, with subsequent ultrasound of the neck showing suspicious lymph nodes in 2017, in the lymph nodes subsequently underwent right modified radical neck dissection in January 2019 with metastatic medullary thyroid carcinoma in the lymph nodes, largest deposit measuring 1 cm. Reportedly she had good response to surgery as her calcitonin carcinoembryonic antigen levels declined post surgery. Most recently her Cea levels have been stable around 11.8 to 13 and most recently 11.3 from 10/25/24, calcitonin level trended up to 160 in 2022 from 85.4 back in 2019. Most recent level 10/25/24 pending today ultrasound neck 07/26/24 showed left level 2 lymph node measuring 1.6 cm which has cortical thickening, peripheral flow, concerning for possibly metastatic disease. We again discussed with her that knowing that her preoperative calcitonin level was 1546 back in 2010 prior to her 1st surgery, this always going to be disease in her neck and surgery is not done for the purpose of cure. Given her most recent calcitonin level was 129 in 2023, which is still not doubled from 85.4 back in 2019 after her 2nd surgery, this is reassuring that her calcitonin doubling time is greater than 24 months which carries a better prognosis. She is also making more calcitonin then CEA suggesting of differentiated disease. Her CEA levels remain stable. Back in 2019 was 9.4, in 2023 it is stable in the 11.3 -12.1 range. It has also not doubled. She had a repeat ultrasound in January 2024 where I looked again at this left level 2 lymph node which measures 1.6 X 0.5 cm, appears normal with a hilum. This is very reassuring.10/25/2024: Cea 11.3, Calcitonin: 87, She does not have any symptoms, any swallowing troubles, any difficulty breathing. Given that her calcitonin and CEA remained stable, and we already know she is always going to have disease her neck, it is recommended by the SAUL 2015 guidelines that is small asymptomatic disease can be monitored with surveillance. Today on my exam I could not palpate any lymph nodes, no abnormal masses. She is maintained on Synthroid 112 mcg daily which she is taking appropriately. No symptoms of hypo or hyperthyroidism. Sep 2025TSH 3.87, free T4 0.95 Plan: -continue Synthroid 112 mcg daily -ordered CEA and calcitonin levels to be done now she was supposed to get these prior to appointment but forgot. -ordered TSH and free T4 to be done now -next ultrasound will be repeated in 1 year in January 2026 -follow up in 6 months with plan for repeat labs (4) History of pheochromocytoma: Code(s): Z86.018 - Personal history of other benign neoplasm Category: Medical Plan: History of pheochromocytoma Status post left laparoscopic adrenalectomy of 2.8 cm pheochromocytoma in June [address] Yu Ortega. PAS score was 5. Usually less than 4 score means less aggressive findings. Her plasma metanephrine normetanephrine levels postoperatively have remained negative, most recently normal from Sep 2024. Her last abdominal CT, I reviewed the images today showed normal right- sided adrenal gland. Plan: -plan to repeat plasma metanephrine and normetanephrine levels now -ordered abdominal CT in late 2024 in 6 months prior to follow up Plan I spent 30 minutes in reviewing the record, seeing the patient and documenting in the medical record. Orders: Orders 2 Calcium Today E31.22 - Multiple endocrine neoplasia [MEN] type IIA, E89.0 - Postprocedural hypothyroidism Albumin Level Today E31.22 - Multiple endocrine neoplasia [MEN] type IIA, E89.0 - Postprocedural hypothyroidism Metanephrines, Plasma Today E31.22 - Multiple endocrine neoplasia [MEN] type IIA, E89.0 - Postprocedural hypothyroidism Creatinine Today E31.22 - Multiple endocrine neoplasia [MEN] type IIA, E89.0 - Postprocedural hypothyroidism Free T4 (Free Thyroxine) Today E31.22 - Multiple endocrine neoplasia [MEN] type IIA, E89.0 - Postprocedural hypothyroidism CT abdomen wo/w IV con 6 Months E31.22 - Multiple endocrine neoplasia [MEN] type IIA Parathyroid Hormone Intact Today E31.22 - Multiple endocrine neoplasia [MEN] type IIA, E89.0 - Postprocedural hypothyroidism Calcitonin Today E31.22 - Multiple endocrine neoplasia [MEN] type IIA, E89.0 - Postprocedural hypothyroidism Carcinoembryonic Antigen Today E31.22 - Multiple endocrine neoplasia [MEN] type IIA, E89.0 - Postprocedural hypothyroidism Thyroid Stimulating Hormone Today E31.22 - Multiple endocrine neoplasia [MEN] type IIA, E89.0 - Postprocedural hypothyroidism Medications: Refilled 2 Synthroid (levothyroxine) 112 mcg PO DAILY 90 tabs 3RF NS Patient Instructions: Continue Synthroid 112 mcg daily Do blood work today ,we will reach out with results Do Ct scan of abdomen prior to your next follow up in 6 monhts, you can schedule this for a few weeks prior to next appointment when they give you a call for scheduling it We willalso plan to repeat blood work prior to next appointment Coding Level of Care Code Est Pt Level 4 (57400) Complex EM visit Add On G2211 Diagnoses Multiple endocrine neoplasia type 2A (MEN2A) E31.22 Postoperative hypothyroidism E89.0 Hypothyroidism type: postoperative History of medullary carcinoma of thyroid Z85.850 History of pheochromocytoma Z86.018 Time Spent (min) 30
[2025-02-22 12:53] VITALS: BP 126/76; PULSE 72; O2SAT 98; BMI 27.6
--- OUTSIDE RECORDS SUMMARY | 2025-02-22 14:41 | XMS_ITS | Patient Health Record ---
Author Organization [facility] Address [address] [place] [address] Care Team Providers Care Federal Agent Name Role Phone SHANTA JIMENEZ M.D. Primary Care Provider Felicia Lord Unavailable [phone] Allergies Allergen (clinical drug ingredient) Drug/Non Drug [...] Problem History of malignant neoplasm of thyroid (172338347) Personal history of malignant neoplasm of thyroid (V10.87) Active confirmed Problem Postmenopausal atrophic vaginitis (74703510) Postmenopausal atrophic vaginitis (N95.2) Active confirmed Problem Anogenital warts (317510551) Anogenital (venereal) warts (A63.0) Active confirmed Problem Atrophy of vulva (494087503) Atrophy of vulva (N90.5) Active confirmed Problem Postcoital bleeding (43340653) Postcoital and contact bleeding (N93.0) Active confirmed Problem Hypothyroidism (69218290) Unspecified hypothyroidism (244.9) Active confirmed Major Plan [...]
== END 2025-02-22 13:27 | disposition home or self-care (01) ==
LOC: HO.ENCR 12:50
PROVIDERS: PCP Internal Medicine; Visit Provider Student in an Organized Health Care Education/Training Program
DX: E31.22 Multiple endocrine neoplasia [MEN] type IIA (principal); E89.0 Postprocedural hypothyroidism; Z85.850 Personal history of malignant neoplasm of thyroid; Z86.018 Personal history of other benign neoplasm
CPT/HCPCS: 99214; G2211

== ENCOUNTER → 2025-04-07 19:17 | Outpatient (BNV) | payer OTHER, SELFPAY | PROVIDERS: PCP Internal Medicine; Visit Provider Radiology Diagnostic Radiology | DX: R43.2 Parageusia (principal) | CPT/HCPCS: 70551 ==

== ENCOUNTER 2025-04-07 19:18 | Outpatient (REF) | payer OTHER, SELFPAY ==
--- NOTE | ~2025-04-07 | MR_ITS ---
EXAMINATION: MR BRAIN WITHOUT CONTRAST CLINICAL INFORMATION: Pargeusia. COMPARISON: None available. TECHNIQUE: MRI of the brain was obtained using routine sequences without contrast. FINDINGS: No restricted diffusion. No acute intracranial hemorrhage, mass effect, midline shift, hydrocephalus or herniation. Garces-white matter differentiation is normal. There are a few, scattered, punctate subcortical hyperintense T2 FLAIR signal involving mostly the frontal poles. Posterior cranial fossa contents demonstrated punctate hyperintense T2 FLAIR signal in the georgi. Focal 2 mm hyperintense T2 slightly hypointense FLAIR signal within the right cerebral peduncle/midbrain and no associated susceptibility. Flow-void signal within the main cerebral vessels is normal. Craniocervical junction demonstrates normal position of the cerebellar tonsils. Sellar/suprasellar region demonstrates no gross masses or signal abnormality. MR/MR head/brain wo con IMPRESSION: No acute brain abnormality. Questionable old lacunar infarct, right cerebral peduncle/midbrain. Nonspecific subcortical T2 FLAIR signal. Electronically signed by: Derick Severino MD 04/08/2025 07:47 AM EDT
== END 2025-04-07 19:19 | disposition home or self-care (01) ==
LOC: HO.MRI 19:18
PROVIDERS: PCP Internal Medicine
DX: R43.2 Parageusia (principal); R20.0 Anesthesia of skin
CPT/HCPCS: 70551

== ENCOUNTER 2025-05-25 10:54 | Outpatient (REF) | payer OTHER, SELFPAY ==
--- OUTSIDE RECORDS SUMMARY | 2025-05-25 11:57 | XMS_ITS | Encounter Summary ---
Author Organization [facility] Address [address] [place] [address] Phone Care Team Providers Care Dietary Director Name Role Phone Jayshree White MD Primary Care Provider [phone] Reason for Visit * Reason Onset Date Comments Post Discharge Follow Up Call 07/22/2016 Encounter Details Date Type Department Care Team (Late st Contact Info) Description 07/22/2016 Telephone [facility] [address] [phone] Dianne Freeman RN [address] [place] [address] [email or web address] Discharge Follow Up Call Social History Tobacco Use Types Packs/Day Years Used Date Smoking Tobacco: Every Day Cigarettes 0.5 37 Smokeless Tobacco: Never Comments:down to 1/2 ppd Alcohol Use Standard Drinks/Week Comments No 0 (1 standard drink = 0.6 oz pur e alcohol) Comments Unknown Sex and Gender Information Value Date Recorded Sex Assigned at Not on file Legal Sex Female 9:15 AM EDT Gender Identity Not on file Sexual Orientation Not on file documented as of this encounter Plan of Treatment Not on file documented as of this encounter Visit Diagnoses Not on filedocumented in this encounter Care Teams Dietary Director Relationship Specialty Start Date End Date Jayshree White MD [address] [place] [id number] PCP - General Internal Medicine 10/30/15 documented as of this encounter Additional Source Comments The information contained in this document represents components of the legal health record. It is not the complete legal health record.[facility]
--- OUTSIDE RECORDS SUMMARY | 2025-05-25 11:57 | XMS_ITS | Patient Health Record ---
Author Organization [facility] Address [address] [place] [address] Care Team Providers Care Sales And Service Representative Name Role Phone SHANTA JIMENEZ M.D. Primary Care Provider Felicia Lord Unavailable [phone] Allergies Allergen (clinical drug ingredient) Drug/Non Drug Allergy documented on EMR Reaction Allergy Type Onset Date Status codeine CODEINE MIGRAINES Drug Allergy Active EPINEPHRINE BP DECREASE Drug Allergy Act chevy lidocaine LIDOCAINE BP DECREASE Drug Allergy Activ e Reason For Referral No Information Medications Medication SIG (Take, Route, Fr equency, Duration) Notes Start Date End Date Status Omeprazole 20MG 1 ORAL daily; Duration: -3 Parveen-MJ 013 Active Synthroid 125 MCG 1 tablet Orally [...] Problem History of malignant neoplasm of thyroid (695160756) Personal history of malignant neoplasm of thyroid (V10.87) Active confirmed Problem Postmenopausal atrophic vaginitis (31963388) Postmenopausal atrophic vaginitis (N95.2) Active confirmed Problem Anogenital warts (042482400) Anogenital (venereal) warts (A63.0) Active confirmed Problem Atrophy of vulva (852055173) Atrophy of vulva (N90.5) Active confirmed Problem Postcoital bleeding (90136682) Postcoital and contact bleeding (N93.0) Active confirmed Problem Hypothyroidism (08535037) Unspecified hypothyroidism (244.9) Active confirmed Major Plan [...]
[2025-05-25 14:12] LABS: Cholesterol 187 mg/dL (<200); HDL Cholesterol 35 mg/dL (>40); Triglycerides 171 mg/dL (<150)
== END 2025-05-25 10:55 | disposition home or self-care (01) ==
LOC: HO.HMGCLDS 10:54
PROVIDERS: PCP Internal Medicine
DX: E78.00 Pure hypercholesterolemia, unspecified (principal)
CPT/HCPCS: 36415; 80061

== ENCOUNTER 2025-06-22 16:30 | Outpatient (AMB) | payer OTHER, SELFPAY ==
[2025-06-22 16:34] VITALS: BP 148/74; PULSE 78; O2SAT 97; BMI 27.0
--- NOTE | 2025-06-22 16:34 | A.OFFVIS_ITS ---
Vital Signs 06/22/25 16:34 Height 5 ft 6 in Weight 167 lb BMI 27.0 BP 148/74 H Blood Pressure Location Rt brachial Position Sitting Pulse 78 Pulse Source Pulse Oximeter Pulse Oximetry (%) 97 Oxygen Delivery Method Room Air Intake Visit Reasons: Follow up GERD/medication Intake Note: Est pt for mgmt of GERD + medication review. CC: Pt denies any GI changes or new sx since last visit. Pt states that her Rx therapy is OK. Collar Runner Required: No Accompanied by: Self / Same As Patient Allergies codeine (Codeine) Allergy (Mild, Verified 06/22/25 16:34) N/V, HEADACHE, vomiting morphine (MORPHINE) Allergy (Unknown, Verified 06/22/25 16:34) VOMITING, HEADACHE, migraine, vomiting sulfamethoxazole (From Bactrim) Adverse Reaction (Intermediate, Verified 06/22/25 16:34) lip numbness trimethoprim (From Bactrim) Adverse Reaction (Intermediate, Verified 06/22/25 16:34) lip numbness ethyl chloride Allergy (Unknown, Uncoded 06/22/25 16:34) Unknown HPI HPI Follow up GERD/medication: Details: Assessment & Plan (1) GERD (gastroesophageal reflux disease): Code(s): K21.9 - Gastro-esophageal reflux disease without esophagitis Category: Medical Qualifiers: Esophagitis presence: without esophagitis Qualified Code(s): K21.9 - Gastro-esophageal reflux disease without esophagitis (2) Chronic idiopathic constipation: Code(s): K59.04 - Chronic idiopathic constipation Category: Medical Plan She started Ibsrela a week ago (there was a delay in [place]) and she has severe gas and fecal leakage. She also developed an itchy rash on her stomach that moved to her thighs and down her legs. She also had associated fevers/chills, nausea, YEH. Was seen at urgent care and a lot of test and prednisone. Since we have already gone through all the constipation therapies she will try to manage this herself naturally and should this time she opts to have her primary care provider provide her omeprazole. Return office visit p.r.n. Medications: Discontinued tenapanor must administer immediately before first meal of day/breakfast and dinner Discontinued Reason: Doctor's Order 50 mg PO BID 60 tabs 6RF K59.04 - Chronic idiopathic constipation TODAYS JASON She has decided to follow with our service for her renewals of her omeprazole. She has been managing as well as she can with bisacodyl for her constipation. This is the only thing that has worked at all for her and we have gone through all of the more expensive and newest constipation medications without success. She still struggles with bloating at times. Return office visit in 1 year [facility] Medical History (Updated 06/22/25 @ 16:58 by JYOTI Grant) Anemia URI (upper respiratory infection) Breast cancer screening by mammogram Left flank discomfort History of pheochromocytoma History of medullary carcinoma of thyroid Left flank pain Multiple endocrine neoplasia type 2A (MEN2A) Medullary thyroid carcinoma Hypothyroid Pheochromocytoma of left adrenal gland Hypercholesterolemia COPD (chronic obstructive pulmonary disease) Pulmonary nodule Nicotine dependence, cigarettes, uncomplicated Osteopenia Irritable bowel syndrome with constipation Restless leg syndrome Anxiety Depression PONV (postoperative nausea and vomiting) Cervicalgia Pain in both feet Erosive (osteo)arthritis Bilateral hand pain Mass of left axilla Back pain Nevoid hyperpigmentation Neuritis of right ulnar nerve Neck pain Odynophagia Gout Surgical History S/P rotator cuff repair History of radical neck dissection (~01/2019) History of thyroidectomy (~03/2011) History of total adrenalectomy (~06/2018) History of laparoscopic cholecystectomy (~11/2022) History of total abdominal hysterectomy and bilateral salpingo-oophorectomy (~11/2013) History of tubal ligation (~10/2000) History of bilateral breast reduction surgery (~09/2019) History of repair of right rotator cuff (~04/2024) History of hand surgery (~02/2021) History of surgery on left wrist (~04/2010) History of fusion of lumbar spine History of tonsillectomy History of colonoscopy History of esophagogastroduodenoscopy (EGD) Family History Father Heart attack Mother Brain cancer Lung cancer Cervical cancer Family/Other Diabetes Sister Cervical cancer Lung cancer Daughter Breast cancer Social History Household Members: Spouse and Children Housing: Other Housing Other:: Trailer Alcohol intake: never Patient Tobacco Use Status: Current everyday Tobacco user Tobacco use type: Cigarette Cigarette Packs Per Day: 1 Years Smoked: (onset 14yo, 3/4-1ppd x 45yrs - 35pyh) e-Cigarette/Vaping Use: Never Used Second Hand Smoke Exposure: Yes Substance Use Type: Marijuana Current occupational status: disabled Current occupation: left handed Gender identity: Female Cognitive needs: No Hearing needs: No Vision needs: Yes Review of Systems Const Denies fatigue, Denies fever(s), Denies night sweats, Denies poor appetite and Denies weight loss Eyes Details: glasses Reports requires corrective lenses ENT Reports Normal hearing present, Denies dental pain, Denies dysphagia, Denies hearing loss, Denies mouth pain, Denies odynophagia, Denies throat swelling, Denies tongue swelling and Reports other (Dentition adequate) Card Reports no additional complaints Resp Reports no additional complaints GI Details: Denies abdominal pain, Denies melena, Denies bloating, Denies hematochezia, Reports constipation, Denies GI cramping, Denies dysphagia, Denies excessive flatus, Denies early satiety, Reports heartburn, Denies diarrhea, Denies nausea, Denies odynophagia, Denies vomiting and Denies hematemesis Skin/Breast Denies pruritus, Denies lesions, Denies rash and Denies jaundice Neuro Reports Normal hearing present and Denies Abnormal speech present Endo Denies fatigue Aller/Immun Denies throat swelling and Denies tongue swelling Physical Exam Vital Signs: Last Vital Signs Pulse 78 06/22/25 16:34 BP 148/74 H 06/22/25 16:34 Pulse Ox 97 06/22/25 16:34 Oxygen Delivery Method Room Air 06/22/25 16:34 BMI result Body Mass Index 27.0 Const General: cooperative, no acute distress, well developed and well groomed Nutritional Appearance: average body habitus and well nourished Orientation/consciousness: oriented to person, oriented to place and oriented to time Limitations: No language barrier HEENT Head: Yes normocephalic and Yes atraumatic Eyes General: appearance normal, both eyes and all related structures Pupils: Equal, round and reactive pupils present Neck Neck: Yes normal visual inspection and Yes no lymphadenopathy Thyroid: Thyroid normal Resp Effort & Inspection: normal respiratory effort and able to speak in complete sentences Auscultation: clear to auscultation bilaterally Cardio Rate: regular rate Rhythm: regular rhythm Heart sounds: Normal, physiologic split S2 sound present Peripheral pulses: radial pulses present and posterior tibial pulses present GI Inspection: No distended and No Abdominal panniculus present Palpation (GI): Soft to palpation, nontender, no guarding, not rigid and No hepatosplenomegaly present Percussion: Yes normal to percussion Auscultation: normal bowel sounds Rectal Exam - Female: deferred Skin General skin exam: no rashes or lesions noted, turgor normal, skin not dry, no jaundice, No spider nevi and no striae Rashes: no rashes Nails: normal Neuro General: oriented to person, oriented to place and oriented to time Cranial nerves: Yes Equal, round and reactive pupils present and Yes Normal hearing present Speech: No Abnormal speech present Extrem General: Yes normal to inspection, No clubbing, No cyanosis and No edema Psych Appearance: grossly normal and well kempt Mental Status: mental status grossly normal Speech and movement: Normal speech and movement present Affect: normal affect Attitude: cooperative Thought process: Normal thought process present and not confabulating Thought content: Normal thought content present Insight: Good insight present (Psych) Judgement: Good judgement present (Psych) Assessment & Plan Assessment & Plan (1) Chronic idiopathic constipation: Code(s): K59.04 - Chronic idiopathic constipation Category: Medical (2) GERD (gastroesophageal reflux disease): Code(s): K21.9 - Gastro-esophageal reflux disease without esophagitis Category: Medical Qualifiers: Esophagitis presence: without esophagitis Qualified Code(s): K21.9 - Gastro-esophageal reflux disease without esophagitis Plan She has decided to follow with our service for her renewals of her omeprazole. She has been managing as well as she can with bisacodyl for her constipation. This is the only thing that has worked at all for her and we have gone through all of the more expensive and newest constipation medications without success. She still struggles with bloating at times. Return office visit in 1 year Medications: Refilled omeprazole 20 mg PO DAILY 90 caps 2RF K21.9 - Gastro-esophageal reflux disease without esophagitis bisacodyl 15 mg (3 x 5 mg) PO BEDTIME 270 tabs 1RF K59.04 - Chronic idiopathic constipation Coding Level of Care Code Est Pt Level 3 (31295) Diagnoses Chronic idiopathic constipation K59.04 Gastroesophageal reflux disease without esophagitis K21.9 Esophagitis presence: without esophagitis
--- OUTSIDE RECORDS SUMMARY | 2025-06-22 17:08 | XMS_ITS | Encounter Summary ---
Author Organization [facility] Address [address] [place] [address] Phone Care Team Providers Care In House Cra Name Role Phone Jayshree White MD Primary Care Provider Encounter Details Date Type Department Care Team (Late st Contact Info) Description 07/18/2016 Ancillary Orders [facility] [address] [place] [address] Moose Reyes MD [address], [address] [place] [address] [email or web address] Pain (Primary Dx) Social History Tobacco Use Types Packs/Day Years [...] on file documented as of this encounter Results * FL Fluoroscopy More Than 1 Hour (07/18/2016 10:15 AM EDT) Narrative [facility] INTERFACES - 07/18/2016 10:17 AM EDT Fluoroscopy was provided during this procedure. us Moose SANTIZO FL MISC Final Result [facility] INTERFACES * XR LUMBOSACRAL SPINE 2-3 VIEWS (07/18/2016 10:15 AM EDT) Anatomical Region Laterality Modality L-spine Radiographic Yesy ging Impressions 07/18/2016 10:25 AM EDT IMPRESSION: The images demonstrate transverse fracture of a Felicia emeli, presumably the right due to findings on CT and there is hardware distraction at the fracture. Limited bone hardware detail. The upper and lower hardware is excluded. Narrative 07/18/2016 10:25 AM EDT HISTORY: LATERAL LIF L2-[address] lumbar spine 05/29/2016 which demonstrated T12-S1 fusion with fracture of the right greater than right. COMMENT: Intraoperative, small [id number] fluoroscopic low resolution frontal and image(s) of the mid lumbar spine, 10:03 AM to 10:03 AM , 07/18/2016. 2 image(s) submitted. Please note that this is not an interpretation which was provided to the operating room at the time of image acquisition. Frontal projection is not labeled left or right. Procedure Note Juliana Machado MD - 07/18/2016 HISTORY: LATERAL LIF L2-[address] lumbar spine 05/29/2016 which demonstrated T12-S1 fusion withfracture of the right greater than right. COMMENT: Intraoperative, small xgdji-he-uoeo fluoroscopic low resolution frontaland image(s) of the mid lumbar spine, 10:03 AM to 10:03 AM , 07/18/2016. 2image(s) submitted. Please note that this is not an interpretation whichwas provided to the operating room at the time of image acquisition.Frontal projection is not labeled left or right. IMPRESSION: IMPRESSION: The images demonstrate transverse fracture of a Herringtonrod, presumably the right due to findings on CT and there is hardwaredistraction at the fracture. Limited bone hardware detail. The upper and lower hardware is excluded. us Moose Reyes MD IMG XR SPINE Final Result documented in this encounter Visit Diagnoses Diagnosis Pain- Primary Generalized pain Pain Generalized pain documented in this encounter Care Teams In House Cra Relationship Specialty Start Date End Date Jayshree White MD [address] [place] [address] PCP - General Internal Medicine 10/30/15 documented as of this encounter Additional Source Comments The information contained in this document represents components of the legal health record. It is not the complete legal health record.[facility]
--- OUTSIDE RECORDS SUMMARY | 2025-06-22 17:08 | XMS_ITS | Clinical Summary ---
Author Organization [facility] Address [address] [place] [phone] Phone Care Team Providers Care Senior Treasury Analyst Name Role Phone Jayshree White MD Primary Care Provider [phone] Allergies Active Allergy Reactions Criticality Noted Date Comments Codeine Nausea Only,Other (S ee Comments) Medium 06/08/2014 MIGRAINES Hydrocodone Other (See Comments) Medium 11/03/2015 SEVERE NAUSEA=TYLENOL [place] Lidocaine Other (See Comments) Medium 08/12/2014 VASOVAGAL Morphine Other (See Comments) High 11/03/2015 SEVERE EMESIS Medications omeprazole (PRILOSEC) 20 MG capsule Take 20 mg by mouth daily. Dose: 20 MG; Form: Take [address]; Route: PO; Frequency: QD; Directions: Not available; Details: Dispense: Tablet(s); Date: 06/08/2014 4 Active FLUoxetine (PROZAC) 20 MG capsule Take 20 mg by mouth daily. Dose: Not available; Form: Not available; Route: PO; Frequency: Not available; Directions: As directed; Details: Dispense: Capsule(s); Date: 11/03/2015 6 Active acetaminophen (TYLENOL) 500 MG tablet Take 2 tablets (1,000 mg total) by mouth 3 (three) times a day. 0 6 Active Additional Information Patient not taking.Reported on 09/16/2020 senna (SENOKOT) 8.6 mg tablet Take 2 tablets by mouth nightly. 6 Active Additional Information Patient not taking.Reported on 09/16/2020 cholecalciferol (VITAMIN D3) 2,000 unit capsule Take 2,000 Units by mouth daily. Active gabapentin (NEURONTIN) 300 MG capsule Take 1 capsule (300 mg total) by mouth 2 (two) times a day. 60 capsule 2 6 Active Additional Information Patient not taking.Reported on 09/16/2020 levothyroxine (SYNTHROID, LEVOTHROID) 125 MCG tablet Take 125 mcg by mouth daily. Active ibuprofen (ADVIL,MOTRIN) 800 MG tablet Take 1 tablet (800 mg total) by mouth every 8 (eight) hours as needed for pain (specific location in comments). 90 tablet 7 Active Additional Information Patient not taking.Reported on 09/16/2020 amitriptyline (ELAVIL) 100 MG tablet Take 100 mg by mouth nightly at bedtime. Active triamcinolone acetonide 0.1 % cream Apply topically 2 (two) times a day for 10 days. 45 g 0 Active Active Problems Problem Noted Date Diagnosed Date Chronic obstructive pulmonary disease 07/19/2016 Left acoustic neuroma 07/19/2016 Overview (07/19/2016): S/p XRT Hypothyroidism 07/19/2016 Mechanical complication associated with orthoped ic device 07/18/2016 Spinal stenosis 06/08/2014 Overview (12/16/2014): Spinal stenosis History of medullary carcinoma of thyroid Overview (03/15/2016): mets in liver, spleen, lungs Tobacco dependence syndrome DDD (degenerative disc disease), lumbar Immunizations No known immunizations Family History Medical History Relation Comments Cancer Brother kidney CA Heart attack Father Cancer Mother lung and brain C A, cervical CA Anesthesia problems Sister Cancer Sister cervical CA Relation Status Comments Brother (Age 62) kidney CA Father (Age 47) CA, smoker, ET [place] Mother (Age 75) brain and lung CA Sister Social History Tobacco Use Types Packs/Day Years Used Date Smoking Tobacco: Every Day Cigarettes 0.5 37 Smokeless Tobacco: Never Tobacco Cessation:Counseling Given: Yes Comments:down to 1/2 ppd Alcohol Use Standard Drinks/Week Comments No 0 (1 standard drink = 0.6 oz pur e alcohol) Education Answer Date Recorded Are you interested in more education? Not on mackenzie e 02/21/2023 Are you concerned about learning? Not on file 02/21/2023 No 02/21/2023 No 02/21/2023 Digital Access Answer Date Recorded No 03/24/2023 No 03/24/2023 No 03/24/2023 Reliable internet access at home? Not on file 03/24/2023 Device with a working camera? Not on file Comments Unknown Sex and Gender Information Value Date Recorded Sex Assigned at Not on file Legal Sex Female 9:15 AM EDT Gender Identity Not on file Sexual Orientation Not on file Last Filed Vital Signs Vital Sign Reading Time Taken Comments Blood Pressure 120/64 09/16/2020 2:18 PM EST Pulse 60 09/16/2020 2:18 PM EST Temperature 36.6 C (97.9 F) 09/16/2020 2:18 PM EST Respiratory Rate 17 07/19/2016 8:04 AM EDT Oxygen Saturation 97% 09/16/2020 2:18 PM EST Inhaled Oxygen Concentration - - Weight 77.1 kg (170 lb) 09/16/2020 2:18 PM EST Height 167.6 cm (5' 6 ) 09/16/2020 2:18 PM EST Body Mass Index 27.44 09/16/2020 2:18 PM EST Plan of Treatment Health Maintenance Due Date Last Done Comments LIPID PANEL 1966 TSH LEVEL 1966 DEPRESSION SCREENING 1978 SMOKING Hx and SMOKELESS TOB ACCO SCREENING 1979 HEPATITIS C SCREENING 1984 HIV ONE-TIME SCREENING (18-6 5 YEARS) 1984 PAP SMEAR 1987 MAMMOGRAM 2006 COLOGUARD 2011 COLONOSCOPY 2011 COLORECTAL CANCER SCREENING 2011 FIT TEST 2011 FOBT 2011 SIGMOIDOSCOPY 2011 VIRTUAL COLONOSCOPY 2011 ZOSTER VACCINES (1 of 2) 2016 PNEUMOCOCCAL VACCINES (50+ y ears) (2 of 2 - PCV) 11/11/2018 11/11/2017 COVID-19 VACCINE ( - 2023-2 5 season) 2024 Adult Td,Tdap Booster 02/13/2031 02/13/2021 HEPATITIS A VACCINES Aged Out No long er eligible based on patient's age to complete this topic HIB VACCINES Aged Out No longer eligi ble based on patient's age to complete this topic MENINGOCOCCAL VACCINES (ACWY) Aged Out No longer eligible based on patient's age to complete this topic MENINGOCOCCAL VACCINES (B) Aged Out N o longer eligible based on patient's age to complete this topic Medical Devices Implanted Type Area Wood Technologist Device Identifier Shelf Expiration Date Model / Serial / Lot Hardware To Back Substitute Bone 10ml Graft Dbm Calcium Phosphate Putty Kit [employer] - [id number] Implanted:Qty: 1 on 07/18/2016 by Moose Reyes MD at [facility] N/A: Spine Lumbar [employer] 03/26/2019 [id number] / / [id number] Cage Lateral Peek L40 H10 Spine Code 31 - [id number] Implanted:Qty: 1 on 07/18/2016 by Moose Reyes MD at [facility] N/A: Spine Lumbar [employer] 05/07/2021Apr- 40 10-S / / [id number] Cage Lateral Peek L40 H10 Spine Code 31 - [id number] Implanted:Qty: 1 on 07/18/2016 by Moose Reyes MD at [facility] N/A: Spine Lumbar [employer] 05/07/2021Apr- 40 10-S / / [id number] Insurance [facility] Advance Directives For more information, please contact: [phone] (9AM - 5PM Giulia/[facility], Friday-Friday) Documents on File Type Date Recorded Patient Core Machine Tender Expl anation Healthcare Proxy 07/22/2016 10:40 AM * Full Code (Presumed) (Latest Code Status on File) Date Activated Date Inactivated Comments 07/18/2016 2:56 PM 07/19/2016 3:18 PM Care Teams Senior Treasury Analyst Relationship Specialty Start Date End Date Jayshree White MD [address] [place] [phone] PCP - General Internal Medicine 10/30/15 Additional Source Comments The information contained in this document represents components of the legal health record. It is not the complete legal health record.[facility]
--- OUTSIDE RECORDS SUMMARY | 2025-06-22 17:08 | XMS_ITS | Patient Health Record ---
Author Organization [facility] Address [address] [place] [address] Care Team Providers Care Clinical Business Analyst Name Role Phone SHANTA JIMENEZ M.D. Primary Care Provider Felicia Lord Unavailable [phone] Allergies Allergen (clinical drug ingredient) Drug/Non Drug [...] Problem History of malignant neoplasm of thyroid (055470093) Personal history of malignant neoplasm of thyroid (V10.87) Active confirmed Problem Postmenopausal atrophic vaginitis (94547846) Postmenopausal atrophic vaginitis (N95.2) Active confirmed Problem Anogenital warts (205768409) Anogenital (venereal) warts (A63.0) Active confirmed Problem Atrophy of vulva (451081495) Atrophy of vulva (N90.5) Active confirmed Problem Postcoital bleeding (91480896) Postcoital and contact bleeding (N93.0) Active confirmed Problem Hypothyroidism (92508381) Unspecified hypothyroidism (244.9) Active confirmed Major Plan [...]
--- OUTSIDE RECORDS SUMMARY | 2025-06-22 17:08 | XMS_ITS | Encounter Summary ---
Author Organization [facility] Address [address] [place] [address] Phone Care Team Providers Care Supervisor Cloth Winding Name Role Phone Jayshree White MD Primary Care Provider [phone] Reason for Visit * Reason Onset Date Comments Post Discharge Follow Up Call 07/22/2016 Encounter Details Date Type Department Care Team (Late st Contact Info) Description 07/22/[address] [facility] [address] [phone] Dianne Freeman RN [address] [place] [address] .OR G Post Discharge Follow Up Call Social [...] on filedocumented in this encounter Care Teams Supervisor Cloth Winding Relationship Specialty Start Date End Date Jayshree White MD [address] [place] [phone] PCP - General Internal Medicine 10/30/15 documented as of this encounter Additional Source Comments The information contained in this document represents components of the legal health record. It is not the complete legal health record.[facility]
== END 2025-06-22 17:02 | disposition home or self-care (01) ==
LOC: HO.HGI 16:31
PROVIDERS: PCP Internal Medicine; Visit Provider Nurse Practitioner
DX: K59.04 Chronic idiopathic constipation (principal); K21.9 Gastro-esophageal reflux disease without esophagitis
CPT/HCPCS: 99213

== ENCOUNTER → 2025-06-22 16:30 | Outpatient (BNVA) | payer OTHER, SELFPAY | PROVIDERS: PCP Internal Medicine; Visit Provider Nurse Practitioner | DX: K59.04 Chronic idiopathic constipation (principal); K21.9 Gastro-esophageal reflux disease without esophagitis | CPT/HCPCS: 99212 ==

== ENCOUNTER 2025-06-28 15:43 | Outpatient (AMB) | payer OTHER, SELFPAY ==
--- NOTE | 2025-06-28 15:47 | MHC.PC.OV ---
Vital Signs 06/28/25 15:48 Height 5 ft 6 in Weight 164 lb BMI 26.5 BP 128/68 Blood Pressure Location Lt brachial Position Sitting Pulse 72 Pulse Source Pulse Oximeter Pulse Oximetry (%) 96 Oxygen Delivery Method Room Air Intake Visit Reasons: Follow up Allergies codeine (Codeine) Allergy (Mild, Verified 06/28/25 15:48) N/V, HEADACHE, vomiting morphine (MORPHINE) Allergy (Unknown, Verified 06/28/25 15:48) VOMITING, HEADACHE, migraine, vomiting sulfamethoxazole (From Bactrim) Adverse Reaction (Intermediate, Verified 06/28/25 15:48) lip numbness trimethoprim (From Bactrim) Adverse Reaction (Intermediate, Verified 06/28/25 15:48) lip numbness ethyl chloride Allergy (Unknown, Uncoded 06/28/25 15:48) Unknown Tobacco use date assessed: 02/21/25 Dental Screening Dental Screen Date: 02/21/25 [facility] Medical History (Updated 06/28/25 @ 16:17 by Jayshree White MD) Anemia URI (upper respiratory infection) Breast cancer screening by mammogram Left flank discomfort History of pheochromocytoma History of medullary carcinoma of thyroid Left flank pain Multiple endocrine neoplasia type 2A (MEN2A) Medullary thyroid carcinoma Hypothyroid Pheochromocytoma of left adrenal gland Hypercholesterolemia COPD (chronic obstructive pulmonary disease) Pulmonary nodule Nicotine dependence, cigarettes, uncomplicated Osteopenia Irritable bowel syndrome with constipation Restless leg syndrome Anxiety Depression PONV (postoperative nausea and vomiting) Cervicalgia Pain in both feet Erosive (osteo)arthritis Bilateral hand pain Mass of left axilla Back pain Nevoid hyperpigmentation Neuritis of right ulnar nerve Neck pain Odynophagia Gout Surgical History S/P rotator cuff repair History of radical neck dissection (~01/2019) History of thyroidectomy (~03/2011) History of total adrenalectomy (~06/2018) History of laparoscopic cholecystectomy (~11/2022) History of total abdominal hysterectomy and bilateral salpingo-oophorectomy (~11/2013) History of tubal ligation (~10/2000) History of bilateral breast reduction surgery (~09/2019) History of repair of right rotator cuff (~04/2024) History of hand surgery (~02/2021) History of surgery on left wrist (~04/2010) History of fusion of lumbar spine History of tonsillectomy History of colonoscopy History of esophagogastroduodenoscopy (EGD) Family History Father Heart attack Mother Brain cancer Lung cancer Cervical cancer Family/Other Diabetes Sister Cervical cancer Lung cancer Daughter Breast cancer Social History Household Members: Spouse and Children Housing: Other Housing Other:: Trailer Alcohol intake: never Patient Tobacco Use Status: Current everyday Tobacco user Tobacco use type: Cigarette Cigarette Packs Per Day: 1 Years Smoked: (onset 14yo, 3/4-1ppd x 44yrs - 35pyh) e-Cigarette/Vaping Use: Never Used Second Hand Smoke Exposure: Yes Substance Use Type: Marijuana Current occupational status: disabled Current occupation: left handed Gender identity: Female Cognitive needs: No Hearing needs: No Vision needs: Yes Questionnaire PHQ-9 Over the last 2 weeks, how often have you been bothered by any of the following problems? 1. Little interest or pleasure in doing things: nearly every day 2. Feeling down, depressed, or hopeless: nearly every day 3. Trouble falling or staying asleep, or sleeping too much: nearly every day 4. Feeling tired or having little energy: nearly every day 5. Poor appetite or overeating: more than half the days 6. Feeling bad about yourself - or that you are a failure or have let yourself or your family down: more than half the days 7. Trouble concentrating on things, such as reading the newspaper or watching television: more than half the days 8. Moving or speaking so slowly that other people could have noticed. Or the opposite - being so fidgety or restless that you have been moving around a lot more than usual: nearly every day 9. Thoughts that you would be better off or of hurting yourself in some way: more than half the days Total score: 23 Depression Screening Interpretation: Positive Depression Screening Done: Yes Source: Developed by Drs. Moose Wright, Ira Membreno, Davy Trevino and colleagues, with an educational cheryl from [employer]. Thrive Questionnaire Date Thrive assessed: 11/19/24 I am a: Patient What is your living situation today?: I have a steady place to live Within the past 12 months, did the food you bought not last and you didn't have the money to get more?: Sometimes True Within the past 12 months, did you worry whether your food would run out before you got money to buy more?: Sometimes True Do you have trouble paying for medicines?: No Do you have trouble getting transportation to medical appointments?: No Do you have trouble paying your heating and electricity bill?: Yes Do you have trouble taking care of your child, family member or friend?: No Do you have trouble with day-to-day activities such as bathing, preparing meals, shopping, managing finances, etc.?: Yes Are you currently unemployed and looking for a job?: No Are you interested in more education?: No Please select the resources that you would like help with: None Currently or been in a relationship where the following occur: No concerns reported THRIVE Score: 3 AUDIT C Alcohol Use Questionnaire (AUDIT-C) 1. How often do you have a drink containing alcohol?: Never 3. How often do you have six or more drinks on one occasion?: Never Total Score: 0 JYOTHI-7 AMB Questionnaire JYOTHI-7 Date JYOTHI - 7 assessed: 02/21/25 Source: Developed by Drs. Moose Wright, Ira Membreno, Davy Trevino and colleagues, with an educational cheryl from [employer]. Physical exam (Primary Care) Vital Signs: Last Vital Signs Pulse 72 06/28/25 15:48 BP 128/68 06/28/25 15:48 Pulse Ox 96 06/28/25 15:48 Oxygen Delivery Method Room Air 06/28/25 15:48 BMI result Body Mass Index 26.5 Tobacco/Smoking Status: Tobacco use Status Tobacco use date assessed 02/21/25 06/28/25 15:47 Patient Tobacco Use Status Current everyday Tobacco 06/28/25 15:47 Tobacco use type Cigarette 06/28/25 15:47 e-Cigarette/Vaping Use Never Used 06/28/25 15:47 PHQ-9: PHQ-9 Score PHQ-9: Total score 23 06/28/25 16:13 Depression Screening Interpretation: Positive Thrive Assessment: Date of Thrive Assessment Date Thrive assessed 11/19/24 06/28/25 15:47 Currently or been in a relationship where the following occur: No concerns reported Const General: alert; No acute distress Eyes Conjunctivae: conjunctivae normal Resp Auscultation: clear to auscultation bilaterally Cardio Rate: regular rate Rhythm: regular rhythm GI Inspection: Yes normal to inspection Extrem General: Yes normal to inspection and No edema Coding Level of Care Code Est Pt Level 4 (91618) Complex EM visit Add On G2211 Diagnoses Postoperative hypothyroidism E89.0 Hypothyroidism type: postoperative Multiple endocrine neoplasia type 2A (MEN2A) E31.22 Gastroesophageal reflux disease without esophagitis K21.9 Esophagitis presence: without esophagitis Iron deficiency anemia D50.9 Pulmonary emphysema, unspecified emphysema type J43.9 COPD type: emphysema Emphysema type: unspecified Pulmonary nodule R91.1 Nicotine dependence, cigarettes, uncomplicated F17.210 SOB (shortness of breath) on exertion R06.02 Assessment & Plan Assessment & Plan (1) Hypothyroid: Comment: (aquired - s/p thyroidectomy for thyroid cancer 2010) Code(s): E03.9 - Hypothyroidism, unspecified Category: Medical Qualifiers: Hypothyroidism type: postoperative Qualified Code(s): E89.0 - Postprocedural hypothyroidism Plan: Continue with present thyroid medication. Patient is being followed up by endocrinology. Concern about lymph nodes and will do another ultrasound next year January 2026 (2) Multiple endocrine neoplasia type 2A (MEN2A): Code(s): E31.22 - Multiple endocrine neoplasia [MEN] type IIA Category: Medical Plan: Continue to follow-up with him with endocrinology checking on metanephrines and ultrasound of the thyroid (3) GERD (gastroesophageal reflux disease): Code(s): K21.9 - Gastro-esophageal reflux disease without esophagitis Category: Medical Qualifiers: Esophagitis presence: without esophagitis Qualified Code(s): K21.9 - Gastro-esophageal reflux disease without esophagitis Plan: Avoid the foods that causes that usually spicy foods, tomato products, juices, coffee, soda and foods that your sensitive to. After eating do not lie down, allow 3-4 hours before in lie down. And keep the head of bed above 30 degrees to avoid the acid from going up. (4) Iron deficiency anemia: Code(s): D50.9 - Iron deficiency anemia, unspecified Category: Medical Plan: Patient is being followed up by hematology oncology. Had iron infusion. (5) COPD (chronic obstructive pulmonary disease): Comment: Emphysema PFT January 2014, asthma Code(s): J44.9 - Chronic obstructive pulmonary disease, unspecified Category: Medical Qualifiers: COPD type: emphysema Emphysema type: unspecified Qualified Code(s): J43.9 - Emphysema, unspecified Plan: Continue with the inhalers (6) Pulmonary nodule: Comment: (5mm MARY nodule - new on 05/2024 scan compared to 2017) 6 months ff up December 2024 Code(s): R91.1 - Solitary pulmonary nodule Category: Medical Plan: CT scan December 2024 continue to monitor (7) Nicotine dependence, cigarettes, uncomplicated: Comment: (onset 14yo, 3/4-1ppd x 45yrs 35pyh) CT June 2024 Code(s): F17.210 - Nicotine dependence, cigarettes, uncomplicated Category: Medical Plan: Patient is strongly advised to stop smoking !!! (8) SOB (shortness of breath) on exertion: Code(s): R06.02 - Shortness of breath Category: Medical Plan: Discussed with the patient that we will work this up Plan History of Present Illness The patient is a 59-year-old female presenting for a follow-up visit. She has a history of Generalized Anxiety Disorder, which has been managed with medication adjustments as needed. The patient has Chronic Obstructive Pulmonary Disease (COPD), confirmed by a CT scan of the lungs in December 2024. She reports dyspnea on exertion, particularly when walking uphill, and acknowledges that smoking exacerbates her symptoms. She has been advised to stop smoking to improve her respiratory health. The patient has Gastroesophageal Reflux Disease (GERD) and is currently on omeprazole for management. She has also been experiencing constipation, for which she takes bisacodyl. Her medical history includes hypercholesterolemia, with recent lab results showing an LDL of 118 mg/dL and triglycerides at 172 mg/dL. The patient has hypothyroidism and underwent a thyroidectomy due to suspicious lymph nodes, which are currently being monitored. She is advised to continue her current thyroid medication and follow up with endocrinology. She has a history of Multiple Endocrine Neoplasia Type IIA and is under regular surveillance for related conditions, including pheochromocytoma. An ultrasound of the neck noted a left level 2 lymph node, and further imaging is planned. The patient has a history of iron deficiency anemia, for which she received Venofer infusions in the spring. Her recent blood work indicates no current anemia. She has a history of a lacunar infarct in the right cerebral peduncle midbrain, noted on an MRI of the brain. Health Maintenance - Mammogram is due - Colonoscopy last done in 2018 - Bone density last done in September 2021 - Advised to stop smoking to improve respiratory health Social History - Smoking: Current smoker, advised to quit Review of Systems - Respiratory: Reports dyspnea on exertion, denies chest heaviness - Neurological: Reports numbness and altered taste sensation, denies headaches Physical Exam - Respiratory: No wheezing, oxygen saturation levels are good Results - Labs: LDL 118 mg/dL, Triglycerides 172 mg/dL - Imaging: CT scan of lungs in December 2024, MRI of brain noted possible lacunar infarct Plan Patient was informed and verbally consented to the use of an ambient scribe for clinic note documentation during this visit. 1. Generalized Anxiety Disorder The patient is advised to continue with her current medication regimen, with adjustments as needed based on symptom control. 2. Chronic Obstructive Pulmonary Disease (Copd) The patient is advised to stop smoking to improve her respiratory health and continue with her inhalers. A lung function test is recommended to assess the severity of her condition. 3. Gastroesophageal Reflux Disease (Gerd) The patient is advised to continue taking omeprazole for management of GERD symptoms. 4. Hypercholesterolemia The patient is advised to continue monitoring her cholesterol levels and maintain a healthy diet. 5. Hypothyroidism The patient is advised to continue her current thyroid medication and follow up with endocrinology for monitoring of lymph nodes. 6. Multiple Endocrine Neoplasia Type Iia The patient is under regular surveillance for related conditions, including pheochromocytoma, and further imaging is planned. 7. Iron Deficiency Anemia The patient received Venofer infusions in the spring and her recent blood work indicates no current anemia. 8. History Of Lacunar Infarct The patient is advised to monitor for any neurological symptoms and follow up as needed. Discussion Notes During the visit, we discussed the importance of smoking cessation to improve respiratory health and the continuation of current medications for anxiety, GERD, and hypothyroidism. We also reviewed the need for regular follow-ups with endocrinology and hematology oncology for monitoring of her conditions. The patient was informed about the upcoming imaging studies and the importance of maintaining a healthy lifestyle to manage her hypercholesterolemia. Patient Instructions - Continue taking all prescribed medications as directed. - Schedule and attend all recommended follow-up appointments with specialists. - Undergo the scheduled imaging studies as planned. - Stop smoking to improve lung health. - Maintain a healthy diet to manage cholesterol levels. Orders: Orders PFT pulmonary function test Today R06.02 - Shortness of breath Medications: Refilled sertraline 150 mg PO DAILY 30 caps 2RF F41.1 - Generalized anxiety disorder
[2025-06-28 15:48] VITALS: BP 128/68; PULSE 72; O2SAT 96; BMI 26.5
--- OUTSIDE RECORDS SUMMARY | 2025-06-28 16:38 | XMS_ITS | Clinical Summary ---
Author Organization [facility] Address [address] [facility] [address] [place] [address] Phone Care Team Providers Care Layout Operator Name Role Phone Jayshree White MD Primary Care Provider [phone] Allergies Active Allergy Reactions Criticality Noted Date [...] (Age 62) kidney CA Father (Age 47) [place], smoker, ET [place] Mother (Age 75) brain [...] DEPRESSION SCREENING 1978 SMOKING Hx and SMOKELESS TOBACCO SCREENING 1979 HEPATITIS C SCREENING 1984 HIV ONE-TIME SCREENING (18-6 5 YEARS) 1984 PAP SMEAR 1987 MAMMOGRAM 2006 COLOGUARD 2011 COLONOSCOPY 2011 COLORECTAL CANCER SCREENING 2011 FIT TEST 2011 FOBT 2011 SIGMOIDOSCOPY 2011 VIRTUAL COLONOSCOPY 2011 ZOSTER VACCINES (1 of 2) 2016 PNEUMOCOCCAL VACCINES (50+ years) (2 of 2 - PCV) 11/11/2018 11/11/2017 COVID-19 VACCINE ( - 2023-2 5 season) 2024 INFLUENZA VACCINE (#1) 2025 9, 07/24/2018 Adult Td,Tdap Booster 02/13/2031 02/13/2021 HEPATITIS A [...] this topic Medical Devices Implanted Type Area Box Truck Owner Operator Device Identifier Shelf Expiration Date Model / Serial / Lot Hardware To Back Substitute Bone 10ml Graft Dbm Calcium Phosphate Putty Kit [employer] - [id number] Implanted:Qty: 1 on 07/18/2016 by Moose Reyes MD at [facility] N/A: Spine Lumbar [employer] 03/26/2019 [id number] / / [id number] Cage Lateral Peek L40 H10 Spine Code 31 - [id number] Implanted:Qty: 1 on 07/18/2016 by Moose Reyes MD at [facility] N/A: Spine Lumbar [employer] 05/07/2021Apr-LL 40 10-S / / [id number] Cage Lateral Peek L40 H10 Spine Code 31 - [id number] Implanted:Qty: 1 on 07/18/2016 by Moose Reyes MD at [facility] N/A: Spine Lumbar [employer] 05/07/2021Apr-LL 40 10-S / / [id number] Insurance [facility] [place] [facility] [place] [employer] [employer] [place] [facility] [place] [facility] [place] [facility] [place] [facility] [place] [facility] [place] [facility] Advance Directives For more information, please contact: [phone] (9AM - 5PM Giulia/[facility], Friday-Friday) Documents on File Type Date Recorded Patient 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 It is not the complete legal health record.[facility]
--- OUTSIDE RECORDS SUMMARY | 2025-06-28 16:38 | XMS_ITS | Encounter Summary ---
Author Organization [facility] Address [address] [facility] [address] [place] [address] Phone Care Team Providers Care Obstetrical Tech Name Role Phone Jayshree White MD Primary Care Provider [phone] Encounter Details Date Type Department Care Team (Late st Contact Info) Description 07/18/2016 Ancillary Orders [facility] [address] [place] [address] Moose Reyes MD [address], [address] [place] [address] [email or web address] Pain (Primary Dx) Social History Tobacco Use [...] 1 Hour (07/18/2016 10:15 AM EDT) Narrative [facility]AC[facility] - 07/18/2016 10:17 AM EDT [...] right greater than right. COMMENT: Intraoperative, small [id number] fluoroscopic low resolution frontal and image(s) of [...] right greater than right. COMMENT: Intraoperative, small iviyt-mz-vnca fluoroscopic low resolution frontaland image(s) of the [...] pain documented in this encounter Care Teams Obstetrical Tech Relationship Specialty Start Date End Date Jayshree White MD [address] [place] [address] PCP - General Internal Medicine 10/30/15 documented as of this encounter Additional Source Comments The information contained in this document represents components of the legal health record. It is not the complete legal health record.[facility]
--- OUTSIDE RECORDS SUMMARY | 2025-06-28 16:38 | XMS_ITS | Encounter Summary ---
Author Organization [facility] Address [address] [place] [address] Phone Care Team Providers Care Senior Logistics Manager Name Role Phone Jayshree White MD Primary Care Provider [phone] Reason for Visit * Reason Onset Date Comments Post Discharge Follow Up Call 07/22/2016 Encounter Details Date Type Department Care Team (Late st Contact Info) Description 07/22/2016 Telephone [facility] [address] [phone] Dianne Freeman RN [address] [place] [address] [email or web address] Post Discharge Follow Up Call Social [...] on filedocumented in this encounter Care Teams Senior Logistics Manager Relationship Specialty Start Date End Date Jayshree White MD [address] [place] [id number] PCP - General Internal Medicine 10/30/15 documented as of this encounter Additional Source Comments The information contained in this document represents components of the legal health record. It is not the complete legal health record.[facility]
== END 2025-06-28 16:27 | disposition home or self-care (01) ==
LOC: HO.HMCH 15:43
PROVIDERS: PCP Internal Medicine; Visit Provider Internal Medicine
DX: E89.0 Postprocedural hypothyroidism (principal); E31.22 Multiple endocrine neoplasia [MEN] type IIA; J43.9 Emphysema, unspecified; K21.9 Gastro-esophageal reflux disease without esophagitis; D50.9 Iron deficiency anemia, unspecified; R91.1 Solitary pulmonary nodule; F17.210 Nicotine dependence, cigarettes, uncomplicated; R06.02 Shortness of breath

== ENCOUNTER → 2025-06-28 15:43 | Outpatient (BNVA) | payer OTHER, SELFPAY | PROVIDERS: PCP Internal Medicine; Visit Provider Internal Medicine | DX: E31.22 Multiple endocrine neoplasia [MEN] type IIA (principal); E89.0 Postprocedural hypothyroidism; K21.9 Gastro-esophageal reflux disease without esophagitis; D50.9 Iron deficiency anemia, unspecified; J43.9 Emphysema, unspecified; R91.1 Solitary pulmonary nodule; R06.02 Shortness of breath; F17.210 Nicotine dependence, cigarettes, uncomplicated; E78.00 Pure hypercholesterolemia, unspecified; F41.1 Generalized anxiety disorder | CPT/HCPCS: 99212 ==

== ENCOUNTER 2025-08-03 13:15 | Outpatient (AMB) | payer OTHER, SELFPAY ==
[2025-08-03 13:25] VITALS: BP 110/60; PULSE 75; TEMP 36.6; O2SAT 100; BMI 26.8
--- NOTE | 2025-08-03 13:25 | AM.OFFWIN_ITS ---
Intake Vital Signs 08/03/25 13:25 Height 5 ft 6 in Weight 166 lb BMI 26.8 BP 110/60 Blood Pressure Location Lt brachial Position Sitting Pulse 75 Pulse Source Pulse Oximeter Temp 98 F Temp Source Oral Pulse Oximetry (%) 100 Oxygen Delivery Method Room Air Intake Visit Reasons: EP-uti Intake Note: Pt is here today Patient Tobacco Use Status: Current everyday Tobacco user Allergies codeine (Codeine) Allergy (Mild, Verified 08/03/25 13:37) N/V, HEADACHE, vomiting morphine (MORPHINE) Allergy (Unknown, Verified 08/03/25 13:37) VOMITING, HEADACHE, migraine, vomiting sulfamethoxazole (From Bactrim) Adverse Reaction (Intermediate, Verified 08/03/25 13:37) lip numbness trimethoprim (From Bactrim) Adverse Reaction (Intermediate, Verified 08/03/25 13:37) lip numbness ethyl chloride Allergy (Unknown, Uncoded 08/03/25 13:28) Unknown Do you need a note to return to daycare/school/sports/work: No HPI HPI Comments History of Present Illness Details History of Present Illness - The patient is a 60-year-old female pr esenting with pelvic pain. - The pain is localized to the pelvic re gion and affects her ability to stand upright. - She states that she has a burning sens ation and constant pain in the lower abd and pelvis with no radiation of pain. - She denies any urinary symptoms or vis ible swelling to labia. - Her medical history includes a complet e hysterectomy and gallbladder removal. - She reports chronic constipation and n ausea, with early satiety after small meals. - She eats a half a sandwich and is full . - She states that she can't go to the [place] without using Bisacodyl. - She did have 2 small bowel movements y esterday. - She has not been able to walk due to t he pain without severe pain. - She denies fever, chills, dysuria, hem aturia, vaginal itching, discharge, or back pain. - She denies diarrhea, melena, or hemato chezia. Physical Exam General: Cooperative, healthy appearing, comfortable, no acute distress and well developed Orientation: Patient oriented x3 Respiratory: Normal respiratory effort and able to speak in complete sentences. Clear to auscultation bilaterally. No w/r/r noted. Cardiovascular: Regular rate and rhythm. Normal S1 and S2. No m/r/g noted. GI: BS noted. Soft, non distended. TTP of the RLQ, suprapubic, and LLQ with mild guarding noted. Negative Rovsing noted. Negative Ruby. Negative CVA tenderness noted. No masses or hernias noted. Skin: No rashes or lesions noted. Suprapubic scar noted laterally. Patient was informed and verbally consented to the use of an ambient scribe for clinic note documentation during this visit. [facility] Medical History (Updated 08/01/25 @ 16:30 by Lore Silver MD) History of pheochromocytoma Anemia URI (upper respiratory infection) Breast cancer screening by mammogram Left flank discomfort History of medullary carcinoma of thyroid Left flank pain Multiple endocrine neoplasia type 2A (MEN2A) Medullary thyroid carcinoma Hypothyroid Pheochromocytoma of left adrenal gland Hypercholesterolemia COPD (chronic obstructive pulmonary disease) Pulmonary nodule Nicotine dependence, cigarettes, uncomplicated Osteopenia Irritable bowel syndrome with constipation Restless leg syndrome Anxiety Depression PONV (postoperative nausea and vomiting) Cervicalgia Pain in both feet Erosive (osteo)arthritis Bilateral hand pain Mass of left axilla Back pain Nevoid hyperpigmentation Neuritis of right ulnar nerve Neck pain Odynophagia Gout Surgical History S/P rotator cuff repair History of radical neck dissection (~01/2019) History of thyroidectomy (~03/2011) History of total adrenalectomy (~06/2018) History of laparoscopic cholecystectomy (~11/2022) History of total abdominal hysterectomy and bilateral salpingo-oophorectomy (~11/2013) History of tubal ligation (~10/2000) History of bilateral breast reduction surgery (~09/2019) History of repair of right rotator cuff (~04/2024) History of hand surgery (~02/2021) History of surgery on left wrist (~04/2010) History of fusion of lumbar spine History of tonsillectomy History of colonoscopy History of esophagogastroduodenoscopy (EGD) Family History Father Heart attack Mother Brain cancer Lung cancer Cervical cancer Family/Other Diabetes Sister Cervical cancer Lung cancer Daughter Breast cancer Social History Household Members: Spouse and Children Housing: Other Housing Other:: Trailer Alcohol intake: never Patient Tobacco Use Status: Current everyday Tobacco user Tobacco use type: Cigarette Cigarette Packs Per Day: 1 Years Smoked: (onset 14yo, 3/4-1ppd x 44yrs - 35pyh) e-Cigarette/Vaping Use: Never Used Second Hand Smoke Exposure: Yes Substance Use Type: Marijuana Current occupational status: disabled Current occupation: left handed Gender identity: Female Cognitive needs: No Hearing needs: No Vision needs: Yes Review of Systems Const All systems reviewed & are unremarkable except as noted in HPI and below Physical Exam Vital Signs: Last Vital Signs Temp 98 F 08/03/25 13:25 Pulse 75 08/03/25 13:25 BP 110/60 08/03/25 13:25 Pulse Ox 100 08/03/25 13:25 Oxygen Delivery Method Room Air 08/03/25 13:25 BMI result Body Mass Index 26.8 Results AMB Urinalysis, Automated UA Leukoctes 0 [place]/uL Last Edit by Chel Javed CMA on 08/03/25 13:35 UA Nitrite Negative Last Edit by Chel Javed CMA on 08/03/25 13:35 UA Urobilinogen 0.2 mg/dL Last Edit by Chel Javed CMA on 08/03/25 13:35 UA Protein 0 mg/dL Last Edit by Chel Javed CMA on 08/03/25 13:35 UA pH 6.0 Last Edit by Chel Javed CMA on 08/03/25 13:35 UA Blood 0 Carson/uL Last Edit by Chel Javed CMA on 08/03/25 13:35 UA Specific [place] 1.005 Last Edit by Chel Javed CMA on 08/03/25 13:35 UA Ketone Negative Last Edit by Chel Javed CMA on 08/03/25 13:35 UA Bilirubin 0 mg/dL Last Edit by Chel Javed CMA on 08/03/25 13:35 UA Glucose 0 mg/dL Last Edit by Chel Javed CMA on 08/03/25 13:35 Results Reviewed Results Reviewed: Laboratory Last Values Urine pH (Auto) 6.0 08/03/25 13:26 Specific [place] (Auto) 1.005 08/03/25 13:26 Urine Protein (Auto) 0 mg/dL 08/03/25 13:26 Glucose (UA)(Auto) 0 mg/dL 08/03/25 13:26 Urine Ketones (Auto) Negative 08/03/25 13:26 Urine Blood (Auto) 0 Carson/uL 08/03/25 13:26 Urine Nitrite (Auto) Negative 08/03/25 13:26 Urine Bilirubin (Auto) 0 mg/dL 08/03/25 13:26 Urine Urobilinogen (Auto) 0.2 mg/dL 08/03/25 13:26 Leukocyte Esterase (Auto) 0 [place]/uL 08/03/25 13:26 will review the xray in the office Assessment & Plan Assessment & Plan (1) Pelvic pain: Code(s): R10.20 - Pelvic and perineal pain unspecified side Plan Most likely UTI vs constipation vs SBO vs hernia vs adhesions UA is negative plan - will order a KUB - advised the patient to go to the ER due to the pain and the KUB was normal - needs further w/u to address her pain - pt was going to call her PCP first before going to the ER - advised her to get a CT for further evaluation Orders: Orders AMB Urinalysis Automated Today Z13.9 - Encounter for screening, unspecified XR KUB Today R10.20 - Pelvic and perineal pain unspecified side Coding Level of Care Code Est Pt Level 4 (89408) Diagnoses Pelvic pain R10.20
== END 2025-08-03 15:09 | disposition home or self-care (01) ==
PROVIDERS: PCP Internal Medicine; Visit Provider Physician Assistant Medical
DX: R10.20 Pelvic and perineal pain unspecified side (principal); Z13.9 Encounter for screening, unspecified

== ENCOUNTER 2025-08-03 13:15 | Outpatient (REF) | payer OTHER, SELFPAY ==
--- NOTE | ~2025-08-03 | XR_ITS ---
EXAMINATION: XR ABDOMEN KUB CLINICAL INDICATION: R10.20 - Pelvic and perineal pain unspecified side COMPARISON: CT November 11, 2022 TECHNIQUE: AP view of the abdomen. FINDINGS: Again seen are posterior pedicle screws and rods extending between T12 and S1. The right is broken on the right at L3, just above the pedicle screw. There are clips in right upper quadrant from cholecystectomy. There is a clip in the right hemipelvis. Metallic coils are visible lateral to the lower lumbar spine. A small amount of gas is present in the small bowel. Small amount stool is visualized in the colon. XR/XR KUB IMPRESSION: Normal bowel gas pattern. Stable broken emeli at L3 on the right after PLIF T12-S1. Electronically signed by: Cal Felipe MD 08/03/2025 02:34 PM EDT
== END 2025-08-03 13:16 | disposition home or self-care (01) ==
LOC: HO.HMGCX 13:15
PROVIDERS: PCP Internal Medicine; Visit Provider Physician Assistant Medical
DX: R10.20 Pelvic and perineal pain unspecified side (principal); Z13.89 Encounter for screening for other disorder
CPT/HCPCS: 74018; 81003; 99212

== ENCOUNTER → 2025-08-03 14:21 | Outpatient (BNV) | payer OTHER, SELFPAY | PROVIDERS: PCP Internal Medicine; Visit Provider Radiology Diagnostic Radiology | DX: R10.20 Pelvic and perineal pain unspecified side (principal); Z98.1 Arthrodesis status | CPT/HCPCS: 74018 ==

== ENCOUNTER 2025-08-04 15:26 | Outpatient (AMB) | payer OTHER, SELFPAY ==
[2025-08-04 15:29] VITALS: BP 118/60; PULSE 82; TEMP 36.3; O2SAT 97; BMI 26.9
--- NOTE | 2025-08-04 15:29 | A.OFFPC_ITS ---
Vital Signs 08/04/25 15:29 Height 5 ft 6 in Weight 166 lb 6 oz BMI 26.9 BP 118/60 Blood Pressure Location Lt brachial Position Sitting Pulse 82 Pulse Source Pulse Oximeter Temp 97.3 F Temp Source Temporal Artery Scan Pulse Oximetry (%) 97 Oxygen Delivery Method Room Air Intake Visit Reasons: Requesting CT scan Allergies codeine (Codeine) Allergy (Mild, Verified 08/04/25 16:19) N/V, HEADACHE, vomiting morphine (MORPHINE) Allergy (Unknown, Verified 08/04/25 16:19) VOMITING, HEADACHE, migraine, vomiting sulfamethoxazole (From Bactrim) Adverse Reaction (Intermediate, Verified 08/04/25 16:19) lip numbness trimethoprim (From Bactrim) Adverse Reaction (Intermediate, Verified 08/04/25 16:19) lip numbness ethyl chloride Allergy (Unknown, Uncoded 08/04/25 15:32) Unknown Tobacco use date assessed: 08/04/25 Dental Screening Dental Screen Date: 08/04/25 Did you have a dental visit in the last 12 months?: No Did you have a dental problem in the last 6 months where you did not have access to dental care?: No Was dental information given to patient?: Patient has dentist HPI Requesting CT scan HPI Details complains pain on the lower abdomen bilateral but R> L 4 days ago , nausea, , constipation, no dysuria, PFSH Medical History History of pheochromocytoma Anemia URI (upper respiratory infection) Breast cancer screening by mammogram Left flank discomfort History of medullary carcinoma of thyroid Left flank pain Multiple endocrine neoplasia type 2A (MEN2A) Medullary thyroid carcinoma Hypothyroid Pheochromocytoma of left adrenal gland Hypercholesterolemia COPD (chronic obstructive pulmonary disease) Pulmonary nodule Nicotine dependence, cigarettes, uncomplicated Osteopenia Irritable bowel syndrome with constipation Restless leg syndrome Anxiety Depression PONV (postoperative nausea and vomiting) Cervicalgia Pain in both feet Erosive (osteo)arthritis Bilateral hand pain Mass of left axilla Back pain Nevoid hyperpigmentation Neuritis of right ulnar nerve Neck pain Odynophagia Gout Surgical History S/P rotator cuff repair History of radical neck dissection (~01/2019) History of thyroidectomy (~03/2011) History of total adrenalectomy (~06/2018) History of laparoscopic cholecystectomy (~11/2022) History of total abdominal hysterectomy and bilateral salpingo-oophorectomy (~11/2013) History of tubal ligation (~10/2000) History of bilateral breast reduction surgery (~09/2019) History of repair of right rotator cuff (~04/2024) History of hand surgery (~02/2021) History of surgery on left wrist (~04/2010) History of fusion of lumbar spine History of tonsillectomy History of colonoscopy History of esophagogastroduodenoscopy (EGD) Family History Father Heart attack Mother Brain cancer Lung cancer Cervical cancer Family/Other Diabetes Sister Cervical cancer Lung cancer Daughter Breast cancer Social History Household Members: Spouse and Children Housing: Other Housing Other:: Trailer Alcohol intake: never Patient Tobacco Use Status: Current everyday Tobacco user Tobacco use type: Cigarette Cigarette Packs Per Day: 1 Cigarettes Per Day: 20 Years Smoked: (onset 14yo, 3/4-1ppd x 44yrs - 35pyh) e-Cigarette/Vaping Use: Never Used Second Hand Smoke Exposure: Yes Substance Use Type: Marijuana Current occupational status: disabled Current occupation: left handed Gender identity: Female Cognitive needs: No Hearing needs: No Vision needs: Yes Questionnaire PHQ-9 Over the last 2 weeks, how often have you been bothered by any of the following problems? 1. Little interest or pleasure in doing things: several days 2. Feeling down, depressed, or hopeless: several days 3. Trouble falling or staying asleep, or sleeping too much: several days 4. Feeling tired or having little energy: several days 5. Poor appetite or overeating: several days 6. Feeling bad about yourself - or that you are a failure or have let yourself or your family down: several days 7. Trouble concentrating on things, such as reading the newspaper or watching television: several days 8. Moving or speaking so slowly that other people could have noticed. Or the opposite - being so fidgety or restless that you have been moving around a lot more than usual: not at all 9. Thoughts that you would be better off or of hurting yourself in some way: not at all Total score: 7 Source: Developed by Drs. Moose Wright, [place]y [place] and colleagues, with an educational cheryl from [employer]. Thrive Questionnaire Date Thrive assessed: 05/19/25 I am a: Patient What is your living situation today?: I have a steady place to live Within the past 12 months, did the food you bought not last and you didn't have the money to get more?: Sometimes True Within the past 12 months, did you worry whether your food would run out before you got money to buy more?: Sometimes True Do you have trouble paying for medicines?: No Do you have trouble getting transportation to medical appointments?: No Do you have trouble paying your heating and electricity bill?: Yes Do you have trouble taking care of your child, family member or friend?: No Do you have trouble with day-to-day activities such as bathing, preparing meals, shopping, managing finances, etc.?: Yes Are you currently unemployed and looking for a job?: No Are you interested in more education?: No Please select the resources that you would like help with: None Currently or been in a relationship where the following occur: No concerns reported THRIVE Score: 3 AUDIT C Alcohol Use Questionnaire (AUDIT-C) 1. How often do you have a drink containing alcohol?: Never 3. How often do you have six or more drinks on one occasion?: Never Total Score: 0 JYOTHI-7 AMB Questionnaire JYOTHI-7 Date JYOTHI - 7 assessed: 02/21/25 Feeling nervous, anxious, or on edge: 0 = Not at all Not being able to stop or control worryin = Not at all Worrying too much about different things: 0 = Not at all Trouble relaxin = Not at all Being so restless that it is hard to sit still: 0 = Not at all Becoming easily annoyed or irritable: 0 = Not at all Feeling afraid as if something awful might happen: 0 = Not at all Total JYOTHI-7 score (0-4 normal; 5-9 mild; 10-14 moderate; 15-21 severe): 0 Source: Developed by Ira Osman Kurt Kroenke and colleagues, with an educational cheryl from [employer]. Physical exam (Primary Care) Vital Signs: Last Vital Signs Temp 97.3 F 08/04/25 15:29 Pulse 82 08/04/25 15:29 BP 118/60 08/04/25 15:29 Pulse Ox 97 08/04/25 15:29 Oxygen Delivery Method Room Air 08/04/25 15:29 BMI result Body Mass Index 26.9 Tobacco/Smoking Status: Tobacco use Status Tobacco use date assessed 08/04/25 08/04/25 15:33 Patient Tobacco Use Status Current everyday Tobacco 08/04/25 15:33 Tobacco use type Cigarette 08/04/25 15:33 e-Cigarette/Vaping Use Never Used 08/04/25 15:33 PHQ-9: PHQ-9 Score PHQ-9: Total score 7 08/04/25 15:33 Thrive Assessment: Date of Thrive Assessment Date Thrive assessed 05/19/25 08/04/25 15:33 Currently or been in a relationship where the following occur: No concerns reported Const General: alert; No acute distress Eyes Conjunctivae: conjunctivae normal Resp Auscultation: clear to auscultation bilaterally Cardio Rate: regular rate Rhythm: regular rhythm GI Other: Tender on the right lower quadrant with guarding and rebound Extrem General: Yes normal to inspection and No edema Coding Level of Care Code Est Pt Level 3 (12479) Diagnoses Acute abdomen R10.0 Assessment & Plan Assessment & Plan (1) Acute abdomen: Code(s): R10.0 - Acute abdomen Category: Medical Plan: RLQ concern about appendicitis. Patient was advised to go to the ER and ER has been notified. Plan History of Present Illness The patient is a 60-year-old female presenting with acute right lower quadrant abdominal pain. The pain began four days ago and has progressively worsened, becoming intolerable by the previous day. The patient reports nausea and constipation accompanying the abdominal pain. The patient has a history of multiple endocrine neoplasia, hypothyroidism, hypercholesterolemia, COPD, GERD, and generalized anxiety disorder. She has a history of smoking, which may contribute to her COPD. Preventative screenings include a mammogram in October 2024, a colonoscopy in 2018, and a bone density test in September 2021. Health Maintenance - Mammogram conducted in October 2024 - Colonoscopy performed in 2018 - Bone density test completed in September 2021 Social History - Smoking history noted, which may contribute to COPD Review of Systems - Gastrointestinal: Reports abdominal pain, nausea, and constipation - Genitourinary: Denies dysuria or urinary frequency Physical Exam - Abdominal: Tenderness in the right lower quadrant with guarding and rebound tenderness Results - Abdominal X-ray: No blockage observed - Urinalysis: No urinary tract infection detected Plan Patient was informed and verbally consented to the use of an ambient scribe for clinic note documentation during this visit. 1. Suspected Appendicitis The patient presents with right lower quadrant abdominal pain, guarding, and rebound tenderness, raising suspicion for appendicitis. Immediate referral to the emergency department was advised for further evaluation and potential surgical intervention. Discussion Notes I discussed with the patient the likelihood of appendicitis given the symptoms of right lower quadrant pain, guarding, and rebound tenderness. I advised her to proceed to the emergency department for further evaluation and possible surgical intervention. The risks of delaying treatment were explained, and the patient was informed about the potential need for surgery. Patient Instructions - Proceed to the emergency department immediately for further evaluation. - Be prepared for possible surgical intervention if appendicitis is confirmed.
== END 2025-08-04 17:20 | disposition home or self-care (01) ==
LOC: HO.HMCH 15:27
PROVIDERS: PCP Internal Medicine; Visit Provider Internal Medicine
DX: R10.0 Acute abdomen (principal)

== ENCOUNTER 2025-08-04 16:02 | Emergency (ER) | payer OTHER, SELFPAY ==
--- NOTE | ~2025-08-04 | CT_ITS ---
CLINICAL HISTORY: RLQ abdominal pain CT abdomen and pelvis with contrast Comparison: CT/SR - CT ABDOMEN PELVIS WITH IV CONTRAST - 11/11/22 09:30 EST Findings: LIMITED CHEST: Mild bronchiectasis and scarring/atelectasis at the lung bases. LIVER: Small hypoattenuating lesions, too small to characterize however may represent cysts. BILIARY: Cholecystectomy. PANCREAS: Small hypoattenuating lesions, too small to characterize. This is stable compared to prior exam. No main duct dilation. SPLEEN: No splenomegaly. Small calcified granuloma. KIDNEYS: No hydronephrosis or radiopaque stone. Small hypoattenuating lesions, too small to characterize however may represent cysts. ADRENALS: No nodule. VASCULAR: No aneurysm. RETROPERITONEUM: No lymphadenopathy or mass. BOWEL/MESENTERY: No evidence of obstruction. No free fluid or air. Normal appendix. ABDOMINAL WALL: No mass or significant abnormality. URINARY BLADDER: No focal wall thickening. PELVIC NODES: No pelvic lymphadenopathy. PELVIC ORGANS: Hysterectomy. BONES: No acute fracture. Extensive fusion hardware of the thoracolumbar spine. OTHER: Negative. IMPRESSION: No acute findings. Normal appendix. This document has been electronically signed by: Melissa Kurtz MD on 08/04/2025 21:12:31
[2025-08-04 16:16] VITALS: BP 129/64; PULSE 76; RESP 20; TEMP 36.3; O2SAT 97; BMI 26.5
--- NOTE | 2025-08-04 16:18 | ED.GENADULT ---
HPI - General Adult General Chief complaint: Abdominal Pain Stated complaint: abd pain (?appendicitis sent by dr. white) Time Seen by Provider: 08/04/25 17:31 History of Present Illness ED Provider: Dr. Maki HPI narrative: 60 y/o F patient; PMH oophrectomy, hysterectomy, cholecystectomy, hx pheochromocytoma, hypothyroidism, HLD, GERD, COPD; presents from home with report of right lower abdominal pain since Friday. The patient went to Urgent Care on Friday where she states she had an XR of her abdomen that was reassuring. She then saw her PCP this morning and was referred to the emergency department. The patient endorses associated nausea without vomiting. She otherwise denies: fever or chills, dysura/hematuria/frequency. Related Data Home Medications ?Medication ?Instructions ?Recorded ?Confirmed sertraline 150 mg capsule 100 mg PO DAILY 08/03/25 Previous Rx's ?Medication ?Instructions ?Recorded levalbuterol tartrate 45 2 puff inhalation Q4-6H PRN 12/22/22 mcg/actuation aerosol inhaler shortness of breath 90 days #15 (Xopenex HFA) grams cholecalciferol (vitamin D3) 50 50 mcg PO DAILY #90 tabs 02/21/25 mcg (2,000 unit) tablet Synthroid 112 mcg tablet 112 mcg PO DAILY #90 tabs 02/22/25 (levothyroxine) cetirizine 10 mg tablet (Allergy 10 mg PO DAILY #90 tabs 04/27/25 Relief (cetirizine)) ropinirole 0.5 mg tablet 0.5 mg PO BEDTIME #90 tabs 05/23/25 bisacodyl 5 mg tablet,delayed 15 mg (3 x 5 mg) PO BEDTIME #270 06/22/25 release tabs omeprazole 20 mg capsule,delayed 20 mg PO DAILY #90 caps 06/22/25 release ascorbate calcium (vitamin C) 500 500 mg PO DAILY #90 tabs 06/24/25 mg tablet ropinirole 1 mg tablet 1 mg PO BEDTIME #180 tabs 06/28/25 aspirin 81 mg tablet,delayed 81 mg PO DAILY #90 tabs 07/08/25 release (Adult Aspirin Regimen) azelastine 137 mcg (0.1 %) nasal 1 spray intranasal BID #30 mL 07/19/25 spray amitriptyline 75 mg tablet 75 mg PO BEDTIME 90 days #90 tabs 08/02/25 Allergies Allergy/AdvReac Type Severity Reaction Status Date / Time codeine (Codeine) Allergy Mild N/V, Verified 08/04/25 16:19 HEADACHE, vomiting morphine (MORPHINE) Allergy Unknown VOMITING, Verified 08/04/25 16:19 HEADACHE, migraine, vomiting sulfamethoxazole (From AdvReac Intermediate lip Verified 08/04/25 16:19 Bactrim) numbness trimethoprim (From Bactrim) AdvReac Intermediate lip Verified 08/04/25 16:19 numbness ethyl chloride Allergy Unknown Unknown Uncoded 08/04/25 15:32 Review of Systems Review of Systems: Yes all other systems are reviewed and are negative PMFSH Past Medical History Attestation statement: The following information was validated with the patient. Source: old records reviewed Medical History History of pheochromocytoma Anemia URI (upper respiratory infection) Breast cancer screening by mammogram Left flank discomfort History of medullary carcinoma of thyroid Left flank pain Multiple endocrine neoplasia type 2A (MEN2A) Medullary thyroid carcinoma Hypothyroid Pheochromocytoma of left adrenal gland Hypercholesterolemia COPD (chronic obstructive pulmonary disease) Pulmonary nodule Nicotine dependence, cigarettes, uncomplicated Osteopenia Irritable bowel syndrome with constipation Restless leg syndrome Anxiety Depression PONV (postoperative nausea and vomiting) Cervicalgia Pain in both feet Erosive (osteo)arthritis Bilateral hand pain Mass of left axilla Back pain Nevoid hyperpigmentation Neuritis of right ulnar nerve Neck pain Odynophagia Gout Surgical History S/P rotator cuff repair History of radical neck dissection (~01/2019) History of thyroidectomy (~03/2011) History of total adrenalectomy (~06/2018) History of laparoscopic cholecystectomy (~11/2022) History of total abdominal hysterectomy and bilateral salpingo-oophorectomy (~11/2013) History of tubal ligation (~10/2000) History of bilateral breast reduction surgery (~09/2019) History of repair of right rotator cuff (~04/2024) History of hand surgery (~02/2021) History of surgery on left wrist (~04/2010) History of fusion of lumbar spine History of tonsillectomy History of colonoscopy History of esophagogastroduodenoscopy (EGD) Family History Family History Father Heart attack Mother Brain cancer Lung cancer Cervical cancer Family/Other Diabetes Sister Cervical cancer Lung cancer Daughter Breast cancer Social History Social History Household Members: Spouse and Children Housing: Other Housing Other:: Trailer Alcohol intake: never Patient Tobacco Use Status: Current everyday Tobacco user Tobacco use type: Cigarette Cigarette Packs Per Day: 1 Cigarettes Per Day: 20 Years Smoked: (onset 14yo, 3/4-1ppd x 44yrs - 35pyh) Smoked in Last 30 Days: Yes e-Cigarette/Vaping Use: Never Used Second Hand Smoke Exposure: Yes Use of substances other than those prescribed or required for medical reasons: Yes Substance Use Type: Marijuana Substance Use Frequency: Occasionally Substance Use Frequency Other:: marijuana gummies once or twice a month Advance Directives: No Advance Directives Information Provided: No Do you have a plan to hurt others: No Plan Patient : No Current occupational status: disabled Current occupation: left handed Gender identity: Female Cognitive needs: No Hearing needs: No Vision needs: Yes Physical Exam ED Vital Signs: Vital Signs - 24 hr 08/04/25 16:16 08/04/25 17:29 Temperature 97.4 F 98.3 F Pulse Rate 76 64 Respiratory Rate 20 18 Blood Pressure 129/64 126/62 Pulse Oximetry 97 97 Oxygen Delivery Method Room Air Room Air BMI result Body Mass Index 26.5 Patient is afebrile and hemodynamically stable. Const General: cooperative and no acute distress HENMT Head: Yes normal to inspection and Yes atraumatic Eyes General: appearance normal, both eyes and all related structures Pupils: Equal, round and reactive pupils present EOM: EOMs intact bilaterally Neck Neck: Yes normal visual inspection, Yes full ROM, Yes supple and No tender Chest Chest palpation & inspection: normal inspection of the chest and normal palpation of entire chest wall Resp Effort & Inspection: normal respiratory effort, able to speak in complete sentences and no cough Auscultation: clear to auscultation bilaterally Cardio Rate: regular rate Rhythm: regular rhythm Peripheral pulses: Peripheral pulses 2+ throughout GI Other: + RLQ abdominal tenderness Inspection: Yes normal to inspection, No Abdominal wall edema and No distended Palpation (GI): Soft to palpation, not firm, no guarding and not rigid Auscultation: normal bowel sounds Back/Spine/Pelvis Back: No back tenderness Neuro Cranial nerves: Yes Equal, round and reactive pupils present Course Course Course Narrative: This is a rapid medical exam performed by Tam Mariano NP: Additional HPI, ROS, PE not included below will be deferred to primary provider. Patient is a 60y/o F with history of MEN2A, hypothyroid, COPD, GERD, total hysterectmy referred to the ED by Dr. White to r/o appendicitis. He notes severe RLQ tenderness with rebound tenderness. Patient states pain began Friday night and has worsened since. Nausea without vomiting. Plan: Labs Reevaluation(s) Reevaluation #1: Patient is afebrile and hemodynamically stable. Reviewed triage work up. No significant leukocytosis or anemia. UA is unremarkable for cystitis or hematuria. CT Abdomen/Pelvis ordered. Provided symptom control with tylenol, zofran, and 1L IVF. CT scan is unremarkable for acute pathology. Patient is tolerating sips of PO. She is ambulatory without difficulty. Plan: Discharge to home with PCP follow up Return precautions given Medications Administered Discontinued Medications Generic Name Dose Route Start Last Admin Trade Name Freq PRN Reason Stop Dose Admin Sodium Chloride 1,000 mls @ 999 mls/hr 08/04/25 18:45 08/04/25 18:52 Ns IV 08/04/25 19:45 999 mls/hr .Q1H1M ALEX Administration Acetaminophen 1,000 mg in 100 mls @ 400 mls/hr 08/04/25 18:31 08/04/25 18:53 Ofirmev IV 08/04/25 18:45 400 mls/hr ONCE ONE Administration Iohexol 100 ml 08/04/25 20:31 08/04/25 20:31 Iohexol 350 Mg/Ml 100 Ml Infus..Btl IV 08/04/25 20:32 85 ml ONCE ONE Administration Ondansetron HCl 4 mg 08/04/25 18:31 08/04/25 18:51 Ondansetron Hcl 4 Mg/2 Ml Vial IVPUSH 08/04/25 18:32 4 mg ONCE ONE Administration Medical Decision Making Lab Data 08/04/25 16:45 10/09/25 16:45 Labs: Lab Results 08/04/25 Range/Units 16:45 WBC 9.3 (4.8-10.8) X10*3/uL RBC 4.66 (4.20-5.50) X10*6/uL Hgb 13.4 (12.0-16.0) g/dl Hct 41.2 (37.0-47.0) % MCV 88.4 (80.0-98.0) fL MCH 28.8 (27.0-33.0) pg MCHC 32.5 (31.0-35.0) g/dl RDW 14.5 (11.0-16.0) % Plt Count 250 (160-400) X10*3/uL MPV 11.4 (9.4-12.3) fL Immature Gran % (Auto) 0.4 (0.0-0.4) % Neut % (Auto) 58.0 (45-73) % Lymph % (Auto) 31.9 (20-40) % Wilkin % (Auto) 7.3 (2-11) % Eos % (Auto) 1.8 (0-4) % Baso % (Auto) 0.6 (0-2) % Lymph # (Auto) 3.0 (1.2-4.9) X10*3/uL Wilkin # (Auto) 0.7 (0.1-1.2) X10*3/uL Eos # (Auto) 0.2 (0.0-0.4) X10*3/uL Baso # (Auto) 0.1 (0.0-0.2) X10*3/uL Abs Immat Gran (auto) 0.04 H (0.00-0.03) X10*3/uL Absolute Neuts (auto) 5.4 (2.0-8.3) x10*3/uL Absolute Nucleated RBC 0.000 (0.0-0.012) X10*3/uL Nucleated RBC % (auto) 0.0 (0.0-0.2) /100WBC Sodium 141 (135-145) mmol/L Potassium 4.0 (3.3-5.1) mmol/L Chloride 107 (96-108) mmol/L Carbon Dioxide 26 (22-29) mmol/L Anion Gap 12 (12-20) BUN 13 (9-16) mg/dL Creatinine 0.76 (0.5-1.4) mg/dL Estim Creat Clear Calc 82.3 Estimated GFR > 60 Random Glucose 76 (60-115) mg/dL Calcium 9.1 (8.4-10.2) mg/dL Total Bilirubin 0.2 (0.0-1.0) mg/dL AST 15 (5-31) U/L ALT 13 (0-31) U/L Alkaline Phosphatase 89 (39-117) U/L Total Protein 6.9 (6.5-8.0) g/dL Albumin 4.2 (3.5-5.0) g/dL Urine Color Yellow Urine Appearance Clear Urine pH 6.5 (5.0-9.0) Ur Specific [place] 1.010 (1.005-1.025) Urine Protein Negative (Neg-Trace) mg/dL Urine Glucose (UA) Negative (Negative) mg/dL Urine Ketones Negative (Negative) mg/dL Urine Blood Negative (Negative) Urine Nitrite Negative (Negative) Ur Leukocyte Esterase Negative (Negative) Radiology Impression Discussion of test interpretation with radiology: I have reviewed the radiologist's reading. Radiologist Impression: CLINICAL HISTORY: RLQ abdominal pain CT abdomen and pelvis with contrast Comparison: CT/SR - CT ABDOMEN PELVIS WITH IV CONTRAST - 11/11/22 09:30 EST Findings: LIMITED CHEST: Mild bronchiectasis and scarring/atelectasis at the lung bases. LIVER: Small hypoattenuating lesions, too small to characterize however may represent cysts. BILIARY: Cholecystectomy. PANCREAS: Small hypoattenuating lesions, too small to characterize. This is stable compared to prior exam. No main duct dilation. SPLEEN: No splenomegaly. Small calcified granuloma. KIDNEYS: No hydronephrosis or radiopaque stone. Small hypoattenuating lesions, too small to characterize however may represent cysts. ADRENALS: No nodule. VASCULAR: No aneurysm. RETROPERITONEUM: No lymphadenopathy or mass. BOWEL/MESENTERY: No evidence of obstruction. No free fluid or air. Normal appendix. ABDOMINAL WALL: No mass or significant abnormality. URINARY BLADDER: No focal wall thickening. PELVIC NODES: No pelvic lymphadenopathy. PELVIC ORGANS: Hysterectomy. BONES: No acute fracture. Extensive fusion hardware of the thoracolumbar spine. OTHER: Negative. IMPRESSION: No acute findings. Normal appendix. This document has been electronically signed by: Melissa Kurtz MD on 08/04/2025 21:12:31 Discharge Plan Discharge Clinical Impression: Abdominal pain Patient Disposition: Home, Self-Care Instructions: Abdominal Pain (ED) Additional Instructions: You were seen today for right sided abdominal pain. Your labs and CT scan were reassuring without an obvious cause to your pain. Please follow up with your PCP in the morning for a re-evaluation and to discuss further out-patient work up. Return to the emergency department for: Worsening pain Fever Vomiting where you cannot drink water CLINICAL HISTORY: RLQ abdominal pain CT abdomen and pelvis with contrast Comparison: CT/SR - CT ABDOMEN PELVIS WITH IV CONTRAST - 11/11/22 09:30 EST Findings: LIMITED CHEST: Mild bronchiectasis and scarring/atelectasis at the lung bases. LIVER: Small hypoattenuating lesions, too small to characterize however may represent cysts. BILIARY: Cholecystectomy. PANCREAS: Small hypoattenuating lesions, too small to characterize. This is stable compared to prior exam. No main duct dilation. SPLEEN: No splenomegaly. Small calcified granuloma. KIDNEYS: No hydronephrosis or radiopaque stone. Small hypoattenuating lesions, too small to characterize however may represent cysts. ADRENALS: No nodule. VASCULAR: No aneurysm. RETROPERITONEUM: No lymphadenopathy or mass. BOWEL/MESENTERY: No evidence of obstruction. No free fluid or air. Normal appendix. ABDOMINAL WALL: No mass or significant abnormality. URINARY BLADDER: No focal wall thickening. PELVIC NODES: No pelvic lymphadenopathy. PELVIC ORGANS: Hysterectomy. BONES: No acute fracture. Extensive fusion hardware of the thoracolumbar spine. OTHER: Negative. IMPRESSION: No acute findings. Normal appendix. This document has been electronically signed by: Melissa Kurtz MD on 08/04/2025 21:12:31 Prescriptions: No Action levalbuterol tartrate [Xopenex HFA] 45 mcg/actuation HFA aerosol inhaler 2 puff inhalation Q4-6H PRN (Reason: shortness of breath) 90 Days Qty: 15 0RF cetirizine [Allergy Relief (cetirizine)] 10 mg tablet 10 mg PO DAILY Qty: 90 1RF ropinirole 0.5 mg tablet 0.5 mg PO BEDTIME Qty: 90 1RF Rx Instructions: administer 1-3 hours before bedtime. Take along with 1 mg tablet for total dose of 1.5 mg. ascorbate calcium (vitamin C) 500 mg tablet 500 mg PO DAILY Qty: 90 0RF ropinirole 1 mg tablet 1 mg PO BEDTIME Qty: 180 0RF Rx Instructions: administer 1-3 hours before bedtime aspirin [Adult Aspirin Regimen] 81 mg tablet,delayed release (DR/EC) 81 mg PO DAILY Qty: 90 0RF azelastine 137 mcg (0.1 %) spray,non-aerosol 1 spray intranasal BID Qty: 30 0RF amitriptyline 75 mg tablet 75 mg PO BEDTIME 90 Days Qty: 90 2RF levothyroxine [Synthroid] 112 mcg tablet 112 mcg PO DAILY Qty: 90 3RF omeprazole 20 mg capsule,delayed release(DR/EC) 20 mg PO DAILY Qty: 90 2RF bisacodyl 5 mg tablet,delayed release (DR/EC) 15 mg PO BEDTIME Qty: 270 1RF cholecalciferol (vitamin D3) 50 mcg (2,000 unit) tablet 50 mcg PO DAILY Qty: 90 3RF sertraline 150 mg capsule 100 mg PO DAILY Print Language: Jamaican
[2025-08-04 16:55] LABS: MANUAL DIFF FLAG NO
[2025-08-04 16:56] LABS: Hematocrit 41.2 % (37.0-47.0); Hemoglobin 13.4 g/dl (12.0-16.0); Imm Gran Abs Auto 0.04 X10*3/uL (0.00-0.03); Imm Gran Pct Auto 0.4 % (0.0-0.4); Lymphocytes Absolute Auto 3.0 X10*3/uL (1.2-4.9); Mean Corpuscular HGB Conc 32.5 g/dl (31.0-35.0); Mean Corpuscular Hemoglobin 28.8 pg (27.0-33.0); Mean Corpuscular Volume 88.4 fL (80.0-98.0); NRBC Abs Auto 0.000 X10*3/uL (0.0-0.012); NRBC Pct Auto 0.0 /100WBC (0.0-0.2); Platelet Count 250 X10*3/uL (160-400); Red Blood Count 4.66 X10*6/uL (4.20-5.50); White Blood Count 9.3 X10*3/uL (4.8-10.8)
[2025-08-04 16:57] LABS: Appearance Urine Clear; Glucose Urine UA Negative (Negative); PH 6.5 (5.0-9.0); Specific Gravity - Urine 1.010 (1.005-1.025)
[2025-08-04 17:17] LABS: Alanine Aminotransferase 13 U/L (0-31); Albumin Level 4.2 g/dL (3.5-5.0); Alkaline Phosphatase 89 U/L (39-117); Anion Gap 12 (12-20); Aspartate Amino Transferase 15 U/L (5-31); Blood Urea Nitrogen 13 mg/dL (9-16); Calcium 9.1 mg/dL (8.4-10.2); Carbon Dioxide 26 mmol/L (22-29); Chloride 107 mmol/L (96-108); Creatinine Clr Calc Pharmacy 82.3; Estimated Glomerular Filt Rate > 60; Potassium 4.0 mmol/L (3.3-5.1); Sodium 141 mmol/L (135-145); Total Protein 6.9 g/dL (6.5-8.0)
[2025-08-04 17:29] VITALS: BP 126/62; PULSE 64; RESP 18; TEMP 36.8; O2SAT 97
--- NOTE | 2025-08-04 17:50 | PC.NURSE ---
patient a&ox3, vss, c/o 04/05 rlq pain, rr equal/non labored, labs previously drawn in triage, pt awaiting evaluation by provider, call felix within reach, family at bedside
[2025-08-04] MEDS: iohexoL 350 MG/ML 100 ML INFUS..BTL IV (20:31)
[2025-08-04 21:50] VITALS: BP 127/67; PULSE 61; RESP 18; TEMP 36.5; O2SAT 97
[2025-08-04 21:58] VITALS: BP 127/67; PULSE 61; RESP 18; TEMP 36.5; O2SAT 97
== END 2025-08-04 22:00 | disposition home or self-care (01) ==
PROVIDERS: Registered Nurse Emergency; Emergency Provider Emergency Medicine; PCP Internal Medicine
DX: R10.31 Right lower quadrant pain (principal); J44.9 Chronic obstructive pulmonary disease, unspecified; F17.210 Nicotine dependence, cigarettes, uncomplicated; Z90.49 Acquired absence of other specified parts of digestive tract; Z90.710 Acquired absence of both cervix and uterus; Z90.722 Acquired absence of ovaries, bilateral; Z88.5 Allergy status to narcotic agent
CPT/HCPCS: 36415; 74177; 80053; 81003; 85025; 96361; 96374; 96375; 99212; 99285; J0131; J2405; Q9967

== ENCOUNTER → 2025-08-04 18:21 | Outpatient (BNV) | payer OTHER, SELFPAY | PROVIDERS: Emergency Provider Emergency Medicine; PCP Internal Medicine; Visit Provider Student in an Organized Health Care Education/Training Program | DX: R10.31 Right lower quadrant pain (principal) | CPT/HCPCS: 74177 ==

== ENCOUNTER 2025-08-12 07:20 | Emergency (ER) | payer OTHER, SELFPAY ==
--- NOTE | ~2025-08-12 | CT_ITS ---
EXAMINATION: CT ABDOMEN PELVIS WITH IV CONTRAST HISTORY: abdominal pain, nausea, distention eval for SBO COMPARISON: Comparison is made with the prior examination dated 08/04/2025. TECHNIQUE: CT scan of the abdomen and pelvis was performed following administration of 85 mL Omnipaque 350 using standard departmental protocol. Coronal and sagittal reformatted images were generated and reviewed. Oral contrast material was not administered at the request of the referring physician. This CT exam was performed with one or more of the following dose reduction techniques: automated exposure control, adjustment of the mA and/or kV according to patient size, use of iterative reconstruction technique. DLP: 529 mGy-cm FINDINGS: LOWER CHEST: There is subsegmental atelectasis at the lung bases. There is no pleural effusion. CARDIOVASCULATURE: The heart is normal in size. There is no pericardial effusion. LIVER: The liver is normal in size and contour. No liver mass is identified. The hepatic and portal veins are patent. GALLBLADDER / BILE DUCTS: The gallbladder is surgically absent. There is no intra or extrahepatic biliary ductal dilatation. SPLEEN: The spleen is normal in size. No focal splenic lesion is identified. PANCREAS: The pancreas is unremarkable in appearance. ADRENAL GLANDS: Within normal limits. KIDNEYS/RETROPERITONEUM: No renal calculi are identified. There is no hydronephrosis. No renal masses are identified. LYMPH NODES: No abdominal or pelvic lymphadenopathy. VASCULATURE: The abdominal aorta is normal in caliber. MESENTERY/PERITONEUM: No free fluid. No masses. There is no free intraperitoneal gas. STOMACH: The stomach is collapsed, limiting evaluation. SMALL BOWEL: The small bowel is normal in caliber. COLON: There is a large amount of stool in the rectum and a moderate amount of stool in the remainder of the colon. APPENDIX: Normal. URINARY BLADDER/PELVIC ORGANS: The urinary bladder is collapsed, limiting evaluation. The patient is status post hysterectomy. BONES / SOFT TISSUES: There is fusion of the entire spine with pedicle screws and spinal stabilization rods. CT/CT abdomen pelvis w IV con IMPRESSION: Large amount of stool in the rectum and a moderate amount of stool in the colon. No evidence of small bowel obstruction. Electronically signed by: Moose Gtz MD 08/12/2025 09:42 AM EDT RP
--- NOTE | 2025-08-12 07:22 | ED_ITS ---
HPI - Abdominal Pain General Chief Complaint: Abdominal Pain Stated Complaint: bowel blockage? Time Seen by Provider: 08/12/25 07:21 Source: patient and old records reviewed Mode of arrival: ambulatory Limitations: no limitations History of Present Illness ED Provider: BRADLEY HPI narrative: 60 yo female with PMH of HLD, GERD, COPD, arthritis, MEN2a, sig abdominal surgery including lap cholecystectomy, tubal ligation, L sided adrenalectomy for pheochromocytoma, RAMIREZ and BSO, medullary thyroid cancer s/p dissection here with c/o abdominal pain for the past week diffuse but now much worse with dry heaves over the past 3 days. She has not had a BM in one week. She is passing flatus. She has no fevers. She has never had an obtruction before. She also feels when she tries to urinate it throws her into a spasm and she feels her genital area is swollen. She has no rash. She tried OTC laxatives and a fleet enema but has no relief. MD elicited complaint: abdominal pain Pertinent past history: other Onset (ago): day(s) (5) Pain Consistency: constant Location: diffuse Severity: severe Quality: cramping and aching Radiation: none Migration to: no migration Exacerbating factors: bowel movement and other Relieving factors: nothing Associated symptoms: nausea and constipation Related Data Home Medications ?Medication ?Instructions ?Recorded ?Confirmed sertraline 150 mg capsule 100 mg PO DAILY 08/03/25 Previous Rx's ?Medication ?Instructions ?Recorded levalbuterol tartrate 45 2 puff inhalation Q4-6H PRN 12/22/22 mcg/actuation aerosol inhaler shortness of breath 90 d ays #15 (Xopenex HFA) grams cholecalciferol (vitamin D3) 50 50 mcg PO DAILY #90 ta bs 02/21/25 mcg (2,000 unit) tablet Synthroid 112 mcg tablet 112 mcg PO DAILY #90 tabs (levothyroxine) cetirizine 10 mg tablet (Allergy 10 mg PO DAILY #90 ta bs 04/27/25 Relief (cetirizine)) ropinirole 0.5 mg tablet 0.5 mg PO BEDTIME #90 tabs 0 05/23/25 bisacodyl 5 mg tablet,delayed 15 mg (3 x 5 mg) PO BEDT WANDA #270 06/22/25 release tabs omeprazole 20 mg capsule,delayed 20 mg PO DAILY #90 ca ps 06/22/25 release ascorbate calcium (vitamin C) 500 500 mg PO DAILY #90 tabs 06/24/25 mg tablet ropinirole 1 mg tablet 1 mg PO BEDTIME #180 tabs aspirin 81 mg tablet,delayed 81 mg PO DAILY #90 tabs 0 07/08/25 release (Adult Aspirin Regimen) azelastine 137 mcg (0.1 %) nasal 1 spray intranasal BI D #30 mL 07/19/25 spray amitriptyline 75 mg tablet 75 mg PO BEDTIME 90 days #9 0 tabs 08/02/25 docusate sodium 100 mg capsule 100 mg PO BID PRN const ipation #30 08/12/25 (Colace) caps lidocaine 5 % topical patch 2 patch topical DAILY #60 ea 08/12/25 ondansetron 4 mg disintegrating 4 mg PO Q8H PRN nausea and 08/12/25 tablet vomiting #20 tabs sennosides 8.6 mg capsule (senna) 8.6 mg PO BEDTIME AK N constipation 08/12/25 #30 caps Allergies Allergy/AdvReac Type Severity Reaction Status Date / Time codeine (Codeine) Allergy Mild N/V, Verified 08/12/25 07:28 HEADACHE, vomiting morphine (MORPHINE) Allergy Unknown VOMITING, Verified 08/12/25 07:28 HEADACHE, migraine, vomiting sulfamethoxazole (From AdvReac Intermediate lip Verified 08/12/25 07:28 Bactrim) numbness trimethoprim (From Bactrim) AdvReac Intermediate lip Verified 08/12/25 07:28 numbness ethyl chloride Allergy Unknown Unknown Uncoded 08/04/25 15:32 Review of Systems Review of Systems Constitutional : No Weight loss, No Fever, No Chills ENT/Mouth : No sore throat, No Rhinorrhea Eyes: No Swelling, No Redness Cardiovascular : No Chest Pain, No SOB, NoEdema Respiratory : No Cough, No Sputum, No Wheezing Gastrointestinal : Positive Nausea, no Vomiting, noDiarrhea, positive abdominal Pain, No Hematochezia, No Melena, pos constipation Genitourinary : pos Dysuria, No Urinary Frequency, No Hematuria, No Urgency Musculoskeletal : No joint pain, No Myalgias, No Joint Swelling Skin : No Skin Lesions, No rash All other systems reviewed and are negative. [facility] Past Medical History Attestation statement: The following information was validated with the patient. Source: old records reviewed Medical History History of pheochromocytoma Anemia URI (upper respiratory infection) Breast cancer screening by mammogram Left flank discomfort History of medullary carcinoma of thyroid Left flank pain Multiple endocrine neoplasia type 2A (MEN2A) Medullary thyroid carcinoma Hypothyroid Pheochromocytoma of left adrenal gland Hypercholesterolemia COPD (chronic obstructive pulmonary disease) Pulmonary nodule Nicotine dependence, cigarettes, uncomplicated Osteopenia Irritable bowel syndrome with constipation Restless leg syndrome Anxiety Depression PONV (postoperative nausea and vomiting) Cervicalgia Pain in both feet Erosive (osteo)arthritis Bilateral hand pain Mass of left axilla Back pain Nevoid hyperpigmentation Neuritis of right ulnar nerve Neck pain Odynophagia Gout Surgical History S/P rotator cuff repair History of radical neck dissection (~01/2019) History of thyroidectomy (~03/2011) History of total adrenalectomy (~06/2018) History of laparoscopic cholecystectomy (~11/2022) History of total abdominal hysterectomy and bilateral salpingo-oophorectomy (~11/2013) History of tubal ligation (~10/2000) History of bilateral breast reduction surgery (~09/2019) History of repair of right rotator cuff (~04/2024) History of hand surgery (~02/2021) History of surgery on left wrist (~04/2010) History of fusion of lumbar spine History of tonsillectomy History of colonoscopy History of esophagogastroduodenoscopy (EGD) Family History Family History Father Heart attack Mother Brain cancer Lung cancer Cervical cancer Family/Other Diabetes Sister Cervical cancer Lung cancer Daughter Breast cancer Social History Social History Household Members: Spouse and Children Housing: Other Housing Other:: Trailer Alcohol intake: never Patient Tobacco Use Status: Current everyday Tobacco user Tobacco use type: Cigarette Cigarette Packs Per Day: 1 Cigarettes Per Day: 20 Years Smoked: (onset 14yo, 3/4-1ppd x 44yrs - 35pyh) e-Cigarette/Vaping Use: Never Used Second Hand Smoke Exposure: Yes Substance Use Type: Marijuana Advance Directives: No Advance Directives Information Provided: Yes Patient : No Current occupational status: disabled Current occupation: left handed Gender identity: Female Cognitive needs: No Hearing needs: No Vision needs: Yes Physical Exam ED Vital Signs: Vital Signs - 24 hr 08/12/25 07:25 08/12/25 10:15 Temperature 98.5 F 97.9 F Pulse Rate 86 69 Respiratory Rate 16 15 Blood Pressure 127/74 134/73 Pulse Oximetry 95 95 Oxygen Delivery Method Room Air Room Air BMI result Body Mass Index 26.1 Appearance: Alert. Oriented X3. in pain mild acute distress. Eyes: Pupils equal, round and reactive to light. ENT: Pharynx dry MM Neck: Normal inspection. Neck supple. CVS: Normal heart rate and rhythm. Pulses normal. Respiratory: No respiratory distress. Breath sounds normal. Abdomen: Soft with mild distention and diffuse ttp no rebound but she is guarding Skin: Skin warm and dry. pale skin color. Extremities: No lower extremity edema. Neuro: Oriented X 3. No motor deficit. No sensory deficit. Procedures Rectal Disimpaction Time out performed rectal disimpaction: Yes Indication: fecal impaction Procedural Sedation: No Sedation/Analgesia: benzodiazepines Technique: manual disimpaction with gloved finger Result: significant stool output Patient Tolerated Procedure: well and no complications Medical Decision Making Medical Decision Making [facility] Narrative: 60 yo female with PMH of HLD, GERD, COPD, arthritis, MEN2a, sig abdominal surgery including lap cholecystectomy, tubal ligation, adrenalectomy for pheochromocytoma, RAMIREZ and BSO, here with c/o diffuse abdominal pain now notes distention, constipation, lack of flatus, dry heaving. At this time she will need IVF, IV pain control, repeat imaging for SBO given her complaints and sig prior surgery Differential Diagnosis Differential Diagnoses: The differential diagnosis associated with the presentation includes enteritis, SBO, constipation, urinary pathology Admission/Observation Consideration of admission/observation: Escalation of care including admission/observation considered no obstruction has constipation will dose with lactulose and SS enema + BM wants to go home Lab Data [facility] Lab Attestation statement: I reviewed the patient's lab results. 08/12/25 07:47 08/12/25 07:47 Labs: Lab Results 08/12/25 08/12/25 Range/Units 07:47 08:48 WBC 14.1 H (4.8-10.8) X10*3/uL RBC 4.94 (4.20-5.50) X10*6/uL Hgb 14.1 (12.0-16.0) g/dl Hct 43.0 (37.0-47.0) % MCV 87.0 (80.0-98.0) fL MCH 28.5 (27.0-33.0) pg MCHC 32.8 (31.0-35.0) g/dl RDW 14.5 (11.0-16.0) % Plt Count 297 (160-400) X10*3/uL MPV 11.5 (9.4-12.3) fL Immature Gran % (Auto) 0.4 (0.0-0.4) % Neut % (Auto) 83.9 H (45-73) % Lymph % (Auto) 9.8 L (20-40) % Mathews % (Auto) 5.4 (2-11) % Eos % (Auto) 0.1 (0-4) % Baso % (Auto) 0.4 (0-2) % Lymph # (Auto) 1.4 (1.2-4.9) X10*3/uL Mathews # (Auto) 0.8 (0.1-1.2) X10*3/uL Eos # (Auto) 0.0 (0.0-0.4) X10*3/uL Baso # (Auto) 0.1 (0.0-0.2) X10*3/uL Abs Immat Gran (auto) 0.06 H (0.00-0.03) X10*3/uL Absolute Neuts (auto) 11.8 H (2.0-8.3) x10*3/uL Absolute Nucleated RBC 0.000 (0.0-0.012) X10*3/uL Nucleated RBC % (auto) 0.0 (0.0-0.2) /100WBC Sodium 141 (135-145) mmol/L Potassium 4.0 (3.3-5.1) mmol/L Chloride 108 (96-108) mmol/L Carbon Dioxide 26 (22-29) mmol/L Anion Gap 11 L (12-20) BUN 9 (9-16) mg/dL Creatinine 0.66 (0.5-1.4) mg/dL Estim Creat Clear Calc 94.1 Estimated GFR > 60 Random Glucose 121 H (60-115) mg/dL Calcium 9.0 (8.4-10.2) mg/dL Magnesium 2.3 (1.6-2.6) mg/dL Total Bilirubin 0.4 (0.0-1.0) mg/dL Direct Bilirubin 0.2 (0.0-0.5) mg/dL AST 19 (5-31) U/L ALT 13 (0-31) U/L Alkaline Phosphatase 101 (39-117) U/L Total Protein 7.2 (6.5-8.0) g/dL Albumin 4.4 (3.5-5.0) g/dL Lipase 13 (8-78) U/L Urine Color Yellow Urine Appearance Clear Urine pH 8.0 (5.0-9.0) Ur Specific Barwick <= 1.005 (1.005-1.025) Urine Protein Negative (Neg-Trace) mg/dL Urine Glucose (UA) Negative (Negative) mg/dL Urine Ketones Negative (Negative) mg/dL Urine Blood Negative (Negative) Urine Nitrite Negative (Negative) Ur Leukocyte Esterase Negative (Negative) Independent Interpretation I performed an independent interpretation of an: CT Scan (constipation) Radiology Impression Discussion of test interpretation with radiology: I have reviewed the radiologist's reading. Independent Historian Clinical information obtained from an independent historian. History obtained from or confirmed by: Other (family) External Record Review External record reviewed: Outpatient record Prescription Management I considered prescription management with: Other Medications Administered Discontinued Medications Generic Name Dose Route Start Last Admin Trade Name Freq PRN Reason Stop Dose Admin Diazepam 2.5 mg 08/12/25 10:06 08/12/25 10:17 Diazepam 10 Mg/2 Ml Cartridge IVPUSH 08/12/25 10:07 2.5 mg STAT STA Administration Hydromorphone HCl 0.5 mg 08/12/25 07:36 08/12/25 07:58 Hydromorphone Hcl 0.5 Mg/0.5 Ml Syringe IVPUSH 08/12/25 07:37 0.5 mg ONCE ONE Administration Protocol Acetaminophen 1,000 mg in 100 mls @ 400 mls/hr 08/12/25 07:36 08/12/25 08:28 Ofirmev IV 08/12/25 07:50 Infused ONCE ONE Infusion Lactated Ringer's 1,000 mls @ 999 mls/hr 08/12/25 07:36 08/12/25 09:55 Lr IV 08/12/25 08:36 Infused .Q1H1M ONE Infusion Iohexol 100 ml 08/12/25 09:21 08/12/25 09:21 Iohexol 350 Mg/Ml 100 Ml Infus..Btl IV 08/12/25 09:22 85 ml ONCE ONE Administration Lactulose 20 gm 08/12/25 09:47 08/12/25 10:17 Lactulose 20 Gm/30 Ml Solution PO 08/12/25 09:48 20 gm ONCE ONE Administration Discharge Plan Discharge Clinical Impression: Fecal impaction Patient Disposition: Home, Self-Care Instructions: Fecal Impaction (ED) Additional Instructions: labs reassuring CT scan shows constipation please stay hydrated and rest return for worsening pain, vomiting, fevers, or any other concerns no further enemas today Prescriptions: New docusate sodium [Colace] 100 mg capsule 100 mg PO BID PRN (Reason: constipation) Qty: 30 0RF ondansetron 4 mg tablet,disintegrating 4 mg PO Q8H PRN (Reason: nausea and vomiting) Qty: 20 0RF senna 8.6 mg capsule 8.6 mg PO BEDTIME PRN (Reason: constipation) Qty: 30 0RF No Action levalbuterol tartrate [Xopenex HFA] 45 mcg/actuation HFA aerosol inhaler 2 puff inhalation Q4-6H PRN (Reason: shortness of breath) 90 Days Qty: 15 0RF cetirizine [Allergy Relief (cetirizine)] 10 mg tablet 10 mg PO DAILY Qty: 90 1RF ropinirole 0.5 mg tablet 0.5 mg PO BEDTIME Qty: 90 1RF Rx Instructions: administer 1-3 hours before bedtime. Take along with 1 mg tablet for total dose of 1.5 mg. ascorbate calcium (vitamin C) 500 mg tablet 500 mg PO DAILY Qty: 90 0RF ropinirole 1 mg tablet 1 mg PO BEDTIME Qty: 180 0RF Rx Instructions: administer 1-3 hours before bedtime aspirin [Adult Aspirin Regimen] 81 mg tablet,delayed release (DR/EC) 81 mg PO DAILY Qty: 90 0RF azelastine 137 mcg (0.1 %) spray,non-aerosol 1 spray intranasal BID Qty: 30 0RF amitriptyline 75 mg tablet 75 mg PO BEDTIME 90 Days Qty: 90 2RF lidocaine 5 % adhesive patch,medicated 2 patch topical DAILY Qty: 60 1RF Rx Instructions: leave on most painful area for up to 12 hrs levothyroxine [Synthroid] 112 mcg tablet 112 mcg PO DAILY Qty: 90 3RF omeprazole 20 mg capsule,delayed release(DR/EC) 20 mg PO DAILY Qty: 90 2RF bisacodyl 5 mg tablet,delayed release (DR/EC) 15 mg PO BEDTIME Qty: 270 1RF cholecalciferol (vitamin D3) 50 mcg (2,000 unit) tablet 50 mcg PO DAILY Qty: 90 3RF sertraline 150 mg capsule 100 mg PO DAILY Print Language: Montserratian
[2025-08-12 07:25] VITALS: BP 127/74; PULSE 86; RESP 16; TEMP 36.9; O2SAT 95; BMI 26.1
[2025-08-12] MEDS: Lactated Ringers 1,000 ML 999 ML IV (07:53)
[2025-08-12 07:58] LABS: MANUAL DIFF FLAG NO
[2025-08-12 07:59] LABS: Hematocrit 43.0 % (37.0-47.0); Hemoglobin 14.1 g/dl (12.0-16.0); Imm Gran Abs Auto 0.06 X10*3/uL (0.00-0.03); Imm Gran Pct Auto 0.4 % (0.0-0.4); Lymphocytes Absolute Auto 1.4 X10*3/uL (1.2-4.9); Mean Corpuscular HGB Conc 32.8 g/dl (31.0-35.0); Mean Corpuscular Hemoglobin 28.5 pg (27.0-33.0); Mean Corpuscular Volume 87.0 fL (80.0-98.0); NRBC Abs Auto 0.000 X10*3/uL (0.0-0.012); NRBC Pct Auto 0.0 /100WBC (0.0-0.2); Platelet Count 297 X10*3/uL (160-400); Red Blood Count 4.94 X10*6/uL (4.20-5.50); White Blood Count 14.1 X10*3/uL (4.8-10.8)
[2025-08-12 08:12] LABS: Alanine Aminotransferase 13 U/L (0-31); Albumin Level 4.4 g/dL (3.5-5.0); Alkaline Phosphatase 101 U/L (39-117); Anion Gap 11 (12-20); Aspartate Amino Transferase 19 U/L (5-31); Blood Urea Nitrogen 9 mg/dL (9-16); Calcium 9.0 mg/dL (8.4-10.2); Carbon Dioxide 26 mmol/L (22-29); Chloride 108 mmol/L (96-108); Creatinine Clr Calc Pharmacy 94.1; Estimated Glomerular Filt Rate > 60; Lipase 13 U/L (8-78); Magnesium 2.3 mg/dL (1.6-2.6); Potassium 4.0 mmol/L (3.3-5.1); Sodium 141 mmol/L (135-145); Total Protein 7.2 g/dL (6.5-8.0)
--- OUTSIDE RECORDS SUMMARY | 2025-08-12 08:19 | XMS_ITS | Encounter Summary ---
Author Organization [facility] Address [address] [place] [address] Phone Care Team Providers Care Campaign Management Senior Manager Name Role Phone Jayshree White MD Primary Care Provider [phone] Reason for Visit * Reason Onset Date Comments Post Discharge Follow Up Call 07/22/2016 Encounter Details Date Type Department Care Team (Late st Contact Info) Description 07/22/2016 Telephone [facility] [address] [phone] Dianne Freeman RN [address] [place] [address] [email or web address] Discharge Follow Up Call Social [...] on filedocumented in this encounter Care Teams Campaign Management Senior Manager Relationship Specialty Start Date End Date Jayshree White MD [address] [place] [id number] PCP - General Internal Medicine 10/30/15 documented as of this encounter Additional Source Comments The information contained in this document represents components of the legal health record. It is not the complete legal health record.[facility]
--- OUTSIDE RECORDS SUMMARY | 2025-08-12 08:19 | XMS_ITS | Encounter Summary ---
Author Organization [facility] Address [address] [place] [address] Phone Care Team Providers Care Shaft Tender Name Role Phone Jayshree White MD Primary Care Provider [phone] Encounter Details Date Type Department Care Team (Late st Contact Info) Description 07/18/2016 Ancillary Orders [facility] [address] [place] [address] Moose Reyes MD [address], [address] [place] [address] [email or web address] Pain (Primary Dx) Social History Tobacco [...] 1 Hour (07/18/2016 10:15 AM EDT) Narrative [facility] - 07/18/2016 10:17 AM EDT [...] right greater than right. COMMENT: Intraoperative, small [id number] fluoroscopic low resolution frontal and image(s) of [...] right greater than right. COMMENT: Intraoperative, small hqvcw-hm-[id number] fluoroscopic low resolution frontaland image(s) of the [...] pain documented in this encounter Care Teams Shaft Tender Relationship Specialty Start Date End Date Jayshree White MD [address] [place] [address] PCP - General Internal Medicine 10/30/15 documented as of this encounter Additional Source Comments The information contained in this document represents components of the legal health record. It is not the complete legal health record.[facility]
--- OUTSIDE RECORDS SUMMARY | 2025-08-12 08:20 | XMS_ITS | Patient Health Record ---
Author Organization [facility] Address [address] [place] [address] Care Team Providers Care Neurosurgical Physician Assistant Name Role Phone SHANTA JIMENEZ M.D. Primary Care Provider Felicia Lord Unavailable [phone] Allergies Allergen (clinical drug ingredient) Drug/Non Drug [...] Problem History of malignant neoplasm of thyroid (629416659) Personal history of malignant neoplasm of thyroid (V10.87) Active confirmed Problem Postmenopausal atrophic vaginitis (07685823) Postmenopausal atrophic vaginitis (N95.2) Active confirmed Problem Anogenital warts (638013671) Anogenital (venereal) warts (A63.0) Active confirmed Problem Atrophy of vulva (911059919) Atrophy of vulva (N90.5) Active confirmed Problem Postcoital bleeding (88355891) Postcoital and contact bleeding (N93.0) Active confirmed Problem Hypothyroidism (03413795) Unspecified hypothyroidism (244.9) Active confirmed Major Plan [...]
--- OUTSIDE RECORDS SUMMARY | 2025-08-12 08:20 | XMS_ITS | Clinical Summary ---
Author Organization [facility] Address [address] [facility] [place] [address] Phone Care Team Providers Care Filter Press Tender Name Role Phone Jayshree White MD Primary Care Provider Allergies Active Allergy Reactions Criticality Noted Date [...] (Age 62) kidney CA Father (Age 47) CT, smoker, ET [place] Mother (Age 75) brain [...] FOBT 2011 SIGMOIDOSCOPY 2011 VIRTUAL COLONOSCOPY 2011 RSV VACCINE (1 - Risk 50-74 years 1-dose series) 2016 ZOSTER VACCINES (1 of 2) 2016 PNEUMOCOCCAL VACCINES (50+ years) (2 of 2 - PCV) 11/11/2018 11/11/2017 INFLUENZA VACCINE (#1) 2025 9, 07/24/2018 COVID-19 VACCINE (2024-2 6 season) 2025 Adult Td,Tdap Booster 02/13/2031 02/13/2021 HEPATITIS A [...] this topic Medical Devices Implanted Type Area Agriculture Engineer Device Identifier Shelf Expiration Date Model / Serial / Lot Hardware To Back Substitute Bone 10ml Graft Dbm Calcium Phosphate Putty Kit [employer] - [id number] Implanted:Qty: 1 on 07/18/2016 by Moose Reyes MD at [facility] N/A: Spine Lumbar [employer] 03/26/2019 [id number] / / [id number] Cage Lateral Peek L40 H10 Spine Code 31 - [id number] Implanted:Qty: 1 on 07/18/2016 by Moose Reyes MD at [facility] N/A: Spine Lumbar [employer] 05/07/2021Apr- 40 10-S / / [id number] Cage Lateral Peek L40 H10 Spine Code 31 - [id number] Implanted:Qty: 1 on 07/18/2016 by Moose Reyes MD at [facility] N/A: Spine Lumbar [employer] 05/07/2021Apr- 40 10-S / / [id number] Insurance Collected Inc. [facility] [place] [address] [facility] [place] [facility] [place] [facility] [place] [facility] [place] [facility] Advance Directives For more information, please contact: [phone] (9AM - 5PM [facility], Friday-Friday) Documents on File Type Date Recorded Patient Art Handler Expl anation Healthcare Proxy 07/22/2016 10:40 AM * Full Code (Presumed) (Latest Code Status on File) Date Activated Date Inactivated Comments 07/18/2016 2:56 PM 07/19/2016 3:18 PM Care Teams Filter Press Tender Relationship Specialty Start Date End Date Jayshree White MD [address] [place] [address] PCP - General Internal Medicine 10/30/15 Additional Source Comments The information contained in this document represents components of the legal health record. It is not the complete legal health record.[facility]
[2025-08-12 08:54] LABS: Appearance Urine Clear; Glucose Urine UA Negative (Negative); PH 8.0 (5.0-9.0); Specific Gravity - Urine <= 1.005 (1.005-1.025)
[2025-08-12] MEDS: iohexoL 350 MG/ML 100 ML INFUS..BTL IV (09:21)
[2025-08-12 10:15] VITALS: BP 134/73; PULSE 69; RESP 15; TEMP 36.6; O2SAT 95
[2025-08-12] MEDS: diazePAM 10 MG/2 ML CARTRIDGE 2.5 MG IVPUSH (10:17)
[2025-08-12 13:12] VITALS: BP 124/66; PULSE 64; RESP 18; TEMP 36.4; O2SAT 100
== END 2025-08-12 13:39 | disposition home or self-care (01) ==
PROVIDERS: Emergency Provider Emergency Medicine; PCP Internal Medicine
DX: K56.41 Fecal impaction (principal); R11.0 Nausea; R10.22 Pelvic and perineal pain left side; Z79.899 Other long term (current) drug therapy; F17.210 Nicotine dependence, cigarettes, uncomplicated
CPT/HCPCS: 36415; 74177; 80048; 80076; 81003; 83690; 83735; 85025; 96361; 96374; 96375; 99285; J0131; J1171; J3360; J7120; Q9967

== ENCOUNTER → 2025-08-12 07:28 | Outpatient (BNV) | payer OTHER, SELFPAY | PROVIDERS: Emergency Provider Emergency Medicine; PCP Internal Medicine; Visit Provider Radiology Diagnostic Radiology | DX: R10.9 Unspecified abdominal pain (principal); R11.0 Nausea | CPT/HCPCS: 74177 ==

== ENCOUNTER 2025-09-08 14:49 | Outpatient (REF) | payer OTHER, SELFPAY ==
--- NOTE | ~2025-09-08 | CT_ITS ---
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 in 2010. -Status post right modified right neck dissection at [facility] in January 2019. -History of pheochromocytoma status post left laparoscopic adrenalectomy in 2018. - History of cholecystectomy and total abdominal hysterectomy and bilateral salpingo-oophorectomy. COMPARISON: Abdomen/pelvis CT on August 12, 2025. Abdomen/pelvis CT on August 04, 2025. Abdomen/pelvis CT on November 11, 2022. TECHNIQUE: Multidetector volumetric images were obtained from the superior aspect of the liver through the pubic symphysis following administration 85 mL of Omnipaque 350 intravenous contrast. Sagittal and coronal reformatted images were obtained on the technologist's workstation. Oral contrast: No This CT examination was performed using dose optimization techniques as appropriate, variously including the following: *Automated exposure control *Adjustment of mA and/or kV according to patient size (this includes techniques or standardized protocols for targeted exams where dose is matched to indication/reason for exam; i.e. extremities or head) *Use of iterative reconstruction technique FINDINGS: Streak artifacts from patient's spinal hardware limits local evaluation. LOWER CHEST: Lung bases are clear. No pleural effusion. LIVER: No enhancing focal lesions. GALLBLADDER AND BILIARY TREE: Status post cholecystectomy. No biliary ductal dilatation. PANCREAS: Unremarkable. SPLEEN: No splenomegaly. No focal lesions. ADRENAL GLANDS: No right adrenal nodule. Linear structure in the left adrenal bed, stable from 2022, could represent residual adrenal gland or postsurgical changes. KIDNEYS AND URETERS: Subcentimeter hypodense lesions in bilateral kidneys, similar to 2023, likely represent cysts. No hydronephrosis on either side. GASTROINTESTINAL TRACT: No bowel distention. Moderate amount of stool load in the ascending and transverse colons. Small amount of stool load within the rectum, markedly improved from August 12, 2025. PERITONEUM/RETROPERITONEUM: No free fluid or free air. No fat stranding. LYMPH NODES: No lymphadenopathy. VASCULAR: No abdominal aortic aneurysm. Minimal atherosclerotic disease with calcifications. PELVIC VISCERA: Unremarkable well distended urinary bladder. Status post hysterectomy and salpingo-oophorectomy. OSSEOUS STRUCTURES: Multilevel fusion hardware throughout the spine. No acute fractures. Chronic changes at the level of the right sacroiliac joint is a stable from 2022. CT/CT abdomen pelvis w IV con IMPRESSION: No suspicious mass, lymphadenopathy or acute findings in the abdomen/pelvis. Electronically signed by: Mauro German MD 09/08/2025 04:12 PM [facility]
[2025-09-08] MEDS: iohexoL 350 MG/ML 100 ML INFUS..BTL 85 ML IV (15:31)
--- OUTSIDE RECORDS SUMMARY | 2025-09-08 18:04 | XMS_ITS | Clinical Summary ---
Author Organization [facility] Address [address] [employer] [facility] [address] [place] [phone] Phone Care Team Providers Care Turf Farm Worker Name Role Phone Jayshree White MD Primary Care Provider [phone] Allergies Active Allergy Reactions Criticality Noted Date [...] (Age 63) kidney CA Father (Age 47) [place], smoker, ET [place] Mother (Age 75) brain [...] on patient's age to complete this topic IPV VACCINES Aged Out No longer eligi ble based on patient's age to complete this topic MENINGOCOCCAL VACCINES (ACWY) Aged Out No longer eligible based on patient's age to complete this topic MENINGOCOCCAL VACCINES (B) Aged Out N o longer eligible based on patient's age to complete this topic Medical Devices Implanted Type Area Knitter Helper Device Identifier Shelf Expiration Date Model / Serial / Lot Hardware To Back Substitute Bone 10ml Graft Dbm Calcium Phosphate Putty Kit [employer] - [id number] Implanted:Qty: 1 on 07/18/2016 by Moose Reyes MD at [facility] N/A: Spine Lumbar [employer] 03/26/2019 [id number] / / [id number] Cage Lateral Peek L40 H10 Spine Code 31 - [id number] Implanted:Qty: 1 on 07/18/2016 by Moose Reyes MD at [facility] N/A: Spine Lumbar [employer] [facility] 10-S / / [id number] Cage Lateral Peek L40 H10 Spine Code 31 - [id number] Implanted:Qty: 1 on 07/18/2016 by Moose Reyes MD at [facility] N/A: Spine Lumbar [employer] 05/07/2021Apr[facility] 40 10-S / / [id number] Insurance [employer] [facility] [place] [facility] [place] [facility] [place] [facility] [place] [facility] Advance Directives For more information, please contact: [phone] (9AM - 5PM Giulia/[facility], Friday-Friday) Documents on File Type Date Recorded Patient Crusher Setter Expl anation Healthcare Proxy 07/22/2016 10:40 AM * Full Code (Presumed) (Latest Code Status on File) Date Activated Date Inactivated Comments 07/18/2016 2:56 PM 07/19/2016 3:18 PM Care Teams Turf Farm Worker Relationship Specialty Start Date End Date Jayshree White MD [address] [place] [address] PCP - General Internal Medicine 10/30/15 Additional Source Comments The information contained in this document represents components of the legal health record. It is not the complete legal health record.[facility]
--- OUTSIDE RECORDS SUMMARY | 2025-09-08 18:04 | XMS_ITS | Encounter Summary ---
Author Organization [facility] Address [address] [place] [address] Phone Care Team Providers Care Textile Coating Machine Operator Name Role Phone Jayshree White MD Primary Care Provider [phone] Reason for Visit * Reason Onset Date Comments Post Discharge Follow Up Call 07/22/2016 Encounter Details Date Type Department Care Team (Late st Contact Info) Description 07/22/2016 Telephone [facility] [address] [phone] Dianne Freeman RN [address] [place] [address] [email or web address] Discharge Follow Up Call Social [...] on filedocumented in this encounter Care Teams Textile Coating Machine Operator Relationship Specialty Start Date End Date Jayshree White MD [address] [place] [id number] PCP - General Internal Medicine 10/30/15 documented as of this encounter Additional Source Comments The information contained in this document represents components of the legal health record. It is not the complete legal health record.[facility]
--- OUTSIDE RECORDS SUMMARY | 2025-09-08 18:04 | XMS_ITS | Encounter Summary ---
Author Organization [facility] Address [address] [facility] [address] [place] [address] Phone Care Team Providers Care Medical Technologist Hematology Name Role Phone Jayshree White MD Primary Care Provider [phone] Encounter Details Date Type Department Care Team (Late st Contact Info) Description 07/18/2016 Ancillary Orders [facility] [address] [place] [address] Moose Reyes MD [address], [address] [place] [address] [email or web address] Pain (Primary Dx) Social [...] 1 Hour (07/18/2016 10:15 AM EDT) Narrative [facility]AC[facility] - 07/18/2016 10:17 AM [...] right greater than right. COMMENT: Intraoperative, small ysoyl-cp-[id number] fluoroscopic low resolution frontal and image(s) of [...] right greater than right. COMMENT: Intraoperative, small nwilt-ga-tyew fluoroscopic low resolution frontaland image(s) of the [...] pain documented in this encounter Care Teams Medical Technologist Hematology Relationship Specialty Start Date End Date Jayshree White MD [address] [place] [address] PCP - General Internal Medicine 10/30/15 documented as of this encounter Additional Source Comments The information contained in this document represents components of the legal health record. It is not the complete legal health record.[facility]
--- OUTSIDE RECORDS SUMMARY | 2025-09-08 18:04 | XMS_ITS | Patient Health Record ---
Author Organization [facility] Address [address] [place] [address] Care Team Providers Care Manager Aerospace Name Role Phone SHANTA JIMENEZ M.D. 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
== END 2025-09-08 14:50 | disposition home or self-care (01) ==
LOC: HO.CT 14:49
PROVIDERS: PCP Internal Medicine; Visit Provider Student in an Organized Health Care Education/Training Program
DX: E31.22 Multiple endocrine neoplasia [MEN] type IIA (principal); Z86.018 Personal history of other benign neoplasm
CPT/HCPCS: 74177; Q9967

== ENCOUNTER → 2025-09-08 14:52 | Outpatient (BNV) | payer OTHER, SELFPAY | PROVIDERS: PCP Internal Medicine; Visit Provider Radiology Body Imaging | DX: E31.22 Multiple endocrine neoplasia [MEN] type IIA (principal) | CPT/HCPCS: 74177 ==

== ENCOUNTER 2025-09-21 12:48 | Outpatient (AMB) | payer OTHER, SELFPAY ==
[2025-09-21 12:54] VITALS: BP 122/76; PULSE 75; O2SAT 98; BMI 26.7
--- NOTE | 2025-09-21 12:54 | MHC.OFFVIS ---
Vital Signs 09/21/25 12:54 Height 5 ft 6 in Weight 165 lb 5.547 oz BMI 26.7 BP 122/76 Blood Pressure Location Rt brachial Position Sitting Pulse 75 Pulse Source Pulse Oximeter Pulse Oximetry (%) 98 Oxygen Delivery Method Room Air Intake Visit Reasons: Thyroid Cancer/ CT scan results Intake Note: Patient presents here today for a follow-up on Thyroid Cancer CT Scan Results: Patient last seen by Dr Lore Silver MD: CT Scan Results Completed on 09/08/2025 Product Development Assistant Required: No Accompanied by: Self / Same As Patient Allergies codeine (Codeine) Allergy (Mild, Verified 09/07/25 14:11) N/V, HEADACHE, vomiting morphine (MORPHINE) Allergy (Unknown, Verified 09/07/25 14:11) VOMITING, HEADACHE, migraine, vomiting sulfamethoxazole (From Bactrim) Adverse Reaction (Intermediate, Verified 09/07/25 14:11) lip numbness trimethoprim (From Bactrim) Adverse Reaction (Intermediate, Verified 09/07/25 14:11) lip numbness ethyl chloride Allergy (Unknown, Uncoded 09/07/25 14:11) Unknown HPI Comments Details: 59-year-old female coming in today for follow up of 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 Ordonez, status post right modified radical neck dissection with Dr. Yu Ortega at [facility] in January 2019, history of pheochromocytoma status post left laparoscopic adrenalectomy with Dr. Yu Ortega, 07/01/2018. No history of parathyroid issues. Medullary thyroid cancer 03/28/2011: status post total thyroidectomy and paratracheal neck dissection mediastinum neck dissection and subtotal thymectomy as well as left lateral levels 2A, 3 and 4 dissection at [facility] [place] [address] Ordonez. This showed medullary thyroid carcinoma bilaterally, tumor 3 cm in the left lobe of the thyroid with c-cell hyperplasia and extrathyroidal extension into the soft tissue and lymphovascular invasion with negative surgical margins. Two out of the 19 lymph nodes were involved with a medullary thyroid cancer. Preoperatively calcitonin level was 1546 and CEA level was 174.9. Postoperatively she had positive calcitonin and CEA levels. 2010: Biopsy at [facility] of 1 of the left neck lymph nodes positive for MTC. At that time given low burden of disease she chose conservative management with watchful observation. 04/23/2018: Ultrasound of the neck multiple bilateral lymph nodes with the right level 2/3 lymph node measuring 0.6 cm with robust fatty hilum. Right level 2: Well-defined lymph node measuring 0.9 cm with robust fatty hilum. Right level 4 subcentimeter benign-appearing lymph node. Right level 3 close to the carotid slightly abnormal appearing lymph node measuring 0.7 cm with some cystic degeneration. Left level 2 hypoechoic well-defined lymph node measuring 0.92 cm with a robust fatty hilum. 2019 Calcitonin: 107 02/17/2019: Status post right modified radical neck dissection. At [facility] with Dr. Yu Oretga. Pathology revealed metastatic medullary thyroid carcinoma for [address] evaluated. The largest metastatic deposit measured 1 cm in showed extra capsular invasion. 04/2020 CEA: 9.4 Calcitonin: 85.4 2019: Ultrasound neck in 2019 at office in [facility] showed right level 3 round done level lymph node measuring 0.6 0.64 cm with no fatty hilum. Left level 4, 0.70 X 0.53 lymph node without any distinct fatty and LM. 12/03/2021: CEA: 9.2 11/22/2022 CEA 11.8 ng/mL (0-3.8) Calcitonin 160 pg per pg/mL (0-5) Laboratory Tests 11/26/22 05/24/24 12:33 11:44 Carcinoembryonic Ag 13.20 TSH 1.21 07/26/24: CEA 12.10 ng/mL Calcitonin 129 pg/mL 07/26/2024 ultrasound head and neck showed bilateral normal-appearing lymph nodes with the exception of a 1.6 X 0.6 X 0.6 cm level to have normal-appearing lymph node with calcification, peripheral blood flow and thickened cortex. 10/25/24 CEA 11.30 Calcitonin pending TSH 3.87 free T4 0.95 Denies intermittent dyphagia for the last couple of months, no trouble breathing, no chnages in voice. Weight stable. Takes Synthroid 112 mcg daily at night, 5-6 hrs after dinner, and then goes to bed. Good adherence. Last TSH 10/25/24 3.87 normal 10/25/2024: Cea 11.3, Calcitonin: 87, TSH 3.87, free T4 0.95 01/28/2025: Ultrasound of the neck shows bilateral normal-appearing lymph nodes. Pheochromocytoma 07/01/2018 Status post left laparoscopic adrenalectomy for 2.[address] Yu Ortega with intraoperative findings showing well-contained encapsulated mass without signs of local invasion or distant metastasis. PASS score 5. Postoperatively in September 2018 plasma metanephrine and normetanephrine levels were normal. 12/03/2021: Plasma metanephrine: 22.3 Plasma normetanephrine 78.5 2022 Plasma metanephrines 20.6 Plasma normetanephrines 150.2 07/26/24 Plasma metanephrines <25 Plasma normetanephrines 91 She has no known history of parathyroid issues, calcium has remained within normal limits. Denies kidney stones, constipation, abdominal pain. No fractures. Takes vitamin D 2000 units daily No calcium supplements No fractures Family line: Son :tested positive for same RET 620 mutation, follows at [facility], MTC s/p thyroidecomy, no pheo Daughter: Same tested positive for RET 620 mutation, lives in [place], MTC s/p thyroidectomy, no pheo No grandchildren Her 5 siblings were tested and negative Father passed at 48 with CA Mother : at 75 from lung cancer smokes Sister's daughtersearly deaths: one aneurysm, one lung cancer She is active smoker , half a pack a day Interval history 09/21/25 Patient has not completed the labs She reports feeling well overall Denies diarrhea. Reports intermittent flushing Reports intermittent headaches, but not episodic tachycardia or heart racing. Taking Levothyroxine 112 mcg daily, before BT, from foods and other meds at least 3 hours Good levothyroxine tolerance. She reports intermittent dysphagia Physical exam: General: Well appearing. NAD. Not Cushingoid or Acromegalic Neck/Thyroid: Thyroid not palpable, no nodules. Eyes: No conjunctival injection, not lid lag or proptosis CV: RRR, no murmur. No edema. Resp:Lungs clear to auscultation bilaterally Abdomen: Soft, nontender. nondistended Extremities/Neuro: No weakness or tremor of outstretched hands Laboratory Tests 12/03/21 11/26/22 11/26/22 13:32 12:33 12:33 Calcium Phosphorus Albumin Carcinoembryonic Ag 13.20 25-OH Vitamin D Total Calcitonin TSH 0.07 L 1.04 1.06 Free T4 1.14 1.01 PTH Intact 28 Calcium (PTH Intact) 9.2 Plasma Free Metaneph Plasma Free Normeta Plas Total Metaneph 04/09/23 05/24/24 07/26/24 10:35 11:44 15:17 Calcium 9.2 9.5 Phosphorus 5.0 H Albumin 3.9 Carcinoembryonic Ag 12.10 25-OH Vitamin D Total 52.6 47.8 Calcitonin 129 H TSH 0.99 1.21 1.67 Free T4 1.00 0.98 0.88 PTH Intact 29.9 Calcium (PTH Intact) Plasma Free Metaneph <25 Plasma Free Normeta 91 Plas Total Metaneph 91 10/25/24 11:28 Calcium Phosphorus Albumin Carcinoembryonic Ag 11.30 25-OH Vitamin D Total Calcitonin TSH 3.87 Free T4 0.95 PTH Intact Calcium (PTH Intact) Plasma Free Metaneph Plasma Free Normeta Plas Total Metaneph Laboratory Tests 12/03/21 11/26/22 11/26/22 13:32 12:33 12:33 Carcinoembryonic Ag 13.20 25-OH Vitamin D Total TSH 0.07 L 1.04 1.06 Free T4 1.14 1.01 Calcitonin PTH Intact 28 Calcium (PTH Intact) 9.2 04/09/23 05/24/24 10/25/24 10:35 11:44 11:28 Carcinoembryonic Ag 11.30 25-OH Vitamin D Total 52.6 TSH 0.99 1.21 3.87 Free T4 1.00 0.98 0.95 Calcitonin 87 H PTH Intact Calcium (PTH Intact) CT abdomen pelvis w IV con 09/08/25 COMPARISON: Abdomen/pelvis CT on August 12, 2025. Abdomen/pelvis CT on August 04, 2025. Abdomen/pelvis CT on November 11, 2022. FINDINGS: Streak artifacts from patient's spinal hardware limits local evaluation. LOWER CHEST: Lung bases are clear. No pleural effusion. LIVER: No enhancing focal lesions. GALLBLADDER AND BILIARY TREE: Status post cholecystectomy. No biliary ductal dilatation. PANCREAS: Unremarkable. SPLEEN: No splenomegaly. No focal lesions. ADRENAL GLANDS: No right adrenal nodule. Linear structure in the left adrenal bed, stable from 2022, could represent residual adrenal gland or postsurgical changes. KIDNEYS AND URETERS: Subcentimeter hypodense lesions in bilateral kidneys, similar to 2022, likely represent cysts. No hydronephrosis on either side. GASTROINTESTINAL TRACT: No bowel distention. Moderate amount of stool load in the ascending and transverse colons. Small amount of stool load within the rectum, markedly improved from August 12, 2025. PERITONEUM/RETROPERITONEUM: No free fluid or free air. No fat stranding. LYMPH NODES: No lymphadenopathy. VASCULAR: No abdominal aortic aneurysm. Minimal atherosclerotic disease with calcifications. PELVIC VISCERA: Unremarkable well distended urinary bladder. Status post hysterectomy and salpingo-oophorectomy. OSSEOUS STRUCTURES: Multilevel fusion hardware throughout the spine. No acute fractures. Chronic changes at the level of the right sacroiliac joint is a stable from 2022. IMPRESSION: No suspicious mass, lymphadenopathy or acute findings in the abdomen/pelvis. CLINICAL HISTORY: E31.22 - Multiple endocrine neoplasia [MEN] type IIA 01/28/25 Ultrasound soft tissue neck Comparison: 07/26/2024 Findings: 3 right neck lymph nodes measured. Largest is 1.1 x 0.9 cm. Four left neck lymph nodes are measured. Largest is 1.9 x 0.8 cm. Nodes are unchanged to slightly smaller. Impression: Adenopathy essentially unchanged from prior study This document has been electronically signed by: Diallo Stewart MD on 01/28/2025 19:09:51 US SOFT TISSUE HEAD/NECK 07/26/24 CLINICAL INFORMATION: Multiple endocrine neoplasia. History of medullary thyroid cancer with multiple neck dissections. Please evaluate all neck levels. COMPARISON: None available. TECHNIQUE: Linear transducer casarez-scale and color Doppler examination with attention to the region of the thyroid bed and surrounding tissues. FINDINGS: THYROIDECTOMY BED: No recurrent mass seen. NODES: Right: 0.9 x 0.4 x 0.5 cm level 5A, normal-appearing. 1.7 x 0.8 x 1.2 cm right level 5A, normal-appearing Left: 2.0 x 0.7 x 2.1 cm level 2, normal-appearing. 1.6 x 0.6 x 0.6 cm level 2 abnormal-appearing with calcification, peripheral color flow and a thickened cortex. US/US soft tiss head and/or neck IMPRESSION: Abnormal-appearing left level 2 lymph node on the left. This would be amenable to ultrasound-guided biopsy. All other lymph nodes appear normal. Electronically signed by: Seth Jay MD 08/25/2024 12:46 AM EDT Dictated By: Seth Jay MD Signed By: <Electronically signed by Seth Jay MD in OV> [facility] Medical History History of pheochromocytoma Anemia URI (upper respiratory infection) Breast cancer screening by mammogram Left flank discomfort History of medullary carcinoma of thyroid Left flank pain Multiple endocrine neoplasia type 2A (MEN2A) Medullary thyroid carcinoma Hypothyroid Pheochromocytoma of left adrenal gland Hypercholesterolemia COPD (chronic obstructive pulmonary disease) Pulmonary nodule Nicotine dependence, cigarettes, uncomplicated Osteopenia Irritable bowel syndrome with constipation Restless leg syndrome Anxiety Depression PONV (postoperative nausea and vomiting) Cervicalgia Pain in both feet Erosive (osteo)arthritis Bilateral hand pain Mass of left axilla Back pain Nevoid hyperpigmentation Neuritis of right ulnar nerve Neck pain Odynophagia Gout Surgical History S/P rotator cuff repair History of radical neck dissection (~01/2019) History of thyroidectomy (~03/2011) History of total adrenalectomy (~06/2018) History of laparoscopic cholecystectomy (~11/2022) History of total abdominal hysterectomy and bilateral salpingo-oophorectomy (~11/2013) History of tubal ligation (~10/2000) History of bilateral breast reduction surgery (~09/2019) History of repair of right rotator cuff (~04/2024) History of hand surgery (~02/2021) History of surgery on left wrist (~04/2010) History of fusion of lumbar spine History of tonsillectomy History of colonoscopy History of esophagogastroduodenoscopy (EGD) Family History Father Heart attack Mother Brain cancer Lung cancer Cervical cancer Family/Other Diabetes Sister Cervical cancer Lung cancer Daughter Breast cancer Social History Household Members: Spouse and Children Housing: Other Housing Other:: Trailer Alcohol intake: never Patient Tobacco Use Status: Current everyday Tobacco user Tobacco use type: Cigarette Cigarette Packs Per Day: 1 Cigarettes Per Day: 20 Years Smoked: (onset 14yo, 3/4-1ppd x 44yrs - 35pyh) e-Cigarette/Vaping Use: Never Used Second Hand Smoke Exposure: Yes Substance Use Type: Marijuana Current occupational status: disabled Current occupation: left handed Gender identity: Female Cognitive needs: No Hearing needs: No Vision needs: Yes Physical Exam Vital Signs: Last Vital Signs Pulse 75 09/21/25 12:54 BP 122/76 09/21/25 12:54 Pulse Ox 98 09/21/25 12:54 Oxygen Delivery Method Room Air 09/21/25 12:54 BMI result Body Mass Index 26.7 Assessment & Plan Assessment & Plan (1) Multiple endocrine neoplasia type 2A (MEN2A): Code(s): E31.22 - Multiple endocrine neoplasia [MEN] type IIA Category: Medical Plan: 59-year-old female coming in today for follow up of MEN2 A [id number] mutation with a history of medullary thyroid cancer status post neck dissection at [facility] [address] Ordonez, status post right modified radical neck dissection with Dr. Yu Ortega at [facility] in January 2019, history of pheochromocytoma status post left laparoscopic adrenalectomy with Dr. Yu Ortega, 07/01/2018. No history of parathyroid issues. Calcium levels have remained normal. She is on vitamin-D 2000 units daily. normal renal US 2023. No current evidence of hypercalcemia or kidney stones She had not have the lab work done. Plan: -check calcium, PTH, albumin levels today (2) Hypothyroid: Comment: (aquired - s/p thyroidectomy for thyroid cancer 2010) Code(s): E03.9 - Hypothyroidism, unspecified Category: Medical Qualifiers: Hypothyroidism type: postoperative Qualified Code(s): E89.0 - Postprocedural hypothyroidism Plan: Normal TSH of 3.87 from September 2024. Continue levothyroxine 112 mcg daily. 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 who underwent total thyroidectomy and paratracheal neck dissection, mediastinum neck dissection and subtotal thymectomy and left lateral neck dissection in 2010 at [facility], with pathology showing bilateral medullary thyroid cancer, 3 cm focus in the left lobe of the thyroid with extrathyroidal extension and lymphovascular invasion, who had positive CEA and calcitonin levels postoperatively, with subsequent ultrasound of the neck showing suspicious lymph nodes in 2017, in the lymph nodes subsequently underwent right modified radical neck dissection in January 2019 with metastatic medullary thyroid carcinoma in the lymph nodes, largest deposit measuring 1 cm. Reportedly she had good response to surgery as her calcitonin carcinoembryonic antigen levels declined post surgery. Most recently her Cea levels have been stable around 11.8 to 13 and most recently 11.3 from 10/25/24, calcitonin level trended up to 160 in 2022 from 85.4 back in 2019. Most recent level 10/25/24 pending today Ultrasound neck 07/26/24 showed left level 2 lymph node measuring 1.6 cm which has cortical thickening, peripheral flow, concerning for possibly metastatic disease. We again discussed with her that knowing that her preoperative calcitonin level was 1546 back in 2010 prior to her 1st surgery, this always going to be disease in her neck and surgery is not done for the purpose of cure. Given her most recent calcitonin level was 129 in 2023, which is still not doubled from 85.4 back in 2019 after her 2nd surgery, this is reassuring that her calcitonin doubling time is greater than 24 months which carries a better prognosis. She is also making more calcitonin then CEA suggesting of differentiated disease. Her CEA levels remain stable. Back in 2019 was 9.4, in 2023 it is stable in the 11.3 -12.1 range. It has also not doubled. She had a repeat ultrasound in January 2024 where I looked again at this left level 2 lymph node which measures 1.6 X 0.5 cm, appears normal with a hilum. This is very reassuring.10/25/2024: Cea 11.3, Calcitonin: 87, She does not have any symptoms, any swallowing troubles, any difficulty breathing. Given that her calcitonin and CEA remained stable, it is recommended by the SAUL 2015 guidelines that is small asymptomatic disease can be monitored with surveillance. She is maintained on Synthroid 112 mcg daily which she is taking appropriately. No symptoms of hypo or hyperthyroidism. Sep 2025TSH 3.87, free T4 0.95 Althought she has a likely low risk of recurrence, we emphasized the importance of having labs checks to early detect recurrence. We discussed that a doubling time in her calcitonin and CEA levels in < 12 months would likely indicate a relapse. Plan: -continue Synthroid 112 mcg daily -Obtain CEA and calcitonin levels to be done now she was supposed to get these prior to appointment but forgot. -Obtain TSH and free T4 to be done now -next ultrasound will be repeated in 1 year in January 2026 -follow up in 6 months with plan for repeat labs (4) History of pheochromocytoma: Code(s): Z86.018 - Personal history of other benign neoplasm Category: Medical Plan: History of pheochromocytoma Status post left laparoscopic adrenalectomy of 2.8 cm pheochromocytoma in June [address] Yu Ortega. PAS score was 5. Usually less than 4 score means less aggressive findings. Her plasma metanephrine normetanephrine levels postoperatively have remained negative, most recently normal from Sep 2024. Her last abdominal CT, I reviewed the images today showed normal right-sided adrenal gland. CT abdomen pelvis w IV con 09/08/25 showed No right adrenal nodule. Linear structure in the left adrenal bed, stable from 2022, could represent residual adrenal gland or postsurgical changes. Plan: -Obtain plasma metanephrine and normetanephrine levels now - Repeat CT in 1 year, could be repeated yearly for the until 2027 if no suspicious findings. Plan I spent 30 minutes in reviewing the record, seeing the patient and documenting in the medical record. Orders: Orders CT abdomen w IV con 1 Year Z86.018 - Personal history of other benign neoplasm TSH reflex Free T4 Today E89.0 - Postprocedural hypothyroidism Medications: Refilled Synthroid (levothyroxine) 112 mcg PO DAILY 90 tabs 3RF NS Coding Level of Care Code Est Pt Level 4 (50812) Complex visit Add On G2211 Diagnoses Multiple endocrine neoplasia type 2A (MEN2A) E31.22 Postoperative hypothyroidism E89.0 Hypothyroidism type: postoperative History of medullary carcinoma of thyroid Z85.850 History of pheochromocytoma Z86.018
--- OUTSIDE RECORDS SUMMARY | 2025-09-21 15:49 | XMS_ITS | Encounter Summary ---
Author Organization [facility] Address [address] [facility] [address] [place] [address] Phone Care Team Providers Care Mri Ct Tech Name Role Phone Jayshree White MD Primary Care Provider Encounter Details Date Type Department Care Team (Late st Contact Info) Description 07/18/2016 Ancillary Orders [facility] [address] [place] [address] Moose Reyes MD [address], [address] [place] [address] [email or web address] Pain (Primary Dx) Social History Tobacco Use [...] 1 Hour (07/18/2016 10:15 AM EDT) Narrative [facility] - 07/18/2016 10:17 AM [...] right greater than right. COMMENT: Intraoperative, small anqah-[id number] fluoroscopic low resolution frontal and image(s) of [...] right greater than right. COMMENT: Intraoperative, small [id number] fluoroscopic low resolution frontaland image(s) of the [...] pain documented in this encounter Care Teams Mri Ct Tech Relationship Specialty Start Date End Date Jayshree White MD [address] [place] [address] PCP - General Internal Medicine 10/30/15 documented as of this encounter Additional Source Comments The information contained in this document represents components of the legal health record. It is not the complete legal health record.[facility]
--- OUTSIDE RECORDS SUMMARY | 2025-09-21 15:49 | XMS_ITS | Clinical Summary ---
Author Organization [facility] Address [address] [facility] [address] [place] [id number] Phone Care Team Providers Care Laser Beam Machine Operator Name Role Phone Jayshree White MD Primary Care Provider [phone] Allergies Active Allergy Reactions Criticality Noted Date [...] (Age 62) kidney CA Father (Age 47) [place], smoker, ET [place] Mother (Age 75) brain [...] this topic Medical Devices Implanted Type Area Designer Writer Device Identifier Shelf Expiration Date Model / Serial / Lot Hardware To Back Substitute Bone 10ml Graft Dbm Calcium Phosphate Putty Kit [employer] - [id number] Implanted:Qty: 1 on 07/18/2016 by Moose Reyes MD at [facility] N/A: Spine Lumbar [employer] 03/26/2019 [id number] / / [id number] Cage Lateral Peek L40 H10 Spine Code 31 - [id number] Implanted:Qty: 1 on 07/18/2016 by Moose Reyes MD at [facility] N/A: Spine Lumbar [employer] [facility]S / / [id number] Cage Lateral Peek L40 H10 Spine Code 31 - [id number] Implanted:Qty: 1 on 07/18/2016 by Moose Reyes MD at [facility] N/A: Spine Lumbar [employer] [facility]07[facility] 40 10-S / / [id number] Insurance Sym[facility] [place] [facility] [place] [facility] [place] [facility] [place] [facility] Advance Directives For more information, please contact: [phone] (9AM - 5PM Giulia/[facility], Friday-Friday) Documents on File Type Date Recorded Patient Software Intern Expl anation Healthcare Proxy 07/22/2016 10:40 AM * Full Code (Presumed) (Latest Code Status on File) Date Activated Date Inactivated Comments 07/18/2016 2:56 PM 07/19/2016 3:18 PM Care Teams Laser Beam Machine Operator Relationship Specialty Start Date End Date Jayshree White MD [address] [place] [address] PCP - General Internal Medicine 10/30/15 Additional Source Comments The information contained in this document represents components of the legal health record. It is not the complete legal health record.[facility]
--- OUTSIDE RECORDS SUMMARY | 2025-09-21 15:49 | XMS_ITS | Encounter Summary ---
Author Organization [facility] Address [address] [facility] [address] [place] [address] Phone Care Team Providers Care Freight Caller Name Role Phone Jayshree White MD Primary Care Provider [phone] Reason for Visit * Reason Onset Date Comments Post Discharge Follow Up Call 07/22/2016 Encounter Details Date Type Department Care Team (Late st Contact Info) Description 07/22/2016 Telephone [facility] [address] [phone] Dianne Freeman RN [address] [place] [address] [email or web address] Post Discharge Follow Up Call Social [...] on filedocumented in this encounter Care Teams Freight Caller Relationship Specialty Start Date End Date Jayshree White MD [address] [place] [id number] PCP - General Internal Medicine 10/30/15 documented as of this encounter Additional Source Comments The information contained in this document represents components of the legal health record. It is not the complete legal health record.[facility]
== END 2025-09-21 13:46 | disposition home or self-care (01) ==
LOC: HO.ENCR 12:50
PROVIDERS: PCP Internal Medicine; Visit Provider Student in an Organized Health Care Education/Training Program
DX: E31.22 Multiple endocrine neoplasia [MEN] type IIA (principal); E89.0 Postprocedural hypothyroidism; Z85.850 Personal history of malignant neoplasm of thyroid; Z86.018 Personal history of other benign neoplasm
CPT/HCPCS: 99214

== ENCOUNTER 2025-09-21 12:48 | Outpatient (REF) | payer OTHER, SELFPAY ==
[2025-09-21 15:23] LABS: Estimated Glomerular Filt Rate > 60
[2025-09-21 15:39] LABS: Carcinoembryonic Antigen 11.40 ng/mL
== END 2025-09-21 12:49 | disposition home or self-care (01) ==
LOC: HO.HMGCLDS 12:48
PROVIDERS: Student in an Organized Health Care Education/Training Program; PCP Internal Medicine; Visit Provider Student in an Organized Health Care Education/Training Program
DX: E31.22 Multiple endocrine neoplasia [MEN] type IIA (principal); E89.0 Postprocedural hypothyroidism; Z85.850 Personal history of malignant neoplasm of thyroid; Z86.018 Personal history of other benign neoplasm
CPT/HCPCS: 36415; 82308; 82378; 82565; 84443

== ENCOUNTER 2025-09-29 12:21 | Outpatient (AMB) | payer OTHER, SELFPAY ==
--- NOTE | 2025-09-29 12:38 | A.OFFVIS_ITS ---
Vital Signs 09/29/25 12:48 Height 5 ft 6 in Weight 165 lb BMI 26.6 BP 132/64 Blood Pressure Location Lt brachial Position Sitting Pulse 71 Pulse Oximetry (%) 98 Intake Visit Reasons: Follow up from the ER Fecal impaction Intake Note: Patient ER follow up for fecal impaction. Patient cc: abdominal bloating, GERD and constipation. Communications Officer Required: No Accompanied by: Spouse Allergies codeine (Codeine) Allergy (Mild, Verified 09/29/25 12:40) N/V, HEADACHE, vomiting morphine (MORPHINE) Allergy (Unknown, Verified 09/29/25 12:40) VOMITING, HEADACHE, migraine, vomiting sulfamethoxazole (From Bactrim) Adverse Reaction (Intermediate, Verified 09/29/25 12:40) lip numbness trimethoprim (From Bactrim) Adverse Reaction (Intermediate, Verified 09/29/25 12:40) lip numbness ethyl chloride Allergy (Unknown, Uncoded 09/07/25 14:11) Unknown HPI HPI Follow up from the ER Fecal impaction: Details: Assessment & Plan (1) Chronic idiopathic constipation: Code(s): K59.04 - Chronic idiopathic constipation Category: Medical (2) GERD (gastroesophageal reflux disease): Code(s): K21.9 - Gastro-esophageal reflux disease without esophagitis Category: Medical Qualifiers: Esophagitis presence: without esophagitis Qualified Code(s): K21.9 - Gastro-esophageal reflux disease without esophagitis Plan She has decided to follow with our service for her renewals of her omeprazole. She has been managing as well as she can with bisacodyl for her constipation. This is the only thing that has worked at all for her and we have gone through all of the more expensive and newest constipation medications without success. She still struggles with bloating at times. Return office visit in 1 year Medications: Refilled omeprazole 20 mg PO DAILY 90 caps 2RF K21.9 - Gastro-esophageal reflux disease without esophagitis bisacodyl 15 mg (3 x 5 mg) PO BEDTIME 270 tabs 1RF K59.04 - Chronic idiopathic constipation TODAYS VISIT [facility] Medical History History of pheochromocytoma Anemia URI (upper respiratory infection) Breast cancer screening by mammogram Left flank discomfort History of medullary carcinoma of thyroid Left flank pain Multiple endocrine neoplasia type 2A (MEN2A) Medullary thyroid carcinoma Hypothyroid Pheochromocytoma of left adrenal gland Hypercholesterolemia COPD (chronic obstructive pulmonary disease) Pulmonary nodule Nicotine dependence, cigarettes, uncomplicated Osteopenia Irritable bowel syndrome with constipation Restless leg syndrome Anxiety Depression PONV (postoperative nausea and vomiting) Cervicalgia Pain in both feet Erosive (osteo)arthritis Bilateral hand pain Mass of left axilla Back pain Nevoid hyperpigmentation Neuritis of right ulnar nerve Neck pain Odynophagia Gout Surgical History S/P rotator cuff repair History of radical neck dissection (~01/2019) History of thyroidectomy (~03/2011) History of total adrenalectomy (~06/2018) History of laparoscopic cholecystectomy (~11/2022) History of total abdominal hysterectomy and bilateral salpingo-oophorectomy (~11/2013) History of tubal ligation (~10/2000) History of bilateral breast reduction surgery (~09/2019) History of repair of right rotator cuff (~04/2024) History of hand surgery (~02/2021) History of surgery on left wrist (~04/2010) History of fusion of lumbar spine History of tonsillectomy History of colonoscopy History of esophagogastroduodenoscopy (EGD) Family History Father Heart attack Mother Brain cancer Lung cancer Cervical cancer Family/Other Diabetes Sister Cervical cancer Lung cancer Daughter Breast cancer Social History Household Members: Spouse and Children Housing: Other Housing Other:: Trailer Alcohol intake: never Patient Tobacco Use Status: Current everyday Tobacco user Tobacco use type: Cigarette Cigarette Packs Per Day: 1 Cigarettes Per Day: 20 Years Smoked: (onset 14yo, 3/4-1ppd x 44yrs - 35pyh) e-Cigarette/Vaping Use: Never Used Second Hand Smoke Exposure: Yes Substance Use Type: Marijuana Current occupational status: disabled Current occupation: left handed Gender identity: Female Cognitive needs: No Hearing needs: No Vision needs: Yes Review of Systems ENT Reports Normal hearing present Neuro Reports Normal hearing present and Denies Abnormal speech present Physical Exam Vital Signs: Last Vital Signs Pulse 71 09/29/25 12:48 BP 132/64 09/29/25 12:48 Pulse Ox 98 09/29/25 12:48 BMI result Body Mass Index 26.6 Const General: cooperative, no acute distress, well developed and well groomed Nutritional Appearance: average body habitus and well nourished Orientation/consciousness: oriented to person, oriented to place and oriented to time Limitations: No language barrier HEENT Head: Yes normocephalic and Yes atraumatic Eyes General: appearance normal, both eyes and all related structures Pupils: Equal, round and reactive pupils present Neck Neck: Yes normal visual inspection and Yes no lymphadenopathy Thyroid: Thyroid normal Resp Effort & Inspection: normal respiratory effort and able to speak in complete sentences Auscultation: clear to auscultation bilaterally Cardio Rate: regular rate Rhythm: regular rhythm Heart sounds: Normal, physiologic split S2 sound present Peripheral pulses: radial pulses present and posterior tibial pulses present GI Inspection: No distended and No Abdominal panniculus present Palpation (GI): Soft to palpation, nontender, no guarding, not rigid and No hepatosplenomegaly present Percussion: Yes normal to percussion Auscultation: normal bowel sounds Rectal Exam - Female: deferred Skin General skin exam: no rashes or lesions noted, turgor normal, skin not dry, no jaundice, No spider nevi and no striae Rashes: no rashes Nails: normal Neuro General: oriented to person, oriented to place and oriented to time Cranial nerves: Yes Equal, round and reactive pupils present and Yes Normal hearing present Speech: No Abnormal speech present Extrem General: Yes normal to inspection, No clubbing, No cyanosis and No edema Psych Appearance: grossly normal and well kempt Mental Status: mental status grossly normal Speech and movement: Normal speech and movement present Affect: normal affect Attitude: cooperative Thought process: Normal thought process present and not confabulating Thought content: Normal thought content present Insight: Good insight present (Psych) Judgement: Good judgement present (Psych) Assessment & Plan Assessment & Plan (1) Chronic idiopathic constipation: Code(s): K59.04 - Chronic idiopathic constipation Category: Medical (2) Fecal impaction in rectum: Code(s): K56.41 - Fecal impaction Category: Medical Plan Subjective Patient presents for follow-up after emergency department visit for severe constipation with fecal impaction. She reports abrupt onset of intense rectal and lower pelvic pain with colonic spasms, diaphoresis, and near-syncope while straining. Prior to ED presentation she attempted two suppositories (type unknown) and two enemas with minimal watery output. In the ED, digital disimpaction was performed with significant relief; she believes she was given an antispasmodic there. Since discharge she continues to have inconsistent bowel movements: often no bowel movement for up to eight days, then passage of small amounts of thick ?sludge? followed by several episodes of watery diarrhea. She feels markedly bloated and notes early satiety, becoming full after only small amounts of food. She has been using bisacodyl intermittently (sometimes two tablets when needed) and was advised in the ED to take senna and docusate; she has been using vitamin D, vitamin C, and red yeast rice. She denies recent dietary changes or new chronic medications besides those given in the ED. Relevant Past Medical, Social, and Family History - History of cancer undergoing annual CT surveillance. Recent CT report again noted a large stool burden. - Total hysterectomy. - Recent migraine affecting depth perception. Objective - CT imaging reviewed: fecal impaction at time of ED visit; subsequent surveillance CT noted a large amount of retained stool. - ED course reviewed: digital disimpaction performed with symptom relief. Assessment & Plan Severe chronic constipation with recent fecal impaction; suspected gastrointestinal motility disorder; early satiety; possible pelvic floor dysfunction/rectocele contributing: Clinical course notable for refractory constipation culminating in fecal impaction requiring digital disimpaction, ongoing stool retention with alternating scant thick stools and watery diarrhea, bloating, and early satiety. Pattern and response suggest an underlying motility disorder; pelvic floor dysfunction (e.g., rectocele) is also a consideration given surgical history. - Medications - Restart metoclopramide 5 mg by mouth four times daily (breakfast, lunch, supper, bedtime) to improve upper GI motility and address early satiety. - Continue bisacodyl: 1 tablet every other night; may increase to 2?3 tablets as needed based on bowel movement response to avoid prolonged constipation. - Continue docusate (Colace) stool softener; refill sent. - Discontinue senna. - Add glycerin suppositories: insert 2 suppositories at bedtime daily for rectal lubrication to facilitate stool passage; if not covered by insurance, obtain [id number] or via [employer]. - Counseling - Reviewed goal of avoiding extremes of constipation and prolonged diarrhea; adjust bisacodyl dosing responsively. - Discussed that diagnostic tests are limited for motility disorders; treatment is empiric and response-guided. - Reviewed possibility of pelvic floor dysfunction/rectocele contributing to o utlet obstruction; if inadequate response to current regimen, will refer to gynecology for bimanual/pelvic floor evaluation. - Follow-up - Follow up in approximately 6 weeks. - Patient to message via patient portal sooner with any severe or worsening symptoms or concerns. Medications: New metoclopramide HCl (Reglan) 5 mg PO .qidhs 120 tabs 6RF glycerin (adult) (Fleet Glycerin (Adult) rectal suppository) 2 supp DC DAILY 60 ea 6RF constipation K56.41 - Fecal impaction, K59.04 - Chronic idiopathic constipation Refilled docusate sodium (Colace) 100 mg PO BID PRN 30 caps 3RF constipation Discontinued sennosides (senna) Discontinued Reason: Doctor's Order 8.6 mg PO BEDTIME PRN 30 caps 0RF constipation Patient Instructions: 1.??? Continue to take bisacodyl 1 tablet every other night and add a 2nd and 3rd tablet as needed depending on your bowel movement. ? 2.??? Stopped the senna.? 3.??? Continue taking docusate or Colace, I have sent a refill.? 4.??? We are adding metoclopramide 5 mg take it 4 times a day at breakfast time, lunchtime, supper time, and bedtime to facilitate normal movement of the GI system and to address your feelings of early satiety.? 5.??? We are also adding glycerin suppositories which I have sent to the [facility] please use 2 of these at bedtime for lubrication.? If this isn't covered by insurance you can get it inexpensively [id number] or through [employer] pharmacy. 6.??? I want to see you again in about 6 weeks, in the meantime send me emails through patient portal if you have any severe problems. Coding Level of Care Code Est Pt Level 3 (33200) Diagnoses Chronic idiopathic constipation K59.04 Fecal impaction in rectum K56.41
[2025-09-29 12:48] VITALS: BP 132/64; PULSE 71; O2SAT 98; BMI 26.6
== END 2025-09-29 13:56 | disposition home or self-care (01) ==
LOC: HO.HGI 12:22
PROVIDERS: PCP Internal Medicine; Visit Provider Nurse Practitioner
DX: K59.04 Chronic idiopathic constipation (principal); K56.41 Fecal impaction
CPT/HCPCS: 99213

== ENCOUNTER → 2025-09-29 12:21 | Outpatient (BNVA) | payer OTHER, SELFPAY | PROVIDERS: PCP Internal Medicine; Visit Provider Nurse Practitioner | DX: K56.41 Fecal impaction (principal); Z79.899 Other long term (current) drug therapy | CPT/HCPCS: 99212 ==

== ENCOUNTER 2025-10-05 15:02 | Outpatient (AMB) | payer OTHER, SELFPAY ==
[2025-10-05 15:37] VITALS: BMI 26.6
--- NOTE | 2025-10-05 15:37 | MHC.OFFVIS ---
Vital Signs 10/05/25 15:37 Height 5 ft 6 in Weight 165 lb BMI 26.6 Intake Visit Reasons: O/V Cyst on left hand Intake Note: Stephanie 60 yr old left hand dominant female presents today for a follow up visit for her left dorsal wrist ganglion. At her last visit she was placed in a pressure dressing which she can wear for the next few days. Today patient states her cyst has increased in size and is causing pain and discomfort. Patient would like to discuss aspiration vs surgical intervention. Allergies codeine (Codeine) Allergy (Mild, Verified 10/05/25 15:47) N/V, HEADACHE, vomiting morphine (MORPHINE) Allergy (Unknown, Verified 10/05/25 15:47) VOMITING, HEADACHE, migraine, vomiting sulfamethoxazole (From Bactrim) Adverse Reaction (Intermediate, Verified 10/05/25 15:47) lip numbness trimethoprim (From Bactrim) Adverse Reaction (Intermediate, Verified 10/05/25 15:47) lip numbness ethyl chloride Allergy (Unknown, Uncoded 10/05/25 15:47) Unknown HPI HPI O/V Cyst on left hand: Details: Stephanie is a 60 year old left hand dominant woman who returns for her left dorsal wrist ganglion She complains of a mass on the dorsal aspect of her left wrist. She says this has been present for ~18 months now. She says this has increased again in size in the last few weeks and is now causing worsening pain She also complains of bilateral hand numbness, R>L. Symptoms intermittent, but daily, worse at night [facility] Medical History History of pheochromocytoma Anemia URI (upper respiratory infection) Breast cancer screening by mammogram Left flank discomfort History of medullary carcinoma of thyroid Left flank pain Multiple endocrine neoplasia type 2A (MEN2A) Medullary thyroid carcinoma Hypothyroid Pheochromocytoma of left adrenal gland Hypercholesterolemia COPD (chronic obstructive pulmonary disease) Pulmonary nodule Nicotine dependence, cigarettes, uncomplicated Osteopenia Irritable bowel syndrome with constipation Restless leg syndrome Anxiety Depression PONV (postoperative nausea and vomiting) Cervicalgia Pain in both feet Erosive (osteo)arthritis Bilateral hand pain Mass of left axilla Back pain Nevoid hyperpigmentation Neuritis of right ulnar nerve Neck pain Odynophagia Gout Surgical History S/P rotator cuff repair History of radical neck dissection (~01/2019) History of thyroidectomy (~03/2011) History of total adrenalectomy (~06/2018) History of laparoscopic cholecystectomy (~11/2022) History of total abdominal hysterectomy and bilateral salpingo-oophorectomy (~11/2013) History of tubal ligation (~10/2000) History of bilateral breast reduction surgery (~09/2019) History of repair of right rotator cuff (~04/2024) History of hand surgery (~02/2021) History of surgery on left wrist (~04/2010) History of fusion of lumbar spine History of tonsillectomy History of colonoscopy History of esophagogastroduodenoscopy (EGD) Family History Father Heart attack Mother Brain cancer Lung cancer Cervical cancer Family/Other Diabetes Sister Cervical cancer Lung cancer Daughter Breast cancer Social History Household Members: Spouse and Children Housing: Other Housing Other:: Trailer Alcohol intake: never Patient Tobacco Use Status: Current everyday Tobacco user Tobacco use type: Cigarette Cigarette Packs Per Day: 1 Cigarettes Per Day: 20 Years Smoked: (onset 14yo, 3/4-1ppd x 44yrs - 35pyh) e-Cigarette/Vaping Use: Never Used Second Hand Smoke Exposure: Yes Substance Use Type: Marijuana Current occupational status: disabled Current occupation: left handed Gender identity: Female Cognitive needs: No Hearing needs: No Vision needs: Yes Physical Exam Vital Signs: BMI result Body Mass Index 26.6 Extrem Other: Evaluation of Left Upper Extremity: The patient is alert, oriented, and in no acute distress Neuro: Median, Ulnar, Radial nerves motor and sensory intact and sensation is normal to the tips of all digits Vascular: Cap refill brisk ROM: She can make a fist and extend all her digits No locking or catching There is a left dorsal central wrist ganglion, measuring ~1cm in diameter. Assessment & Plan Assessment & Plan (1) Ganglion cyst of dorsum of left wrist: Code(s): M67.432 - Ganglion, left wrist Category: Medical (2) Nicotine dependence, cigarettes, uncomplicated: Comment: (onset 14yo, 3/4-1ppd x 45yrs 35pyh) CT June 2024 Code(s): F17.210 - Nicotine dependence, cigarettes, uncomplicated Category: Medical (3) COPD (chronic obstructive pulmonary disease): Comment: Emphysema PFT January 2014, asthma Code(s): J44.9 - Chronic obstructive pulmonary disease, unspecified Category: Medical Qualifiers: COPD type: emphysema Emphysema type: unspecified Qualified Code(s): J43.9 - Emphysema, unspecified (4) Numbness and tingling in both hands: Code(s): R20.0 - Anesthesia of skin; R20.2 - Paresthesia of skin Category: Medical Plan Assessment & Plan: 1. Left dorsal central wrist ganglion Measuring ~1cm in diameter I educated her and her partner about this condition I discussed operative and non-operative treatment options I recommend surgery, and she is in agreement The risks and benefits of operative treatment were discussed with the patient and the patient wishes to proceed with surgery. These risks include, but are not limited to risk of damage to blood vessels, nerves, tendons, infection, recurrence, incomplete relief of preoperative symptoms, persistent pain, possible need for further surgery and the risks associated with regional blocks and anesthesia. The plan is to take the patient to the operating room sometime in the next few weeks for the following procedures: 1. Left dorsal wrist ganglion excision, under general All of the preoperative paperwork including the consent was reviewed today. All the patient's questions were answered. The patient understands that they will be contacted by our scheduler maintenance soon to schedule this procedure She denies Diabetes, blood thinners, asthma, heart, kidney issues. She is a smoker & has COPD & emphysema. Discuss possible Pulmonology clearance with anesthesia 2. Bilateral hand numbness, R>L Symptoms intermittent, but daily, worse at night I ordered a NCS to assess for peripheral nerve compression She will follow up for review when completed Scribed for Zoila Hernandez MD by Richi Rider medical laboratory scientist, on 10/05/25 at 3:50 PM, EST. Orders: Orders NE electromyogram (EMG) Today R20.0 - Anesthesia of skin, R20.2 - Paresthesia of skin NE nerve conduction velocity Today R20.0 - Anesthesia of skin, R20.2 - Paresthesia of skin Coding Level of Care Code Est Pt Level 4 (11388) Diagnoses Ganglion cyst of dorsum of left wrist M67.432 Nicotine dependence, cigarettes, uncomplicated F17.210 Pulmonary emphysema, unspecified emphysema type J43.9 COPD type: emphysema Emphysema type: unspecified Numbness and tingling in both hands R20.0; R20.2
--- OUTSIDE RECORDS SUMMARY | 2025-10-05 23:36 | XMS_ITS | Clinical Summary ---
Author Organization [facility] Address [address] [facility] [address] [place] [id number] Phone Care Team Providers Care Swimming Pool Maintenance Name Role Phone Jayshree White MD Primary Care Provider [phone] Allergies Active Allergy Reactions Criticality Noted Date [...] (Age 62) kidney CA Father (Age 47) [place], smoker, ET [place] Mother (Age 75) brain [...] this topic Medical Devices Implanted Type Area Molding Line Assistant Device Identifier Shelf Expiration Date Model / Serial / Lot Hardware To Back Substitute Bone 10ml Graft Dbm Calcium Phosphate Putty Kit [employer] - [id number] Implanted:Qty: 1 on 07/18/2016 by Moose Reyes MD at [facility] N/A: Spine Lumbar [employer] 03/26/2019 [id number] / / [id number] Cage Lateral Peek L40 H10 Spine Code 31 - [id number] Implanted:Qty: 1 on 07/18/2016 by Moose Reyes MD at [facility] N/A: Spine Lumbar [employer] 05/07/2021Apr- 40 10-S / / [id number] Cage Lateral Peek L40 H10 Spine Code 31 - [id number] Implanted:Qty: 1 on 07/18/2016 by Moose Reyes MD at [facility] N/A: Spine Lumbar [employer] 05/07/2021Apr- 40 10-S / / [id number] Insurance [employer] [facility] [place] [phone] [facility] [place] [facility] [place] [facility] [place] [facility] [place] [facility] Advance Directives For more information, please contact: [phone] (9AM - 5PM [facility], Friday-Friday) Documents on File Type Date Recorded Patient Adding Machine Servicer Expl anation Healthcare Proxy 07/22/2016 10:40 AM * Full Code (Presumed) (Latest Code Status on File) Date Activated Date Inactivated Comments 07/18/2016 2:56 PM 07/19/2016 3:18 PM Care Teams Swimming Pool Maintenance Relationship Specialty Start Date End Date Jayshree White MD [address] [place] [address] PCP - General Internal Medicine 10/30/15 Additional Source Comments The information contained in this document represents components of the legal health record. It is not the complete legal health record.[facility]
--- OUTSIDE RECORDS SUMMARY | 2025-10-05 23:36 | XMS_ITS | Encounter Summary ---
Author Organization [facility] Address [address] [facility] [address] [place] [address] Phone Care Team Providers Care Tailing Hand Name Role Phone Jayshree White MD Primary Care Provider [phone] Encounter Details Date Type Department Care Team (Late st Contact Info) Description 07/18/2016 Ancillary Orders [facility] [address] [place] [address] Moose Reyes MD [address], [address] [place] [address] [email or web address] Pain (Primary Dx) [...] 1 Hour (07/18/2016 10:15 AM EDT) Narrative [facility] - 07/18/2016 10:17 AM [...] right greater than right. COMMENT: Intraoperative, small [id number] fluoroscopic low resolution frontal and image(s) of the mid lumbar spine, 10:03 AM to 10:03 AM , 07/18/2016. 2 image(s) submitted. Please note that this is not an interpretation which was provided to the operating room at the time of image acquisition. Frontal projection is not labeled left or right. Procedure Note Jluiana Machado MD - 07/18/2016 HISTORY: LATERAL LIF L2-[address] lumbar spine 05/29/2016 which demonstrated T12-S1 fusion withfracture of the right greater than right. COMMENT: Intraoperative, small [id number] fluoroscopic low resolution frontaland image(s) of the [...] pain documented in this encounter Care Teams Tailing Hand Relationship Specialty Start Date End Date Jayshree White MD [address] [place] [address] PCP - General Internal Medicine 10/30/15 documented as of this encounter Additional Source Comments The information contained in this document represents components of the legal health record. It is not the complete legal health record.[facility]
--- OUTSIDE RECORDS SUMMARY | 2025-10-05 23:36 | XMS_ITS | Encounter Summary ---
Author Organization [facility] Address [address] [place] [address] Phone Care Team Providers Care Centerless Grinder Name Role Phone Jayshree White MD Primary Care Provider [phone] Reason for Visit * Reason Onset Date Comments Post Discharge Follow Up Call 07/22/2016 Encounter Details Date Type Department Care Team (Late st Contact Info) Description 07/22/2016 Telephone [facility] [address] [phone] Dianne Freeman RN [address] [place] [address] [email or web address] Discharge Follow Up Call Social [...] on filedocumented in this encounter Care Teams Centerless Grinder Relationship Specialty Start Date End Date Jayshree White MD [address] [place] [id number] PCP - General Internal Medicine 10/30/15 documented as of this encounter Additional Source Comments The information contained in this document represents components of the legal health record. It is not the complete legal health record.[facility]
--- OUTSIDE RECORDS SUMMARY | 2025-10-05 23:37 | XMS_ITS | Patient Health Record ---
Author Organization [facility] Address [address] [place] [address] Care Team Providers Care Steward/Stewardess Room Name Role Phone SHANTA JIMENEZ M.D. Primary Care Provider Felicia Lord Unavailable [phone] Allergies Allergen (clinical drug ingredient) Drug/Non Drug [...] Problem History of malignant neoplasm of thyroid (849945289) Personal history of malignant neoplasm of thyroid (V10.87) Active confirmed Problem Postmenopausal atrophic vaginitis (97890135) Postmenopausal atrophic vaginitis (N95.2) Active confirmed Problem Anogenital warts (810515562) Anogenital (venereal) warts (A63.0) Active confirmed Problem Atrophy of vulva (163528256) Atrophy of vulva (N90.5) Active confirmed Problem Postcoital bleeding (25111857) Postcoital and contact bleeding (N93.0) Active confirmed Problem Hypothyroidism (80909346) Unspecified hypothyroidism (244.9) Active confirmed Major Plan [...]
== END 2025-10-05 16:25 | disposition home or self-care (01) ==
LOC: HO.HOS 15:02
PROVIDERS: PCP Internal Medicine; Visit Provider Orthopaedic Surgery
DX: M67.432 Ganglion, left wrist (principal); F17.210 Nicotine dependence, cigarettes, uncomplicated; J43.9 Emphysema, unspecified; R20.0 Anesthesia of skin; R20.2 Paresthesia of skin
CPT/HCPCS: 99214

== ENCOUNTER → 2025-10-05 15:02 | Outpatient (BNVA) | payer OTHER, SELFPAY | PROVIDERS: PCP Internal Medicine; Visit Provider Orthopaedic Surgery | DX: M67.432 Ganglion, left wrist (principal); F17.210 Nicotine dependence, cigarettes, uncomplicated; J43.9 Emphysema, unspecified; R20.0 Anesthesia of skin; R20.2 Paresthesia of skin | CPT/HCPCS: 99212 ==

== ENCOUNTER 2025-10-11 16:09 | Outpatient (AMB) | payer OTHER, SELFPAY ==
[2025-10-11 16:25] VITALS: BP 130/70; PULSE 66; RESP 16; TEMP 36.2; O2SAT 99; BMI 27.5
--- NOTE | 2025-10-11 16:25 | MHC.PC.OV ---
Vital Signs 10/11/25 16:25 Height 5 ft 6 in Weight 170 lb 6 oz BMI 27.5 BP 130/70 Blood Pressure Location Rt brachial Position Sitting Respiration 16 Pulse 66 Pulse Source Pulse Oximeter Temp 97.1 F Temp Source Temporal Artery Scan Pulse Oximetry (%) 99 Oxygen Delivery Method Room Air Intake Visit Reasons: follow up Allergies codeine (Codeine) Allergy (Mild, Verified 10/11/25 16:31) N/V, HEADACHE, vomiting morphine (MORPHINE) Allergy (Unknown, Verified 10/11/25 16:31) VOMITING, HEADACHE, migraine, vomiting sulfamethoxazole (From Bactrim) Adverse Reaction (Intermediate, Verified 10/11/25 16:31) lip numbness trimethoprim (From Bactrim) Adverse Reaction (Intermediate, Verified 10/11/25 16:31) lip numbness ethyl chloride Allergy (Unknown, Uncoded 10/05/25 15:47) Unknown Medication List - Last Reconciled 10/11/25 by Jayshree Daniel Po, amitriptyline 75 mg PO BEDTIME 90 days ascorbate calcium (vitamin C) 500 mg PO DAILY aspirin (Adult Aspirin Regimen) 81 mg PO DAILY azelastine 1 spray intranasal BID bisacodyl 15 mg (3 x 5 mg) PO BEDTIME cetirizine (Allergy Relief (cetirizine)) 10 mg PO DAILY cholecalciferol (vitamin D3) 50 mcg PO DAILY cyclobenzaprine 5 mg PO TID PRN docusate sodium (Colace) 100 mg PO BID PRN glycerin (adult) (Fleet Glycerin (Adult) rectal suppository) 2 supp TN DAILY levalbuterol tartrate 45 mcg/actuation (Xopenex HFA) 2 puffs inhalation Q4-6H PRN 90 days lidocaine 5% 2 patches topical DAILY metoclopramide HCl (Reglan) 5 mg PO .qidhs omeprazole 20 mg PO DAILY ondansetron 4 mg PO Q8H PRN ropinirole 0.5 mg PO BEDTIME ropinirole 1 mg PO BEDTIME sertraline 100 mg PO DAILY Synthroid (levothyroxine) 112 mcg PO DAILY NS Tobacco use date assessed: 10/11/25 Dental Screening Dental Screen Date: 10/11/25 Did you have a dental visit in the last 12 months?: No Did you have a dental problem in the last 6 months where you did not have access to dental care?: No Was dental information given to patient?: Patient has dentist HPI HPI Comments History of Present Illness Details History of Present Illness The patient is a 60-year-old overweight female presenting for a follow-up visit for management of chronic conditions and an acute fall. She has a history of generalized anxiety disorder and has gained 5 pounds. She has a history of multiple endocrine neoplasia type 2A. Her history is significant for bilateral medullary thyroid cancer, status post thyroidectomy with neck dissection, mediastinal neck resection, subtotal thymectomy, and left lateral neck resection in 2010. She also has a history of pheochromocytoma, status post laparoscopic adrenalectomy in 2018. The patient follows with gastroenterology for fecal impaction, which was diagnosed in September. She recently presented to the emergency room for this issue after multiple home enemas failed, and she reports rectal spasming. Her diet is poor, consisting of foods like cinnamon buns and pizza, and she admits to not eating vegetables or drinking enough water, instead consuming up to 12 teas a day. She recently had a fall on her left side, injuring her neck, back, hip, elbow, and wrist. She has a left dorsal wrist ganglion cyst and had an orthopedic visit in September, with a plan for operative intervention pending a nerve conduction study for carpal tunnel syndrome. Additional past medical history includes COPD, osteopenia, hypothyroidism, hypercholesterolemia, and anemia with intolerance to oral iron. She is a current smoker. Her last mammogram was in October 2024, and her last colonoscopy was in 2018. Health Maintenance - Last mammogram was in October 2024. - Last colonoscopy was in 2019. - Patient has been advised to stop smoking. - Discussed dietary changes, including increasing water and fiber intake and reducing consumption of processed foods and tea. - Patient declined vaccinations. Social History - Nutrition: Reports a poor diet, admitting she does not eat vegetables. - Recent intake includes two small cinnamon buns and two slices of pizza. - She drinks about two bottles of water and up to 12 cups of tea per day. - Substance Use: The patient is a current smoker and has been advised to quit. - Stress: Reports being stressed out due to her daughter living with her. Results - Laboratory results from August 12: Mild leukocytosis with normal blood count and no anemia; normal electrolytes and renal function; blood sugar of 421 mg/dL; normal liver function tests. - Calcitonin was 119 pg/mL and CEA was 11.4 ng/mL with a normal thyroid function test. - A recent CT scan of the adrenal glands showed a moderate amount of stool. [facility] Medical History History of pheochromocytoma Anemia URI (upper respiratory infection) Breast cancer screening by mammogram Left flank discomfort History of medullary carcinoma of thyroid Left flank pain Multiple endocrine neoplasia type 2A (MEN2A) Medullary thyroid carcinoma Hypothyroid Pheochromocytoma of left adrenal gland Hypercholesterolemia COPD (chronic obstructive pulmonary disease) Pulmonary nodule Nicotine dependence, cigarettes, uncomplicated Osteopenia Irritable bowel syndrome with constipation Restless leg syndrome Anxiety Depression PONV (postoperative nausea and vomiting) Cervicalgia Pain in both feet Erosive (osteo)arthritis Bilateral hand pain Mass of left axilla Back pain Nevoid hyperpigmentation Neuritis of right ulnar nerve Neck pain Odynophagia Gout Surgical History S/P rotator cuff repair History of radical neck dissection (~01/2019) History of thyroidectomy (~03/2011) History of total adrenalectomy (~06/2018) History of laparoscopic cholecystectomy (~11/2022) History of total abdominal hysterectomy and bilateral salpingo-oophorectomy (~11/2013) History of tubal ligation (~10/2000) History of bilateral breast reduction surgery (~09/2019) History of repair of right rotator cuff (~04/2024) History of hand surgery (~02/2021) History of surgery on left wrist (~04/2010) History of fusion of lumbar spine History of tonsillectomy History of colonoscopy History of esophagogastroduodenoscopy (EGD) Family History Father Heart attack Mother Brain cancer Lung cancer Cervical cancer Family/Other Diabetes Sister Cervical cancer Lung cancer Daughter Breast cancer Social History Household Members: Spouse and Children Housing: Other Housing Other:: Trailer Alcohol intake: never Patient Tobacco Use Status: Current everyday Tobacco user Tobacco use type: Cigarette Cigarette Packs Per Day: 1 Cigarettes Per Day: 20 Years Smoked: (onset 14yo, 3/4-1ppd x 44yrs - 35pyh) e-Cigarette/Vaping Use: Never Used Second Hand Smoke Exposure: Yes Substance Use Type: Marijuana Current occupational status: disabled Current occupation: left handed Gender identity: Female Cognitive needs: No Hearing needs: No Vision needs: Yes Questionnaire PHQ-9 Over the last 2 weeks, how often have you been bothered by any of the following problems? 1. Little interest or pleasure in doing things: several days 2. Feeling down, depressed, or hopeless: several days 3. Trouble falling or staying asleep, or sleeping too much: several days 4. Feeling tired or having little energy: several days 5. Poor appetite or overeating: several days 6. Feeling bad about yourself - or that you are a failure or have let yourself or your family down: several days 7. Trouble concentrating on things, such as reading the newspaper or watching television: several days 8. Moving or speaking so slowly that other people could have noticed. Or the opposite - being so fidgety or restless that you have been moving around a lot more than usual: not at all 9. Thoughts that you would be better off or of hurting yourself in some way: not at all Total score: 7 Depression Screening Interpretation: Negative Depression Screening Done: Yes Source: Developed by Drs. Moose Wright, Ira Membreno, Davy Trevino and colleagues, with an educational cheryl from [employer]. Thrive Questionnaire Date Thrive assessed: 10/11/25 I am a: Patient What is your living situation today?: I have a steady place to live Within the past 12 months, did the food you bought not last and you didn't have the money to get more?: Sometimes True Within the past 12 months, did you worry whether your food would run out before you got money to buy more?: Sometimes True Do you have trouble paying for medicines?: No Do you have trouble getting transportation to medical appointments?: No Do you have trouble paying your heating and electricity bill?: Yes Do you have trouble taking care of your child, family member or friend?: No Do you have trouble with day-to-day activities such as bathing, preparing meals, shopping, managing finances, etc.?: Yes Are you currently unemployed and looking for a job?: No Are you interested in more education?: No Please select the resources that you would like help with: None Currently or been in a relationship where the following occur: No concerns reported THRIVE Score: 3 AUDIT C Alcohol Use Questionnaire (AUDIT-C) 1. How often do you have a drink containing alcohol?: Never 3. How often do you have six or more drinks on one occasion?: Never Total Score: 0 JYOTHI-7 AMB Questionnaire JYOTHI-7 Date JYOTHI - 7 assessed: 10/11/25 Feeling nervous, anxious, or on edge: 0 = Not at all Not being able to stop or control worryin = Not at all Worrying too much about different things: 0 = Not at all Trouble relaxin = Not at all Being so restless that it is hard to sit still: 0 = Not at all Becoming easily annoyed or irritable: 0 = Not at all Feeling afraid as if something awful might happen: 0 = Not at all Total JYOTHI-7 score (0-4 normal; 5-9 mild; 10-14 moderate; 15-21 severe): 0 Source: Developed by Drs. Moose Wright, Ira Membreno, Davy Trevino and colleagues, with an educational cheryl from [employer]. Review of Systems Narrative Review of Systems - Constitutional: Reports a 5-pound weight gain and feeling stressed. - Respiratory: No new respiratory complaints; has a diagnosis of COPD. - Gastrointestinal: Reports chronic constipation and recent fecal impaction with rectal spasming. - A recent scan showed a moderate amount of stool. - Musculoskeletal: Reports pain in her neck, lower back, left hip, left elbow, and left wrist after a fall. - Reports limping all the time. - Neurological: Reports memory decline. - Integumentary: Reports hair was doing much better while on a healthier diet. - Psychiatric: Reports generalized anxiety. Physical exam (Primary Care) Vital Signs: Last Vital Signs Temp 97.1 F 10/11/25 16:25 Pulse 66 10/11/25 16:25 Resp 16 10/11/25 16:25 BP 130/70 10/11/25 16:25 Pulse Ox 99 10/11/25 16:25 Oxygen Delivery Method Room Air 10/11/25 16:25 BMI result Body Mass Index 27.5 Tobacco/Smoking Status: Tobacco use Status Tobacco use date assessed 10/11/25 10/11/25 16:37 Patient Tobacco Use Status Current everyday Tobacco 10/11/25 16:37 Tobacco use type Cigarette 10/11/25 16:37 e-Cigarette/Vaping Use Never Used 10/11/25 16:37 PHQ-9: PHQ-9 Score PHQ-9: Total score 7 10/11/25 19:52 Depression Screening Interpretation: Negative Thrive Assessment: Date of Thrive Assessment Date Thrive assessed 10/11/25 10/11/25 16:37 Currently or been in a relationship where the following occur: No concerns reported Narrative Physical Exam - General Appearance: Overweight female. - Integumentary: Bruise noted on left elbow after a fall. Const General: alert; No acute distress Eyes Conjunctivae: conjunctivae normal Resp Auscultation: clear to auscultation bilaterally Cardio Rate: regular rate Rhythm: regular rhythm GI Inspection: Yes normal to inspection Extrem General: Yes normal to inspection and No edema Coding Level of Care Code Est Pt Level 4 (32503) Add On Problem Visit Only Diagnoses Postoperative hypothyroidism E89.0 Hypothyroidism type: postoperative Multiple endocrine neoplasia type 2A (MEN2A) E31.22 History of pheochromocytoma Z86.018 Gastroesophageal reflux disease without esophagitis K21.9 Esophagitis presence: without esophagitis Fecal impaction in rectum K56.41 Iron deficiency anemia D50.9 Ganglion cyst of dorsum of left wrist M67.432 Pulmonary emphysema, unspecified emphysema type J43.9 COPD type: emphysema Emphysema type: unspecified Nicotine dependence, cigarettes, uncomplicated F17.210 Fall W19.XXXA Left hip pain M25.552 Elbow pain, left M25.522 Wrist pain, left M25.532 Low back pain M54.50 Assessment & Plan Assessment & Plan (1) Hypothyroid: Comment: (aquired - s/p thyroidectomy for thyroid cancer 2010) Code(s): E03.9 - Hypothyroidism, unspecified Category: Medical Qualifiers: Hypothyroidism type: postoperative Qualified Code(s): E89.0 - Postprocedural hypothyroidism Plan: Continue with present thyroid medication patient is being followed up by Endocrinology (2) Multiple endocrine neoplasia type 2A (MEN2A): Code(s): E31.22 - Multiple endocrine neoplasia [MEN] type IIA Category: Medical Plan: Continue with follow-up with endocrinology (3) History of pheochromocytoma: Code(s): Z86.018 - Personal history of other benign neoplasm Category: Medical Plan: Continue follow-up with endocrinology (4) GERD (gastroesophageal reflux disease): Code(s): K21.9 - Gastro-esophageal reflux disease without esophagitis Category: Medical Qualifiers: Esophagitis presence: without esophagitis Qualified Code(s): K21.9 - Gastro-esophageal reflux disease without esophagitis Plan: Avoid the foods that causes that usually spicy foods, tomato products, juices, coffee, soda and foods that your sensitive to. After eating do not lie down, allow 3-4 hours before in lie down. And keep the head of bed above 30 degrees to avoid the acid from going up. (5) Fecal impaction in rectum: Code(s): K56.41 - Fecal impaction Category: Medical Plan: Three rules for constipation 1. Diet need to have a high fiber diet less of meat 2. Increase oral fluids 3. Exercise has been seen by Gastroenterology bisacodyl glycerin metoclopramide prescription sent in (6) Iron deficiency anemia: Code(s): D50.9 - Iron deficiency anemia, unspecified Category: Medical Plan: Continue to be monitored by hematology oncology (7) Ganglion cyst of dorsum of left wrist: Code(s): M67.432 - Ganglion, left wrist Category: Medical Plan: Patient has a planned surgery under Orthopedics (8) COPD (chronic obstructive pulmonary disease): Comment: Emphysema PFT January 2014, asthma Code(s): J44.9 - Chronic obstructive pulmonary disease, unspecified Category: Medical Qualifiers: COPD type: emphysema Emphysema type: unspecified Qualified Code(s): J43.9 - Emphysema, unspecified Plan: Stop smoking! Continue with inhalers Xopenex as needed (9) Nicotine dependence, cigarettes, uncomplicated: Comment: (onset 14yo, 3/4-1ppd x 45yrs 35pyh) CT June 2024 Code(s): F17.210 - Nicotine dependence, cigarettes, uncomplicated Category: Medical Plan: Patient is strongly advised to stop smoking! (10) Fall: Comment: 10/11/2025 Code(s): W19.XXXA - Unspecified fall, initial encounter Category: Medical (11) Left hip pain: Comment: fall 10/11/2025 Code(s): M25.552 - Pain in left hip Category: Medical (12) Elbow pain, left: Comment: fall 10/11/2025 Code(s): M25.522 - Pain in left elbow Category: Medical (13) Wrist pain, left: Comment: fall 10/11/2025 Code(s): M25.532 - Pain in left wrist Category: Medical (14) Low back pain: Comment: 10/11/2025 fall Code(s): M54.50 - Low back pain, unspecified Category: Medical Plan Plan Patient was informed and verbally consented to the use of an ambient scribe for clinic note documentation during this visit. 1. Fall The patient experienced a fall on her left side, causing pain in her back, neck, left hip, left elbow, and left wrist. X-rays of the left elbow, left hip, lumbar spine, and left wrist were ordered. A muscle relaxant was prescribed for pain, with caution that it may cause sleepiness and to avoid driving. 2. Chronic Constipation And Fecal Impaction The patient has been seen by gastroenterology for fecal impaction. She has been managed with bisacodyl, glycerin, and metoclopramide 5 mg four times a day. The patient was counseled on the importance of dietary changes, including increasing water intake, adding fiber supplements like Citrucel, and eating vegetables, while decreasing tea consumption to one or two cups a day. 3. Multiple Endocrine Neoplasia Continue follow-up with endocrinology for management of MEN2A. For history of bilateral medullary thyroid cancer, she will continue Synthroid and undergo CEA and calcitonin testing. A neck ultrasound is scheduled for January 2026. For history of pheochromocytoma, plasma metanephrine and normetanephrine levels will be obtained now, with a CT scan in one year, to be repeated yearly until 2027. 4. Anemia The patient follows with hematology/oncology for anemia and is intolerant of oral iron but currently has no anemia. Continue to be monitored by hematology/oncology. 5. Tobacco Use The patient was strongly advised to stop smoking. 6. Chronic Obstructive Pulmonary Disease Continue Xopenex inhaler as needed. 7. Left Dorsal Wrist Ganglion Cyst The patient has a planned surgery with orthopedics for a left hand cyst. She was advised to get a nerve conduction test for carpal tunnel syndrome first. 8. Medication Refills A prescription for sertraline 100 mg was sent to the pharmacy, as the previous 150 mg prescription was not filled. Aspirin and Zyrtec prescriptions were also sent to the pharmacy. Discussion Notes I had an extensive discussion with the patient and her daughter regarding her diet and lifestyle, which are significantly contributing to her chronic constipation and recent ER visit for fecal impaction. I emphasized that while she is being treated with medications like metoclopramide, fundamental changes are necessary. I advised her to significantly increase water intake, noting that tea is a diuretic and does not hydrate the gut, and to incorporate fiber supplements and vegetables into her diet. I explained that resolving her constipation requires these basic lifestyle modifications and that medical interventions alone cannot fix the problem if the underlying causes are not addressed. We also discussed her recent fall. I ordered x-rays of her left elbow, left hip, lumbar spine, and left wrist to rule out fractures. I prescribed a muscle relaxant for her pain and counseled her that it may cause sleepiness, advising her not to drive while taking it. I reviewed her multiple chronic conditions and the importance of continuing follow-up with her specialists, including endocrinology, gastroenterology, and hematology/oncology. I also strongly advised her to quit smoking. I refilled her sertraline at 100 mg and her aspirin. I will follow up on the x-ray results and contact her if there are any significant findings. Patient Instructions - Go for the ordered X-rays of your left elbow, left hip, lower back, and left wrist due to your fall today. - You have been prescribed a muscle relaxant for pain. - This medication can make you sleepy, so do not drive or do activities that require concentration after taking it. - To help with constipation, it is very important to change your diet. - Drink more plain water and less tea. - Try to eat more vegetables and add a fiber supplement like Citrucel to your diet, but make sure you drink plenty of water with it. - You are strongly advised to stop smoking. - Continue taking your metoclopramide for constipation as prescribed. - Continue to take your Xopenex inhaler for COPD as needed. - Prescriptions for sertraline 100 mg and aspirin have been sent to your pharmacy. - Continue to follow up with your other doctors, including endocrinology, gastroenterology, and hematology/oncology. - We will call you with your x-ray results. Orders: Orders XR hip LT min 2V Today M25.552 - Pain in left hip XR lumbar spine 2-3V Today M54.50 - Low back pain, unspecified XR wrist LT 2V Today M25.532 - Pain in left wrist XR elbow LT 2V Today M25.522 - Pain in left elbow Medications: New cyclobenzaprine 5 mg PO TID PRN 30 tabs 0RF muscle spasm M25.552 - Pain in left hip sertraline 100 mg PO DAILY 90 tabs 0RF F32.A - Depression, unspecified Refilled aspirin (Adult Aspirin Regimen) 81 mg PO DAILY 90 tabs 3RF F32.A - Depression, unspecified
== END 2025-10-11 17:34 | disposition home or self-care (01) ==
LOC: HO.HMCH 16:10
PROVIDERS: PCP Internal Medicine; Visit Provider Internal Medicine
DX: E31.22 Multiple endocrine neoplasia [MEN] type IIA (principal); J43.9 Emphysema, unspecified; K56.41 Fecal impaction; E89.0 Postprocedural hypothyroidism; Z86.018 Personal history of other benign neoplasm; K21.9 Gastro-esophageal reflux disease without esophagitis; D50.9 Iron deficiency anemia, unspecified; M67.432 Ganglion, left wrist; F17.210 Nicotine dependence, cigarettes, uncomplicated; W19.XXXA Unspecified fall, initial encounter; M25.552 Pain in left hip; M25.522 Pain in left elbow; M25.532 Pain in left wrist; M54.50 Low back pain, unspecified

== ENCOUNTER → 2025-10-11 16:09 | Outpatient (BNVA) | payer OTHER, SELFPAY | PROVIDERS: PCP Internal Medicine; Visit Provider Internal Medicine | DX: E89.0 Postprocedural hypothyroidism (principal); E31.22 Multiple endocrine neoplasia [MEN] type IIA; K21.9 Gastro-esophageal reflux disease without esophagitis; K56.41 Fecal impaction; D50.9 Iron deficiency anemia, unspecified; M67.432 Ganglion, left wrist; J43.9 Emphysema, unspecified; F17.210 Nicotine dependence, cigarettes, uncomplicated; M25.552 Pain in left hip; M25.522 Pain in left elbow; M25.532 Pain in left wrist; M54.50 Low back pain, unspecified; Z91.81 History of falling; Z86.018 Personal history of other benign neoplasm | CPT/HCPCS: 99212 ==

== ENCOUNTER 2025-10-12 10:50 | Outpatient (REF) | payer OTHER, SELFPAY ==
--- NOTE | ~2025-10-12 | XR_ITS ---
EXAMINATION: XR HIP, LEFT CLINICAL INFORMATION: M25.552 - Pain in left hip COMPARISON: X-ray 08/06/2017 TECHNIQUE: Two views of the left hip. FINDINGS: No fracture. Alignment is anatomic. Hip joint space is maintained. Soft tissues are unremarkable. XR/XR hip LT min 2V IMPRESSION: No acute findings Electronically signed by: Kirk Bautista MD 10/12/2025 04:09 PM EST
--- NOTE | ~2025-10-12 | XR_ITS ---
EXAMINATION: XR ELBOW, LEFT CLINICAL INFORMATION: M25.522 - Pain in left elbow COMPARISON: None available. TECHNIQUE: AP, lateral, and oblique views of the left elbow. FINDINGS: No visible acute fracture. No joint effusion. Alignment is anatomic. Joint spaces are maintained. No abnormal soft tissue calcification XR/XR elbow LT 2V IMPRESSION: No acute findings Electronically signed by: Kirk Bautista MD 10/12/2025 04:17 PM [facility]
--- NOTE | ~2025-10-12 | XR_ITS ---
EXAMINATION: XR LUMBOSACRAL SPINE CLINICAL INFORMATION: M54.50 - Low back pain, unspecified COMPARISON: 12/26/2021 TECHNIQUE: Three views of the lumbosacral spine. FINDINGS: Surgical clips right upper quadrant are new since prior examination and consistent with cholecystectomy. There is a single surgical clip in the right hemipelvis. Again seen is extensive postsurgical hardware with posterior pedicle screws and rods spanning from T12 through S1. There is a transverse connector just below the L3 pedicle screws. The right emeli is broken just cephalad to the L3 screw, unchanged. L1-2 demonstrates moderate disc space narrowing with degenerative endplate irregularity. Interbody bone graft bridges across L2-3 and L3-4. There appears to be calcification or ossification of the disc at L4-5 and L5-S1. There is defect from laminectomy at L5-S1. Vertebral body height and alignment is preserved. XR/XR lumbar spine 2-3V IMPRESSION: Stable postoperative changes. Electronically signed by: Cal Felipe MD 10/12/2025 12:38 PM [facility]
--- NOTE | ~2025-10-12 | XR_ITS ---
EXAMINATION: XR WRIST, LEFT CLINICAL INFORMATION: M25.532 - Pain in left wrist COMPARISON: None available. TECHNIQUE: Four views of the left wrist. FINDINGS: No fracture. No significant joint space narrowing. No marginal osteophytes. No osseous erosion. No abnormal soft tissue calcification. XR/XR wrist LT 2V IMPRESSION: No acute findings Electronically signed by: Kirk Bautista MD 10/12/2025 04:26 PM EST
--- OUTSIDE RECORDS SUMMARY | 2025-10-12 14:01 | XMS_ITS | Encounter Summary ---
Author Organization [facility] Address [address] [place] [address] Phone Care Team Providers Care Sole Splitter Name Role Phone Jayshree White MD Primary Care Provider [phone] Encounter Details Date Type Department Care Team (Late st Contact Info) Description 07/18/2016 Ancillary Orders [facility] [address] [place] [address] Moose Reyes MD [address] [place] [address], [address] [place] [address] [email or web address] Pain (Primary Dx) Social History Tobacco Use [...] 1 Hour (07/18/2016 10:15 AM EDT) Narrative [facility] INTERFACES - 07/18/2016 10:17 AM EDT Fluoroscopy was provided during this procedure. us Moose SANTIZO [place] MISC Final Result [facility] INTERFACES * XR LUMBOSACRAL SPINE 2-3 [...] right greater than right. COMMENT: Intraoperative, small [id number] fluoroscopic low resolution frontal and image(s) of [...] right greater than right. COMMENT: Intraoperative, small [id number] fluoroscopic low resolution frontaland image(s) of the [...] pain documented in this encounter Care Teams Sole Splitter Relationship Specialty Start Date End Date Po, Jayshree Collins MD [address] [place] [address] Drive [address] [place] [address] PCP - General Internal Medicine 10/30/15 documented as of this encounter Additional Source Comments The information contained in this document represents components of the legal health record. It is not the complete legal health record.[facility]
--- OUTSIDE RECORDS SUMMARY | 2025-10-12 14:01 | XMS_ITS | Encounter Summary ---
Author Organization Formerly [facility] Address [address] [place] [address] Phone Care Team Providers Care Software Engineering Supervisor Name Role Phone Jayshree White MD Primary Care Provider [phone] Reason for Visit * Reason Onset Date Comments Post Discharge Follow Up Call 07/22/2016 Encounter Details Date Type Department Care Team (Late st Contact Info) Description 07/22/2016 Telephone [facility] [address] [phone] Dianne Freeman RN [address] [place] [address] [email or web address] Discharge Follow Up Call Social [...] on filedocumented in this encounter Care Teams Software Engineering Supervisor Relationship Specialty Start Date End Date Jayshree White MD [address] [place] [address] PCP - General Internal Medicine 10/30/15 documented as of this encounter Additional Source Comments The information contained in this document represents components of the legal health record. It is not the complete legal health record.[facility]
--- OUTSIDE RECORDS SUMMARY | 2025-10-12 14:02 | XMS_ITS | Patient Health Record ---
Author Organization [facility] Address [address] [place] [address] Care Team Providers Care Optical Fabricator Name Role Phone SHANTA JIMENEZ M.D. Primary Care Provider Felicia Lord Unavailable [phone] Allergies Allergen (clinical drug ingredient) Drug/Non Drug [...] Problem History of malignant neoplasm of thyroid (917264346) Personal history of malignant neoplasm of thyroid (V10.87) Active confirmed Problem Postmenopausal atrophic vaginitis (57627962) Postmenopausal atrophic vaginitis (N95.2) Active confirmed Problem Anogenital warts (008117768) Anogenital (venereal) warts (A63.0) Active confirmed Problem Atrophy of vulva (949748971) Atrophy of vulva (N90.5) Active confirmed Problem Postcoital bleeding (85637221) Postcoital and contact bleeding (N93.0) Active confirmed Problem Hypothyroidism (03879180) Unspecified hypothyroidism (244.9) Active confirmed Major Plan [...]
--- OUTSIDE RECORDS SUMMARY | 2025-10-12 14:02 | XMS_ITS | Clinical Summary ---
Author Organization [facility] Address [address] [place] [address] Phone Care Team Providers Care Light Rail Signal Technician Name Role Phone Jayshree White MD Primary Care Provider [phone] Allergies Active Allergy Reactions Criticality Noted Date [...] (Age 63) kidney CA Father (Age 47) [place], smoker, ET [place] Mother (Age 75) brain [...] this topic Medical Devices Implanted Type Area Service Delivery Analyst Device Identifier Shelf Expiration Date Model / Serial / Lot Hardware To Back Substitute Bone 10ml Graft Dbm Calcium Phosphate Putty Kit [employer] - [id number] Implanted:Qty: 1 on 07/18/2016 by Moose Reyes MD at [facility] N/A: Spine Lumbar [employer] 03/26/2019 76-6022 / / [id number] Cage Lateral Peek L40 H10 Spine Code 31 - [id number] Implanted:Qty: 1 on 07/18/2016 by Moose Reyes MD at [facility] N/A: Spine Lumbar [employer] 05/07/2021Apr- 40 10-S / / [id number] Cage Lateral Peek L40 H10 Spine Code 31 - [id number] Implanted:Qty: 1 on 07/18/2016 by Moose Reyes MD at [facility] N/A: Spine Lumbar [employer] 05/07/2021Apr- 40 10-S / / [id number] Insurance Immediately [facility] [place] [phone] [facility] [place] [facility] [place] [facility] [place] [facility] [place] [facility] Advance Directives For more information, please contact: [phone] (9AM - 5PM Giulia/[facility], Friday-Friday) Documents on File Type Date Recorded Patient Metallurgical Tester Expl anation Healthcare Proxy 07/22/2016 10:40 AM * Full Code (Presumed) (Latest Code Status on File) Date Activated Date Inactivated Comments 07/18/2016 2:56 PM 07/19/2016 3:18 PM Care Teams Light Rail Signal Technician Relationship Specialty Start Date End Date Jayshree White MD [address] [place] [address] PCP - General Internal Medicine 10/30/15 Additional Source Comments The information contained in this document represents components of the legal health record. It is not the complete legal health record.[facility]
== END 2025-10-12 10:51 | disposition home or self-care (01) ==
LOC: HO.HMGCX 10:50
PROVIDERS: PCP Internal Medicine; Visit Provider Internal Medicine
DX: M25.522 Pain in left elbow (principal); M25.552 Pain in left hip; M54.50 Low back pain, unspecified; M25.532 Pain in left wrist
CPT/HCPCS: 72100; 73070; 73100; 73502

== ENCOUNTER 2025-10-26 15:32 | Outpatient (AMB) | payer OTHER, SELFPAY ==
--- NOTE | 2025-10-26 15:33 | A.OFFPC_ITS ---
Intake Visit Reasons: sinus infection? Special Education Paraprofessional Required: No Associate Theatre Professor: Not Required per policy Accompanied by: Self / Same As Patient Allergies codeine (Codeine) Allergy (Mild, Verified 10/26/25 15:33) N/V, HEADACHE, vomiting morphine (MORPHINE) Allergy (Unknown, Verified 10/26/25 15:33) VOMITING, HEADACHE, migraine, vomiting sulfamethoxazole (From Bactrim) Adverse Reaction (Intermediate, Verified 10/26/25 15:33) lip numbness trimethoprim (From Bactrim) Adverse Reaction (Intermediate, Verified 10/26/25 15:33) lip numbness ethyl chloride Allergy (Unknown, Uncoded 10/26/25 15:33) Unknown Medication List - Last Reconciled 10/26/25 by Jayshree Daniel Po, amitriptyline 75 mg PO BEDTIME 90 days ascorbate calcium (vitamin C) 500 mg PO DAILY aspirin (Adult Aspirin Regimen) 81 mg PO DAILY azelastine 1 spray intranasal BID 90 days azithromycin (Zithromax) For 250 mg dose pack: take 500 mg today (day 1), then 250 mg for 4 days (days 2-5) PO bisacodyl 15 mg (3 x 5 mg) PO BEDTIME cetirizine (Allergy Relief (cetirizine)) 10 mg PO DAILY cholecalciferol (vitamin D3) 50 mcg PO DAILY cyclobenzaprine 5 mg PO TID PRN docusate sodium (Colace) 100 mg PO BID PRN glycerin (adult) (Fleet Glycerin (Adult) rectal suppository) 2 supp MD DAILY levalbuterol tartrate 45 mcg/actuation (Xopenex HFA) 2 puffs inhalation Q4-6H PRN 90 days lidocaine 5% 2 patches topical DAILY metoclopramide HCl (Reglan) 5 mg PO .qidhs omeprazole 20 mg PO DAILY ondansetron 4 mg PO Q8H PRN ropinirole 0.5 mg PO BEDTIME ropinirole 1 mg PO BEDTIME sertraline 100 mg PO DAILY Synthroid (levothyroxine) 112 mcg PO DAILY NS Tobacco use date assessed: 10/26/25 Dental Screening Dental Screen Date: 10/11/25 HPI sinus infection? HPI Details sinus congestion, low grade , no sore throat, , no sob, cough nasal congestion, HPI Comments History of Present Illness Details History of Present Illness The patient is a 60 year old female presenting for evaluation of a suspected sinus infection. She reports her symptoms began after having a cold and include a low-grade fever of 99.9??F, stuffiness, sinus pressure, and cough. She denies significant sore throat or shortness of breath. She has tried a nasal spray without relief but has not performed sinus rinses. Her past medical history is significant for generalized anxiety disorder, COPD, constipation, GERD, hypercholesterolemia, hypothyroidism, and multiple endocrine neoplasia. She is overweight and continues to smoke. [facility] Medical History History of pheochromocytoma Anemia URI (upper respiratory infection) Breast cancer screening by mammogram Left flank discomfort History of medullary carcinoma of thyroid Left flank pain Multiple endocrine neoplasia type 2A (MEN2A) Medullary thyroid carcinoma Hypothyroid Pheochromocytoma of left adrenal gland Hypercholesterolemia COPD (chronic obstructive pulmonary disease) Pulmonary nodule Nicotine dependence, cigarettes, uncomplicated Osteopenia Irritable bowel syndrome with constipation Restless leg syndrome Anxiety Depression PONV (postoperative nausea and vomiting) Cervicalgia Pain in both feet Erosive (osteo)arthritis Bilateral hand pain Mass of left axilla Back pain Nevoid hyperpigmentation Neuritis of right ulnar nerve Neck pain Odynophagia Gout Surgical History S/P rotator cuff repair History of radical neck dissection (~01/2019) History of thyroidectomy (~03/2011) History of total adrenalectomy (~06/2018) History of laparoscopic cholecystectomy (~11/2022) History of total abdominal hysterectomy and bilateral salpingo-oophorectomy (~11/2013) History of tubal ligation (~10/2000) History of bilateral breast reduction surgery (~09/2019) History of repair of right rotator cuff (~04/2024) History of hand surgery (~02/2021) History of surgery on left wrist (~04/2010) History of fusion of lumbar spine History of tonsillectomy History of colonoscopy History of esophagogastroduodenoscopy (EGD) Family History Father Heart attack Mother Brain cancer Lung cancer Cervical cancer Family/Other Diabetes Sister Cervical cancer Lung cancer Daughter Breast cancer Social History Household Members: Spouse and Children Housing: Other Housing Other:: Trailer Alcohol intake: never Patient Tobacco Use Status: Current everyday Tobacco user Tobacco use type: Cigarette Cigarette Packs Per Day: 1 Cigarettes Per Day: 15 Years Smoked: (onset 14yo, 3/4-1ppd x 44yrs - 35pyh) Packs Per Year: 0 Packs per year/per ci.00 e-Cigarette/Vaping Use: Never Used Second Hand Smoke Exposure: Yes Substance Use Type: Marijuana service: No Current occupational status: disabled Current occupation: left handed Gender identity: Female Cognitive needs: No Hearing needs: No Vision needs: Yes Questionnaire Thrive Questionnaire Date Thrive assessed: 10/11/25 JYOTHI-7 AMB Questionnaire JYOTHI-7 Date JYOTHI - 7 assessed: 10/11/25 Source: Developed by Drs. Moose Wright, Ira Membreno, Davy Trevino and colleagues, with an educational cheryl from [employer]. Review of Systems Narrative Review of Systems - Constitutional: Reports a low-grade fever of 99.9??F. - ENT: Reports sinus pressure and stuffiness. - Denies significant sore throat. - Respiratory: Reports a cough. - Denies shortness of breath. Physical exam (Primary Care) Tobacco/Smoking Status: Tobacco use Status Tobacco use date assessed 10/26/25 10/26/25 15:34 Patient Tobacco Use Status Current everyday Tobacco 10/26/25 15:34 Tobacco use type Cigarette 10/26/25 15:34 e-Cigarette/Vaping Use Never Used 10/26/25 15:34 Thrive Assessment: Date of Thrive Assessment Date Thrive assessed 10/11/25 10/26/25 15:34 Telehealth Telehealth Telehealth Platform: Telephone Location of provider rendering services: practice address Location of patient: address on file Patient Identification confirmed using: Name, : Yes Telehealth method: voice only Patient verbally consented to treatment: Yes Patient verbally consented to billing insurance company: Yes Patient informed of any privacy concerns related to visit: Yes Minutes spent on Phone/Video with Pt.: 15 Coding Level of Care Code Tele Est Pt Level 3 (37058) Diagnoses Nasal congestion R09.81 Nicotine dependence, cigarettes, uncomplicated F17.210 Assessment & Plan Assessment & Plan (1) Nasal congestion: Code(s): R09.81 - Nasal congestion Category: Medical (2) Nicotine dependence, cigarettes, uncomplicated: Comment: (onset 14yo, 3/4-1ppd x 44yrs 35pyh) CT June 2024 Code(s): F17.210 - Nicotine dependence, cigarettes, uncomplicated Category: Medical Plan Plan Patient was informed and verbally consented to the use of an ambient scribe for clinic note documentation during this visit. 1. Acute Sinusitis The patient's symptoms of low-grade fever, sinus pressure, and stuffiness following a cold are consistent with acute sinusitis. As her use of a nasal s pray has provided no relief, an antibiotic will be prescribed. The patient was also advised to maintain adequate hydration. 2. Tobacco Use Disorder The patient confirmed she continues to smoke. The importance of smoking cessation was emphasized as a health priority. Discussion Notes I spoke with the patient about her symptoms, which are suggestive of an acute sinus infection that developed after a recent cold. I acknowledged that her trial of a nasal spray was not effective. Based on her persistent symptoms, I informed her I would send a prescription for an antibiotic. I also advised her to maintain adequate fluid intake. We briefly discussed her smoking status, and I reiterated the critical importance of smoking cessation for her overall health. Patient Instructions - I am sending a prescription for an antibiotic to your pharmacy. - Please be sure to drink plenty of water to help with your recovery. - We discussed how important it is for you to quit smoking for your overall health. Medications: New azithromycin (Zithromax) For 250 mg dose pack: take 500 mg today (day 1), then 250 mg for 4 days (days 2-5) PO 6 tabs 0RF R09.81 - Nasal congestion
--- OUTSIDE RECORDS SUMMARY | 2025-10-26 16:01 | XMS_ITS | Encounter Summary ---
Author Organization [facility] Address [address] [place] [address] Phone Care Team Providers Care Trimming Operator Name Role Phone Jayshree White MD Primary Care Provider [phone] Reason for Visit * Reason Onset Date Comments Post Discharge Follow Up Call 07/22/2016 Encounter Details Date Type Department Care Team (Late st Contact Info) Description 07/22/2016 Telephone [facility] [address] [phone] Dianne Freeman RN [address] [place] [address] [email or web address] Discharge Follow Up Call Social [...] on filedocumented in this encounter Care Teams Trimming Operator Relationship Specialty Start Date End Date Jayshree White MD [address] [place] [address] PCP - General Internal Medicine 10/30/15 documented as of this encounter Additional Source Comments The information contained in this document represents components of the legal health record. It is not the complete legal health record.[facility]
--- OUTSIDE RECORDS SUMMARY | 2025-10-26 16:01 | XMS_ITS | Patient Health Record ---
Author Organization [facility] Address [address] [place] [address] Care Team Providers Care Waste Transportation Technician Name Role Phone SHANTA JIMENEZ M.D. Primary Care Provider Felicia Lord Unavailable [phone] Allergies Allergen (clinical drug ingredient) Drug/Non Drug [...] Problem History of malignant neoplasm of thyroid (494346907) Personal history of malignant neoplasm of thyroid (V10.87) Active confirmed Problem Postmenopausal atrophic vaginitis (04054144) Postmenopausal atrophic vaginitis (N95.2) Active confirmed Problem Anogenital warts (303904459) Anogenital (venereal) warts (A63.0) Active confirmed Problem Atrophy of vulva (604163303) Atrophy of vulva (N90.5) Active confirmed Problem Postcoital bleeding (05349796) Postcoital and contact bleeding (N93.0) Active confirmed Problem Hypothyroidism (42105802) Unspecified hypothyroidism (244.9) Active confirmed Major Plan [...]
--- OUTSIDE RECORDS SUMMARY | 2025-10-26 16:01 | XMS_ITS | Encounter Summary ---
Author Organization [facility] Address [address] [place] [address] Phone Care Team Providers Care Cyber Forensic Specialist Name Role Phone Jayshree White MD Primary Care Provider [phone] Encounter Details Date Type Department Care Team (Late st Contact Info) Description 07/18/2016 Ancillary Orders [facility] [address] [place] [address] Moose Reyes MD [address] [place] [address], [address] [place] [address] [email or web address] Pain (Primary Dx) Social History Tobacco Use [...] 1 Hour (07/18/2016 10:15 AM EDT) Narrative [facility] INTERFACES - 07/18/2016 10:17 AM EDT Fluoroscopy was provided during this procedure. us Moose SANTIZO FL MISC Final Result [facility] IMG INTERFACES * XR LUMBOSACRAL SPINE [...] right greater than right. COMMENT: Intraoperative, small [id number] fluoroscopic low resolution frontal and image(s) of [...] right greater than right. COMMENT: Intraoperative, small [id number]-[id number] fluoroscopic low resolution frontaland image(s) of the [...] pain documented in this encounter Care Teams Cyber Forensic Specialist Relationship Specialty Start Date End Date Po, Jayshree Collins MD [address] [place] [address] Drive [address] [place] [address] PCP - General Internal Medicine 10/30/15 documented as of this encounter Additional Source Comments The information contained in this document represents components of the legal health record. It is not the complete legal health record.[facility]
--- OUTSIDE RECORDS SUMMARY | 2025-10-26 16:01 | XMS_ITS | Clinical Summary ---
Author Organization [facility] Address [address] [employer] [facility] [address] [place] [address] Phone Care Team Providers Care Mop Machine Operator Name Role Phone Jayshree White MD Primary Care Provider [phone] Allergies Active Allergy Reactions Criticality Noted Date [...] (Age 62) kidney CA Father (Age 47) [place], smoker, ET [place] Mother (Age 75) brain [...] this topic Medical Devices Implanted Type Area List Of First Job Ideas Device Identifier Shelf Expiration Date Model / Serial / Lot Hardware To Back Substitute Bone 10ml Graft Dbm Calcium Phosphate Putty Kit [employer] - [id number] Implanted:Qty: 1 on 07/18/2016 by Moose Reyes MD at [facility] N/A: Spine Lumbar [employer] 03/26/2019 76-6022 / / [id number] Cage Lateral Peek L40 H10 Spine Code 31 - [id number] Implanted:Qty: 1 on 07/18/2016 by Moose Reyes MD at [facility] N/A: Spine Lumbar [employer] 05/07/2021Apr- 40 10-S / / [id number] Cage Lateral Peek L40 H10 Spine Code 31 - [id number] Implanted:Qty: 1 on 07/18/2016 by Moose Reyes MD at [facility] N/A: Spine Lumbar [employer] 05/07/2021Apr- 40 10-S / / [id number] Insurance Equigerminal [facility] [address] [facility] [place] [address] [facility] [place] [facility] [place] [facility] [place] [facility] [place] [facility] Advance Directives For more information, please contact: [phone] (9AM - 5PM Giulia/[facility], Friday-Friday) Documents on File Type Date Recorded Patient Emergency Communications Operator Expl anation Healthcare Proxy 07/22/2016 10:40 AM * Full Code (Presumed) (Latest Code Status on File) Date Activated Date Inactivated Comments 07/18/2016 2:56 PM 07/19/2016 3:18 PM Care Teams Mop Machine Operator Relationship Specialty Start Date End Date Jayshree White MD [address] [place] [address] PCP - General Internal Medicine 10/30/15 Additional Source Comments The information contained in this document represents components of the legal health record. It is not the complete legal health record.[facility]
== END 2025-10-26 15:57 | disposition home or self-care (01) ==
LOC: HO.HMCH 15:32
PROVIDERS: PCP Internal Medicine; Visit Provider Internal Medicine
DX: R09.81 Nasal congestion (principal); F17.210 Nicotine dependence, cigarettes, uncomplicated